=== PATIENT | male | born 1955 | race Caucasian/White ===

== ENCOUNTER 2020-01-29 09:06 | Outpatient (CLI) | payer MEDICARE, SELFPAY ==
[2020-01-29 09:56] LABS: Alanine Aminotransferase 15 U/L (4-50); Albumin Level 4.2 g/dL (3.5-5.1); Alkaline Phosphatase 75 U/L (38-126); Aspartate Amino Transferase 18 U/L (17-59); Bilirubin,Total 0.4 mg/dL (0.2-1.3); Blood Urea Nitrogen 24 mg/dL (9-20); Calcium 8.8 mg/dL (8.4-10.2); Carbon Dioxide 36 mmol/L (22-30); Chloride 101 mmol/L (98-107); Estimated Glomerular Filt Rate > 60; Glucose 114 mg/dL (75-110); Potassium 4.4 mmol/L (3.4-5.0); Sodium 142 mmol/L (137-145)
== END 2020-01-29 09:07 | disposition home or self-care (01) ==
PROVIDERS: PCP Family Medicine; Visit Provider Family Medicine
DX: I50.9 Heart failure, unspecified (principal)
CPT/HCPCS: 36415; 80053

== ENCOUNTER 2020-06-02 09:36 | Outpatient (CLI) | payer MEDICARE, SELFPAY ==
[2020-06-02 10:28] LABS: Alveolar/Arterial O2 Gradient 137.7 mmHg; Base Excess ABG 11.8 mEq/l (+/-2.0); Fractional Inspired Oxygen 40 %; HCO3 ABG 41.7 mEq/l (22.0-26.0); Oxygen Content ABG 16.7 %vol (16.0-22.0); PO2 ABG 52.4 mmHg (80.0-100.0); PO2 FiO2 Ratio Arterial Blood 1.31 %; Total Hemoglobin 14.3 g/dL (12.0-18.0); pH ABG 7.321 (7.350-7.450)
[2020-06-02 10:30] LABS: PCO2 ABG 82.7 mmHg (35.0-45.0)
[2020-06-02 10:31] LABS: Device NASAL CANNULA; Modified Allen's Test Pass; Oxygen Saturation ABG 82.4 % (95.0-100.0); Site Drawn LEFT RADIAL
--- NOTE | 2020-06-02 11:03 | PCRCNOTE ---
NATI SOTOMAYOR NOTIFIED OF CRITIAL ABG, PT WHEELED DOWN TO ER.
== END 2020-06-02 09:37 | disposition home or self-care (01) ==
PROVIDERS: PCP Family Medicine; Visit Provider Nurse Practitioner Family
DX: J96.11 Chronic respiratory failure with hypoxia (principal); J96.12 Chronic respiratory failure with hypercapnia
CPT/HCPCS: 36600; 82805

== ENCOUNTER 2020-06-02 10:45 | Inpatient (IN) | payer MEDICARE, SELFPAY ==
[2020-06-02] VITALS (22 sets, daily range): BP systolic 102–143; BP diastolic 47–79; PULSE 74–95; RESP 13–27; TEMP 36.1–36.8; O2SAT 90–99; BMI 46.5
--- NOTE | ~2020-06-02 | XR_ITS ---
EXAMINATION: XR chest 1V portable DATE: 06/02/2020 11:28 INDICATION: Shortness of breath with exertion. TECHNIQUE: A single frontal view of the chest was obtained on 2 radiographs. COMPARISON: Chest single view 10/17/2019, chest CT 06/11/2019 FINDINGS: There is mild atelectasis in the lingula. No pleural effusion or pneumothorax. Cardiomegaly is noted. There are old right rib fractures with chest wall deformity. IMPRESSION: 1. Mild atelectasis in the lingula. 2. Cardiomegaly. Reviewed, dictated and finalized at location A.
--- NOTE | ~2020-06-02 | CT_ITS ---
EXAMINATION:CT chest high resolution wo ne DATE: 06/05/2020 12:32 INDICATION: Worsening hypoxic respiratory failure. TECHNIQUE: Computed tomography (CT) of the chest was performed without intravenous contrast. Automate d exposure control and iterative reconstruction technique were employed. The dose-length product (DLP ) was 893.03 mGy-cm. COMPARISON: Chest CT 06/11/2019 FINDINGS: There is moderate emphysema. There is mild atelectasis bilaterally. There is chronic mild e levation of left hemidiaphragm. No pleural effusion. Cardiomegaly is noted. There are coronary artery calcifications. No pericardial effusion. There is a 2.8 cm mass in right adrenal gland measuring low -attenuation, consistent with an adenoma. Bilateral gynecomastia is noted. There are old right rib fr acture deformities. IMPRESSION: 1. Moderate emphysema. Reviewed, dictated and finalized at location A. IMPRESSION: 1. Moderate emphysema.
--- NOTE | 2020-06-02 11:03 | ECG_ITS ---
Measurements Intervals [place] Rate: 80 P: 44 PA: 182 QRS: -71 QRSD: 101 T: 12 QT: 363 QTc: 421 Interpretive Statements SINUS RHYTHM LEFT AXIS DEVIATION POOR R WAVE PROGRESSION, ANTERIOR LEADS INFERIOR INFARCT, AGE INDETERMINATE BASELINE ARTIFACT- I, II, III, AVR, AVL, AVF ABNORMAL ECG Electronically Signed On 06-02-2020 11:42:22 CDT by Cm Mcrae D.O.
[2020-06-02 11:16] LABS: Basophils Percent Auto 0.5 % (0.2-1.2); Eosinophils Absolute Auto 0.1 K/mm3 (0-0.3); Eosinophils Percent Auto 1.2 % (0-4.4); Hematocrit 48.5 % (42.0-52.0); Hemoglobin 13.6 g/dL (14.0-18.0); Immature Granulocyte Absolute 0.06 K/mm3 (0.00-0.031); Immature Granulocyte Percent A 0.8 % (0-0.5); Lymphocytes Absolute Auto 0.98 K/mm3 (0.9-3.2); Lymphocytes Percent Auto 12.6 % (18.3-44.2); Mean Corpuscular Hemoglobin 24.7 pg (26-34); Mean Platelet Volume 9.6 fl (7.4-10.4); Monocytes Absolute Auto 0.6 K/mm3 (0.1-0.6); Monocytes Percent Auto 7.5 % (2.6-8.5); Neutrophils Percent Auto 77.4 % (45.5-73.1); Platelet Count Result 229 k/mm3 (150-375); Red Blood Count 5.51 M/mm3 (4.6-6.20); Red Cell Distribution Width 15.1 % (11.5-14.5); White Blood Count 7.8 K/mm3 (4.5-10.0)
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
[2020-06-02 11:22] LABS: Platelet Estimate Adequate (Adequate); Stomatocytes 1+ (NORMAL)
[2020-06-02 11:32] LABS: Blood Urea Nitrogen 25 mg/dL (9-20); Calcium 8.2 mg/dL (8.4-10.2); Carbon Dioxide > 40 mmol/L (22-30); Chloride 96 mmol/L (98-107); Estimated CRCL calculation 85 ml/min; Estimated Glomerular Filt Rate > 60; Glucose 80 mg/dL (75-110); Potassium 4.9 mmol/L (3.4-5.0); Sodium 141 mmol/L (137-145)
[2020-06-02] MEDS: methylPREDNISolone SOD SUCC 125 MG VIAL IV PUSH (11:46)
[2020-06-02 12:01] LABS: NT Pro B Type Natriuretic Pept 1410 PG/ML (5-100); Troponin I < 0.012 ng/mL (0.000-0.034)
[2020-06-02] MEDS: FUROSEMIDE INJ 40 MG/4 ML VIAL IV PUSH ×2 (12:31→18:41)
[2020-06-02 12:43] LABS: Alveolar/Arterial O2 Gradient 110.2 mmHg; Base Excess ABG 13.2 mEq/l (+/-2.0); Fractional Inspired Oxygen 35 %; HCO3 ABG 43.7 mEq/l (22.0-26.0); Oxyhemoglobin 65.1 % THb (90.0-100.0); PO2 FiO2 Ratio Arterial Blood 1.05 %; Total Hemoglobin 14.2 g/dL (12.0-18.0); pH ABG 7.313 (7.350-7.450)
[2020-06-02 12:49] LABS: PCO2 ABG 88.1 mmHg (35.0-45.0); PO2 ABG 36.9 mmHg (80.0-100.0)
[2020-06-02 12:50] LABS: Device BIPAP; Modified Allen's Test Pass; Oxygen Saturation ABG 61.9 % (95.0-100.0); Site Drawn RIGHT RADIAL
[2020-06-02 12:51] LABS: Expiratory Pressure 8 cmH2O; Inspiratory Pressure 18 cmH2O
--- NOTE | 2020-06-02 13:02 | PC.NURSE ---
PT CAUGHT STANDING TO URINATE, PT IS FALL RISK, CALL LIGHT WAS AT BEDSIDE, PT RE-EDUCATED ON IT'S USE AND TOLD TO USE THE CALL LIGHT IF HE NEEDS TO URINATE.
[2020-06-02 13:23] LABS: Troponin I < 0.012 ng/mL (0.000-0.034)
--- NOTE | 2020-06-02 13:50 | PC.NURSE ---
AWAITING ED RESPIRATORY TO TRANSPORT PT ON BIPAP TO IMU.
--- NOTE | 2020-06-02 14:00 | PC.NURSE ---
This patient, Vimal Doty, was admitted to IMU Room 213-01. Patient/family oriented to hospital policies and general routines including ID bracelet, bed and alarms, visiting hours, pain management, procedures, bathroom and other care routines, personal items, smoking policy, room service/diet, and visiting hours. Valuables list has been completed. Information on how to activate the Rapid Response Team has been discussed. Patient/Family are encouraged to report perceived risks to care and to ask questions if they do not understand what they are told or what they should do.
--- NOTE | 2020-06-02 16:11 | PM.IMHP ---
H&P: HPI History of Present Illness Chief complaint: resp failure/COPD/CHF Narrative: Vimal Doty is a 64 year old male who has a history of diastolic congestive heart failure as well as COPD. The patient uses a trilogy at home and sees Dr. Buenrostro and Mathew buck for his COPD and his trilogy. The patient stated that he uses his trilogy at home as prescribed. But the patient states he has been resting a lot and feel tired all the time. He says that he uses oxygen 2-3 L inside and goes up to 5 L outside sometimes. The patient has been feeling bad for the last 3 weeks and has been coughing. But no fever chills. Patient was placed on a BiPAP machine. Arterial blood gas pH 7.3-1 and the 2nd was 7.313 pCO2 was 82.7 and 80.1 PO2 was 52.4 than 36.9. Patient's chest x-ray was read as mild atelectasis in the lingular and cardiomegaly. Patient was started on Lasix and Solu-Medrol. Patient was admitted to IMU. Date of service 06/02/2020 Review of Systems Review of Systems: All systems reviewed & are unremarkable except as noted in HPI and below Constitutional: Constitutional: Reports as per HPI and Reports no additional constitutional complaints Eyes: Eyes: Reports as per HPI and Reports no additional eye complaints ENT: Reports system reviewed and no additional complaints, except as documented and Reports Normal hearing present Cardiovascular: Cardiovascular: Reports no additional cardiovascular complaints Respiratory: Respiratory: Reports no additional respiratory complaints and Reports no additional respiratory complaints Gastrointestinal: Gastrointestinal: Reports as per HPI and Reports no additional gastrointestinal complaints Musculoskeletal: Musculoskeletal: Reports no additional musculoskeletal complaints Integumentary/Breasts: Skin/Breast: Reports system reviewed and no additional complaints, except as docu and Reports as per HPI Neurologic: Reports system reviewed and no additional complaints, except as documented, Reports as per HPI and Reports Normal hearing present Psychiatric: Psychiatric: Reports no additional psychiatric complaints and Reports as per HPI Endocrine: Endocrine: Reports no additional endocrine complaints Hematologic/Lymphatic: Hematologic/Lymphatic: Reports no additional hematologic/lymphatic complaints Allergic/Immunologic: Allergic/Immunologic: Reports no additional allergic/immunologic complaints [facility] Past Medical History Medical History (Updated 06/02/20 @ 16:34 by Ileana Ac NP) Acute on chronic respiratory failure with hypoxia and hypercapnia On chronic home O2 of 3 L nasal cannula. History of prior intubation October 2018 Anxiety Arthritis Atrial flutter Paroxysmal AFib with cardioversion April 2013 and October 23, 2019 BPH (benign prostatic hyperplasia) Bronchitis CHF (congestive heart failure) Last echocardiogram EF was 55% prior echocardiogram previous year demonstrated borderline left ventricular systolic function and diastolic dysfunction grade 1 Chronic constipation COPD (chronic obstructive pulmonary disease) Emphysema, unspecified GI bleed History of cardioversion History of tobacco abuse Hypertension Hypertensive CHF Morbid obesity with BMI of 45.0-49.9, adult Pneumonia Psoriasis Pulmonary hypertension RVSP 59 on echo from July 2019 Rectal bleeding Sleep apnea Home BiPAP 12/05 Surgical History Surgical History H/O arthroscopy of left knee History of tonsillectomy 1966 Hx of cardiac cath Left tibial fracture Family History Family History Mother Breast cancer Rheumatoid arthritis Hypertension Father Skin cancer With metastases to bone and brain Mother Family history of arthritis Family history of congestive heart failure Father Family history of malignant neoplasm of bone Other Diabetes mellitus Social History Social H
[2020-06-02 16:50] LABS: Alveolar/Arterial O2 Gradient 51.9 mmHg; Base Excess ABG 8.2 mEq/l (+/-2.0); Fractional Inspired Oxygen 30 %; HCO3 ABG 38.4 mEq/l (22.0-26.0); Oxygen Content ABG 18.2 %vol (16.0-22.0); Oxyhemoglobin 88.8 % THb (90.0-100.0); PO2 ABG 64.8 mmHg (80.0-100.0); PO2 FiO2 Ratio Arterial Blood 2.16 %; Total Hemoglobin 14.6 g/dL (12.0-18.0)
[2020-06-02 17:20] LABS: Device NON-INVASIVE VENT; Modified Allen's Test Pass; PCO2 ABG 82.7 mmHg (35.0-45.0); Site Drawn RIGHT RADIAL; pH ABG 7.285 (7.350-7.450)
[2020-06-02 17:21] LABS: Non-Invasive Expiratory Pressure 8 CMH2O; Non-Invasive Inspiratory Pressure 18 CMH2O; Non-Invasive Vent Rate 14 /MIN
[2020-06-02 18:28] LABS: Alveolar/Arterial O2 Gradient 60.8 mmHg; Base Excess ABG 11.3 mEq/l (+/-2.0); Fractional Inspired Oxygen 30 %; HCO3 ABG 41.7 mEq/l (22.0-26.0); Oxygen Content ABG 17.1 %vol (16.0-22.0); Oxyhemoglobin 83.5 % THb (90.0-100.0); PO2 ABG 52.9 mmHg (80.0-100.0); PO2 FiO2 Ratio Arterial Blood 1.76 %; Total Hemoglobin 14.6 g/dL (12.0-18.0); pH ABG 7.307 (7.350-7.450)
[2020-06-02 18:29] LABS: Oxygen Saturation ABG 82.2 % (95.0-100.0); PCO2 ABG 85.3 mmHg (35.0-45.0)
[2020-06-02 18:30] LABS: Device NON-INVASIVE VENT; Modified Allen's Test Pass; Non-Invasive Vent Rate 14 /MIN; Site Drawn RIGHT RADIAL
[2020-06-02 18:31] LABS: Non-Invasive Expiratory Pressure 8 CMH2O; Non-Invasive Inspiratory Pressure 18 CMH2O
--- NOTE | 2020-06-02 18:36 | PM.CNPUL ---
Assessment and Plan Assessment and plan (1) Acute on chronic respiratory failure with hypoxia and hypercapnia: Code(s): J96.21 - Acute and chronic respiratory failure with hypoxia; J96.22 - Acute and chronic respiratory failure with hypercapnia Status: Chronic Assessment and Plan: (2) COPD exacerbation: Code(s): J44.1 - Chronic obstructive pulmonary disease with (acute) exacerbation Status: Acute Assessment and Plan: (3) Pulmonary hypertension: Code(s): I27.20 - Pulmonary hypertension, unspecified Status: Acute Assessment and Plan: (4) CHF (congestive heart failure): Qualifiers: Heart failure chronicity: chronic Heart failure type: diastolic Qualified Code(s): I50.32 - Chronic diastolic (congestive) heart failure Code(s): I50.9 - Heart failure, unspecified Status: Acute Assessment and Plan: (5) Morbid obesity: Code(s): E66.01 - Morbid (severe) obesity due to excess calories Status: Acute Assessment and Plan: (6) History of tobacco abuse: Code(s): Z87.891 - Personal history of nicotine dependence Status: Acute Assessment and Plan: History of Present Illness History of Present Illness Consult date: 06/03/20 Chief complaint: resp failure/COPD/CHF Narrative: Patient was seen and consult completed June 03, 2020 at 13:50 with his son at the bedside. Please see dictation #[id number]. He is our office patient admitted with acute on chronic hypercapneic Hypoxemic respiratory failure with increased sleepiness and fatigue over the last 2 weeks. He has been sleeping in 2-3 hour increments, using trilogy with all sleep and home oxygen. He had a cough with difficulty expectorating sputum, so this suggests a COPD exacerbation. He also appears to have decompensated congestive heart failure. He called our office yesterday, was sent for an arterial blood gas and had elevated pCO2 with a slightly decompensated pH. He is responding to BiPAP, and is now transitioning back to his trilogy. We are getting his compliance data from [facility]. They faxed the last 3 weeks of April compliance to his primary care doctor, not our office. They are sending it now and this will be reviewed. PLAN Will also start Acapella valve with Pulmozyme, mobilize secretions wean his steroids check echo lower FiO2, pO2 now > 100 on 40%; repeat ABG and see if his Trilogy needs adjustment. check compliance for Trilogy from April Will check his blood gases more often after discharge. If he decompensates, will start steroids earlier as an outpatient. He has been doing well has not been hospitalized for 8 months. Last year he had 3 admissions. He is not at risk for intubation right now, looking better. I appreciate Dr Otto, hospitalist and RT for all the help. Will follow with you. [facility] Past Medical History Medical History (Updated 06/03/20 @ 15:05 by Julianna Buenrostro MD) Acute on chronic respiratory failure with hypoxia and hypercapnia On chronic home O2 of 3 L nasal cannula. History of prior intubation October 2018 Anxiety Arthritis Atrial flutter Paroxysmal AFib with cardioversion April 2013 and October 23, 2019 BPH (benign prostatic hyperplasia) Bronchitis CHF (congestive heart failure) Last echocardiogram EF was 55% prior echocardiogram previous year demonstrated borderline left ventricular systolic function and diastolic dysfunction grade 1 Chronic constipation COPD (chronic obstructive pulmonary disease) Emphysema, unspecified GI blee
[2020-06-02] MEDS: APIXABAN 5 MG TABLET PO (20:18)
[2020-06-02] MEDS: METOPROLOL TARTRATE 25 MG TABLET PO (20:18)
[2020-06-02] MEDS: TAMSULOSIN HCL 0.4 MG CAPSULE PO (20:18)
[2020-06-02] MEDS: DRONEDARONE HCL 400 MG TABLET PO (20:18)
[2020-06-02] MEDS: ALBUTEROL SULFATE NEB 2.5 MG/3 ML INH INHALATION (21:16)
[2020-06-02] MEDS: BUDESONIDE RESPULE NEB 0.5 MG/2 ML AMP INHALATION (21:17)
[2020-06-02] MEDS: methylPREDNISolone SOD SUCC 125 MG VIAL 60 MG IV PUSH (22:18)
[2020-06-03] VITALS (28 sets, daily range): BP systolic 111–134; BP diastolic 49–76; PULSE 69–96; RESP 20–28; TEMP 36.1–36.6; O2SAT 90–100
[2020-06-03 00:18] LABS: Alveolar/Arterial O2 Gradient 134.3 mmHg; Base Excess ABG 11.2 mEq/l (+/-2.0); Carboxyhemoglobin 1.6 % THb (0-2.0); Fractional Inspired Oxygen 40 %; HCO3 ABG 40.6 mEq/l (22.0-26.0); Methemoglobin ABG 0.3 %THb (0-1.5); Modified Allen's Test Pass; Oxygen Content ABG 17.2 %vol (16.0-22.0); Oxygen Saturation ABG 88.7 % (95.0-100.0); Oxyhemoglobin 87.5 % THb (90.0-100.0); PO2 ABG 61.2 mmHg (80.0-100.0); PO2 FiO2 Ratio Arterial Blood 1.53 %; Reduced Hemoglobin 10.6 %THb (0-5.0); Site Drawn RIGHT RADIAL; pH ABG 7.334 (7.350-7.450)
[2020-06-03 00:19] LABS: Device NON-INVASIVE VENT
[2020-06-03 00:21] LABS: Non-Invasive Expiratory Pressure 8 CMH2O; Non-Invasive Inspiratory Pressure 22 CMH2O; Non-Invasive Vent Rate 20 /MIN
[2020-06-03 05:02] LABS: Basophils Percent Auto 0.2 % (0.2-1.2); Hematocrit 47.8 % (42.0-52.0); Hemoglobin 13.3 g/dL (14.0-18.0); Immature Granulocyte Absolute 0.02 K/mm3 (0.00-0.031); Immature Granulocyte Percent A 0.4 % (0-0.5); Lymphocytes Percent Auto 9.4 % (18.3-44.2); Mean Corpuscular HGB Conc 27.8 g/dl (32-36); Mean Corpuscular Hemoglobin 24.4 pg (26-34); Mean Corpuscular Volume 87.5 fl (80-100); Mean Platelet Volume 9.6 fl (7.4-10.4); Monocytes Absolute Auto 0.1 K/mm3 (0.1-0.6); Monocytes Percent Auto 1.7 % (2.6-8.5); Neutrophils Absolute Auto 4.7 K/mm3 (1.3-6.7); Neutrophils Percent Auto 88.3 % (45.5-73.1); Platelet Count Result 214 k/mm3 (150-375); Red Blood Count 5.46 M/mm3 (4.6-6.20); Red Cell Distribution Width 15.2 % (11.5-14.5); White Blood Count 5.3 K/mm3 (4.5-10.0)
[2020-06-03 05:29] LABS: Alanine Aminotransferase 13 U/L (4-50); Albumin Level 3.7 g/dL (3.5-5.1); Alkaline Phosphatase 66 U/L (38-126); Aspartate Amino Transferase 14 U/L (17-59); Bilirubin,Total 0.5 mg/dL (0.2-1.3); Blood Urea Nitrogen 30 mg/dL (9-20); CRP 1.1 mg/dL (<1.0); Calcium 7.9 mg/dL (8.4-10.2); Carbon Dioxide > 40 mmol/L (22-30); Chloride 94 mmol/L (98-107); Estimated CRCL calculation 92 ml/min; Estimated Glomerular Filt Rate > 60; Glucose 133 mg/dL (75-110); Lipase 30 U/L (23-300); Magnesium 2.4 mg/dL (1.6-2.3); Phosphorus 4.4 mg/dL (2.5-4.5); Potassium 4.7 mmol/L (3.4-5.0); Sodium 139 mmol/L (137-145)
[2020-06-03 05:57] LABS: Thyroid Stimulating Hormone Reflex 0.339 uIU/mL (0.465-4.68)
[2020-06-03] MEDS: methylPREDNISolone SOD SUCC 125 MG VIAL 60 MG IV PUSH (06:00)
[2020-06-03 06:51] LABS: Free T4 Free Thyroxine Reflex 0.91 ng/dL (0.78-2.19)
[2020-06-03 08:02] LABS: Total Triiodothyronine (T3) 0.93 NG/ML (0.97-1.69)
[2020-06-03] MEDS: BUDESONIDE RESPULE NEB 0.5 MG/2 ML AMP INHALATION ×2 (08:46→20:10)
[2020-06-03] MEDS: PANTOPRAZOLE 40 MG TABLET PO (09:26)
[2020-06-03 09:27] LABS: CRP 0.9 mg/dL (<1.0); Lactate Dehydrogenase 390 U/L (313-618)
[2020-06-03] MEDS: DRONEDARONE HCL 400 MG TABLET PO ×2 (09:27→20:45)
[2020-06-03] MEDS: METOPROLOL TARTRATE 25 MG TABLET PO ×2 (09:27→20:46)
[2020-06-03] MEDS: ROFLUMILAST 500 MCG TABLET PO (09:28)
[2020-06-03] MEDS: APIXABAN 5 MG TABLET PO ×2 (09:28→17:53)
[2020-06-03] MEDS: POTASSIUM CHLORIDE 20 MEQ TABLET.ER PO (09:29)
[2020-06-03] MEDS: FUROSEMIDE INJ 40 MG/4 ML VIAL IV PUSH ×2 (09:29→17:53)
[2020-06-03] MEDS: polyethylene glycoL 3350 17 GM POWD.PACK PO (09:30)
[2020-06-03 12:23] LABS: Alveolar/Arterial O2 Gradient 97.8 mmHg; Base Excess ABG 9.8 mEq/l (+/-2.0); Fractional Inspired Oxygen 40 %; HCO3 ABG 38.7 mEq/l (22.0-26.0); Methemoglobin ABG 0.2 %THb (0-1.5); Oxygen Content ABG 19.5 %vol (16.0-22.0); Oxygen Saturation ABG 97.2 % (95.0-100.0); Oxyhemoglobin 95.9 % THb (90.0-100.0); PO2 ABG 103.2 mmHg (80.0-100.0); PO2 FiO2 Ratio Arterial Blood 2.58 %; Reduced Hemoglobin 2.9 %THb (0-5.0); Total Hemoglobin 14.4 g/dL (12.0-18.0); pH ABG 7.341 (7.350-7.450)
[2020-06-03 12:25] LABS: Device NON-INVASIVE VENT; Modified Allen's Test Pass; Non-Invasive Expiratory Pressure 8 CMH2O; Non-Invasive Inspiratory Pressure 22 CMH2O; Non-Invasive Vent Rate 20 /MIN; PCO2 ABG 73.2 mmHg (35.0-45.0); Site Drawn LEFT RADIAL
--- NOTE | 2020-06-03 12:47 | PM.IMPN ---
Progress Note: A&P Assessment and Plan (1) Acute on chronic respiratory failure with hypoxia and hypercapnia: Code(s): J96.21 - Acute and chronic respiratory failure with hypoxia; J96.22 - Acute and chronic respiratory failure with hypercapnia Status: Chronic Assessment and Plan: -----the patient has chronic respiratory failure which has worsened this hospital stay. On admission his CO2 was significantly elevated at a max of 88.1. He did become acidotic briefly with this with a pH of 7.285. He has been on the BiPAP now overnight and throughout the day which has improved his CO2 to 73.2. With that being said, this is still pretty high for him. It looks like in the chart his co2 was 58.8 last September. He does have a trilogy at home which implies that he has chronic issues with this. His pH is still abnormal at 7.341 but improving. Bicarb is 38.7 and is expected to increase with this hypercapnia. I spoke with respiratory at bedside who is now taking him off his BiPAP and putting him on his trilogy. We will repeat an ABG after being on his trilogy to see how his blood gas does. If it worsens, the trilogy may need to be adjusted. I do not suspect PE or infection at this time but will monitor for symptoms. Patient's white blood cell count is normal and he has not had any temperatures. Patient is on Eliquis and PE seems less likely. (2) COPD exacerbation: Code(s): J44.1 - Chronic obstructive pulmonary disease with (acute) exacerbation Status: Acute Assessment and Plan: -----continue. IV Solu-Medrol and inhalers. Nebulizer treatments. Patient had decreased breath sounds today. (3) CHF (congestive heart failure): Qualifiers: Heart failure chronicity: unspecified Heart failure type: unspecified Qualified Code(s): I50.9 - Heart failure, unspecified Code(s): I50.9 - Heart failure, unspecified Status: Acute Assessment and Plan: -------BNP more elevated than his baseline but could be due to lung disease. At this time we will Continue IV Lasix but will likely transition to his home dosing tomorrow as long as he does okay. (4) Hypertension: Qualifiers: Hypertension type: essential hypertension Qualified Code(s): I10 - Essential (primary) hypertension Code(s): I10 - Essential (primary) hypertension Status: Acute Assessment and Plan: -----last blood pressure 123/57. Continue Lopressor and Lasix. (5) Sleep apnea: Qualifiers: Sleep apnea type: obstructive Qualified Code(s): G47.33 - Obstructive sleep apnea (adult) (pediatric) Code(s): G47.30 - Sleep apnea, unspecified Status: Acute Assessment and Plan: -----continue trilogy as stated above (6) Atrial flutter: Qualifiers: Atrial flutter type: unspecified Qualified Code(s): I48.92 - Unspecified atrial flutter Code(s): I48.92 - Unspecified atrial flutter Status: Acute Assessment and Plan: ------continue with Eliquis and metoprolol (7) BPH (benign prostatic hyperplasia): Code(s): N40.0 - Benign prostatic hyperplasia without lower urinary tract symptoms Status: Acute Assessment and Plan: -----Continue with Flomax Time Spent With Patient Time with patient: 25 - 35 minutes Subjective Date/time seen: 06/03/20 12:47 Interval history: Pt is a 64-year-old male here for COPD exacerbation on a BiPAP. Patient was seen today with BiPAP in place. He states he is feeling a lot better and is tired of the BiPAP. He had some shortness of breath earlier when he was moving around but overall doing better now. He denies chest pain, fevers, chills, nausea or vomiting. He said he has gets eye irritation with the BiPAP and usually likes eyedrops without preservative. He says he has been having more daytime sleepiness and shortness of breath throughout the last couple weeks and he was told t
--- NOTE | 2020-06-03 16:33 | PHAR ---
Refresh Relieva PF home med verified in pharmacy and sent to floor
[2020-06-03 17:05] LABS: Alveolar/Arterial O2 Gradient 132.6 mmHg; Base Excess ABG 8.1 mEq/l (+/-2.0); Fractional Inspired Oxygen 40 %; HCO3 ABG 36.5 mEq/l (22.0-26.0); Oxygen Content ABG 18.5 %vol (16.0-22.0); Oxygen Saturation ABG 93.4 % (95.0-100.0); Oxyhemoglobin 92.1 % THb (90.0-100.0); PO2 ABG 73.4 mmHg (80.0-100.0); PO2 FiO2 Ratio Arterial Blood 1.84 %; Total Hemoglobin 14.3 g/dL (12.0-18.0); pH ABG 7.342 (7.350-7.450)
[2020-06-03 17:06] LABS: Device NON-INVASIVE VENT; Modified Allen's Test Pass; PCO2 ABG 68.9 mmHg (35.0-45.0); Site Drawn LEFT RADIAL
--- NOTE | 2020-06-03 17:15 | PCRCNOTE ---
PATIENT WAS ON TRIOLOGY FOR 1700 BLOOD GAS RESULTS
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
[2020-06-03] MEDS: ALBUTEROL SULFATE NEB 2.5 MG/3 ML INH INHALATION (20:11)
[2020-06-03] MEDS: DORNASE ALFA INH SOLN 1 MG/ML 2.5 ML AMP 2.5 MG INHALATION (20:12)
[2020-06-03] MEDS: methylPREDNISolone SOD SUCC 40 MG VIAL IV PUSH (20:45)
[2020-06-03] MEDS: TAMSULOSIN HCL 0.4 MG CAPSULE PO (20:46)
[2020-06-03] MEDS: SENNOSIDES 8.6 MG TABLET PO (20:46)
[2020-06-04] VITALS (27 sets, daily range): BP systolic 98–128; BP diastolic 54–91; PULSE 71–88; RESP 20–24; TEMP 35.7–36.7; O2SAT 88–97
[2020-06-04] MEDS: ALBUTEROL SULFATE NEB 2.5 MG/0.5 ML INH INHALATION ×4 (01:40→20:02)
[2020-06-04] MEDS: IPRATROPIUM BR 0.02% INH SOLN 0.5 MG/2.5 ML VIAL INHALATION ×4 (01:41→20:02)
[2020-06-04 07:50] LABS: Blood Urea Nitrogen 41 mg/dL (9-20); Carbon Dioxide > 40 mmol/L (22-30); Chloride 92 mmol/L (98-107); Estimated CRCL calculation 91 ml/min; Estimated Glomerular Filt Rate > 60; Glucose 111 mg/dL (75-110); Potassium 4.5 mmol/L (3.4-5.0); Sodium 136 mmol/L (137-145)
[2020-06-04] MEDS: DORNASE ALFA INH SOLN 1 MG/ML 2.5 ML AMP 2.5 MG INHALATION ×2 (07:53→20:03)
[2020-06-04] MEDS: BUDESONIDE RESPULE NEB 0.5 MG/2 ML AMP INHALATION ×2 (07:55→20:03)
[2020-06-04] MEDS: PANTOPRAZOLE 40 MG TABLET PO (08:57)
[2020-06-04] MEDS: polyethylene glycoL 3350 17 GM POWD.PACK PO (08:57)
[2020-06-04] MEDS: METOPROLOL TARTRATE 25 MG TABLET PO ×2 (08:57→20:24)
[2020-06-04] MEDS: methylPREDNISolone SOD SUCC 40 MG VIAL IV PUSH ×2 (08:57→20:24)
[2020-06-04] MEDS: FUROSEMIDE INJ 40 MG/4 ML VIAL IV PUSH (08:57)
[2020-06-04] MEDS: APIXABAN 5 MG TABLET PO ×2 (08:58→16:35)
[2020-06-04] MEDS: POTASSIUM CHLORIDE 20 MEQ TABLET.ER PO (08:58)
[2020-06-04] MEDS: ROFLUMILAST 500 MCG TABLET PO (08:58)
[2020-06-04] MEDS: DRONEDARONE HCL 400 MG TABLET PO ×2 (08:58→20:24)
--- NOTE | 2020-06-04 09:40 | P.CDI_ITS ---
CDI Query Clarification Request -CHF has been documented on problem list, chronicity unspecified, and BNP more elevated than his baseline but could be due to lung disease. At this time we will Continue IV Lasix but will likely transition to his home dosing tomorrow as long as he does okay. -Ileana has documented, history of diastolic CHF in H&P -Lasix 40mg IV BID ordered Please clarify acuity of CHF: * Chronic * Acute on chronic * Unable to determine
--- NOTE | 2020-06-04 12:11 | PM.PNPUL ---
Progress Note: A&P Assessment and Plan (1) Chronic respiratory failure with hypoxia and hypercapnia: Code(s): J96.11 - Chronic respiratory failure with hypoxia; J96.12 - Chronic respiratory failure with hypercapnia Status: Acute Assessment and Plan: May need change to current [facility] setting. - Further recommendations to follow. - will order HRCT of the chest to bettter r/o underlying ILD, pneumonias that may not easily be seen on CXR. (2) COPD (chronic obstructive pulmonary disease): Qualifiers: COPD type: unspecified COPD Qualified Code(s): J44.9 - Chronic obstructive pulmonary disease, unspecified Code(s): J44.9 - Chronic obstructive pulmonary disease, unspecified Status: Acute Subjective Date/time seen: 06/04/20 12:11 Interval history: Feeling much better on AVAPS Trilogy. Today's AB.34/68/73 on current setting of: TV 510 ml, EPAP max 15, EPAP Min 5, RR 18, Inspiratory Time 0.8, Pressure Support Max 22 and Min 5.0. Still no sputum production Review of Systems Review of Systems: All systems reviewed & are unremarkable except as noted in HPI and below Exam Const: General: comfortable and no acute distress Other: awake and alert Neck: Neck: supple and no JVD Resp: Auscultation: clear to auscultation bilaterally, no crackles, no rales, no rhonchi, no wheezes and diminished lung sounds Cardio: Rate: regular rate Rhythm: regular rhythm Heart sounds: no murmurs GI: Auscultation: normal bowel sounds Skin: General skin exam: normal color and no rashes or lesions noted Neuro: Cognition (Neuro): normal cognition Speech: normal speech Extrem: General: no edema and no pedal edema Objective Data Vital Signs Vital Signs: Vital Signs - 24 hr 06/03/20 14:00 06/03/20 14:09 06/03/20 16:00 Temperature 36.3 C L Pulse Rate 82 76 83 Respiratory Rate 22 H Blood Pressure 120/71 Pulse Oximetry 98 93 06/03/20 16:30 06/03/20 17:08 06/03/20 18:00 Temperature Pulse Rate 81 81 83 Respiratory Rate Blood Pressure Pulse Oximetry 90 94 06/03/20 19:51 06/03/20 20:00 06/03/20 20:12 Temperature 36.1 C L Pulse Rate 90 96 87 Respiratory Rate 20 20 Blood Pressure 130/74 Pulse Oximetry 94 95 95 06/03/20 20:28 06/03/20 20:45 06/03/20 20:46 Temperature Pulse Rate 91 88 88 Respiratory Rate 20 Blood Pressure Pulse Oximetry 06/03/20 22:00 06/03/20 23:54 06/04/20 00:00 Temperature 36.1 C L Pulse Rate 82 81 76 Respiratory Rate 24 H 24 H Blood Pressure 111/50 L Pulse Oximetry 91 88 L 06/04/20 01:40 06/04/20 01:51 06/04/20 02:00 Temperature Pulse Rate 81 82 73 Respiratory Rate 20 20 Blood Pressure Pulse Oximetry 91 06/04/20 04:00 06/04/20 05:48 06/04/20 07:55 Temperature 36.1 C L Pulse Rate 73 71 83 Respiratory Rate 22 H 20 Blood Pressure 98/54 L Pulse Oximetry 92 94 06/04/20 07:56 06/04/20 08:00 06/04/20 08:20 Temperature 35.7 C L Pulse Rate 83 77 82 Respiratory Rate 20 20 20 Blood Pressure 112/55 L Pulse Oximetry 89 L 06/04/20 08:57 06/04/20 08:58 06/04/20 10:00 Temperature Pulse Rate 86 86 82 Respiratory Rate Blood Pressure Pulse Oximetry 06/04/20 11:48 Temperature 36.1 C L Pulse Rate 78 Respiratory Rate 20 Blood Pressure 105/91 H Pulse Oximetry 97 Intake/Output Intake/Output: Intake & Output 06/01/20 06/02/20 06/03/20 06/04/20 23:59 23:59 23:59 23:59 Intake Total 240 4270 240 Output Total 700 4715 575 Balance -460 9932 -115 Meds/Results Medications: Active Medications Generic Name Dose Route Start Last Admin Trade Name Freq PRN Reason Stop Dose Admin Acetaminophen 650 mg 06/02/20 12:34 Tylenol Tablet PO Q4H PRN Mild Pain (1-3) or Fever Albuterol 2.5 mg 06/02/20 16:02 06/03/20 20:11 Albuterol Sulf Neb 2.5 Mg/3 Ml INHALATION 2.5 mg Q4-6H PRN Administration shortness of breath or wheezing [place]
--- NOTE | 2020-06-04 13:01 | PM.IMPN ---
Progress Note: A&P Assessment and Plan (1) Acute on chronic respiratory failure with hypoxia and hypercapnia: Code(s): J96.21 - Acute and chronic respiratory failure with hypoxia; J96.22 - Acute and chronic respiratory failure with hypercapnia Status: Chronic Assessment and Plan: -----the patient has chronic respiratory failure which has worsened this hospital stay. On admission his CO2 was significantly elevated at a max of 88.1. He did become acidotic with this with a pH as low as 7.285. He was started back on his trilogy and his blood gas is better, but still could be improved. I believe pulmonology is looking into adjusting his settings. He is now on IV steroids 40 mg every 12 hours. It looks like in the chart his co2 was 58.8 last September. I do not suspect PE or infection at this time but will monitor for symptoms. Patient's white blood cell count is normal and he has not had any temperatures. Patient is on Eliquis and PE seems less likely. (2) COPD exacerbation: Code(s): J44.1 - Chronic obstructive pulmonary disease with (acute) exacerbation Status: Acute Assessment and Plan: -----continue. IV Solu-Medrol and inhalers. Nebulizer treatments. Patient had decreased breath sounds today. (3) CHF (congestive heart failure): Qualifiers: Heart failure chronicity: unspecified Heart failure type: unspecified Qualified Code(s): I50.9 - Heart failure, unspecified Code(s): I50.9 - Heart failure, unspecified Status: Acute Assessment and Plan: -------Chronic. BNP more elevated than his baseline but could be due to lung disease. Lasix back to his home dose. (4) Hypertension: Qualifiers: Hypertension type: essential hypertension Qualified Code(s): I10 - Essential (primary) hypertension Code(s): I10 - Essential (primary) hypertension Status: Acute Assessment and Plan: -----last blood pressure 105/91. Continue Lopressor and Lasix. (5) Sleep apnea: Qualifiers: Sleep apnea type: obstructive Qualified Code(s): G47.33 - Obstructive sleep apnea (adult) (pediatric) Code(s): G47.30 - Sleep apnea, unspecified Status: Acute Assessment and Plan: -----continue trilogy as stated above (6) Atrial flutter: Qualifiers: Atrial flutter type: unspecified Qualified Code(s): I48.92 - Unspecified atrial flutter Code(s): I48.92 - Unspecified atrial flutter Status: Acute Assessment and Plan: ------continue with Eliquis and metoprolol (7) BPH (benign prostatic hyperplasia): Code(s): N40.0 - Benign prostatic hyperplasia without lower urinary tract symptoms Status: Acute Assessment and Plan: -----Continue with Flomax Subjective Date/time seen: 06/04/20 13:02 Interval history: Patient is a 64-year-old male here for acute on chronic respiratory failure. Patient was seen today and states he is feeling much better today. He was able to get up and shave and he felt like he was not short of breath. His oxygen saturation did drop during this to about 87. He is eating and drinking well and still feels a bit constipated. He has not had any cough, fevers, chills, or chest pain. Exam Narrative: Exam Narrative: General: Overweight patient resting comfortably in the chair in no acute distress HEENT: normocephalic Neck: supple Neuro: Alert and oriented x4 CV:RRR with distant heart sounds due to body habitus. Telemetry reviewed which showed hypoxia early in the morning/overnight with desaturations down to 68 Resp:Decreased breath sounds with no wheezing. Trilogy in place. Able to speak in full sentences without conversational dyspnea or retractions Abd: Soft, non distended. No pain to palpation. Positive bowel sounds Extremities: No swelling, erythema, or pain to palpation. Objective Data Vital Signs Vital Signs: Vital Signs - 24
[2020-06-04] MEDS: PHARMACIST COMMUNICATION ORDER 1 EACH XX (16:37)
--- NOTE | 2020-06-04 16:49 | P.PNCROSS_ITS ---
Event Note Event Note Event Note: I changed his Trilogy breath rate from 18 to 20 with instructions from Alva Payan at [facility]. [facility]'s RT was able to make this change today, and the patient needs to have this changed today in order to have an ABG in am. This increase may increase his minute ventilation by a liter per minute, and improve his hypercapnea. The patient understands what is happenieng, and Yonas SALVADOR was at the bedside.
[2020-06-04] MEDS: TAMSULOSIN HCL 0.4 MG CAPSULE PO (20:24)
[2020-06-04] MEDS: SENNOSIDES 8.6 MG TABLET PO (20:24)
[2020-06-05] VITALS (14 sets, daily range): BP systolic 130–138; BP diastolic 66–85; PULSE 65–78; RESP 18–22; TEMP 36–36.6; O2SAT 92–98
[2020-06-05] MEDS: IPRATROPIUM BR 0.02% INH SOLN 0.5 MG/2.5 ML VIAL INHALATION ×2 (01:37→08:27)
[2020-06-05] MEDS: ALBUTEROL SULFATE NEB 2.5 MG/0.5 ML INH INHALATION ×2 (01:37→08:27)
[2020-06-05 05:24] LABS: Basophils Percent Auto 0.2 % (0.2-1.2); Hematocrit 44.2 % (42.0-52.0); Hemoglobin 12.7 g/dL (14.0-18.0); Immature Granulocyte Absolute 0.02 K/mm3 (0.00-0.031); Immature Granulocyte Percent A 0.3 % (0-0.5); Lymphocytes Percent Auto 9.1 % (18.3-44.2); Mean Corpuscular HGB Conc 28.7 g/dl (32-36); Mean Corpuscular Hemoglobin 24.6 pg (26-34); Mean Corpuscular Volume 85.5 fl (80-100); Mean Platelet Volume 10.6 fl (7.4-10.4); Monocytes Absolute Auto 0.3 K/mm3 (0.1-0.6); Monocytes Percent Auto 4.7 % (2.6-8.5); Neutrophils Absolute Auto 5.7 K/mm3 (1.3-6.7); Neutrophils Percent Auto 85.7 % (45.5-73.1); Platelet Count Result 235 k/mm3 (150-375); Red Blood Count 5.17 M/mm3 (4.6-6.20); Red Cell Distribution Width 14.9 % (11.5-14.5); White Blood Count 6.6 K/mm3 (4.5-10.0)
[2020-06-05 05:35] LABS: Blood Urea Nitrogen 34 mg/dL (9-20); Calcium 7.9 mg/dL (8.4-10.2); Carbon Dioxide 39 mmol/L (22-30); Chloride 93 mmol/L (98-107); Estimated CRCL calculation 109 ml/min; Estimated Glomerular Filt Rate > 60; Glucose 117 mg/dL (75-110); Magnesium 2.7 mg/dL (1.6-2.3); Potassium 4.8 mmol/L (3.4-5.0); Sodium 135 mmol/L (137-145)
[2020-06-05 08:27] LABS: Alveolar/Arterial O2 Gradient 115.4 mmHg; Base Excess ABG 5.2 mEq/l (+/-2.0); Fractional Inspired Oxygen 40 %; Oxygen Content ABG 18.5 %vol (16.0-22.0); Oxygen Saturation ABG 96.7 % (95.0-100.0); Oxyhemoglobin 95.4 % THb (90.0-100.0); PO2 ABG 96.4 mmHg (80.0-100.0); PO2 FiO2 Ratio Arterial Blood 2.41 %; Total Hemoglobin 13.7 g/dL (12.0-18.0); pH ABG 7.332 (7.350-7.450)
[2020-06-05] MEDS: BUDESONIDE RESPULE NEB 0.5 MG/2 ML AMP INHALATION (08:27)
[2020-06-05] MEDS: DORNASE ALFA INH SOLN 1 MG/ML 2.5 ML AMP 2.5 MG INHALATION (08:27)
[2020-06-05 08:28] LABS: PCO2 ABG 63.8 mmHg (35.0-45.0)
[2020-06-05 08:29] LABS: Modified Allen's Test Pass; Site Drawn LEFT RADIAL
[2020-06-05 08:30] LABS: Device NON-INVASIVE VENT
[2020-06-05] MEDS: polyethylene glycoL 3350 17 GM POWD.PACK PO (09:00)
[2020-06-05] MEDS: METOPROLOL TARTRATE 25 MG TABLET PO (09:00)
[2020-06-05] MEDS: FUROSEMIDE 40 MG TABLET PO (09:01)
[2020-06-05] MEDS: methylPREDNISolone SOD SUCC 40 MG VIAL IV PUSH (09:01)
[2020-06-05] MEDS: POTASSIUM CHLORIDE 20 MEQ TABLET.ER PO (09:01)
[2020-06-05] MEDS: PANTOPRAZOLE 40 MG TABLET PO (09:01)
[2020-06-05] MEDS: APIXABAN 5 MG TABLET PO (09:01)
[2020-06-05] MEDS: DRONEDARONE HCL 400 MG TABLET PO (09:01)
[2020-06-05] MEDS: ROFLUMILAST 500 MCG TABLET PO (09:01)
--- NOTE | 2020-06-05 09:52 | PM.PNPUL ---
Progress Note: A&P Assessment and Plan (1) Chronic respiratory failure with hypoxia and hypercapnia: Code(s): J96.11 - Chronic respiratory failure with hypoxia; J96.12 - Chronic respiratory failure with hypercapnia Status: Acute Assessment and Plan: RR increased to 20 from 18 on AVAPS mode Can be discharged home (2) COPD (chronic obstructive pulmonary disease): Qualifiers: COPD type: unspecified COPD Qualified Code(s): J44.9 - Chronic obstructive pulmonary disease, unspecified Code(s): J44.9 - Chronic obstructive pulmonary disease, unspecified Status: Acute Assessment and Plan: resume all home meds. would recommend discontinuing systemic steroids. f/u with us in 4-8 weeks in clinic Time Spent With Patient Time with patient: 15 - 25 minutes Subjective Date/time seen: 06/05/20 09:52 Interval history: RR on AVAPS Trilogy increased from 18 to 20 yesterday. ABG this morning shows PCO slightly better from 68 to 63 but ph is unchanged at 7.33. This could all be within the margin of error and not considered a significant change but patient feels well and is ready to go home Review of Systems Review of Systems: All systems reviewed & are unremarkable except as noted in HPI and below Exam Const: General: comfortable and no acute distress Other: awake and alert Neck: Neck: supple and no JVD Resp: Auscultation: clear to auscultation bilaterally, no crackles, no rales, no rhonchi, no wheezes and diminished lung sounds Cardio: Rate: regular rate Rhythm: regular rhythm Heart sounds: no murmurs GI: Auscultation: normal bowel sounds Skin: General skin exam: normal color and no rashes or lesions noted Neuro: Cognition (Neuro): normal cognition Speech: normal speech Extrem: General: no edema and no pedal edema Objective Data Vital Signs Vital Signs: Vital Signs - 24 hr 06/04/20 10:00 06/04/20 11:48 06/04/20 12:00 Temperature 36.1 C L Pulse Rate 82 78 74 Respiratory Rate 20 Blood Pressure 105/91 H Pulse Oximetry 97 06/04/20 14:00 06/04/20 14:05 06/04/20 14:15 Temperature Pulse Rate 78 78 78 Respiratory Rate 20 20 Blood Pressure Pulse Oximetry 06/04/20 14:53 06/04/20 16:00 06/04/20 18:00 Temperature 36.7 C Pulse Rate 78 79 84 Respiratory Rate 22 H Blood Pressure 121/88 Pulse Oximetry 94 96 06/04/20 20:00 06/04/20 20:03 06/04/20 20:19 Temperature 36.1 C L Pulse Rate 77 77 77 Respiratory Rate 20 22 H 20 Blood Pressure 128/57 L Pulse Oximetry 96 96 06/04/20 20:24 06/04/20 22:00 06/05/20 00:00 Temperature 36.1 C L Pulse Rate 88 76 75 Respiratory Rate 22 H Blood Pressure 136/66 Pulse Oximetry 94 06/05/20 01:37 06/05/20 01:46 06/05/20 02:00 Temperature Pulse Rate 70 71 74 Respiratory Rate 22 H 22 H Blood Pressure Pulse Oximetry 92 06/05/20 04:00 06/05/20 05:37 06/05/20 08:00 Temperature 36.0 C L Pulse Rate 76 72 65 Respiratory Rate 22 H 18 Blood Pressure 137/85 138/71 Pulse Oximetry 98 96 06/05/20 08:28 06/05/20 08:33 06/05/20 08:40 Temperature Pulse Rate 71 71 Respiratory Rate 20 20 Blood Pressure Pulse Oximetry 93 06/05/20 09:00 06/05/20 09:01 Temperature Pulse Rate 71 71 Respiratory Rate Blood Pressure Pulse Oximetry Intake/Output Intake/Output: Intake & Output 06/02/20 06/03/20 06/04/20 06/05/20 23:59 23:59 23:59 23:59 Intake Total 240 4270 1220 Output Total 593 3517 7776 248 Balance -460 3348 -23 -227 Meds/Results Medications: Active Medications Generic Name Dose Route Start Last Admin Trade Name Freq PRN Reason Stop Dose Admin Acetaminophen 650 mg 06/02/20 12:34 Tylenol Tablet PO Q4H PRN Mild Pain (1-3) or Fever Albuterol 2.5 mg 06/02/20 16:02 06/03/20 20:11 Albuterol Sulf Neb 2.5 Mg/3 Ml INHALATION 2.5 mg Q4-6H PRN Administration shortness of breath or wheezing Albuterol 2
--- NOTE | 2020-06-05 10:05 | PM.DS ---
DS: Admitting Diagnosis Admitting Diagnosis Admitting Diagnosis: Heart failure, unspecified DS: Discharge Diagnosis Discharge Diagnosis (1) Acute on chronic respiratory failure with hypoxia and hypercapnia: Code(s): J96.21 - Acute and chronic respiratory failure with hypoxia; J96.22 - Acute and chronic respiratory failure with hypercapnia Status: Chronic Assessment and Plan: -----the patient had acute on chronic respiratory failure with respiratory acidosis with elevated CO2 during his stay. This improved with bipap, trilogy and steroids. The patient feels much better and ready for discharge. He had a high-resolution CT which showed moderate emphysema. He also so pulmonology during his stay and is going to follow up with them outpatient. I do not suspect PE or infection at this time but will monitor for symptoms. Patient's white blood cell count is normal and he has not had any temperatures. Patient is on Eliquis and PE seems less likely. (2) COPD exacerbation: Code(s): J44.1 - Chronic obstructive pulmonary disease with (acute) exacerbation Status: Acute Assessment and Plan: -----continue steroid taper outpatient (3) CHF (congestive heart failure): Qualifiers: Heart failure chronicity: unspecified Heart failure type: unspecified Qualified Code(s): I50.9 - Heart failure, unspecified Code(s): I50.9 - Heart failure, unspecified Status: Acute Assessment and Plan: -------Chronic. BNP more elevated than his baseline but could be due to lung disease. Lasix back to his home dose. (4) Hypertension: Qualifiers: Hypertension type: essential hypertension Qualified Code(s): I10 - Essential (primary) hypertension Code(s): I10 - Essential (primary) hypertension Status: Acute Assessment and Plan: -----last blood pressure 130/67. Continue Lopressor and Lasix. (5) Sleep apnea: Qualifiers: Sleep apnea type: obstructive Qualified Code(s): G47.33 - Obstructive sleep apnea (adult) (pediatric) Code(s): G47.30 - Sleep apnea, unspecified Status: Acute Assessment and Plan: -----continue trilogy outpatient (6) Atrial flutter: Qualifiers: Atrial flutter type: unspecified Qualified Code(s): I48.92 - Unspecified atrial flutter Code(s): I48.92 - Unspecified atrial flutter Status: Acute Assessment and Plan: ------continue with Eliquis and metoprolol (7) BPH (benign prostatic hyperplasia): Code(s): N40.0 - Benign prostatic hyperplasia without lower urinary tract symptoms Status: Acute Assessment and Plan: -----Continue with Flomax DS: Summary Hospital Course Reason for hospitalization: Acute on chronic respiratory failure Hospital Course: Patient is 65-year-old male with chronic respiratory failure on trilogy and CHF who presented emergency room for increased daytime sleepiness, worsening shortness of breath, and dyspnea on exertion. Vitals in the ER were stable and he was 95% on his oxygen. Blood gas showed respiratory acidosis 7.321, CO2 82.7, PO2 52.4, bicarb 41.7, oxygen saturation 82.4. Patient was placed on BiPAP. Read mild atelectasis and cardiomegaly. Patient was admitted to the hospitalist service and continued on BiPAP and his ABGs were repeated. He initially worsened but then improved. He was transition from his BiPAP to his trilogy and his trilogy was then adjusted as well. This improved his ABG and overall function. The day of discharge the patient was back to his baseline and feeling much better. He was no longer having worsening shortness of breath or daytime sleepiness. He underwent a CT high-resolution which showed moderate emphysema. He did see pulmonology why he was here and received IV steroids. He was sent home on on oral steroid taper. Overall, the patient had a lot of improvement while hospitalized
[2020-06-05] MEDS: FUROSEMIDE 20 MG TABLET PO (13:23)
== END 2020-06-05 13:50 | disposition home or self-care (01) | DRG 190 ==
LOC: ANHED 11:26 → ANHIMU 13:18
PROVIDERS: Family Medicine; Internal Medicine Critical Care Medicine; Nurse Practitioner; Admitting Provider Internal Medicine; Emergency Provider Emergency Medicine; PCP Family Medicine; Visit Provider Physician Assistant
DX: J43.9 Emphysema, unspecified (principal); J96.22 Acute and chronic respiratory failure with hypercapnia; J96.21 Acute and chronic respiratory failure with hypoxia; I48.92 Unspecified atrial flutter; Z68.42 Body mass index [BMI] 45.0-49.9, adult; I50.32 Chronic diastolic (congestive) heart failure; I11.0 Hypertensive heart disease with heart failure; M19.90 Unspecified osteoarthritis, unspecified site; K59.00 Constipation, unspecified; G47.33 Obstructive sleep apnea (adult) (pediatric); N40.0 Benign prostatic hyperplasia without lower urinary tract symptoms; I27.20 Pulmonary hypertension, unspecified; H01.003 Unspecified blepharitis right eye, unspecified eyelid; L40.9 Psoriasis, unspecified; E66.01 Morbid (severe) obesity due to excess calories; Z99.81 Dependence on supplemental oxygen; Z87.891 Personal history of nicotine dependence
CPT/HCPCS: 36415; 36600; 71045; 71250; 80048; 80053; 82375; 82728; 82805; 83050; 83615; 83690; 83735; 83880; 84100; 84439; 84443; 84480; 84484; 85025; 86140; 93005; 94002; 94640; 94667; 94668; 96374; 96375; 99285; A9270; J1940; J2920; J2930

== ENCOUNTER 2020-07-08 10:18 | Outpatient (CLI) | payer MEDICARE, SELFPAY ==
[2020-07-08 11:05] LABS: Alanine Aminotransferase 18 U/L (4-50); Alkaline Phosphatase 72 U/L (38-126); Anion Gap 5 mmol/L (8-16); Aspartate Amino Transferase 17 U/L (17-59); Bilirubin,Total 0.2 mg/dL (0.2-1.3); Blood Urea Nitrogen 19 mg/dL (9-20); Calcium 8.5 mg/dL (8.4-10.2); Carbon Dioxide 36 mmol/L (22-30); Chloride 101 mmol/L (98-107); Cholesterol 169 mg/dL (0-200); Estimated Glomerular Filt Rate > 60; Glucose 101 mg/dL (75-110); HDL Direct 37 mg/dL; Potassium 4.3 mmol/L (3.4-5.0); Sodium 142 mmol/L (137-145); Triglycerides 133 mg/dL (<150)
[2020-07-08 11:16] LABS: LDL Cholesterol Direct 110 mg/dL
== END 2020-07-08 10:19 | disposition home or self-care (01) ==
PROVIDERS: Visit Provider Physician Assistant
DX: E66.01 Morbid (severe) obesity due to excess calories (principal); E78.5 Hyperlipidemia, unspecified; I10 Essential (primary) hypertension; E05.90 Thyrotoxicosis, unspecified without thyrotoxic crisis or storm; R79.89 Other specified abnormal findings of blood chemistry
CPT/HCPCS: 36415; 80053; 80061; 84443

== ENCOUNTER 2020-09-03 07:48 | Outpatient (CLI) | payer MEDICARE, SELFPAY ==
--- NOTE | ~2020-09-03 | XR_ITS ---
EXAMINATION: XR chest 2V EXAM DATE: 09/03/2020 08:20 INDICATION: Shortness of breath for 2 months. TECHNIQUE: Frontal and lateral projections of the chest obtained and reviewed. Comparison is made to prior examination from 06/02/2020. FINDINGS: Interval normalization of cardiac size. Chronic left basilar subsegmental atelectasis. No acute airspace disease or pneumothorax. Mild to moderate chronic hyperinflation. Right lateral rib ab normalities. IMPRESSION: 1. Chronic left basilar atelectasis. Reviewed, dictated and finalized at location B.
== END 2020-09-03 07:49 | disposition home or self-care (01) ==
LOC: ANHIMG 07:56
PROVIDERS: PCP Family Medicine; Visit Provider Nurse Practitioner Family
DX: R05 Cough (principal); R06.02 Shortness of breath; R91.8 Other nonspecific abnormal finding of lung field
CPT/HCPCS: 71046

== ENCOUNTER 2020-09-08 09:35 | Inpatient (IN) | payer MEDICARE, SELFPAY ==
[2020-09-08] VITALS (46 sets, daily range): BP systolic 105–156; BP diastolic 54–114; PULSE 75–100; RESP 9–37; TEMP 36.1–36.6; O2SAT 88–100; BMI 40.0
--- NOTE | ~2020-09-08 | XR_ITS ---
EXAMINATION: XR chest 1V portable DATE: 09/08/2020 11:08 INDICATION: Shortness of breath. TECHNIQUE: A single frontal view of the chest was obtained. COMPARISON: Chest 2 views 09/03/2020, chest CT 06/05/2020 FINDINGS: There are lucencies in the lungs, consistent with emphysema. There is mild atelectasis at t he lung bases. No pleural effusion or pneumothorax. Cardiomegaly is noted. There are prominent paraca rdial fat pads. There are multiple old right rib deformities. IMPRESSION: 1. Mild atelectasis at the lung bases. 2. Emphysema. 3. Cardiomegaly. Reviewed, dictated and finalized at location A.
--- NOTE | 2020-09-08 09:43 | ECG_ITS ---
Measurements Intervals [place] Rate: 87 P: 48 [place]: 183 QRS: -61 QRSD: 111 T: 20 QT: 363 QTc: 438 Interpretive Statements SINUS RHYTHM LEFT AXIS DEVIATION BORDERLINE R WAVE PROGRESSION, ANTERIOR LEADS INFERIOR INFARCT, AGE INDETERMINATE BASELINE ARTIFACT- I, III, AVL, AVF ABNORMAL ECG Electronically Signed On 09-08-2020 9:48:08 CDT by Cm Mcrae D.O.
[2020-09-08 09:56] LABS: Basophils Absolute Auto 0.1 K/mm3 (0.0-0.1); Basophils Percent Auto 0.6 % (0.2-1.2); Eosinophils Absolute Auto 0.1 K/mm3 (0-0.3); Eosinophils Percent Auto 1.4 % (0-4.4); Immature Granulocyte Absolute 0.06 K/mm3 (0.00-0.031); Immature Granulocyte Percent A 0.8 % (0-0.5); Lymphocytes Absolute Auto 1.42 K/mm3 (0.9-3.2); Lymphocytes Percent Auto 18.4 % (18.3-44.2); Mean Corpuscular HGB Conc 29.5 g/dl (32-36); Mean Corpuscular Hemoglobin 26.9 pg (26-34); Mean Corpuscular Volume 90.9 fl (80-100); Monocytes Absolute Auto 0.4 K/mm3 (0.1-0.6); Monocytes Percent Auto 5.6 % (2.6-8.5); Neutrophils Absolute Auto 5.7 K/mm3 (1.3-6.7); Neutrophils Percent Auto 73.2 % (45.5-73.1); Platelet Count Result 245 k/mm3 (150-375); Red Blood Count 4.84 M/mm3 (4.6-6.20); Red Cell Distribution Width 16.8 % (11.5-14.5); White Blood Count 7.7 K/mm3 (4.5-10.0)
[2020-09-08 10:11] LABS: Anion Gap 4.99999 mmol/L (8-16); Blood Urea Nitrogen 21 mg/dL (9-20); Calcium 8.7 mg/dL (8.4-10.2); Carbon Dioxide > 40 mmol/L (22-30); Chloride 99 mmol/L (98-107); Estimated CRCL calculation 89 ml/min; Estimated Glomerular Filt Rate > 60; Glucose 97 mg/dL (75-110); Potassium 4.8 mmol/L (3.4-5.0); Sodium 144 mmol/L (137-145)
[2020-09-08 10:14] LABS: Alveolar/Arterial O2 Gradient 90.8 mmHg; Base Excess ABG 8.3 mEq/l (+/-2.0); Fractional Inspired Oxygen 32 %; HCO3 ABG 37.9 mEq/l (22.0-26.0); Methemoglobin ABG 0.1 %THb (0-1.5); Oxygen Content ABG 13.6 %vol (16.0-22.0); Oxyhemoglobin 73.4 % THb (90.0-100.0); PO2 FiO2 Ratio Arterial Blood 1.33 %; Reduced Hemoglobin 24.5 %THb (0-5.0); Total Hemoglobin 13.2 g/dL (12.0-18.0)
[2020-09-08 10:16] LABS: Device NASAL CANNULA; Modified Allen's Test Pass; Oxygen Saturation ABG 70.1 % (95.0-100.0); PO2 ABG 42.6 mmHg (80.0-100.0); Site Drawn LEFT RADIAL; pH ABG 7.288 (7.350-7.450)
[2020-09-08 10:16] LABS: Platelet Estimate Adequate (Adequate)
[2020-09-08 10:17] LABS: Hypochromasia 1+ (NORMAL); Stomatocytes 1+ (NORMAL)
--- NOTE | 2020-09-08 10:59 | ED.GENADULT ---
HPI - General Adult General Chief complaint: Shortness of Breath/Dyspnea Stated complaint: sob Time Seen by Provider: 09/08/20 09:45 Source: patient Mode of arrival: ambulatory Limitations: no limitations History of Present Illness HPI narrative: Patient is a 65-year-old male who presents to emergency department for evaluation of shortness of breath and weakness that is worsened over the last 2 weeks with similar occurrences attributed to COPD with CO2 retention. Patient with chronic O2 use followed by pulmonology and cardiology. Patient notes that he has had more dyspnea at rest and with exertion. Patient states he has been compliant with his medications denies sick contacts. Patient was given doxycycline by his chair frame builder which he finished today. Patient notes he has had a cough that is productive with some congestion. Patient is a former tobacco user. Patient on arrival is in the room in no distress Related Data Home Medications Medication Instructions Recorded Confirmed Multaq 400 mg PO Q12H 10/15/19 06/24/20 polyethylene glycol 3350 [Miralax] 17 g PO DAILY 10/16/19 06/24/20 Eliquis 5 mg PO BID 06/02/20 06/24/20 albuterol sulfate 2.5 mg INHALATION Q4-6H PRN 06/02/20 06/24/20 pantoprazole 20 mg tablet,delayed 20 mg PO QAM 08/13/20 release Allergies Allergy/AdvReac Type Severity Reaction Status Date / Time No Known Allergies Allergy Verified 08/04/20 10:04 Review of Systems Review of Systems: All systems reviewed & are unremarkable except as noted in HPI and below PMFSH Past Medical History Medical History Acute and chronic respiratory failure Acute on chronic respiratory failure with hypoxia and hypercapnia On chronic home O2 of 3 L nasal cannula. History of prior intubation October 2018 Anxiety Arthritis Atrial flutter Paroxysmal AFib with cardioversion April 2013 and October 23, 2019 BPH (benign prostatic hyperplasia) Bronchitis CHF (congestive heart failure) Last echocardiogram EF was 55% prior echocardiogram previous year demonstrated borderline left ventricular systolic function and diastolic dysfunction grade 1 Chronic constipation COPD (chronic obstructive pulmonary disease) Dependence on continuous supplemental oxygen Emphysema, unspecified GI bleed History of cardioversion History of tobacco abuse Hypertension Hypertensive CHF Morbid obesity with BMI of 45.0-49.9, adult ELIZABETH and COPD overlap syndrome Pneumonia Psoriasis Pulmonary hypertension RVSP 59 on echo from July 2019 Rectal bleeding Sleep apnea Home BiPAP 12/05 Surgical History Surgical History H/O arthroscopy of left knee History of tonsillectomy 1966 Hx of cardiac cath Left tibial fracture Family History Family History Mother Breast cancer Rheumatoid arthritis Hypertension Father Skin cancer With metastases to bone and brain Mother Family history of arthritis Family history of congestive heart failure Father Family history of malignant neoplasm of bone Other Diabetes mellitus Social History Social History Social History: The patient smoked 1.5 packs of cigarettes per day for 40 years but quit smoking in 2018. He used to drink alcohol in moderation but has not drank in some time. He denies any illicit substance use. He his and she eventually later. He has 1 son who he does needs to be the durable power health care attorney for healthcare. Smoking packs per day: 1.5 Smoking cigarettes per day: 30.0 Years smoked: 30 Smoking pack-years: 45.00 Smoking status: Former smoker Tobacco type: cigarettes Smoking end date: 11/27/17 Alcohol intake: never Substance use: never Substance use type: does not use Gender identity (if verbalized by the pa
[2020-09-08 11:02] LABS: Prothrombin Time 13.2 Seconds (11.1-14.7)
[2020-09-08 11:03] LABS: Partial Thromboplastin Time 29.7 SECONDS (22.3-36.8)
[2020-09-08 11:09] LABS: Lactic Acid Reflex 1.1 mmol/L (0.7-2.1)
[2020-09-08 11:17] LABS: NT Pro B Type Natriuretic Pept 162 PG/ML (5-100)
[2020-09-08 11:19] LABS: Troponin I < 0.012 ng/mL (0.000-0.034)
[2020-09-08] MEDS: methylPREDNISolone SOD SUCC 125 MG VIAL IV PUSH (11:31)
--- NOTE | 2020-09-08 13:51 | ADMGEN ---
This patient, Vimal Doty, was admitted to Intensive Care Unit-1 at 1330. Patient/family oriented to hospital policies and general routines including ID bracelet, bed and alarms, visiting hours, pain management, procedures, bathroom and other care routines, personal items, smoking policy, room service/diet, and visiting hours. Valuables list has been completed. Information on how to activate the Rapid Response Team has been discussed. Patient/Family are encouraged to report perceived risks to care and to ask questions if they do not understand what they are told or what they should do.
--- NOTE | 2020-09-08 15:01 | PM.IMHP ---
H&P: HPI History of Present Illness Date/Time: 09/08/20 15:01 Chief complaint: Respiratory failure with hypoxemia/hyprecarbia Narrative: Vimal Doty is a 65 year old male Who has a history of severe COPD. The patient has a trilogy at home. He has been noncompliant in the past. The patient came to the emergency room to be evaluated for shortness of breath and weakness and has been getting worse over the last 2 weeks. Patient tells me he feels very sleepy. He has chronic CO2 retention. Patient is more dyspneic at rest than with exertion. He stated that he was compliant with his medication and denies any sick contacts. No fever no chills no cough. Patient was given doxycycline by his bread packer he finished today. Patient is a former smoker tobacco user. Patient was not in any distress when he arrived. He was placed on the BiPAP machine I did discuss this case with the chainstitch elastic attacher who is not on his case at this time but I have requested further assistants and he assist to with the BiPAP settings. So I did increase the BiPAP settings. The patient then became more awake and was requesting something to eat. Patient is now sitting on the edge of the bed. I did change his settings and will get repeat ABGs in a couple hours. The patient is more awake now on talking. Patient's pH was 7.288 and CO2 was 81.0. PO2 is 42.6. Patient's vent settings were changed. Chest x-ray was read as mild atelectasis at the lung bases emphysema and cardiomegaly. Patient was checked for COVID. He was placed on the BiPAP machine. The patient was given Solu-Medrol in the emergency room as well as and treatment. He was also given IV Tylenol. Date of service 09/08/2020 the patient was admitted to ICU as IMU overflow for COVID testing. Review of Systems Review of Systems: All systems reviewed & are unremarkable except as noted in HPI and below Constitutional: Constitutional: Reports as per HPI and Reports no additional constitutional complaints Eyes: Eyes: Reports as per HPI and Reports no additional eye complaints ENT: Reports system reviewed and no additional complaints, except as documented and Reports Normal hearing present Cardiovascular: Cardiovascular: Reports no additional cardiovascular complaints Respiratory: Respiratory: Reports no additional respiratory complaints and Reports no additional respiratory complaints Gastrointestinal: Gastrointestinal: Reports as per HPI and Reports no additional gastrointestinal complaints Musculoskeletal: Musculoskeletal: Reports no additional musculoskeletal complaints Integumentary/Breasts: Skin/Breast: Reports system reviewed and no additional complaints, except as docu and Reports as per HPI Neurologic: Reports system reviewed and no additional complaints, except as documented, Reports as per HPI and Reports Normal hearing present Psychiatric: Psychiatric: Reports no additional psychiatric complaints and Reports as per HPI Endocrine: Endocrine: Reports no additional endocrine complaints Hematologic/Lymphatic: Hematologic/Lymphatic: Reports no additional hematologic/lymphatic complaints Allergic/Immunologic: Allergic/Immunologic: Reports no additional allergic/immunologic complaints [facility] Past Medical History Medical History Acute and chronic respiratory failure Acute on chronic respiratory failure with hypoxia and hypercapnia On chronic home O2 of 3 L nasal cannula. History of prior intubation October 2018 Anxiety Arthritis Atrial flutter Paroxysmal AFib with cardioversion April 2013 and October 23, 2019 BPH (benign prostatic hyperplasia) Bronchitis CHF (congestive heart failure) Last echocardiogram EF was 55% prior echocardiogram previous year demonstrated borderline left ventricular systolic function and diastolic dysfunction grade 1 Chronic constipation COPD (chronic obstructive pulmonary disease) Dependence on continuous supplemental oxyg
[2020-09-08 16:24] LABS: Alveolar/Arterial O2 Gradient 156.1 mmHg; Base Excess ABG 8.8 mEq/l (+/-2.0); Fractional Inspired Oxygen 50 %; HCO3 ABG 40.2 mEq/l (22.0-26.0); Oxygen Content ABG 18.9 %vol (16.0-22.0); Oxygen Saturation ABG 95.3 % (95.0-100.0); Oxyhemoglobin 94.2 % THb (90.0-100.0); PO2 ABG 93.2 mmHg (80.0-100.0); PO2 FiO2 Ratio Arterial Blood 1.86 %; Total Hemoglobin 14.2 g/dL (12.0-18.0)
[2020-09-08 16:29] LABS: Device NON-INVASIVE VENT; Modified Allen's Test Pass; PCO2 ABG 95.3 mmHg (35.0-45.0); Site Drawn RIGHT RADIAL; pH ABG 7.243 (7.350-7.450)
[2020-09-08 16:30] LABS: Non-Invasive Expiratory Pressure 10 CMH2O; Non-Invasive Inspiratory Pressure 24 CMH2O; Non-Invasive Vent Rate 4 /MIN
[2020-09-08] MEDS: METOPROLOL TARTRATE 25 MG TABLET PO (17:02)
[2020-09-08] MEDS: APIXABAN 5 MG TABLET PO (17:02)
[2020-09-08] MEDS: NEOMYCIN/POLYMYXIN/BACITRACIN OINTMENT PACKET 1 PACKET (17:02)
[2020-09-08] MEDS: methylPREDNISolone SOD SUCC 125 MG VIAL 60 MG IV PUSH ×2 (17:30→23:57)
[2020-09-08 17:49] LABS: Alveolar/Arterial O2 Gradient 154.8 mmHg; Base Excess ABG 6.9 mEq/l (+/-2.0); Fractional Inspired Oxygen 50 %; HCO3 ABG 38.1 mEq/l (22.0-26.0); Oxygen Content ABG 19.3 %vol (16.0-22.0); Oxygen Saturation ABG 95.8 % (95.0-100.0); Oxyhemoglobin 94.8 % THb (90.0-100.0); PO2 ABG 98.1 mmHg (80.0-100.0); PO2 FiO2 Ratio Arterial Blood 1.96 %; Total Hemoglobin 14.4 g/dL (12.0-18.0)
[2020-09-08 17:50] LABS: PCO2 ABG 92.1 mmHg (35.0-45.0); pH ABG 7.235 (7.350-7.450)
[2020-09-08 17:51] LABS: Device NON-INVASIVE VENT; Modified Allen's Test Pass; Non-Invasive Expiratory Pressure 10 CMH2O; Non-Invasive Inspiratory Pressure 24 CMH2O; Non-Invasive Vent Rate 20 /MIN; Site Drawn RIGHT RADIAL
[2020-09-08] MEDS: DRONEDARONE HCL 400 MG TABLET PO (20:13)
[2020-09-08] MEDS: TAMSULOSIN HCL 0.4 MG CAPSULE PO (20:13)
[2020-09-08] MEDS: FAMOTIDINE 20 MG/2 ML VIAL IV PUSH (20:13)
[2020-09-08] MEDS: IPRATROPIUM BR 0.02% INH SOLN 0.5 MG/2.5 ML VIAL INHALATION (20:39)
[2020-09-08] MEDS: BUDESONIDE RESPULE NEB 0.5 MG/2 ML AMP INHALATION (20:39)
[2020-09-08] MEDS: ALBUTEROL SULFATE NEB 2.5 MG/0.5 ML INH INHALATION (20:39)
[2020-09-08 22:02] LABS: SARS-CoV-2 RNA PCR Negative
[2020-09-09] VITALS (32 sets, daily range): BP systolic 102–126; BP diastolic 59–73; PULSE 66–100; RESP 16–29; TEMP 36.2–36.4; O2SAT 91–97
--- NOTE | 2020-09-09 | PC.NURSE ---
This patient, Vimal Doty, was transferred to [ IMU room 214] on 09/09/20 at 0000. Personal belongings sent with patient. Belongings list checked and signed with receiving [ unit]. Report given to [MADELEINE Lam ]. Appropriate documentation sent with patient.
[2020-09-09 04:58] LABS: Basophils Percent Auto 0.1 % (0.2-1.2); Hematocrit 42.4 % (42.0-52.0); Hemoglobin 12.5 g/dL (14.0-18.0); Immature Granulocyte Absolute 0.08 K/mm3 (0.00-0.031); Immature Granulocyte Percent A 1.1 % (0-0.5); Lymphocytes Absolute Auto 0.56 K/mm3 (0.9-3.2); Lymphocytes Percent Auto 7.9 % (18.3-44.2); Mean Corpuscular HGB Conc 29.5 g/dl (32-36); Mean Corpuscular Hemoglobin 26.9 pg (26-34); Mean Corpuscular Volume 91.2 fl (80-100); Mean Platelet Volume 9.3 fl (7.4-10.4); Monocytes Absolute Auto 0.1 K/mm3 (0.1-0.6); Monocytes Percent Auto 0.8 % (2.6-8.5); Neutrophils Absolute Auto 6.4 K/mm3 (1.3-6.7); Neutrophils Percent Auto 90.1 % (45.5-73.1); Platelet Count Result 241 k/mm3 (150-375); Red Blood Count 4.65 M/mm3 (4.6-6.20); Red Cell Distribution Width 16.5 % (11.5-14.5); White Blood Count 7.1 K/mm3 (4.5-10.0)
[2020-09-09 05:10] LABS: Alanine Aminotransferase 15 U/L (4-50); Albumin Level 3.7 g/dL (3.5-5.1); Alkaline Phosphatase 66 U/L (38-126); Anion Gap 3.99999 mmol/L (8-16); Aspartate Amino Transferase 18 U/L (17-59); Bilirubin,Total 0.4 mg/dL (0.2-1.3); Blood Urea Nitrogen 26 mg/dL (9-20); Calcium 8.2 mg/dL (8.4-10.2); Carbon Dioxide > 40 mmol/L (22-30); Chloride 98 mmol/L (98-107); Estimated CRCL calculation 110 ml/min; Estimated Glomerular Filt Rate > 60; Glucose 142 mg/dL (75-110); Magnesium 2.3 mg/dL (1.6-2.3); Sodium 142 mmol/L (137-145)
[2020-09-09] MEDS: methylPREDNISolone SOD SUCC 125 MG VIAL 60 MG IV PUSH ×4 (05:25→23:53)
[2020-09-09 07:06] LABS: Free T4 Free Thyroxine Reflex 0.76 ng/dL (0.78-2.19)
[2020-09-09] MEDS: BUDESONIDE RESPULE NEB 0.5 MG/2 ML AMP INHALATION ×2 (08:50→19:20)
[2020-09-09] MEDS: IPRATROPIUM BR 0.02% INH SOLN 0.5 MG/2.5 ML VIAL INHALATION ×3 (08:50→19:20)
[2020-09-09] MEDS: ALBUTEROL SULFATE NEB 2.5 MG/0.5 ML INH INHALATION ×3 (08:50→19:21)
[2020-09-09] MEDS: ROFLUMILAST 500 MCG TABLET PO (09:09)
[2020-09-09] MEDS: PANTOPRAZOLE 40 MG TABLET PO (09:09)
[2020-09-09] MEDS: acetaZOLAMIDE TAB 250 MG TABLET PO (09:10)
[2020-09-09] MEDS: METOPROLOL TARTRATE 25 MG TABLET PO ×2 (09:10→17:07)
[2020-09-09] MEDS: FAMOTIDINE 20 MG/2 ML VIAL IV PUSH ×2 (09:10→20:34)
[2020-09-09] MEDS: APIXABAN 5 MG TABLET PO ×2 (09:11→17:08)
[2020-09-09] MEDS: FUROSEMIDE 40 MG TABLET PO (09:11)
[2020-09-09] MEDS: DRONEDARONE HCL 400 MG TABLET PO ×2 (09:11→20:34)
[2020-09-09] MEDS: polyethylene glycoL 3350 17 GM POWD.PACK PO (09:12)
[2020-09-09] MEDS: POTASSIUM CHLORIDE 20 MEQ TABLET.ER PO (09:12)
[2020-09-09 09:38] LABS: Magnesium 2.4 mg/dL (1.6-2.3)
[2020-09-09 09:58] LABS: D Dimer 0.27 ug/mL (<0.48)
[2020-09-09 10:00] LABS: CRP 0.8 mg/dL (<1.0)
[2020-09-09 12:41] LABS: Alveolar/Arterial O2 Gradient 208.8 mmHg; Base Excess ABG 9.1 mEq/l (+/-2.0); Fractional Inspired Oxygen 50 %; HCO3 ABG 38.6 mEq/l (22.0-26.0); Oxygen Content ABG 15.8 %vol (16.0-22.0); PO2 ABG 56.6 mmHg (80.0-100.0); PO2 FiO2 Ratio Arterial Blood 1.13 %; Total Hemoglobin 12.9 g/dL (12.0-18.0); pH ABG 7.296 (7.350-7.450)
[2020-09-09 12:42] LABS: Device BIPAP; Modified Allen's Test Pass; Oxygen Saturation ABG 84.8 % (95.0-100.0); Site Drawn LEFT RADIAL
[2020-09-09 12:43] LABS: Expiratory Pressure 10 cmH2O; Inspiratory Pressure 24 cmH2O
--- NOTE | 2020-09-09 13:16 | PM.CNPUL ---
Assessment and Plan Assessment and plan (1) COPD with exacerbation: Code(s): J44.1 - Chronic obstructive pulmonary disease with (acute) exacerbation Status: Acute Assessment and Plan: agree with current regimen of duonebs, pulmicort and systemic steroids. - would recommend decreasing lasix back to home dosage. (2) Acute and chronic respiratory failure: Qualifiers: Respiratory failure complication: hypoxia and hypercapnia Qualified Code(s): J96.21 - Acute and chronic respiratory failure with hypoxia; J96.22 - Acute and chronic respiratory failure with hypercapnia Code(s): J96.20 - Acute and chronic respiratory failure, unspecified whether with hypoxia or hypercapnia Status: Acute Assessment and Plan: - change BIPAP to 24/4 with backup rate of 18. Titrate FiO2 for 90-93% sats - will switch back to home Trilogy once exacerbation is resolving - repeat ABG in a few hours and Qam History of Present Illness History of Present Illness Consult date: 09/09/20 Chief complaint: Respiratory failure with hypoxemia/hyprecarbia Narrative: 65 y/o obese male with ELIZABETH, OHS, severe COPD with chronic hypoxemia and hypercapnic respiratory failure presents acute dypsnea cough productive of clear sputum and increased wheezing and chest tightness requiring increased use of nebulized albuterol after falling and hurting his back. He denies fever or other infectious sytmptoms. He was found to be in acute on chronic hypercapnic respiratory failure. His is faithful with his night time Triology and has had no problems prior to this acute exacerbation. He is currently being treated with scheduled duonebs, pulmicort nebs and systemic steroids. He is currently on BIPAP /10 and yet his PCO2 and ph have not improved. BNP was only 160's whereas it was in the 1000's on prior admission and he looks euvolemic. Review of Systems Review of Systems: All systems reviewed & are unremarkable except as noted in HPI and below PMFSH Past Medical History Medical History Acute and chronic respiratory failure Acute on chronic respiratory failure with hypoxia and hypercapnia On chronic home O2 of 3 L nasal cannula. History of prior intubation October 2018 Anxiety Arthritis Atrial flutter Paroxysmal AFib with cardioversion April 2013 and October 23, 2019 BPH (benign prostatic hyperplasia) Bronchitis CHF (congestive heart failure) Last echocardiogram EF was 55% prior echocardiogram previous year demonstrated borderline left ventricular systolic function and diastolic dysfunction grade 1 Chronic constipation COPD (chronic obstructive pulmonary disease) Dependence on continuous supplemental oxygen Emphysema, unspecified GI bleed History of cardioversion History of tobacco abuse Hypertension Hypertensive CHF Morbid obesity with BMI of 45.0-49.9, adult ELIZABETH and COPD overlap syndrome Pneumonia Psoriasis Pulmonary hypertension RVSP 59 on echo from July 2019 Rectal bleeding Sleep apnea Home BiPAP 12/05 Surgical History Surgical History H/O arthroscopy of left knee History of tonsillectomy 1966 Hx of cardiac cath Left tibial fracture Family History Family History Mother Breast cancer Rheumatoid arthritis Hypertension Father Skin cancer With metastases to bone and brain Mother Family history of arthritis Family history of congestive heart failure Father Family history of malignant neoplasm of bone Other Diabetes mellitus Social History Social History (Updated 09/08/20 @ 15:15 by Ileana Ac NP) Social History: The patient smoked 1.5 packs of cigarettes per day for 40 years but quit smoking in 2018. He used to drink alcohol in moderation but has not drank in some time. He denies any illicit substance use. He his an
[2020-09-09] MEDS: FUROSEMIDE 20 MG TABLET PO (13:25)
--- NOTE | 2020-09-09 16:31 | PM.IMPN ---
Progress Note: A&P Assessment and Plan (1) Chronic respiratory failure with hypoxia and hypercapnia: Code(s): J96.11 - Chronic respiratory failure with hypoxia; J96.12 - Chronic respiratory failure with hypercapnia Status: Acute Assessment and Plan: patient's BiPAP settings have been increased. Patient uses a trilogy at home. I asked him to have somebody bring it but he said that there is nobody at home that will be able to bring him history LAD. I did increase his BiPAP settings to 24/10. Will get ABGs here shortly. The patient stated he had. Been very somnolent. Patient sees Dr. Buenrostro here. Will consult Dr. Buenrostro. Perhaps he needs his settings changed yet on trilogy. Patient stated the last time he was here he did have a setting change. Repeat ABGs and couple hours. Continue with treatment for COPD. patient with history of atrial flutter on beta-john and Eliquis rate is controlled 09/09/20 16:31 patient is a 65-year-old male morbidly obesewith history of severe COPD chronic respiratory failure on home oxygen and BiPAP he presented emergency department with a complaint of shortness of breath patient had ABG is found to acute on chronic respiratory failure hypercapnia, patient was placed on BiPAP will continue to monitor the patient repeat ABG did not show significant change in patient pH and CO2 as well as oxygen saturation patient is seen by a combatant swimmer will adjust the BiPAP satting will continue BiPAP and repeat ABG and monitor patient and further recommendation to follow, patient is treated with Solu-Medrol and updraft, patient with history of atrial flutter on beta-john and Eliquis rate is controlled. (2) Hypertension: Qualifiers: Hypertension type: essential hypertension Qualified Code(s): I10 - Essential (primary) hypertension Code(s): I10 - Essential (primary) hypertension Status: Acute Assessment and Plan: Continue metoprolol. (3) COPD exacerbation: Code(s): J44.1 - Chronic obstructive pulmonary disease with (acute) exacerbation Status: Acute Assessment and Plan: Continue with Solu-Medrol and neb treatments. Pulmonology consult was greatly be appreciated. (4) CHF (congestive heart failure): Qualifiers: Heart failure chronicity: chronic Heart failure type: diastolic Qualified Code(s): I50.32 - Chronic diastolic (congestive) heart failure Code(s): I50.9 - Heart failure, unspecified Status: Acute Assessment and Plan: Continue with patient's Lasix please verify that he is taking 2 different doses of 40 mg and 20 mg. He is on metoprolol. (5) BPH (benign prostatic hyperplasia): Code(s): N40.0 - Benign prostatic hyperplasia without lower urinary tract symptoms Status: Acute Assessment and Plan: Continue with tamsulosin. (6) Hypercapnia: Code(s): R06.89 - Other abnormalities of breathing Status: Acute Assessment and Plan: Patient is typically on a trilogy at home but were unable to get his trilogy unit. There is no be at home that can bring it to while he is here. (7) Atrial flutter: Qualifiers: Atrial flutter type: unspecified Qualified Code(s): I48.92 - Unspecified atrial flutter Code(s): I48.92 - Unspecified atrial flutter Status: Acute Assessment and Plan: The patient is in sinus rhythm at this time. Will continue with Vanessa is and metoprolol a and multaq Subjective Date/time seen: 09/09/20 16:31 patient is a 65-year-old male morbidly obesewith history of severe COPD chronic respiratory failure on home oxygen and BiPAP he presented emergency department with a complaint of shortness of breath patient had ABG is found to acute on chronic respiratory failure hypercapnia, patient was placed on BiPAP will continue to monitor the patient repeat ABG did not show significant change in patient pH and CO2 as well as oxygen saturation
[2020-09-09] MEDS: TAMSULOSIN HCL 0.4 MG CAPSULE PO (20:34)
[2020-09-09 20:55] LABS: Alveolar/Arterial O2 Gradient 118.5 mmHg; Carboxyhemoglobin 0.3 % THb (0-2.0); Fractional Inspired Oxygen 35 %; HCO3 ABG 31.8 mEq/l (22.0-26.0); Methemoglobin ABG 0.3 %THb (0-1.5); Oxygen Content ABG 17.8 %vol (16.0-22.0); Oxygen Saturation ABG 94.4 % (95.0-100.0); Oxyhemoglobin 93.7 % THb (90.0-100.0); PO2 ABG 71.8 mmHg (80.0-100.0); PO2 FiO2 Ratio Arterial Blood 2.05 %; Reduced Hemoglobin 5.7 %THb (0-5.0); Total Hemoglobin 13.5 g/dL (12.0-18.0); pH ABG 7.413 (7.350-7.450)
[2020-09-09 20:56] LABS: Device BIPAP; Expiratory Pressure 4 cmH2O; Inspiratory Pressure 24 cmH2O; Modified Allen's Test Pass; Site Drawn RIGHT RADIAL
[2020-09-10] VITALS (25 sets, daily range): BP systolic 117–138; BP diastolic 49–77; PULSE 66–90; RESP 16–26; TEMP 36–36.9; O2SAT 94–99
[2020-09-10] MEDS: ALBUTEROL SULFATE NEB 2.5 MG/0.5 ML INH INHALATION ×4 (02:07→22:28)
[2020-09-10] MEDS: IPRATROPIUM BR 0.02% INH SOLN 0.5 MG/2.5 ML VIAL INHALATION ×4 (02:08→22:28)
[2020-09-10] MEDS: methylPREDNISolone SOD SUCC 125 MG VIAL 60 MG IV PUSH ×4 (05:15→23:23)
[2020-09-10 06:36] LABS: Mean Corpuscular Hemoglobin 26.6 pg (26-34); Mean Corpuscular Volume 88.7 fl (80-100); Mean Platelet Volume 9.1 fl (7.4-10.4); Platelet Count Result 248 k/mm3 (150-375); Red Blood Count 4.51 M/mm3 (4.6-6.20); Red Cell Distribution Width 16.4 % (11.5-14.5)
[2020-09-10 06:55] LABS: Anion Gap 4 mmol/L (8-16); Blood Urea Nitrogen 29 mg/dL (9-20); Calcium 8.3 mg/dL (8.4-10.2); Carbon Dioxide 34 mmol/L (22-30); Chloride 100 mmol/L (98-107); Estimated CRCL calculation 92 ml/min; Estimated Glomerular Filt Rate > 60; Glucose 137 mg/dL (75-110); Potassium 4.4 mmol/L (3.4-5.0); Sodium 138 mmol/L (137-145)
[2020-09-10] MEDS: BUDESONIDE RESPULE NEB 0.5 MG/2 ML AMP INHALATION ×2 (07:32→22:28)
[2020-09-10 08:39] LABS: Alveolar/Arterial O2 Gradient 109.5 mmHg; Base Excess ABG 3.8 mEq/l (+/-2.0); Carboxyhemoglobin 0.3 % THb (0-2.0); Fractional Inspired Oxygen 35 %; HCO3 ABG 31.2 mEq/l (22.0-26.0); Methemoglobin ABG 0.1 %THb (0-1.5); Modified Allen's Test Pass; Oxygen Content ABG 17.8 %vol (16.0-22.0); Oxyhemoglobin 92.2 % THb (90.0-100.0); PCO2 ABG 59.4 mmHg (35.0-45.0); PO2 FiO2 Ratio Arterial Blood 2.03 %; Reduced Hemoglobin 7.4 %THb (0-5.0); Site Drawn LEFT RADIAL; Total Hemoglobin 13.7 g/dL (12.0-18.0); pH ABG 7.338 (7.350-7.450)
[2020-09-10 08:40] LABS: Device NON-INVASIVE VENT; Non-Invasive Expiratory Pressure 8 CMH2O; Non-Invasive Inspiratory Pressure 24 CMH2O; Non-Invasive Vent Rate 18 /MIN
[2020-09-10] MEDS: polyethylene glycoL 3350 17 GM POWD.PACK PO (08:41)
[2020-09-10] MEDS: DRONEDARONE HCL 400 MG TABLET PO ×2 (08:41→20:18)
[2020-09-10] MEDS: APIXABAN 5 MG TABLET PO ×2 (08:42→17:25)
[2020-09-10] MEDS: FAMOTIDINE 20 MG/2 ML VIAL IV PUSH ×2 (08:42→20:21)
[2020-09-10] MEDS: PANTOPRAZOLE 40 MG TABLET PO (08:43)
[2020-09-10] MEDS: POTASSIUM CHLORIDE 20 MEQ TABLET.ER PO (08:43)
[2020-09-10] MEDS: METOPROLOL TARTRATE 25 MG TABLET PO ×2 (08:43→17:23)
[2020-09-10] MEDS: ROFLUMILAST 500 MCG TABLET PO (08:43)
[2020-09-10] MEDS: FUROSEMIDE 40 MG TABLET PO (08:44)
[2020-09-10] MEDS: FUROSEMIDE 20 MG TABLET PO (13:03)
--- NOTE | 2020-09-10 13:13 | PM.IMPN ---
Progress Note: A&P Assessment and Plan (1) Chronic respiratory failure with hypoxia and hypercapnia: Code(s): J96.11 - Chronic respiratory failure with hypoxia; J96.12 - Chronic respiratory failure with hypercapnia Status: Acute Assessment and Plan: patient's BiPAP settings have been increased. Patient uses a trilogy at home. I asked him to have somebody bring it but he said that there is nobody at home that will be able to bring him history LAD. I did increase his BiPAP settings to 24/. Will get ABGs here shortly. The patient stated he had. Been very somnolent. Patient sees Dr. Buenrostro here. Will consult Dr. Buenrostro. Perhaps he needs his settings changed yet on trilogy. Patient stated the last time he was here he did have a setting change. Repeat ABGs and couple hours. Continue with treatment for COPD. patient with history of atrial flutter on beta-john and Eliquis rate is controlled 09/10/20 13:13 patient is a 65-year-old male morbidly obesewith history of severe COPD chronic respiratory failure on home oxygen and BiPAP he presented emergency department with a complaint of shortness of breath patient had ABG is found to have acute on chronic respiratory failure hypercapnia, patient was placed on BiPAP continued to monitor the patient repeat ABG did not show significant change in patient pH and CO2 as well as oxygen saturation patient was seen by a behavioral science chair adjusted the BiPAP settings continued BiPAP today on 09/10 patient doing much better repeat ABG showed pH of 7.33 pCO2 of 15 and O2 saturation of 71% currently patient is on 3 L nasal cannula this is his baseline, today patient was seen by behavioral science chair patient has much improved plan is to monitor 1 more day on IV steroid updraft and continue to trilogy on current settings, will monitor patient overnight and repeat ABG in the morning if remains stable will discharge the patient home tomorrow patient with history of atrial flutter on beta-john and Eliquis rate is controlled. (2) Hypertension: Qualifiers: Hypertension type: essential hypertension Qualified Code(s): I10 - Essential (primary) hypertension Code(s): I10 - Essential (primary) hypertension Status: Acute Assessment and Plan: Continue metoprolol. (3) COPD exacerbation: Code(s): J44.1 - Chronic obstructive pulmonary disease with (acute) exacerbation Status: Acute Assessment and Plan: Continue with Solu-Medrol and neb treatments. Pulmonology consult was greatly be appreciated. (4) CHF (congestive heart failure): Qualifiers: Heart failure type: diastolic Heart failure chronicity: chronic Qualified Code(s): I50.32 - Chronic diastolic (congestive) heart failure Code(s): I50.9 - Heart failure, unspecified Status: Acute Assessment and Plan: Continue with patient's Lasix please verify that he is taking 2 different doses of 40 mg and 20 mg. He is on metoprolol. (5) BPH (benign prostatic hyperplasia): Code(s): N40.0 - Benign prostatic hyperplasia without lower urinary tract symptoms Status: Acute Assessment and Plan: Continue with tamsulosin. (6) Hypercapnia: Code(s): R06.89 - Other abnormalities of breathing Status: Acute Assessment and Plan: Patient is typically on a trilogy at home but were unable to get his trilogy unit. There is no be at home that can bring it to while he is here. (7) Atrial flutter: Qualifiers: Atrial flutter type: unspecified Qualified Code(s): I48.92 - Unspecified atrial flutter Code(s): I48.92 - Unspecified atrial flutter Status: Acute Assessment and Plan: The patient is in sinus rhythm at this time. Will continue with Vanessa is and metoprolol a and multaq Subjective Date/time seen: 09/10/20 13:13 patient is a 65-year-old male morbidly obesewith history of severe COPD chronic respiratory failure on
--- NOTE | 2020-09-10 14:23 | PC.NURSE ---
This patient, Vimal Doty, was transferred to [facility] on 09/10/20 at 1420. Personal belongings sent with patient. Report given to Elizabeth SALVADOR. Appropriate documentation sent with patient.
--- NOTE | 2020-09-10 14:25 | PC.NURSE ---
Received via wheelchair from [facility] 214/.
[2020-09-10] MEDS: TAMSULOSIN HCL 0.4 MG CAPSULE PO (20:18)
--- NOTE | 2020-09-10 21:13 | PM.PNPUL ---
Progress Note: A&P Assessment and Plan (1) Chronic respiratory failure with hypoxia and hypercapnia: Code(s): J96.11 - Chronic respiratory failure with hypoxia; J96.12 - Chronic respiratory failure with hypercapnia Status: Acute Assessment and Plan: - ABG as normalized on current BIPAP settings - discharge tomorrow back on [facility] home settings (2) COPD (chronic obstructive pulmonary disease): Qualifiers: COPD type: unspecified COPD Qualified Code(s): J44.9 - Chronic obstructive pulmonary disease, unspecified Code(s): J44.9 - Chronic obstructive pulmonary disease, unspecified Status: Acute Assessment and Plan: COPD exacerbation is resolving - switch to oral prednisone 40 mg daily and antibiotic for four more days - can resume home bronchodilator regimen - discharge home tomorrow from pulmonary perspective - f/u in our pulmonary clinic in 8 weeks Subjective Date/time seen: 09/10/20 21:13 Interval history: Feels much better today after adjusting BiPaP. Blood gas is back to baseline. Pt would like to go home Review of Systems Review of Systems: All systems reviewed & are unremarkable except as noted in HPI and below Exam Const: General: cooperative, healthy appearing, no acute distress and well developed Nutritional Appearance: obese Orientation/consciousness: oriented to person, oriented to place, oriented to time and patient oriented x3 Limitations: physical limitations HENMT: Head: normal to inspection, normocephalic and atraumatic Eyes: General: appearance normal, both eyes and all related structures Neck: Neck: trachea midline and supple Resp: Effort & Inspection: able to speak in complete sentences Auscultation: no crackles, no rales, no rhonchi, wheezes and diminished lung sounds Cardio: Jugular venous distension: no JVD Rate: regular rate Rhythm: regular rhythm Heart sounds: S1 normal heart sound present and S2 normal heart sound present GI: Auscultation: normal bowel sounds Skin: General skin exam: normal color and no rashes or lesions noted Neuro: General: oriented to person, oriented to place, oriented to time and patient oriented x3 Psych: Appearance: grossly normal and well kempt Mental Status: mental status grossly normal Objective Data Vital Signs Vital Signs: Vital Signs - 24 hr 09/09/20 22:00 09/09/20 22:42 09/09/20 23:33 Temperature 36.4 C L Pulse Rate 73 96 73 Respiratory Rate 23 H 19 Blood Pressure 121/64 Pulse Oximetry 95 96 09/10/20 00:00 09/10/20 02:00 09/10/20 02:08 Temperature Pulse Rate 80 72 85 Respiratory Rate 26 H Blood Pressure Pulse Oximetry 09/10/20 02:09 09/10/20 02:13 09/10/20 04:00 Temperature Pulse Rate 73 73 73 Respiratory Rate 26 H 21 H Blood Pressure Pulse Oximetry 97 09/10/20 04:18 09/10/20 06:00 09/10/20 07:11 Temperature 36.3 C L 36.0 C L Pulse Rate 82 72 72 Respiratory Rate 22 H 24 H Blood Pressure 117/49 L 132/61 Pulse Oximetry 94 97 09/10/20 07:32 09/10/20 07:42 09/10/20 08:00 Temperature Pulse Rate 71 74 71 Respiratory Rate 19 20 Blood Pressure Pulse Oximetry 94 09/10/20 08:41 09/10/20 08:43 09/10/20 13:48 Temperature Pulse Rate 90 90 76 Respiratory Rate 20 Blood Pressure Pulse Oximetry 09/10/20 13:58 09/10/20 14:38 09/10/20 14:45 Temperature 36.5 C Pulse Rate 75 81 Respiratory Rate 20 20 20 Blood Pressure 126/77 Pulse Oximetry 98 96 09/10/20 16:00 09/10/20 17:23 09/10/20 20:18 Temperature 36.5 C Pulse Rate 86 79 74 Respiratory Rate 20 Blood Pressure 132/75 Pulse Oximetry 99 09/10/20 20:33 Temperature 36.9 C Pulse Rate 66 Respiratory Rate 16 Blood Pressure 138/68 Pulse Oximetry 95 Intake/Output Intake/Output: Intake & Output 09/07/20 09/08/20 09/09/20 09/10/20 23:59 23:59 23:59 23:59 Intake Total 1510 1560 Output Total 149 6832 1654 Balance -525 -340 -90
[2020-09-11 02:06] VITALS: PULSE 74; RESP 18; O2SAT 95
[2020-09-11] MEDS: ALBUTEROL SULFATE NEB 2.5 MG/0.5 ML INH INHALATION ×2 (02:06→09:22)
[2020-09-11] MEDS: IPRATROPIUM BR 0.02% INH SOLN 0.5 MG/2.5 ML VIAL INHALATION ×2 (02:06→09:22)
[2020-09-11 02:10] VITALS: PULSE 74; RESP 20
[2020-09-11 02:18] VITALS: PULSE 72; RESP 20
[2020-09-11] MEDS: methylPREDNISolone SOD SUCC 125 MG VIAL 60 MG IV PUSH (05:42)
[2020-09-11 06:27] LABS: Potassium 4.6 mmol/L (3.4-5.0)
[2020-09-11 06:34] LABS: Base Excess ABG 1.3 mEq/l (+/-2.0); Fractional Inspired Oxygen 40 %; HCO3 ABG 29.3 mEq/l (22.0-26.0); Oxygen Content ABG 17.6 %vol (16.0-22.0); Oxygen Saturation ABG 92.8 % (95.0-100.0); Oxyhemoglobin 92.1 % THb (90.0-100.0); PO2 ABG 73.4 mmHg (80.0-100.0); PO2 FiO2 Ratio Arterial Blood 1.84 %; Total Hemoglobin 13.6 g/dL (12.0-18.0); pH ABG 7.295 (7.350-7.450)
[2020-09-11 06:36] LABS: Device BIPAP; Modified Allen's Test Pass; PCO2 ABG 61.6 mmHg (35.0-45.0); Site Drawn LEFT RADIAL
[2020-09-11 06:37] LABS: Inspiratory Pressure 24 cmH2O
[2020-09-11 06:39] LABS: Expiratory Pressure 4 cmH2O
[2020-09-11 06:52] LABS: Anion Gap 4 mmol/L (8-16); Blood Urea Nitrogen 30 mg/dL (9-20); Calcium 8.4 mg/dL (8.4-10.2); Carbon Dioxide 37 mmol/L (22-30); Chloride 100 mmol/L (98-107); Estimated CRCL calculation 92 ml/min; Estimated Glomerular Filt Rate > 60; Glucose 130 mg/dL (75-110); Sodium 141 mmol/L (137-145)
[2020-09-11 08:17] LABS: Hematocrit 45.5 % (42.0-52.0); Hemoglobin 13.8 g/dL (14.0-18.0); Mean Corpuscular HGB Conc 30.3 g/dl (32-36); Mean Platelet Volume 8.9 fl (7.4-10.4); Platelet Count Result 254 k/mm3 (150-375); Red Blood Count 5.11 M/mm3 (4.6-6.20); Red Cell Distribution Width 16.5 % (11.5-14.5); White Blood Count 9.2 K/mm3 (4.5-10.0)
[2020-09-11 08:28] VITALS: PULSE 60
[2020-09-11] MEDS: PANTOPRAZOLE 40 MG TABLET PO (08:28)
[2020-09-11] MEDS: polyethylene glycoL 3350 17 GM POWD.PACK PO (08:28)
[2020-09-11] MEDS: ROFLUMILAST 500 MCG TABLET PO (08:28)
[2020-09-11] MEDS: POTASSIUM CHLORIDE 20 MEQ TABLET.ER PO (08:28)
[2020-09-11] MEDS: METOPROLOL TARTRATE 25 MG TABLET PO (08:28)
[2020-09-11 08:29] VITALS: PULSE 60
[2020-09-11] MEDS: DRONEDARONE HCL 400 MG TABLET PO (08:29)
[2020-09-11] MEDS: APIXABAN 5 MG TABLET PO (08:29)
[2020-09-11] MEDS: FUROSEMIDE 40 MG TABLET PO (08:29)
[2020-09-11 09:22] VITALS: PULSE 78; RESP 18; O2SAT 94
[2020-09-11] MEDS: BUDESONIDE RESPULE NEB 0.5 MG/2 ML AMP INHALATION (09:22)
--- NOTE | 2020-09-11 10:41 | PM.DS ---
DS: Admitting Diagnosis Admitting Diagnosis Admitting Diagnosis: Respiratory failure with hypoxemia/hyprecarbia DS: Discharge Diagnosis Discharge Diagnosis (1) Chronic respiratory failure with hypoxia and hypercapnia: Code(s): J96.11 - Chronic respiratory failure with hypoxia; J96.12 - Chronic respiratory failure with hypercapnia Status: Acute Assessment and Plan: patient's BiPAP settings have been increased. Patient uses a trilogy at home. I asked him to have somebody bring it but he said that there is nobody at home that will be able to bring him history LAD. I did increase his BiPAP settings to 24/10. Will get ABGs here shortly. The patient stated he had. Been very somnolent. Patient sees Dr. Buenrostro here. Will consult Dr. Buenrostro. Perhaps he needs his settings changed yet on trilogy. Patient stated the last time he was here he did have a setting change. Repeat ABGs and couple hours. Continue with treatment for COPD. patient with history of atrial flutter on beta-john and Eliquis rate is controlled 09/10/20 13:13 patient is a 65-year-old male morbidly obesewith history of severe COPD chronic respiratory failure on home oxygen and BiPAP he presented emergency department with a complaint of shortness of breath patient had ABG is found to have acute on chronic respiratory failure hypercapnia, patient was placed on BiPAP continued to monitor the patient repeat ABG did not show significant change in patient pH and CO2 as well as oxygen saturation patient was seen by a linen keeper adjusted the BiPAP settings continued BiPAP today on 09/10 patient doing much better repeat ABG showed pH of 7.33 pCO2 of 15 and O2 saturation of 71% currently patient is on 3 L nasal cannula this is his baseline, today patient was seen by linen keeper patient has much improved plan is to monitor 1 more day on IV steroid updraft and continue to trilogy on current settings, will monitor patient overnight and repeat ABG in the morning if remains stable will discharge the patient home tomorrow patient with history of atrial flutter on beta-john and Eliquis rate is controlled. (2) Hypertension: Qualifiers: Hypertension type: essential hypertension Qualified Code(s): I10 - Essential (primary) hypertension Code(s): I10 - Essential (primary) hypertension Status: Acute Assessment and Plan: Continue metoprolol. (3) COPD exacerbation: Code(s): J44.1 - Chronic obstructive pulmonary disease with (acute) exacerbation Status: Acute Assessment and Plan: Continue with Solu-Medrol and neb treatments. Pulmonology consult was greatly be appreciated. (4) CHF (congestive heart failure): Qualifiers: Heart failure type: diastolic Heart failure chronicity: chronic Qualified Code(s): I50.32 - Chronic diastolic (congestive) heart failure Code(s): I50.9 - Heart failure, unspecified Status: Acute Assessment and Plan: Continue with patient's Lasix please verify that he is taking 2 different doses of 40 mg and 20 mg. He is on metoprolol. (5) BPH (benign prostatic hyperplasia): Code(s): N40.0 - Benign prostatic hyperplasia without lower urinary tract symptoms Status: Acute Assessment and Plan: Continue with tamsulosin. (6) Hypercapnia: Code(s): R06.89 - Other abnormalities of breathing Status: Acute Assessment and Plan: Patient is typically on a trilogy at home but were unable to get his trilogy unit. There is no be at home that can bring it to while he is here. (7) Atrial flutter: Qualifiers: Atrial flutter type: unspecified Qualified Code(s): I48.92 - Unspecified atrial flutter Code(s): I48.92 - Unspecified atrial flutter Status: Acute Assessment and Plan: The patient is in sinus rhythm at this time. Will continue with Vanessa is and metoprolol a and multaq DS: Summary Hospital [facility]
--- NOTE | 2020-09-11 11:46 | PM.PNPUL ---
Progress Note: A&P Assessment and Plan (1) Chronic respiratory failure with hypoxia and hypercapnia: Code(s): J96.11 - Chronic respiratory failure with hypoxia; J96.12 - Chronic respiratory failure with hypercapnia Status: Acute Assessment and Plan: - resume home Trilogy settings on discharge (2) COPD (chronic obstructive pulmonary disease): Qualifiers: COPD type: unspecified COPD Qualified Code(s): J44.9 - Chronic obstructive pulmonary disease, unspecified Code(s): J44.9 - Chronic obstructive pulmonary disease, unspecified Status: Acute Assessment and Plan: COPD exacerbation is resolving - switch to oral prednisone 40 mg daily and antibiotic for four more days - can resume home bronchodilator regimen - going home today - will likely need prednisone and antibiotics on hold at his pharmacy to start during times of exacerbations. - f/u in our pulmonary clinic in 8 weeks Subjective Date/time seen: 09/11/20 11:46 Interval history: Feeling better and back to baseline. Going home today Review of Systems Review of Systems: All systems reviewed & are unremarkable except as noted in HPI and below Exam Const: General: cooperative, healthy appearing, no acute distress and well developed Nutritional Appearance: obese Orientation/consciousness: oriented to person, oriented to place, oriented to time and patient oriented x3 Limitations: physical limitations HENMT: Head: normal to inspection, normocephalic and atraumatic Eyes: General: appearance normal, both eyes and all related structures Neck: Neck: trachea midline and supple Resp: Effort & Inspection: able to speak in complete sentences Auscultation: no crackles, no rales, no rhonchi, wheezes and diminished lung sounds Cardio: Jugular venous distension: no JVD Rate: regular rate Rhythm: regular rhythm Heart sounds: S1 normal heart sound present and S2 normal heart sound present GI: Auscultation: normal bowel sounds Skin: General skin exam: normal color and no rashes or lesions noted Neuro: General: oriented to person, oriented to place, oriented to time and patient oriented x3 Psych: Appearance: grossly normal and well kempt Mental Status: mental status grossly normal Objective Data Vital Signs Vital Signs: Vital Signs - 24 hr 09/10/20 13:48 09/10/20 13:58 09/10/20 14:38 Temperature 36.5 C Pulse Rate 76 75 81 Respiratory Rate 20 20 20 Blood Pressure 126/77 Pulse Oximetry 98 09/10/20 14:45 09/10/20 16:00 09/10/20 17:23 Temperature 36.5 C Pulse Rate 86 79 Respiratory Rate 20 20 Blood Pressure 132/75 Pulse Oximetry 96 99 09/10/20 20:18 09/10/20 20:33 09/10/20 22:30 Temperature 36.9 C Pulse Rate 74 66 76 Respiratory Rate 16 22 H Blood Pressure 138/68 Pulse Oximetry 95 96 09/10/20 22:34 09/10/20 22:40 09/11/20 02:06 Temperature Pulse Rate 76 77 74 Respiratory Rate 22 H 20 18 Blood Pressure Pulse Oximetry 97 95 09/11/20 02:10 09/11/20 02:18 09/11/20 08:28 Temperature Pulse Rate 74 72 60 Respiratory Rate 20 20 Blood Pressure Pulse Oximetry 09/11/20 08:29 09/11/20 09:22 Temperature Pulse Rate 60 78 Respiratory Rate 18 Blood Pressure Pulse Oximetry 94 Intake/Output Intake/Output: Intake & Output 09/08/20 09/09/20 09/10/20 09/11/20 23:59 23:59 23:59 23:59 Intake Total 1510 1560 240 Output Total 525 1850 1650 1000 Balance -525 -340 -90 -760 Meds/Results Medications: Active Medications Generic Name Dose Route Start Last Admin Trade Name Freq PRN Reason Stop Dose Admin Albuterol 2.5 mg 09/09/20 07:15 Albuterol Sulfate Neb 2.5 Mg/0.5 Ml Inh INHALATION Q4HRT PRN shortness of breath or wheezing Albuterol 2.5 mg 09/09/20 08:00 09/11/20 09:22 Albuterol Sulfate Neb 2.5 Mg/0.5 Ml Inh INHALATION 2.5 mg Q6HRT ABIMBOLA Administration Apixaban 5 mg 09/08/20 17:00 09/11/20 08:29 Apixaban 5 Mg T
== END 2020-09-11 11:57 | disposition home or self-care (01) | DRG 191 ==
LOC: ANHED 12:20 → ANHICU 13:03 → ANHIMU 09-09 15:35 → ANH3MED 09-11 10:41 → ANHICU 09-14 19:26 → ANHIMU 09-14 19:26
PROVIDERS: Emergency Medicine Emergency Medical Services; Internal Medicine Critical Care Medicine; Nurse Practitioner; Admitting Provider Internal Medicine; Emergency Provider Emergency Medicine; PCP Family Medicine; Visit Provider Family Medicine
DX: J43.9 Emphysema, unspecified (principal); I50.32 Chronic diastolic (congestive) heart failure; I48.92 Unspecified atrial flutter; E66.2 Morbid (severe) obesity with alveolar hypoventilation; Z68.41 Body mass index [BMI] 40.0-44.9, adult; J96.11 Chronic respiratory failure with hypoxia; J96.12 Chronic respiratory failure with hypercapnia; I27.20 Pulmonary hypertension, unspecified; I11.0 Hypertensive heart disease with heart failure; Z20.828 Contact with and (suspected) exposure to other viral communicable diseases; N40.0 Benign prostatic hyperplasia without lower urinary tract symptoms; Z99.81 Dependence on supplemental oxygen; Z79.899 Other long term (current) drug therapy; Z87.891 Personal history of nicotine dependence
CPT/HCPCS: 36415; 36600; 71045; 80048; 80053; 82375; 82805; 83050; 83605; 83735; 83880; 84439; 84443; 84484; 85025; 85027; 85380; 85610; 85730; 86140; 87040; 87635; 93005; 94002; 94003; 94640; 96374; 99291; A9270; C9803; G0378; J2930; U0003

== ENCOUNTER 2020-10-06 10:52 | Inpatient (IN) | payer MEDICARE, SELFPAY ==
[2020-10-06] VITALS (16 sets, daily range): BP systolic 107–137; BP diastolic 65–97; PULSE 73–106; RESP 15–30; TEMP 35.9–36.9; O2SAT 85–97; BMI 48.4
--- NOTE | ~2020-10-06 | XR_ITS ---
EXAMINATION: XR chest 1V portable DATE: 10/06/2020 11:26 INDICATION: Shortness of breath. Chronic obstructive pulmonary disease. TECHNIQUE: A single frontal view of the chest was obtained on 2 radiographs. COMPARISON: Chest single view 09/08/2020, chest CT 06/05/2020 FINDINGS: There are lucencies in the lungs, consistent with emphysema. There is chronic indentation o f the right chest wall with multiple rib deformities. There are airspace opacities in right midlung z one. No pleural effusion or pneumothorax. The heart size is normal. There are prominent paracardial f at pads. IMPRESSION: 1. Worsened airspace opacities in right midlung zone, consistent with atelectasis/scarring versus pne umonia. 2. Emphysema. Reviewed, dictated and finalized at location B. [employer] IMPRESSION: 1. Worsened airspace opacities in right midlung zone, consistent with atelectas is/scarring versus pneumonia. 2. Emphysema.
--- NOTE | 2020-10-06 10:55 | ECG_ITS ---
Measurements Intervals [place] Rate: 80 P: 32 MT: 179 QRS: -37 QRSD: 106 T: 14 QT: 367 QTc: 424 Interpretive Statements SINUS RHYTHM LEFT AXIS DEVIATION DELAYED PRECORDIAL R/S TRANSITION BORDERLINE ECG Electronically Signed On 10-07-2020 8:16:01 [employer] by Cm Mcrae D.O.
--- NOTE | 2020-10-06 11:07 | ED.SOB ---
HPI - SOB/Dyspnea General Chief Complaint: Shortness of Breath/Dyspnea Stated Complaint: sob Time Seen by Provider: 10/06/20 10:56 Source: patient History of Present Illness HPI Narrative: Patient is a 65-year-old gentleman presents emergency department with chief complaint of shortness of breath. Patient reports that for the last 2 to 3 days he has been having increasing shortness of breath. Patient reports he has history of COPD and history of CHF he wears a trilogy machine at night. Patient reports he has had a productive cough and noticed that now his shortness of breath has gotten worse particularly with exertion and can now walk approximately 20 feet without getting Related Data Home oxygen amount: 4 liters Home Medications Medication Instructions Recorded Confirmed Multaq 400 mg PO Q12H 10/15/19 09/08/20 polyethylene glycol 3350 [Miralax] 17 g PO DAILY 10/16/19 09/08/20 Eliquis 5 mg PO BID 06/02/20 09/08/20 albuterol sulfate 2.5 mg INHALATION Q4-6H PRN 06/02/20 09/08/20 Allergies Allergy/AdvReac Type Severity Reaction Status Date / Time No Known Allergies Allergy Verified 08/04/20 10:04 Review of Systems Review of Systems: Narrative: CONSTITUTIONAL: Denies fever, chills, or sweats. EYES: Denies visual changes, redness, or discharge. ENT: Denies rhinorrhea, congestion, sore throat, or otalgia. CARDIOVASCULAR: Denies chest pain, palpitations, or edema. RESPIRATORY: See HPI. GASTROINTESTINAL: Denies abdominal pain, nausea, vomiting, or diarrhea. GENITOURINARY: Denies dysuria or hematuria. SKIN: Denies rash or itching. MUSCULOSKELETAL: Denies back pain, joint pain, or myalgia. NEUROLOGIC: Denies headache, numbness, or weakness. PSYCHIATRIC: Denies anxiety or depression. All systems reviewed & are unremarkable except as noted in HPI and below PMFSH Past Medical History Medical History Acute and chronic respiratory failure Acute on chronic respiratory failure with hypoxia and hypercapnia On chronic home O2 of 3 L nasal cannula. History of prior intubation October 2018 Anxiety Arthritis Atrial flutter Paroxysmal AFib with cardioversion April 2013 and October 23, 2019 BPH (benign prostatic hyperplasia) Bronchitis CHF (congestive heart failure) Last echocardiogram EF was 55% prior echocardiogram previous year demonstrated borderline left ventricular systolic function and diastolic dysfunction grade 1 Chronic constipation COPD (chronic obstructive pulmonary disease) Dependence on continuous supplemental oxygen Emphysema, unspecified GI bleed History of cardioversion History of tobacco abuse Hypertension Hypertensive CHF Morbid obesity with BMI of 45.0-49.9, adult ELIZABETH and COPD overlap syndrome Pneumonia Psoriasis Pulmonary hypertension RVSP 59 on echo from July 2019 Rectal bleeding Sleep apnea Home BiPAP 12/05 Surgical History Surgical History H/O arthroscopy of left knee History of tonsillectomy 1966 Hx of cardiac cath Left tibial fracture Family History Family History Mother Breast cancer Rheumatoid arthritis Hypertension Father Skin cancer With metastases to bone and brain Mother Family history of arthritis Family history of congestive heart failure Father Family history of malignant neoplasm of bone Other Diabetes mellitus Social History Social History (Updated 10/06/20 @ 13:12 by Ileana Ac NP) Social History: The patient smoked 1.5 packs of cigarettes per day for 40 years but quit smoking in 2018. He used to drink alcohol in moderation but has not drank in some time. He denies any illicit substance use. He his and she eventually later. 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 The patient tells me he lives home alone. the patient is a
[2020-10-06 11:32] LABS: Basophils Absolute Auto 0.1 K/mm3 (0.0-0.1); Basophils Percent Auto 0.8 % (0.2-1.2); Eosinophils Absolute Auto 0.1 K/mm3 (0-0.3); Eosinophils Percent Auto 1.7 % (0-4.4); Hematocrit 44.9 % (42.0-52.0); Immature Granulocyte Absolute 0.08 K/mm3 (0.00-0.031); Lymphocytes Absolute Auto 1.23 K/mm3 (0.9-3.2); Lymphocytes Percent Auto 16.1 % (18.3-44.2); Mean Corpuscular Hemoglobin 26.8 pg (26-34); Mean Corpuscular Volume 92.6 fl (80-100); Mean Platelet Volume 9.7 fl (7.4-10.4); Monocytes Absolute Auto 0.6 K/mm3 (0.1-0.6); Monocytes Percent Auto 7.2 % (2.6-8.5); Neutrophils Absolute Auto 5.6 K/mm3 (1.3-6.7); Neutrophils Percent Auto 73.2 % (45.5-73.1); Platelet Count Result 306 k/mm3 (150-375); Red Blood Count 4.85 M/mm3 (4.6-6.20); Red Cell Distribution Width 15.2 % (11.5-14.5); White Blood Count 7.6 K/mm3 (4.5-10.0)
[2020-10-06 11:47] LABS: Platelet Estimate Adequate (Adequate)
[2020-10-06 11:47] LABS: Alveolar/Arterial O2 Gradient 78.5 mmHg; Base Excess ABG 11.1 mEq/l (+/-2.0); Fractional Inspired Oxygen 36 %; HCO3 ABG 41.4 mEq/l (22.0-26.0); Oxygen Content ABG 17.6 %vol (16.0-22.0); Oxygen Saturation ABG 93.1 % (95.0-100.0); Oxyhemoglobin 92.5 % THb (90.0-100.0); PO2 ABG 76.8 mmHg (80.0-100.0); PO2 FiO2 Ratio Arterial Blood 2.13 %; Total Hemoglobin 13.5 g/dL (12.0-18.0); pH ABG 7.293 (7.350-7.450)
[2020-10-06 11:48] LABS: Anisocytosis 1+ (NORMAL); Hypochromasia 1+ (NORMAL); Macrocytosis 1+ (NORMAL)
[2020-10-06 11:49] LABS: PCO2 ABG 87.4 mmHg (35.0-45.0)
[2020-10-06 11:50] LABS: Device NASAL CANNULA; Modified Allen's Test Pass; Site Drawn LEFT RADIAL
[2020-10-06 11:53] LABS: Anion Gap 4.99999 mmol/L (8-16); Blood Urea Nitrogen 25 mg/dL (9-20); Calcium 8.3 mg/dL (8.4-10.2); Carbon Dioxide > 40 mmol/L (22-30); Chloride 98 mmol/L (98-107); Estimated Glomerular Filt Rate > 60; Glucose 115 mg/dL (75-110); Potassium 4.5 mmol/L (3.4-5.0); Sodium 143 mmol/L (137-145)
[2020-10-06 12:09] LABS: NT Pro B Type Natriuretic Pept 379 PG/ML (5-100); Troponin I < 0.012 ng/mL (0.000-0.034)
[2020-10-06] MEDS: methylPREDNISolone SOD SUCC 125 MG VIAL IV PUSH (12:30)
[2020-10-06] MEDS: FUROSEMIDE INJ 40 MG/4 ML VIAL IV PUSH (12:30)
--- NOTE | 2020-10-06 13:01 | PM.IMHP ---
H&P: HPI History of Present Illness Date/Time: 10/06/20 13:01 Chief complaint: pneumonia/COPD exacerbation Narrative: Vimal Doty is a 65 year old male who lives home alone. The patient is well-known to me. The patient was seen by myself on 09/08/2020 with acute on chronic respiratory failure. The patient wears a trilogy at home he does have COPD with the remote history of tobacco abuse. Patient is chronically hypoxic wears oxygen at home he is seen by Dr. Buenrostro and was recently seen by Dr. bailey on 09/11/2020. They recommended that the patient continue with steroids at that time and his trilogy. The last admission the patient was on a BiPAP it was 24/10 was a setting. The patient came to the emergency room today complaining of shortness of breath. The patient has a productive cough but no fever chills. On arterial blood gases pH 7.293. CO2 was a 7.5. The patient was placed on a BiPAP in the emergency room. The settings are 20/10. Which we may need to go up to 24/10. Patient's chest x-ray was read as worsening airspace opacities and right mid lung zones consistent with atelectasis scarring versus pneumonia. Emphysema. Patient was also tested for COVID-19.. He was started on Solu-Medrol and IV Lasix. The patient is in sinus rhythm at this time. Patient is being admitted at as inpatient date of service 10/06/2020. Review of Systems Review of Systems: All systems reviewed & are unremarkable except as noted in HPI and below Constitutional: Constitutional: Reports as per HPI and Reports no additional constitutional complaints Eyes: Eyes: Reports as per HPI and Reports no additional eye complaints ENT: Reports system reviewed and no additional complaints, except as documented and Reports Normal hearing present Cardiovascular: Cardiovascular: Reports no additional cardiovascular complaints Respiratory: Respiratory: Reports no additional respiratory complaints and Reports no additional respiratory complaints Gastrointestinal: Gastrointestinal: Reports as per HPI and Reports no additional gastrointestinal complaints Musculoskeletal: Musculoskeletal: Reports no additional musculoskeletal complaints Integumentary/Breasts: Skin/Breast: Reports system reviewed and no additional complaints, except as docu and Reports as per HPI Neurologic: Reports system reviewed and no additional complaints, except as documented, Reports as per HPI and Reports Normal hearing present Psychiatric: Psychiatric: Reports no additional psychiatric complaints and Reports as per HPI Endocrine: Endocrine: Reports no additional endocrine complaints Hematologic/Lymphatic: Hematologic/Lymphatic: Reports no additional hematologic/lymphatic complaints Allergic/Immunologic: Allergic/Immunologic: Reports no additional allergic/immunologic complaints FOR[facility]LY [facility] Past Medical History Medical History Acute and chronic respiratory failure Acute on chronic respiratory failure with hypoxia and hypercapnia On chronic home O2 of 3 L nasal cannula. History of prior intubation October 2018 Anxiety Arthritis Atrial flutter Paroxysmal AFib with cardioversion April 2013 and October 23, 2019 BPH (benign prostatic hyperplasia) Bronchitis CHF (congestive heart failure) Last echocardiogram EF was 55% prior echocardiogram previous year demonstrated borderline left ventricular systolic function and diastolic dysfunction grade 1 Chronic constipation COPD (chronic obstructive pulmonary disease) Dependence on continuous supplemental oxygen Emphysema, unspecified GI bleed History of cardioversion History of tobacco abuse Hypertension Hypertensive CHF Morbid obesity with BMI of 45.0-49.9, adult ELIZABETH and COPD overlap syndrome Pneumonia Psoriasis Pulmonary hypertension RVSP 59 on echo from July 2019 Rectal bleeding Sleep apnea Home BiPAP 12/05 Surgical History Surgical History (Reviewed 10/06/20 @ 13:11 by Ileana
[2020-10-06 14:01] LABS: Base Excess ABG 12.1 mEq/l (+/-2.0); Fractional Inspired Oxygen 45 %; HCO3 ABG 42.4 mEq/l (22.0-26.0); Oxyhemoglobin 94.3 % THb (90.0-100.0); PCO2 ABG 87.8 mmHg (35.0-45.0); PO2 FiO2 Ratio Arterial Blood 2.09 %; Total Hemoglobin 13.5 g/dL (12.0-18.0); pH ABG 7.302 (7.350-7.450)
[2020-10-06 14:02] LABS: Device NON-INVASIVE VENT; Modified Allen's Test Pass; Non-Invasive Expiratory Pressure 8 CMH2O; Non-Invasive Inspiratory Pressure 20 CMH2O; Non-Invasive Vent Rate 4 /MIN; Site Drawn RIGHT RADIAL
--- NOTE | 2020-10-06 16:00 | PC.NURSE ---
This patient, Vimal Doty, was admitted to IMU Room 209-01. Patient/family oriented to hospital policies and general routines including ID bracelet, bed and alarms, visiting hours, pain management, procedures, bathroom and other care routines, personal items, smoking policy, room service/diet, and visiting hours. Information on how to activate the Rapid Response Team has been discussed. Patient/Family are encouraged to report perceived risks to care and to ask questions if they do not understand what they are told or what they should do.
[2020-10-06] MEDS: METOPROLOL TARTRATE 25 MG TABLET PO (17:09)
[2020-10-06] MEDS: APIXABAN 5 MG TABLET PO (17:09)
[2020-10-06] MEDS: FUROSEMIDE INJ 40 MG/4 ML VIAL 20 MG IV PUSH (17:09)
[2020-10-06] MEDS: methylPREDNISolone SOD SUCC 125 MG VIAL 80 MG IV PUSH (22:33)
[2020-10-06] MEDS: DRONEDARONE HCL 400 MG TABLET PO (22:33)
[2020-10-06] MEDS: TAMSULOSIN HCL 0.4 MG CAPSULE PO (22:33)
[2020-10-06] MEDS: ALBUTEROL SULFATE (*SP) AEROSOL 1 PUFF 2 PUFF INHALATION (23:40)
[2020-10-07] VITALS (21 sets, daily range): BP systolic 94–158; BP diastolic 40–85; PULSE 67–97; RESP 20–24; TEMP 36.1–36.7; O2SAT 88–98
--- NOTE | 2020-10-07 | ECHO_ITS ---
Patient Info Name: Vimal Doty Age: 65 years : 1955 Gender: Male Ht: 72 in Wt: 330 lbs BSA: 2.83 m2 HR: 77 bpm BP: 104 / 44 mmHg Heart Rhythm: Sinus Rhythm Technical Quality: Good Exam Date: 10/07/2020 7:34 AM Exam Location: [facility] Patient Status: Inpatient Admit Date: 10/06/2020 Staff Ordering Physician: Ileana Ac NP Cooler Supervisor: Carloz Soto RDCS, RT Attending Provider: Eduardo Landaverde MD Referring Physician: Yashira SANDERS; Exam Type: CA echo doppler color flow Study Info Indications I50.9 - Heart failure, unspecified Complete two-dimensional, color flow and Doppler transthoracic echocardiogram is performed. Summary 1. Complete two-dimensional, color flow and Doppler transthoracic echocardiogram is performed. 2. Left ventricular systolic function is mildly reduced, estimated at 50%. 3. Left ventricular chamber dimension is normal. 4. There is moderately increased left ventricular wall thickness. 5. The left ventricular diastolic function is grade I diastolic dysfunction. 6. Technically difficult study with limited views. Regional wall motion assessment limited due to poor endomyocardial border definition. 7. Right ventricular chamber dimension is mildly enlarged. 8. Right ventricular systolic function is reduced. 9. Right atrial chamber dimension is moderately enlarged. 10. There is mild mitral valve regurgitation. 11. There is trace tricuspid valve regurgitation. 12. Unable to estimate PA systolic pressure due to poor spectral resolution of tricuspid regurgitant jet velocity. Left Ventricle Technically difficult study with limited views. Regional wall motion assessment limited due to poor endomyocardial border definition. Left ventricular chamber dimension is normal. Left ventricular systolic function is mildly reduced, estimated at 50%. There is moderately increased left ventricular wall thickness. The left ventricular diastolic function is grade I diastolic dysfunction. Right Ventricle Right ventricular chamber dimension is mildly enlarged. Right ventricular systolic function is reduced. Left Atria Left atrial chamber dimension is mildly enlarged. Right Atria Right atrial chamber dimension is moderately enlarged. Aortic Valve The aortic valve is not well visualized. There is no aortic valve stenosis. There is no aortic valve regurgitation. Pulmonic Valve The pulmonic valve is not well visualized. Mitral Valve The mitral valve has normal leaflets. There is mild mitral valve regurgitation. The mitral valve annulus is mildly calcified. Tricuspid Valve The tricuspid valve leaflets are normal. There is trace tricuspid valve regurgitation. Unable to estimate PA systolic pressure due to poor spectral resolution of tricuspid regurgitant jet velocity. Pericardium/Pleural The pericardium appears not well visualized. There is trivial pericardial effusion. Inferior Vena Cava Normal inferior vena cava with >50% collapse upon inspiration consistent with normal right atrial pressure, 5 mmHg. Aorta The aortic root size at the sinus of Valsalva is mildly dilated. There is mild aortic atherosclerosis. Left Ventricular Outflow Tract Name Value Normal LVOT 2D
[2020-10-07 00:30] LABS: SARS-CoV-2 RNA PCR Negative
[2020-10-07 05:00] LABS: Basophils Percent Auto 0.2 % (0.2-1.2); Hematocrit 43.7 % (42.0-52.0); Hemoglobin 12.6 g/dL (14.0-18.0); Immature Granulocyte Absolute 0.09 K/mm3 (0.00-0.031); Immature Granulocyte Percent A 1.5 % (0-0.5); Lymphocytes Absolute Auto 0.62 K/mm3 (0.9-3.2); Lymphocytes Percent Auto 10.4 % (18.3-44.2); Mean Corpuscular HGB Conc 28.8 g/dl (32-36); Mean Corpuscular Hemoglobin 26.1 pg (26-34); Mean Corpuscular Volume 90.5 fl (80-100); Monocytes Absolute Auto 0.2 K/mm3 (0.1-0.6); Neutrophils Absolute Auto 5.1 K/mm3 (1.3-6.7); Neutrophils Percent Auto 84.9 % (45.5-73.1); Platelet Count Result 253 k/mm3 (150-375); Red Blood Count 4.83 M/mm3 (4.6-6.20); Red Cell Distribution Width 14.7 % (11.5-14.5)
[2020-10-07] MEDS: methylPREDNISolone SOD SUCC 125 MG VIAL 80 MG IV PUSH ×3 (05:13→21:22)
[2020-10-07 05:34] LABS: Alanine Aminotransferase 15 U/L (4-50); Albumin Level 3.7 g/dL (3.5-5.1); Alkaline Phosphatase 70 U/L (38-126); Anion Gap 6.99999 mmol/L (8-16); Aspartate Amino Transferase 16 U/L (17-59); Bilirubin,Total 0.3 mg/dL (0.2-1.3); Blood Urea Nitrogen 25 mg/dL (9-20); Calcium 8.1 mg/dL (8.4-10.2); Carbon Dioxide > 40 mmol/L (22-30); Chloride 97 mmol/L (98-107); Estimated CRCL calculation 92 ml/min; Estimated Glomerular Filt Rate > 60; Glucose 134 mg/dL (75-110); Magnesium 2.5 mg/dL (1.6-2.3); Potassium 4.6 mmol/L (3.4-5.0); Sodium 144 mmol/L (137-145)
[2020-10-07 05:37] LABS: Large Platelets Present; Platelet Estimate Adequate (Adequate)
[2020-10-07 05:38] LABS: Hypochromasia 1+ (NORMAL)
[2020-10-07 06:13] LABS: Thyroid Stimulating Hormone Reflex 0.928 uIU/mL (0.465-4.68)
[2020-10-07] MEDS: ALBUTEROL SULFATE NEB 2.5 MG/3 ML INH 1.25 MG INHALATION (09:46)
[2020-10-07] MEDS: IPRATROPIUM BR 0.02% INH SOLN 0.5 MG/2.5 ML VIAL INHALATION ×3 (09:47→20:09)
--- NOTE | 2020-10-07 10:33 | PM.IMPN ---
Progress Note: A&P Assessment and Plan (1) Acute and chronic respiratory failure: Qualifiers: Respiratory failure complication: hypoxia and hypercapnia Qualified Code(s): J96.21 - Acute and chronic respiratory failure with hypoxia; J96.22 - Acute and chronic respiratory failure with hypercapnia Code(s): J96.20 - Acute and chronic respiratory failure, unspecified whether with hypoxia or hypercapnia Status: Acute Assessment and Plan: The patient is typically on oxygen home and uses a trilogy. Patient sees Dr. Buenrostro for education program associate. Patient currently on on a BiPAP machine 15/09. Will repeat his ABGs this morning. Resp failure related to COPD, pneumonia and congestive heart failure. Wean off BiPAP as toelrated (2) COPD with exacerbation: Code(s): J44.1 - Chronic obstructive pulmonary disease with (acute) exacerbation Status: Acute Assessment and Plan: Minimal wheezing now. Continue Solu-Medrol, Albuterol/Atrovent inhaler and Daliresp. Patient is on a BiPAP. Wean off as toelrated. (3) Community acquired pneumonia: Qualifiers: Laterality: unspecified laterality Qualified Code(s): J18.9 - Pneumonia, unspecified organism Code(s): J18.9 - Pneumonia, unspecified organism Status: Acute Assessment and Plan: CXR showing airspace opacities in right midlung zone and emphysema. Possible PNA. WBC normal and no cough or fever though. Started on Azithromycin and Rocephin. Cultures pending. Continue with inhalers. (4) CHF (congestive heart failure): Qualifiers: Heart failure chronicity: unspecified Heart failure type: unspecified Qualified Code(s): I50.9 - Heart failure, unspecified Code(s): I50.9 - Heart failure, unspecified Status: Acute Assessment and Plan: CXR showing focal airspace opacity but no pulmonary edema. BNP 379. Echo pending. Started on IV Lasix. Continue metoprolol. (5) Atrial flutter: Qualifiers: Atrial flutter type: unspecified Qualified Code(s): I48.92 - Unspecified atrial flutter Code(s): I48.92 - Unspecified atrial flutter Status: Acute Assessment and Plan: Patient remains in sinus rhythm. Continue Multaq and metoprolol. Continue Eliquis for stroke prophylaxis (6) Sleep apnea: Qualifiers: Sleep apnea type: obstructive Qualified Code(s): G47.33 - Obstructive sleep apnea (adult) (pediatric) Code(s): G47.30 - Sleep apnea, unspecified Status: Acute Assessment and Plan: Wean BiPAP to be used at sleep. (7) Hypertension: Qualifiers: Hypertension type: essential hypertension Qualified Code(s): I10 - Essential (primary) hypertension Code(s): I10 - Essential (primary) hypertension Status: Acute Assessment and Plan: Patient's blood pressure was reviewed on 10/07 Blood pressure remains well controlled. Will continue current medications with metoprolol (8) Pulmonary hypertension: Code(s): I27.20 - Pulmonary hypertension, unspecified Status: Acute Assessment and Plan: Related to above. (9) DVT prophylaxis: Code(s): Z29.9 - Encounter for prophylactic measures, unspecified Status: Acute Assessment and Plan: Eliquis Subjective Date/time seen: 10/07/20 10:33 Interval history: Date of service 10/07/20 65yo male with ch resp failure, COPD and CHF here for acute resp failure. Patient slept well last night. He or his mask overnight. He denies chest pain or cough. No nausea or vomiting. He is hungry. Exam Narrative: Exam Narrative: AF 97.7 118/59 80 20 98% bipap Gen - NARD Lying semi recumbent in bed with BiPAP in place Chest - distant but clear breath sounds anteriorly and flanks. CV - RRR S1/S2; Tele showing no significant dysrhythmias Abd - Soft. Obese. Nontender. Positive bowel sounds. Ext - No pretibial e
[2020-10-07] MEDS: APIXABAN 5 MG TABLET PO ×2 (10:38→18:22)
[2020-10-07] MEDS: DRONEDARONE HCL 400 MG TABLET PO ×2 (10:38→18:23)
[2020-10-07] MEDS: ROFLUMILAST 500 MCG TABLET PO (10:39)
[2020-10-07] MEDS: polyethylene glycoL 3350 17 GM POWD.PACK PO (10:39)
[2020-10-07] MEDS: PANTOPRAZOLE 40 MG TABLET PO (10:39)
[2020-10-07] MEDS: POTASSIUM CHLORIDE 20 MEQ TABLET.ER PO (10:39)
[2020-10-07] MEDS: METOPROLOL TARTRATE 25 MG TABLET PO ×2 (10:39→18:22)
[2020-10-07] MEDS: FUROSEMIDE INJ 40 MG/4 ML VIAL 20 MG IV PUSH ×2 (10:51→18:22)
[2020-10-07 11:07] LABS: Alveolar/Arterial O2 Gradient 200.7 mmHg; Base Excess ABG 11.8 mEq/l (+/-2.0); Fractional Inspired Oxygen 50 %; HCO3 ABG 39.5 mEq/l (22.0-26.0); Oxygen Content ABG 18.2 %vol (16.0-22.0); Oxygen Saturation ABG 95.7 % (95.0-100.0); Oxyhemoglobin 94.7 % THb (90.0-100.0); PO2 ABG 82.1 mmHg (80.0-100.0); PO2 FiO2 Ratio Arterial Blood 1.64 %; Total Hemoglobin 13.6 g/dL (12.0-18.0); pH ABG 7.398 (7.350-7.450)
[2020-10-07 11:08] LABS: Device NON-INVASIVE VENT; Modified Allen's Test Pass; PCO2 ABG 65.5 mmHg (35.0-45.0); Site Drawn LEFT RADIAL
[2020-10-07 11:09] LABS: Non-Invasive Expiratory Pressure 10 CMH2O; Non-Invasive Inspiratory Pressure 24 CMH2O; Non-Invasive Vent Rate 4 /MIN
[2020-10-07] MEDS: ALBUTEROL SULFATE NEB 2.5 MG/0.5 ML INH INHALATION ×2 (13:53→20:09)
[2020-10-07] MEDS: BUDESONIDE RESPULE NEB 0.5 MG/2 ML AMP INHALATION (20:10)
[2020-10-07] MEDS: TAMSULOSIN HCL 0.4 MG CAPSULE PO (21:22)
--- NOTE | 2020-10-07 23:16 | PC.NURSE ---
This patient, Vimal Doty, was transferred to [[id number] ] on 10/07/20 at 2316. Personal belongings sent with patient. Report given to [Lexa barnett ]. Appropriate documentation sent with patient.
[2020-10-08] VITALS (12 sets, daily range): BP systolic 117; BP diastolic 56; PULSE 65–85; RESP 10–23; TEMP 37.1; O2SAT 95–97
--- NOTE | 2020-10-08 00:59 | PC.NURSE ---
This patient, Vimal Doty, was received from [ [id number]] on 10/07/20 at 2316. Patient/family oriented to unit policies and routines. Pt to room 316 with belongings. Report received from Jania Roblero
[2020-10-08] MEDS: ALBUTEROL SULFATE NEB 2.5 MG/0.5 ML INH INHALATION ×3 (02:10→14:42)
[2020-10-08] MEDS: IPRATROPIUM BR 0.02% INH SOLN 0.5 MG/2.5 ML VIAL INHALATION ×3 (02:10→14:42)
[2020-10-08 06:36] LABS: Albumin Level 3.6 g/dL (3.5-5.1); Anion Gap 2.99999 mmol/L (8-16); Blood Urea Nitrogen 32 mg/dL (9-20); Calcium 8.1 mg/dL (8.4-10.2); Carbon Dioxide > 40 mmol/L (22-30); Chloride 96 mmol/L (98-107); Estimated CRCL calculation 100 ml/min; Estimated Glomerular Filt Rate > 60; Glucose 132 mg/dL (75-110); Phosphorus 3.5 mg/dL (2.5-4.5); Potassium 4.3 mmol/L (3.4-5.0); Sodium 139 mmol/L (137-145)
[2020-10-08] MEDS: methylPREDNISolone SOD SUCC 125 MG VIAL 80 MG IV PUSH (06:51)
[2020-10-08] MEDS: BUDESONIDE RESPULE NEB 0.5 MG/2 ML AMP INHALATION (08:13)
[2020-10-08 08:17] LABS: Iron 21 ug/dL (49-181)
[2020-10-08 08:26] LABS: Percent Iron Saturation 5 % (20-50)
[2020-10-08] MEDS: DRONEDARONE HCL 400 MG TABLET PO (09:17)
[2020-10-08] MEDS: APIXABAN 5 MG TABLET PO (09:18)
[2020-10-08] MEDS: FUROSEMIDE INJ 40 MG/4 ML VIAL 20 MG IV PUSH (09:18)
[2020-10-08] MEDS: polyethylene glycoL 3350 17 GM POWD.PACK PO (09:19)
[2020-10-08] MEDS: PANTOPRAZOLE 40 MG TABLET PO (09:19)
[2020-10-08] MEDS: ROFLUMILAST 500 MCG TABLET PO (09:19)
[2020-10-08] MEDS: METOPROLOL TARTRATE 25 MG TABLET PO (09:19)
--- NOTE | 2020-10-08 11:00 | PM.DS ---
DS: Admitting Diagnosis Admitting Diagnosis Admitting Diagnosis: pneumonia/COPD exacerbation DS: Discharge Diagnosis Discharge Diagnosis (1) Acute and chronic respiratory failure: Qualifiers: Respiratory failure complication: hypoxia and hypercapnia Qualified Code(s): J96.21 - Acute and chronic respiratory failure with hypoxia; J96.22 - Acute and chronic respiratory failure with hypercapnia Code(s): J96.20 - Acute and chronic respiratory failure, unspecified whether with hypoxia or hypercapnia Status: Acute Assessment and Plan: On admission, ABG showing 7.295/87/77 on 4L. The patient is typically on oxygen home at 3L and uses a trilogy. Patient sees Dr. Buenrostro for hand paster. Patient placed on a BiPAP machine 15/09. Repeat his ABG 7.40/65/82. Resp failure related to COPD and pneumonia but less likely congestive heart failure. Weaned off BiPAP to 3L NC with BiPAP use at night. (2) COPD with exacerbation: Code(s): J44.1 - Chronic obstructive pulmonary disease with (acute) exacerbation Status: Acute Assessment and Plan: Treated with Solu-Medrol, Albuterol/Atrovent inhaler and Daliresp. Lung exam improved. (3) Community acquired pneumonia: Qualifiers: Laterality: unspecified laterality Qualified Code(s): J18.9 - Pneumonia, unspecified organism Code(s): J18.9 - Pneumonia, unspecified organism Status: Acute Assessment and Plan: CXR showing airspace opacities in right midlung zone and emphysema. Possible PNA. WBC normal and no cough or fever though. Started on Azithromycin and Rocephin. Blood Cultures no growth. Home with abx to complete a course but narrow to azithromycin only. Repeat CXR in 4 weeks (4) CHF (congestive heart failure): Qualifiers: Heart failure chronicity: chronic Heart failure type: diastolic Qualified Code(s): I50.32 - Chronic diastolic (congestive) heart failure Code(s): I50.9 - Heart failure, unspecified Status: Acute Assessment and Plan: CXR showing focal airspace opacity but no pulmonary edema. BNP 379. Echo here Showing EF of 50% with grade 1 diastolic dysfunction and decreased RV systolic function. Pulmonary artery systolic pressure unable to be assessed. Right atrial and ventricle enlargement noted. He was started on IV Lasix but not felt to have acute exacerbation. Cumulative I/O's +70mL. We continued his metoprolol. (5) Atrial flutter: Qualifiers: Atrial flutter type: unspecified Qualified Code(s): I48.92 - Unspecified atrial flutter Code(s): I48.92 - Unspecified atrial flutter Status: Acute Assessment and Plan: Patient has a history of atrial flutter. Patient remains in sinus rhythm. We continued his Multaq and metoprolol. We continued his Eliquis for stroke prophylaxis (6) Sleep apnea: Qualifiers: Sleep apnea type: obstructive Qualified Code(s): G47.33 - Obstructive sleep apnea (adult) (pediatric) Code(s): G47.30 - Sleep apnea, unspecified Status: Acute Assessment and Plan: As above. He is compliant with Trilogy at home. (7) Hypertension: Qualifiers: Hypertension type: essential hypertension Qualified Code(s): I10 - Essential (primary) hypertension Code(s): I10 - Essential (primary) hypertension Status: Acute Assessment and Plan: Patient's blood pressure was monitored closely. Blood pressure remains well controlled. We continued his current medications with metoprolol (8) Pulmonary hypertension: Code(s): I27.20 - Pulmonary hypertension, unspecified Status: Acute Assessment and Plan: Related to above. DS: Summary Hospital Course Reason for hospitalization: 65yo male with chronic resp failure here for SOB. Please see H&P for details. Hospital Course: As above Status at Discharge Cognitive/behavioral status a
--- NOTE | 2020-10-12 14:28 | PC.NURSE ---
Blood cx are negative. karen
== END 2020-10-08 15:00 | disposition home or self-care (01) | DRG 193 ==
LOC: ANHED 12:20 → ANHIMU 13:44 → ANH3MEDSUR 10-07 23:06
PROVIDERS: Emergency Medicine; Nurse Practitioner; Admitting Provider Internal Medicine; Emergency Provider Emergency Medicine; PCP Family Medicine; Visit Provider Internal Medicine
DX: J18.9 Pneumonia, unspecified organism (principal); J96.21 Acute and chronic respiratory failure with hypoxia; J96.22 Acute and chronic respiratory failure with hypercapnia; J44.1 Chronic obstructive pulmonary disease with (acute) exacerbation; J44.0 Chronic obstructive pulmonary disease with (acute) lower respiratory infection; I50.32 Chronic diastolic (congestive) heart failure; I48.92 Unspecified atrial flutter; Z68.42 Body mass index [BMI] 45.0-49.9, adult; Z20.828 Contact with and (suspected) exposure to other viral communicable diseases; I11.0 Hypertensive heart disease with heart failure; G47.33 Obstructive sleep apnea (adult) (pediatric); I27.20 Pulmonary hypertension, unspecified; N40.0 Benign prostatic hyperplasia without lower urinary tract symptoms; J43.9 Emphysema, unspecified; M19.90 Unspecified osteoarthritis, unspecified site; E66.01 Morbid (severe) obesity due to excess calories; F41.9 Anxiety disorder, unspecified; L40.9 Psoriasis, unspecified; Z99.81 Dependence on supplemental oxygen; Z87.891 Personal history of nicotine dependence
CPT/HCPCS: 36415; 36600; 71045; 80048; 80053; 80069; 82728; 82805; 83540; 83550; 83735; 83880; 84443; 84484; 85025; 87040; 87635; 93005; 93306; 94002; 94003; 94640; 94660; 96374; 99291; A9270; C9803; J0456; J0696; J1940; J2930; Q9957; U0003

== ENCOUNTER 2020-11-02 10:30 | Outpatient (CLI) | payer MEDICARE, SELFPAY ==
--- NOTE | ~2020-11-02 | XR_ITS ---
EXAMINATION: XR chest 2V DATE: 11/02/2020 11:02 INDICATION: Pneumonia, unspecified organism. TECHNIQUE: Frontal and lateral views of the chest were obtained. COMPARISON: Chest single view 10/06/2020, chest CT 06/05/2020 FINDINGS: There are lucencies in the lungs, consistent with emphysema. There are mild airspace opacit ies in right mid and lower lung zones and left lower lung. No pleural effusion or pneumothorax. The h eart size is normal. There are multiple right rib deformities with indentation of the chest wall. The re is a prominent left paracardial fat pad. IMPRESSION: 1. Mild airspace opacities in right mid and lower lung zones and left lower lung zone with interval i mprovement, likely atelectasis. Pneumonia is less likely. 2. Emphysema. Reviewed, dictated and finalized at location B. TER IMPRESSION: 1. Mild airspace opacities in right mid and lower lung zones and left lower abbie g zone with interval improvement, likely atelectasis. Pneumonia is less likely. 2. Emphysema.
== END 2020-11-02 10:31 | disposition home or self-care (01) ==
PROVIDERS: PCP Family Medicine; Referring Provider Internal Medicine Critical Care Medicine; Visit Provider Nurse Practitioner Family
DX: J18.9 Pneumonia, unspecified organism (principal); J43.9 Emphysema, unspecified
CPT/HCPCS: 71046

== ENCOUNTER 2020-11-03 08:02 | Outpatient (CLI) | payer MEDICARE, SELFPAY ==
[2020-11-03 08:36] LABS: Hematocrit 44.9 % (42.0-52.0); Hemoglobin 13.1 g/dL (14.0-18.0); Mean Corpuscular HGB Conc 29.2 g/dl (32-36); Mean Corpuscular Hemoglobin 26.6 pg (26-34); Mean Corpuscular Volume 91.1 fl (80-100); Mean Platelet Volume 9.4 fl (7.4-10.4); Platelet Count Result 253 k/mm3 (150-375); Red Blood Count 4.93 M/mm3 (4.6-6.20); Red Cell Distribution Width 15.1 % (11.5-14.5); White Blood Count 6.6 K/mm3 (4.5-10.0)
[2020-11-03 08:44] LABS: Add Urine Microscopic? YES; Appearance Urine Clear (Clear); Bacteria Urine Trace /hpf; Bilirubin Urine Negative (Negative); Blood Urine Negative (Negative); Color Urine Yellow (Yellow); Glucose Urine UA Negative (Negative); Ketones Urine Negative (Negative); Leukocyte Esterase Ur Negative LEU/UL (NEGATIVE); Mucus Urine Rare /lpf; Nitrate Urine Negative (Negative); Protein Urine 1+ mg/dL (Negative); RBC Urine 0-2 /hpf (0-2); Specific Grav Ur 1.029 (1.001-1.035); Squamous Epithelial Cell Urine Rare /hpf (Few); Urobilinogen Urine Negative mg/dL (<2.0); WBC Urine 0-3 /hpf (0-3)
[2020-11-03 08:50] LABS: Alanine Aminotransferase 17 U/L (4-50); Albumin Level 3.9 g/dL (3.5-5.1); Alkaline Phosphatase 77 U/L (38-126); Aspartate Amino Transferase 20 U/L (17-59); Bilirubin,Total 0.4 mg/dL (0.2-1.3); Blood Urea Nitrogen 24 mg/dL (9-20); Calcium 8.6 mg/dL (8.4-10.2); Carbon Dioxide > 40 mmol/L (22-30); Chloride 97 mmol/L (98-107); Cholesterol 169 mg/dL (0-200); Estimated Glomerular Filt Rate > 60; Glucose 113 mg/dL (75-110); HDL Direct 37 mg/dL; Potassium 4.6 mmol/L (3.4-5.0); Sodium 142 mmol/L (137-145); Triglycerides 133 mg/dL (<150)
[2020-11-03 09:00] LABS: LDL Cholesterol Direct 114 mg/dL
[2020-11-03 09:01] LABS: Alveolar/Arterial O2 Gradient 151.3 mmHg; Fractional Inspired Oxygen 40 %; HCO3 ABG 38.7 mEq/l (22.0-26.0); Oxyhemoglobin 83.8 % THb (90.0-100.0); PO2 FiO2 Ratio Arterial Blood 1.25 %; Total Hemoglobin 13.6 g/dL (12.0-18.0); pH ABG 7.342 (7.350-7.450)
[2020-11-03 09:08] LABS: Oxygen Saturation ABG 81.4 % (95.0-100.0); PCO2 ABG 73.1 mmHg (35.0-45.0); PO2 ABG 49.8 mmHg (80.0-100.0)
[2020-11-03 09:09] LABS: Device NASAL CANNULA; Modified Allen's Test Pass; Site Drawn LEFT RADIAL
[2020-11-03 09:19] LABS: Prostate Specific Antigen 3.6 ng/mL (< OR = 4.0)
--- NOTE | 2020-11-03 10:08 | PCRCNOTE ---
PT IN FOR ABG, CRITICAL RESULTS SENT OVER TO OFFICE, DR DELACRUZ AND HARSHA FRANCIS PLAN TO CONTACT [facility] FOR TRILOGY SETTINGS AND DISCUSS CHANGING CURRENT SETTINGS. HARSHA FRANCIS SAID HE WILL GO THRU HIS OFFICE STAFF FOR CONTACT INFO FOR [facility].
--- NOTE | 2020-11-03 12:10 | PM.PNPUL ---
Subjective Date/time seen: 11/03/20 12:10 Interval history: Saw the patient today in PFT lab: AB.34/73.1/49.8 correlating with oxygen sats of 83%. He feels a little more tired than usual. I've increased his TV from 510 ml to 550 ml and increased his RR from 20 to 23 today. This will be communicated to [facility] by our office. Objective Data Labs Labs: Laboratory Results - last 24 hr 11/03/20 11/03/20 11/03/20 08:23 08:23 08:23 WBC 6.6 RBC 4.93 Hgb 13.1 L Hct 44.9 MCV 91.1 MCH 26.6 MCHC 29.2 L RDW 15.1 H Plt Count 253 MPV 9.4 Puncture Site ABG pH ABG pCO2 ABG pO2 ABG PO2/FiO2 Ratio ABG HCO3 ABG O2 Saturation ABG O2 Content ABG Base Excess A-a Gradient Oxyhemoglobin Total Hemoglobin O2 Delivery Device O2 Liters/Min FiO2 Sodium 142 Potassium 4.6 Chloride 97 L Carbon Dioxide > 40 H Anion Gap BUN 24 H Creatinine 1.10 Estim Creat Clear Calc Not Reportable Estimated GFR > 60 Glucose 113 H Calcium 8.6 Total Bilirubin 0.4 AST 20 ALT 17 Alkaline Phosphatase 77 Total Protein 7.0 Albumin 3.9 Triglycerides 133 Cholesterol 169 LDL Cholesterol Direct 114 HDL Direct 37 Prostate Specific Ag 3.6 TSH 1.420 Urine Color Urine Appearance Urine pH Ur Specific [place] Urine Protein Urine Glucose (UA) Urine Ketones Ur Blood (Man) Urine Nitrate Urine Bilirubin Urine Urobilinogen Ur Leukocyte Esterase Urine RBC Urine WBC Ur Squamous Epith Cells Urine Bacteria Urine Mucus 11/03/20 11/03/20 08:23 08:50 WBC RBC Hgb Hct MCV MCH MCHC RDW Plt Count MPV Puncture Site Left radial ABG pH 7.342 L ABG pCO2 73.1 H* ABG pO2 49.8 L* ABG PO2/FiO2 Ratio 1.25 ABG HCO3 38.7 H ABG O2 Saturation 81.4 L* ABG O2 Content 16.0 ABG Base Excess 10.0 A-a Gradient 151.3 Oxyhemoglobin 83.8 L Total Hemoglobin 13.6 O2 Delivery Device Nasal cannula O2 Liters/Min 5.0 FiO2 40 Sodium Potassium Chloride Carbon Dioxide Anion Gap BUN Creatinine Estim Creat Clear Calc Estimated GFR Glucose Calcium Total Bilirubin AST ALT Alkaline Phosphatase Total Protein Albumin Triglycerides Cholesterol LDL Cholesterol Direct HDL Direct Prostate Specific Ag TSH Urine Color Yellow Urine Appearance Clear Urine pH 6.0 Ur Specific [place] 1.029 Urine Protein 1+ H Urine Glucose (UA) Negative Urine Ketones Negative Ur Blood (Man) Negative Urine Nitrate Negative Urine Bilirubin Negative Urine Urobilinogen Negative Ur Leukocyte Esterase Negative Urine RBC 0-2 Urine WBC 0-3 Ur Squamous Epith Cells Rare Urine Bacteria Trace Urine Mucus Rare
== END 2020-11-03 08:03 | disposition home or self-care (01) ==
PROVIDERS: PCP Family Medicine; Referring Provider Internal Medicine Cardiovascular Disease; Visit Provider Nurse Practitioner Family
DX: J96.11 Chronic respiratory failure with hypoxia (principal); J96.12 Chronic respiratory failure with hypercapnia; I10 Essential (primary) hypertension; E78.2 Mixed hyperlipidemia; R53.83 Other fatigue; R35.1 Nocturia; Z00.00 Encounter for general adult medical examination without abnormal findings
CPT/HCPCS: 36415; 36600; 80053; 80061; 81001; 82805; 84153; 84443; 85027

== ENCOUNTER 2020-12-24 17:41 | Inpatient (IN) | payer MEDICARE, SELFPAY ==
[2020-12-24] VITALS (39 sets, daily range): BP systolic 112–158; BP diastolic 67–143; PULSE 92–112; RESP 15–40; TEMP 37–37.1; O2SAT 64–99
--- NOTE | ~2020-12-24 | XR_ITS ---
XR chest 1V portable DATE: 12/25/2020 17:36 INDICATION: Hypoxia TECHNIQUE: Portable AP chest on 12/25/2020 at 1735 hours COMPARISON: Portable AP chest on 12/24/2020 at 1823 hours FINDINGS: There are patchy bibasilar infiltrates and/or atelectasis. Lungs appear mildly hyperinflate d. Heart size appears within normal range. Is aortic unfolding. IMPRESSION: Patchy bibasilar infiltrate and/atelectasis, mildly improved since 12/24/2020 Reviewed, dictated and finalized at location A. GATION PUMP INSTALLER
--- NOTE | ~2020-12-24 | XR_ITS ---
EXAMINATION: XR chest 1V portable DATE: 12/27/2020 08:30 INDICATION: Congestive heart failure. Hypercapnic respiratory failure. TECHNIQUE: frontal view of the chest was obtained. COMPARISON: Chest radiograph dated 12/25/2020 FINDINGS: No significant interval change in linear and patchy opacities in the bilateral lower lung zones. Incr eased lucency and architectural distortion in the upper lung zones consistent with emphysema. No pleu ral effusion or pneumothorax. Cardiomegaly. Multiple old right-sided rib fractures. IMPRESSION: 1. Unchanged opacities in the bilateral lower lung zones consistent with atelectasis, pneumonia or so me combination thereof. 2. Emphysema. 3. Cardiomegaly. Reviewed, dictated and finalized at location A. X NETWORK ENGINEER IMPRESSION: 1. Unchanged opacities in the bilateral lower lung zones consistent with atelec tasis, pneumonia or some combination thereof. 2. Emphysema. 3. Cardiomegaly.
--- NOTE | ~2020-12-24 | XR_ITS ---
XR chest 1V portable DATE: 12/24/2020 18:23 INDICATION: Shortness of breath. History of COPD. TECHNIQUE: Portable AP chest radiographs on 12/16/2020 at 1822 1823 hours COMPARISON: 11/02/2020 PA and lateral chest FINDINGS: There is cardiomegaly. There is mild pulmonary vascular congestion and redistribution. Ther e are mild infiltrates in the mid and lower lung zones. Chronic deformity of the right rib cage. IMPRESSION: Cardiomegaly, congestive changes Bilateral mid and particularly lower lung zone infiltrates. Differential includes pneumonia, aspirati on, pulmonary edema. Reviewed, dictated and finalized at location A. AGE YARNS DRYING MACHINE OPERATOR IMPRESSION: Cardiomegaly, congestive changes Bilateral mid and particularly lower lung zone infiltrates. Differential includ es pneumonia, aspiration, pulmonary edema.
--- NOTE | 2020-12-24 17:50 | ECG_ITS ---
Measurements Intervals [place] Rate: 101 P: 41 TX: 173 QRS: 246 QRSD: 101 T: 40 QT: 376 QTc: 489 Interpretive Statements SINUS TACHYCARDIA INCOMPLETE RIGHT BUNDLE BRANCH BLOCK POOR R WAVE PROGRESSION, ANTERIOR LEADS BASELINE ARTIFACT- I, II, III, AVR, AVL, AVF, V1-V6 BORDERLINE ECG Electronically Signed On 12-24-2020 18:48:41 PARKING ENFORCEMENT SPECIALIST by mC Mcrae D.O.
--- NOTE | 2020-12-24 17:55 | PC.NURSE ---
patient sitting on stretcher. here with increased dyspnea. denies known fever. assessments documented. alert. oriented. reminded to talk less and take deep breaths. states he did have a neb treatment just prior to leaving for ED.
[2020-12-24 18:03] LABS: Basophils Absolute Auto 0.1 K/mm3 (0.0-0.1); Basophils Percent Auto 0.7 % (0.2-1.2); Eosinophils Percent Auto 0.5 % (0-4.4); Hematocrit 50.4 % (42.0-52.0); Hemoglobin 13.5 g/dL (14.0-18.0); Immature Granulocyte Absolute 0.14 K/mm3 (0.00-0.031); Immature Granulocyte Percent A 1.7 % (0-0.5); Lymphocytes Absolute Auto 1.13 K/mm3 (0.9-3.2); Lymphocytes Percent Auto 13.9 % (18.3-44.2); Mean Corpuscular HGB Conc 26.8 g/dl (32-36); Mean Corpuscular Hemoglobin 24.5 pg (26-34); Mean Corpuscular Volume 91.6 fl (80-100); Mean Platelet Volume 9.4 fl (7.4-10.4); Monocytes Absolute Auto 0.4 K/mm3 (0.1-0.6); Monocytes Percent Auto 5.2 % (2.6-8.5); Neutrophils Absolute Auto 6.4 K/mm3 (1.3-6.7); Nucleated Red Blood Cells Perc 0.2 % (0.0-0.2); Platelet Count Result 250 k/mm3 (150-375); Red Cell Distribution Width 16.2 % (11.5-14.5); White Blood Count 8.1 K/mm3 (4.5-10.0)
--- NOTE | 2020-12-24 18:05 | PC.NURSE ---
respiratory in room. ABG's done. patient is aware of current treatment plan. has been admitted here several times in the past for same. sitting up on stretcher. 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 on 3L NC O2. EKG done. labs sent.
[2020-12-24 18:09] LABS: Hypochromasia 2+ (NORMAL); Platelet Estimate Adequate (Adequate)
[2020-12-24 18:10] LABS: Stomatocytes 1+ (NORMAL)
[2020-12-24 18:11] LABS: Alveolar/Arterial O2 Gradient 39.7 mmHg; Base Excess ABG 16.8 mEq/l (+/-2.0); Carboxyhemoglobin 1.8 % THb (0-2.0); Fractional Inspired Oxygen 36 %; HCO3 ABG 50.9 mEq/l (22.0-26.0); Methemoglobin ABG 0.2 %THb (0-1.5); Oxygen Content ABG 16.5 %vol (16.0-22.0); Oxyhemoglobin 86.4 % THb (90.0-100.0); PO2 ABG 63.4 mmHg (80.0-100.0); PO2 FiO2 Ratio Arterial Blood 1.76 %; Reduced Hemoglobin 11.6 %THb (0-5.0); Total Hemoglobin 13.6 g/dL (12.0-18.0)
[2020-12-24 18:13] LABS: pH ABG 7.203 (7.350-7.450)
[2020-12-24 18:14] LABS: Device NASAL CANNULA; Modified Allen's Test Pass; Oxygen Saturation ABG 84.3 % (95.0-100.0); PCO2 ABG 132.4 mmHg (35.0-45.0); Site Drawn LEFT RADIAL
--- NOTE | 2020-12-24 18:23 | ED.SOB ---
HPI - SOB/Dyspnea General Chief Complaint: Shortness of Breath/Dyspnea Stated Complaint: sob Time Seen by Provider: 12/24/20 18:04 Source: patient and family Mode of arrival: ambulatory Limitations: no limitations History of Present Illness HPI Narrative: 65 years old white male brought to the emergency room by his son, complaining of that his brain is not working right in the last few days. Patient had similar symptoms secondary to hypercapnia. Patient on home oxygen 3-5 and half a liter. History of COPD, chronic respiratory failure, CHF, atrial fibrillation on Eliquis, pulmonary hypertension, morbidly obese. Patient denies any fever, chills, nausea, vomiting, chest pain, headache, history of COVID-19 infection or exposure to anybody with COVID-19. Patient lives alone, full code, currently on 4 L oxygen. Patient reported that his coughing is a little bit worse than before with a lot of sputum production. Related Data Home Medications Medication Instructions Recorded Confirmed Multaq 400 mg PO BIDWM 10/15/19 10/06/20 polyethylene glycol 3350 [Miralax] 17 g PO DAILY 10/16/19 10/06/20 Eliquis 5 mg PO BID 06/02/20 10/06/20 albuterol sulfate 2.5 mg INHALATION Q4-6H PRN 06/02/20 10/06/20 ipratropium bromide 2.5 ml INHALATION Q4-6H PRN 10/07/20 10/07/20 Allergies Allergy/AdvReac Type Severity Reaction Status Date / Time No Known Allergies Allergy Verified 12/24/20 18:26 Review of Systems Review of Systems: Narrative: CONSTITUTIONAL: Denies fever, chills, or sweats. EYES: Denies visual changes, redness, or discharge. ENT: Denies rhinorrhea, congestion, sore throat, or otalgia. CARDIOVASCULAR: Denies chest pain, palpitations, or edema. RESPIRATORY: Increased coughing GASTROINTESTINAL: Denies abdominal pain, nausea, vomiting, or diarrhea. GENITOURINARY: Denies dysuria or hematuria. SKIN: Denies rash or itching. MUSCULOSKELETAL: Denies back pain, joint pain, or myalgia. NEUROLOGIC: Denies headache, numbness, or weakness. PSYCHIATRIC: Denies anxiety or depression. [facility] Past Medical History Medical History Acute and chronic respiratory failure Acute on chronic respiratory failure with hypoxia and hypercapnia On chronic home O2 of 3 L nasal cannula. History of prior intubation October 2018 Anxiety Arthritis Atrial flutter Paroxysmal AFib with cardioversion April 2013 and October 23, 2019 BPH (benign prostatic hyperplasia) Bronchitis CHF (congestive heart failure) Last echocardiogram EF was 55% prior echocardiogram previous year demonstrated borderline left ventricular systolic function and diastolic dysfunction grade 1 Chronic constipation COPD (chronic obstructive pulmonary disease) Dependence on continuous supplemental oxygen Emphysema, unspecified GI bleed History of cardioversion History of tobacco abuse Hypertension Hypertensive CHF Morbid obesity with BMI of 45.0-49.9, adult ELIZABETH and COPD overlap syndrome Pneumonia Psoriasis Pulmonary hypertension RVSP 59 on echo from July 2019 Rectal bleeding Sleep apnea Home BiPAP 12/05 Surgical History Surgical History H/O arthroscopy of left knee History of tonsillectomy 1966 Hx of cardiac cath Left tibial fracture Family History Family History Mother Breast cancer Rheumatoid arthritis Hypertension Father Skin cancer With metastases to bone and brain Mother Family history of arthritis Family history of congestive heart failure Father Family history of malignant neoplasm of bone Other Diabetes mellitus Social History Social History Social History: The patient smoked 1.5 packs of cigarettes per day for 40 years but quit smoking in 2017. He used to drink alcohol in moderation but has not drank in some time. He denies any illicit substance
[2020-12-24] MEDS: methylPREDNISolone SOD SUCC 125 MG VIAL IV PUSH (18:32)
--- NOTE | 2020-12-24 18:32 | PC.NURSE ---
patient on bipap now per respiratory. medicated as ordered. patient updated on current treatment plan.
[2020-12-24] MEDS: IPRATROPIUM BR 0.02% INH SOLN 0.5 MG/2.5 ML VIAL INHALATION (18:53)
[2020-12-24] MEDS: ALBUTEROL SULFATE NEB 2.5 MG/0.5 ML INH 5 MG INHALATION (18:53)
[2020-12-24 19:03] LABS: Alanine Aminotransferase 17 U/L (4-50); Albumin Level 3.6 g/dL (3.5-5.1); Alkaline Phosphatase 65 U/L (38-126); Aspartate Amino Transferase 19 U/L (17-59); Bilirubin,Total 0.6 mg/dL (0.2-1.3); Blood Urea Nitrogen 24 mg/dL (9-20); Calcium 7.9 mg/dL (8.4-10.2); Carbon Dioxide > 40 mmol/L (22-30); Chloride 99 mmol/L (98-107); Estimated Glomerular Filt Rate > 60; Glucose 158 mg/dL (75-110); Potassium 4.6 mmol/L (3.4-5.0); Sodium 142 mmol/L (137-145)
[2020-12-24 19:14] LABS: NT Pro B Type Natriuretic Pept 1990 PG/ML (5-100); Troponin I 0.014 ng/mL (0.000-0.034)
--- NOTE | 2020-12-24 19:21 | ECG_ITS ---
Measurements Intervals [place] Rate: 99 P: 47 NH: 175 QRS: -71 QRSD: 103 T: 50 QT: 362 QTc: 466 Interpretive Statements SINUS RHYTHM LEFT AXIS DEVIATION INCOMPLETE RIGHT BUNDLE BRANCH BLOCK POOR R WAVE PROGRESSION, ANTERIOR LEADS INFERIOR INFARCT, AGE INDETERMINATE BASELINE ARTIFACT- I, II, III, AVR, AVL, AVF ABNORMAL ECG Electronically Signed On 12-25-2020 6:39:30 DIGITAL ENGINEER by Cm Mcrae D.O.
[2020-12-24 19:34] LABS: Alveolar/Arterial O2 Gradient 148.9 mmHg; Base Excess ABG 18.1 mEq/l (+/-2.0); Fractional Inspired Oxygen 50 %; HCO3 ABG 51.5 mEq/l (22.0-26.0); Oxygen Content ABG 16.3 %vol (16.0-22.0); Oxyhemoglobin 88.2 % THb (90.0-100.0); PO2 ABG 65.7 mmHg (80.0-100.0); PO2 FiO2 Ratio Arterial Blood 1.31 %; Total Hemoglobin 13.1 g/dL (12.0-18.0)
[2020-12-24 19:36] LABS: Device NON-INVASIVE VENT; Modified Allen's Test Pass; Oxygen Saturation ABG 86.5 % (95.0-100.0); PCO2 ABG 126.1 mmHg (35.0-45.0); Site Drawn RIGHT RADIAL; pH ABG 7.229 (7.350-7.450)
[2020-12-24 19:37] LABS: Non-Invasive Expiratory Pressure 8 CMH2O; Non-Invasive Inspiratory Pressure 14 CMH2O; Non-Invasive Vent Rate 16 /MIN
[2020-12-24] MEDS: FUROSEMIDE INJ 40 MG/4 ML VIAL IV PUSH (19:45)
--- NOTE | 2020-12-24 20:43 | PM.IMHP ---
H&P: HPI History of Present Illness Date/Time: 12/24/20 20:43 Chief Complaint: shortness of breath Narrative: 64 year old male well known to the hospitalist service with past medical history of chronic hypoxic hypercarbic respiratory failure on 3-5 L of oxygen at home, obstructive sleep apnea, COPD, and CHF who presented to the hospital with a complaint of increased shortness of breath and confusion. The patient has had similar symptoms in the past when his CO2 levels rise. He also complains of having tremors which he states goes hand in hand with him retaining CO2. He denies any fevers, chills, chest pain, palpitations, abdominal pain, dysuria, hematuria, nausea, or vomiting. He does report that he has had increased congestion over the past few days and has had a sporadic cough. On arrival to the ER the patient was again found to be in hypercapnic respiratory failure with a CO2 level of 132 mm Hg and PO2 of 65 mm Hg on ABG. He was initiated on Bipap. CXR demonstrated cardiomegaly, congestive changes. The patient was treated with IV lasix, solumedrol, and given bronchodilators. On my encounter with the patient he states that he is already feeling much better. No other complaints. Review of Systems Review of Systems: All systems reviewed & are unremarkable except as noted in HPI and below PMFSH Past Medical History Medical History Acute and chronic respiratory failure Acute on chronic respiratory failure with hypoxia and hypercapnia On chronic home O2 of 3 L nasal cannula. History of prior intubation October 2018 Anxiety Arthritis Atrial flutter Paroxysmal AFib with cardioversion April 2013 and October 23, 2019 BPH (benign prostatic hyperplasia) Bronchitis CHF (congestive heart failure) Last echocardiogram EF was 55% prior echocardiogram previous year demonstrated borderline left ventricular systolic function and diastolic dysfunction grade 1 Chronic constipation COPD (chronic obstructive pulmonary disease) Dependence on continuous supplemental oxygen Emphysema, unspecified GI bleed History of cardioversion History of tobacco abuse Hypertension Hypertensive CHF Morbid obesity with BMI of 45.0-49.9, adult ELIZABETH and COPD overlap syndrome Pneumonia Psoriasis Pulmonary hypertension RVSP 59 on echo from July 2019 Rectal bleeding Sleep apnea Home BiPAP 16/6 Surgical History Surgical History H/O arthroscopy of left knee History of tonsillectomy 1966 Hx of cardiac cath Left tibial fracture Family History Family History Mother Breast cancer Rheumatoid arthritis Hypertension Father Skin cancer With metastases to bone and brain Mother Family history of arthritis Family history of congestive heart failure Father Family history of malignant neoplasm of bone Other Diabetes mellitus Social History Social History Social History: The patient smoked 1.5 packs of cigarettes per day for 40 years but quit smoking in 2018. He used to drink alcohol in moderation but has not drank in some time. He denies any illicit substance use. He his and she eventually later. He has 1 son who he dominates to be the durable power state attorney for healthcare. The patient tells me he lives home alone. the patient is a full code. The patient used to work until became disabled. Smoking packs per day: 1.5 Smoking cigarettes per day: 30.0 Years smoked: 30 Smoking pack-years: 45.00 Smoking status: Former smoker Tobacco type: cigarettes Smoking end date: 11/27/12 Alcohol intake: former Substance use: never Substance use type: does not use Additional occupation/education comments: Disabled Gender identity (if verbalized by the patient): Male Spiritual care concerns: No A
[2020-12-24 21:51] LABS: Alveolar/Arterial O2 Gradient 195.8 mmHg; Base Excess ABG 12.1 mEq/l (+/-2.0); Fractional Inspired Oxygen 50 %; HCO3 ABG 42.3 mEq/l (22.0-26.0); Oxygen Saturation ABG 88.8 % (95.0-100.0); Oxyhemoglobin 89.3 % THb (90.0-100.0); PO2 ABG 63.4 mmHg (80.0-100.0); PO2 FiO2 Ratio Arterial Blood 1.27 %; Total Hemoglobin 13.5 g/dL (12.0-18.0); pH ABG 7.307 (7.350-7.450)
[2020-12-24 21:52] LABS: Device NON-INVASIVE VENT; Modified Allen's Test Pass; Non-Invasive Vent Rate 20 /MIN; PCO2 ABG 86.5 mmHg (35.0-45.0); Site Drawn LEFT RADIAL
[2020-12-24 21:53] LABS: Non-Invasive Expiratory Pressure 10 CMH2O; Non-Invasive Inspiratory Pressure 20 CMH2O
[2020-12-24 21:57] LABS: Troponin I 0.024 ng/mL (0.000-0.034)
--- NOTE | 2020-12-24 22:10 | PC.NURSE ---
SBAR completed and faxed to IMU. patient aware.
--- NOTE | 2020-12-24 22:32 | PC.NURSE ---
patient's son updated on room number.
[2020-12-25] VITALS (24 sets, daily range): BP systolic 115–144; BP diastolic 66–80; PULSE 79–99; RESP 20–33; TEMP 35.7–36.3; O2SAT 92–98
[2020-12-25 00:01] LABS: Troponin I 0.023 ng/mL (0.000-0.034)
--- NOTE | 2020-12-25 00:08 | ADMGEN ---
This patient, Vimal Doty, was admitted to IMU Room 214-01 at 2300. Patient/family oriented to hospital policies and general routines including ID bracelet, bed and alarms, visiting hours, pain management, procedures, bathroom and other care routines, personal items, smoking policy, room service/diet, and visiting hours. Information on how to activate the Rapid Response Team has been discussed. Patient/Family are encouraged to report perceived risks to care and to ask questions if they do not understand what they are told or what they should do.
[2020-12-25] MEDS: ALBUTEROL SULFATE NEB 2.5 MG/0.5 ML INH 5 MG INHALATION ×2 (03:23→08:04)
[2020-12-25] MEDS: IPRATROPIUM BR 0.02% INH SOLN 0.5 MG/2.5 ML VIAL INHALATION ×3 (03:24→14:39)
[2020-12-25 05:19] LABS: Alveolar/Arterial O2 Gradient 166.3 mmHg; Base Excess ABG 10.8 mEq/l (+/-2.0); Fractional Inspired Oxygen 50 %; HCO3 ABG 41.8 mEq/l (22.0-26.0); Oxygen Content ABG 18.2 %vol (16.0-22.0); Oxygen Saturation ABG 94.3 % (95.0-100.0); Oxyhemoglobin 93.7 % THb (90.0-100.0); PO2 ABG 84.7 mmHg (80.0-100.0); PO2 FiO2 Ratio Arterial Blood 1.69 %; Total Hemoglobin 13.8 g/dL (12.0-18.0)
[2020-12-25 05:21] LABS: pH ABG 7.267 (7.350-7.450)
[2020-12-25 05:22] LABS: PCO2 ABG 93.8 mmHg (35.0-45.0)
[2020-12-25 05:23] LABS: Device NON-INVASIVE VENT; Modified Allen's Test Pass; Non-Invasive Expiratory Pressure 10 CMH2O; Non-Invasive Inspiratory Pressure 20 CMH2O; Non-Invasive Vent Rate 20 /MIN; Site Drawn LEFT RADIAL
[2020-12-25 05:48] LABS: Blood Urea Nitrogen 28 mg/dL (9-20); Calcium 8.4 mg/dL (8.4-10.2); Carbon Dioxide > 40 mmol/L (22-30); Chloride 98 mmol/L (98-107); Estimated Glomerular Filt Rate > 60; Glucose 139 mg/dL (75-110); Potassium 5.1 mmol/L (3.4-5.0); Sodium 143 mmol/L (137-145)
[2020-12-25] MEDS: methylPREDNISolone SOD SUCC 125 MG VIAL 60 MG IV PUSH ×2 (05:49)
[2020-12-25 08:32] LABS: Alveolar/Arterial O2 Gradient 196.4 mmHg; Base Excess ABG 8.9 mEq/l (+/-2.0); Fractional Inspired Oxygen 50 %; Oxygen Content ABG 17.9 %vol (16.0-22.0); Oxygen Saturation ABG 93.2 % (95.0-100.0); Oxyhemoglobin 92.7 % THb (90.0-100.0); PO2 ABG 74.8 mmHg (80.0-100.0); Total Hemoglobin 13.7 g/dL (12.0-18.0); pH ABG 7.318 (7.350-7.450)
[2020-12-25 08:33] LABS: PCO2 ABG 75.8 mmHg (35.0-45.0)
[2020-12-25 08:34] LABS: Device NON-INVASIVE VENT; Modified Allen's Test Pass; Site Drawn RIGHT RADIAL
[2020-12-25 08:36] LABS: Non-Invasive Expiratory Pressure 10 CMH2O; Non-Invasive Inspiratory Pressure 20 CMH2O; Non-Invasive Vent Rate 20 /MIN
[2020-12-25] MEDS: FUROSEMIDE INJ 40 MG/4 ML VIAL IV PUSH (08:42)
[2020-12-25] MEDS: ROFLUMILAST 500 MCG TABLET PO (08:42)
[2020-12-25] MEDS: polyethylene glycoL 3350 17 GM POWD.PACK PO (08:42)
[2020-12-25] MEDS: PANTOPRAZOLE 40 MG TABLET PO (08:42)
[2020-12-25] MEDS: APIXABAN 5 MG TABLET PO ×2 (08:42→20:42)
[2020-12-25] MEDS: METOPROLOL TARTRATE 25 MG TABLET PO ×2 (08:43→20:42)
[2020-12-25] MEDS: DRONEDARONE HCL 400 MG TABLET PO ×2 (08:44→21:29)
--- NOTE | 2020-12-25 11:41 | PM.CNPUL ---
Assessment and Plan Assessment and plan (1) CHF exacerbation: Code(s): I50.9 - Heart failure, unspecified Status: Acute Assessment and Plan: BNP of almost 2000 with chest x-ray showing signs consist of pulmonary vascular congestion. Of note his last BNP from prior admission was around 200-300 range (2) Acute and chronic respiratory failure with hypercapnia: Code(s): J96.22 - Acute and chronic respiratory failure with hypercapnia Status: Acute Assessment and Plan: Overall this is likely due to acute congestive heart failure. - Continue BiPAP 20/10 cm of water pressure while in hospital. Once discharge he can resume his Triology NIV machine. - Continue IV diuretics and monitor daily fluid balance and daily weights. - Will add Diamox 500 mg p.o. q.12 hours for 3 days. (3) COPD (chronic obstructive pulmonary disease): Qualifiers: COPD type: unspecified COPD Qualified Code(s): J44.9 - Chronic obstructive pulmonary disease, unspecified Code(s): J44.9 - Chronic obstructive pulmonary disease, unspecified Status: Acute Assessment and Plan: No signs of COPD exacerbation per se. - DC systemic steroids - ipratropium 0.5 mg q.6 hours - change albuterol to 2.5 mg nebulized q.6 hours p.r.n. - Pulmicort 0.5 mg nebulized q.12 hours - goal oxygen saturation is 88-92% History of Present Illness History of Present Illness Consult date: 12/25/20 Chief complaint: COPD,CHF,RESPIRATORY FAILUR w/hypercarnia &hypoxia Narrative: This is a patient well known to us who sees us in our office. He is a 65-year-old obese male with multiple medical problems including chronic hypercapnic respiratory failure due to severe COPD, obesity hypoventilation and obstructive sleep apnea. He also has a history of congestive heart failure. His last echocardiogram showed an EF of 50% with some diastolic dysfunction and significant pulmonary hypertension. He was admitted last night with acute on chronic hypercapnic respiratory failure and chest x-ray showed increased pulmonary vascular congestion consistent with congestive heart failure. He denies any infectious or COVID like symptoms. He does admit to increased lower extremity edema over the past few days. He is compliant with his home diuretics and he takes Lasix 40 mg in the morning and 20 mg in the afternoon. He was placed on BiPAP 20/10 cm of water pressure and he feels much better today. Review of Systems Review of Systems: All systems reviewed & are unremarkable except as noted in HPI and below PMFSH Past Medical History Medical History Acute and chronic respiratory failure Acute on chronic respiratory failure with hypoxia and hypercapnia On chronic home O2 of 3 L nasal cannula. History of prior intubation October 2018 Anxiety Arthritis Atrial flutter Paroxysmal AFib with cardioversion April 2013 and October 23, 2019 BPH (benign prostatic hyperplasia) Bronchitis CHF (congestive heart failure) Last echocardiogram EF was 55% prior echocardiogram previous year demonstrated borderline left ventricular systolic function and diastolic dysfunction grade 1 Chronic constipation COPD (chronic obstructive pulmonary disease) Dependence on continuous supplemental oxygen Emphysema, unspecified GI bleed History of cardioversion History of tobacco abuse Hypertension Hypertensive CHF Morbid obesity with BMI of 45.0-49.9, adult ELIZABETH and COPD overlap syndrome Pneumonia Psoriasis Pulmonary hypertension RVSP 59 on echo from July 2019 Rectal bleeding Sleep apnea Home BiPAP 16/6 Surgical History Surgical History H/O arthroscopy of left knee History of tonsillectomy 1966 Hx of cardiac cath Left tibial fracture Family History Family History Mother Breast cancer Rheum
[2020-12-25] MEDS: acetaZOLAMIDE TAB 250 MG TABLET 500 MG PO (12:03)
--- NOTE | 2020-12-25 15:23 | PM.IMPN ---
Progress Note: A&P Assessment and Plan (1) Acute on chronic respiratory failure with hypoxia and hypercapnia: Code(s): J96.21 - Acute and chronic respiratory failure with hypoxia; J96.22 - Acute and chronic respiratory failure with hypercapnia Status: Chronic Assessment and Plan: Continue Bipap support and wean off as tolerated. We will check another ABG and monitor closely. Has had significant improvement on Bipap. Pulmonary with thinks heart failure is the biggest contributor to his present situation. Obviously some component right-sided failure with his past history of pulmonary hypertension. Physical exam is not that impressive and he has not diuresed much with the Lasix and feels much better after correction of his hypercapnia Continue BiPAP and updrafts with IV Lasix (2) COPD with exacerbation: Code(s): J44.1 - Chronic obstructive pulmonary disease with (acute) exacerbation Status: Acute Assessment and Plan: Mild if any and agree with pulmonary at that increasing steroids and antibiotics are not needed (3) CHF (congestive heart failure): Qualifiers: Heart failure type: diastolic Heart failure chronicity: chronic Qualified Code(s): I50.32 - Chronic diastolic (congestive) heart failure Code(s): I50.9 - Heart failure, unspecified Status: Acute Assessment and Plan: Echo dated 12/07 EF 50% with grade 1 diastolic dysfunction. Pulmonary pressure could not be estimated at that time due to images obtained.. Does have right ventricular hypertrophy with decreased function all compatible with pulmonary hypertension.. Already on trilogy at home for his obstructive sleep apnea and chronic anticoagulation. Prognosis is poor (4) Atrial flutter: Qualifiers: Atrial flutter type: unspecified Qualified Code(s): I48.92 - Unspecified atrial flutter Code(s): I48.92 - Unspecified atrial flutter Status: Acute Assessment and Plan: Continue sinus rhythm at this time and will continue his metoprolol and Multaq with the Eliquis (5) Hypertension: Qualifiers: Hypertension type: essential hypertension Qualified Code(s): I10 - Essential (primary) hypertension Code(s): I10 - Essential (primary) hypertension Status: Acute Assessment and Plan: Continues beta-john. (6) Sleep apnea: Qualifiers: Sleep apnea type: obstructive Qualified Code(s): G47.33 - Obstructive sleep apnea (adult) (pediatric) Code(s): G47.30 - Sleep apnea, unspecified Status: Acute Assessment and Plan: HS BiPAP while here Subjective Date/time seen: 12/25/20 15:23 Interval history: Date of visit 12/25. 65-year-old hypertensive male with COPD and diastolic heart failure admitted with increasing shortness of breath and acute on chronic hypercapnic respiratory failure. CO2 132 an ER and has come down to 75 with BiPAP overnight. Last echocardiogram just 2 weeks ago showed an ejection fraction of 50% with grade 1 diastolic dysfunction. Estimated pulmonary hypertension could not be made but previous echoes in 2019 revealed moderate pulmonary hypertension. He had minimal increased edema had home. States he feels much better this a.m. Exam Narrative: Exam Narrative: Blood pressure 144/74 pulse is 84 saturating 98% on the BiPAP 20/10 at 50% FiO2 Lungs clear with prolonged expiratory phase CV regular hear no murmurs Abdomen morbidly obese Extremities trace edema if any with venous stasis changes Neuro alert cooperative mentating properly and no focal deficits Objective Data Vital Signs Vital Signs: Vital Signs - 24 hr 12/24/20 17:49 12/24/20 17:50 12/24/20 18:00 Temperature 37.0 C Pulse Rate 112 H 109 H 106 H Respiratory Rate 31 H 27 H 22 H Blood Pressure 152/90 H Pulse Oximetry 94 12/24/20 18:15 12/24/20 18:16 12/24/20 18:17 Temperature Pulse Rate 102 H 107 H 103 H Respiratory Rate 23 H 21 H 15
[2020-12-25 17:32] LABS: Alveolar/Arterial O2 Gradient 232.8 mmHg; Base Excess ABG 7.2 mEq/l (+/-2.0); Fractional Inspired Oxygen 60 %; HCO3 ABG 38.2 mEq/l (22.0-26.0); Oxygen Saturation ABG 94.5 % (95.0-100.0); Oxyhemoglobin 93.8 % THb (90.0-100.0); PO2 ABG 89.6 mmHg (80.0-100.0); PO2 FiO2 Ratio Arterial Blood 1.49 %; Total Hemoglobin 12.8 g/dL (12.0-18.0)
[2020-12-25 17:33] LABS: Modified Allen's Test Pass; PCO2 ABG 95.8 mmHg (35.0-45.0); Site Drawn RIGHT RADIAL; pH ABG 7.219 (7.350-7.450)
[2020-12-25 17:34] LABS: Device NON-INVASIVE VENT; Non-Invasive Expiratory Pressure 10 CMH2O; Non-Invasive Inspiratory Pressure 20 CMH2O; Non-Invasive Vent Rate 20 /MIN
[2020-12-25 19:17] LABS: SARS-CoV-2 RNA PCR Negative
[2020-12-25] MEDS: TAMSULOSIN HCL 0.4 MG CAPSULE PO (20:42)
[2020-12-26] VITALS (27 sets, daily range): BP systolic 92–122; BP diastolic 51–69; PULSE 66–87; RESP 18–34; TEMP 36–36.9; O2SAT 90–99
[2020-12-26] MEDS: IPRATROPIUM BR 0.02% INH SOLN 0.5 MG/2.5 ML VIAL INHALATION ×4 (02:02→20:52)
[2020-12-26 04:31] LABS: Basophils Absolute Auto 0.1 K/mm3 (0.0-0.1); Basophils Percent Auto 0.7 % (0.2-1.2); Eosinophils Absolute Auto 0.3 K/mm3 (0-0.3); Eosinophils Percent Auto 3.4 % (0-4.4); Hematocrit 48.6 % (42.0-52.0); Hemoglobin 12.7 g/dL (14.0-18.0); Immature Granulocyte Absolute 0.07 K/mm3 (0.00-0.031); Immature Granulocyte Percent A 0.9 % (0-0.5); Lymphocytes Absolute Auto 1.43 K/mm3 (0.9-3.2); Lymphocytes Percent Auto 17.9 % (18.3-44.2); Mean Corpuscular HGB Conc 26.1 g/dl (32-36); Mean Corpuscular Hemoglobin 24.2 pg (26-34); Mean Corpuscular Volume 92.6 fl (80-100); Mean Platelet Volume 12.2 fl (7.4-10.4); Monocytes Absolute Auto 0.6 K/mm3 (0.1-0.6); Monocytes Percent Auto 7.2 % (2.6-8.5); Neutrophils Absolute Auto 5.6 K/mm3 (1.3-6.7); Neutrophils Percent Auto 69.9 % (45.5-73.1); Platelet Count Result 189 k/mm3 (150-375); Red Blood Count 5.25 M/mm3 (4.6-6.20); Red Cell Distribution Width 16.2 % (11.5-14.5)
[2020-12-26 04:56] LABS: Anisocytosis 1+ (NORMAL); Hypochromasia 2+ (NORMAL); Platelet Estimate Adequate (Adequate)
[2020-12-26 04:58] LABS: Blood Urea Nitrogen 36 mg/dL (9-20); Calcium 8.2 mg/dL (8.4-10.2); Carbon Dioxide > 40 mmol/L (22-30); Chloride 99 mmol/L (98-107); Estimated CRCL calculation 66 ml/min; Estimated Glomerular Filt Rate 55; Glucose 83 mg/dL (75-110); Potassium 4.5 mmol/L (3.4-5.0); Sodium 140 mmol/L (137-145)
[2020-12-26 08:03] LABS: Alveolar/Arterial O2 Gradient 127.5 mmHg; Base Excess ABG 9.1 mEq/l (+/-2.0); Carboxyhemoglobin 0.5 % THb (0-2.0); Fractional Inspired Oxygen 40 %; HCO3 ABG 38.8 mEq/l (22.0-26.0); Methemoglobin ABG 0.1 %THb (0-1.5); Oxygen Content ABG 15.6 %vol (16.0-22.0); Oxygen Saturation ABG 87.3 % (95.0-100.0); Oxyhemoglobin 88.7 % THb (90.0-100.0); PO2 ABG 61.6 mmHg (80.0-100.0); PO2 FiO2 Ratio Arterial Blood 1.54 %; Reduced Hemoglobin 10.7 %THb (0-5.0); Total Hemoglobin 12.5 g/dL (12.0-18.0)
[2020-12-26 08:07] LABS: pH ABG 7.284 (7.350-7.450)
[2020-12-26 08:08] LABS: Device BIPAP; Modified Allen's Test Pass; PCO2 ABG 83.6 mmHg (35.0-45.0); Site Drawn LEFT RADIAL
[2020-12-26 08:09] LABS: Expiratory Pressure 10 cmH2O; Inspiratory Pressure 20 cmH2O
[2020-12-26] MEDS: BUDESONIDE RESPULE NEB 0.5 MG/2 ML AMP INHALATION ×2 (08:10→20:52)
[2020-12-26] MEDS: PANTOPRAZOLE 40 MG TABLET PO (09:33)
[2020-12-26] MEDS: polyethylene glycoL 3350 17 GM POWD.PACK PO (09:33)
[2020-12-26] MEDS: acetaZOLAMIDE TAB 250 MG TABLET 500 MG PO ×2 (09:34→16:38)
[2020-12-26] MEDS: METOPROLOL TARTRATE 25 MG TABLET PO ×2 (09:34→21:39)
[2020-12-26] MEDS: APIXABAN 5 MG TABLET PO ×2 (09:34→21:39)
[2020-12-26] MEDS: DRONEDARONE HCL 400 MG TABLET PO ×2 (09:34→16:39)
[2020-12-26] MEDS: FUROSEMIDE INJ 100 MG/10 ML VIAL 60 MG IV PUSH (09:34)
[2020-12-26] MEDS: ROFLUMILAST 500 MCG TABLET PO (09:35)
[2020-12-26] MEDS: TOBRAMYCIN 0.3% OPHTH SOLN 5 ML 1 DROP RIGHT EYE ×4 (11:23→21:41)
[2020-12-26 11:41] LABS: Add Urine Microscopic? YES; Appearance Urine Clear (Clear); Bilirubin Urine Negative (Negative); Blood Urine 1+ (Negative); Color Urine Straw (Yellow); Glucose Urine UA Negative (Negative); Ketones Urine Negative (Negative); Leukocyte Esterase Ur Negative LEU/UL (NEGATIVE); Mucus Urine Rare /lpf; Nitrate Urine Negative (Negative); Protein Urine Negative (Negative); RBC Urine 21-50 /hpf (0-2); Urobilinogen Urine Negative mg/dL (<2.0); WBC Urine 0-3 /hpf (0-3)
--- NOTE | 2020-12-26 14:34 | PM.PNPUL ---
Progress Note: A&P Assessment and Plan (1) Chronic respiratory failure with hypoxia and hypercapnia: Code(s): J96.11 - Chronic respiratory failure with hypoxia; J96.12 - Chronic respiratory failure with hypercapnia Status: Acute Assessment and Plan: - resume home Trilogy settings on discharge (2) COPD (chronic obstructive pulmonary disease): Qualifiers: COPD type: unspecified COPD Qualified Code(s): J44.9 - Chronic obstructive pulmonary disease, unspecified Code(s): J44.9 - Chronic obstructive pulmonary disease, unspecified Status: Acute Assessment and Plan: COPD exacerbation is resolving - switch to oral prednisone 40 mg daily and antibiotic for four more days - can resume home bronchodilator regimen - going home today - will likely need prednisone and antibiotics on hold at his pharmacy to start during times of exacerbations. - f/u in our pulmonary clinic in 8 weeks (3) Acute and chronic respiratory failure with hypercapnia: Code(s): J96.22 - Acute and chronic respiratory failure with hypercapnia Status: Acute Assessment and Plan: Increase BiPAP to 24/8 cm of water pressure with a backup rate of 18 and titrate FiO2 for sats of 88-92%. Repeat daily ABG until normalized. (4) CHF exacerbation: Code(s): I50.9 - Heart failure, unspecified Status: Acute Assessment and Plan: Continue diuretics and optimizing fluid balance. Subjective Date/time seen: 12/26/20 14:34 Interval history: ABG this morning is 7.28/83/61 on BiPAP of 20/10 cm of water pressure. He is feeling very sleepy and tired this morning. I will adjust his BiPAP to 24/8 cm of water pressure and repeat ABG tomorrow morning. Review of Systems Review of Systems: All systems reviewed & are unremarkable except as noted in HPI and below Exam Const: General: cooperative, healthy appearing, comfortable, no acute distress, well developed, alert, awake and Physically active Nutritional Appearance: obese Orientation/consciousness: oriented to person, oriented to place, oriented to time and patient oriented x3 HENMT: Head: normocephalic and atraumatic Eyes: General: appearance normal, both eyes and all related structures Neck: Neck: normal visual inspection, trachea midline and supple Resp: Effort & Inspection: normal respiratory effort and able to speak in complete sentences Auscultation: crackles, wheezes and diminished lung sounds GI: Inspection: normal to inspection Auscultation: normal bowel sounds Skin: General skin exam: normal color and no rashes or lesions noted Neuro: General: oriented to person, oriented to place, oriented to time and patient oriented x3 Cognition (Neuro): normal cognition Speech: normal speech Extrem: General: normal to inspection and no clubbing, cyanosis or edema Psych: Appearance: grossly normal and well kempt Mental Status: mental status grossly normal Objective Data Vital Signs Vital Signs: Vital Signs - 24 hr 12/25/20 14:40 12/25/20 14:48 12/25/20 16:00 Temperature 35.8 C L Pulse Rate 88 88 87 Respiratory Rate 30 H 33 H 28 H Blood Pressure 140/80 Pulse Oximetry 95 96 12/25/20 17:35 12/25/20 18:00 12/25/20 20:00 Temperature 36.0 C L Pulse Rate 99 82 87 Respiratory Rate 33 H 20 Blood Pressure 133/72 Pulse Oximetry 94 96 12/25/20 20:42 12/25/20 21:29 12/25/20 22:00 Temperature Pulse Rate 84 80 80 Respiratory Rate Blood Pressure Pulse Oximetry 12/26/20 00:00 12/26/20 02:00 12/26/20 02:02 Temperature 36.9 C Pulse Rate 82 79 78 Respiratory Rate 20 20 Blood Pressure 102/59 L Pulse Oximetry 98 93 12/26/20 02:08 12/26/20 04:00 12/26/20 06:00 Temperature 36.4 C L Pulse Rate 74 75 79 Respiratory Rate 20 22 H Blood Pressure 109/63 Pulse Oximetry 90 12/26/20 08:00 12/26/20 08:10 12/26/20 08:11 Temperature 36.4 C L Pulse Rate 76 84 84 Respiratory Rate 34 H 26 H 2
--- NOTE | 2020-12-26 15:51 | PM.IMPN ---
Progress Note: A&P Assessment and Plan (1) Acute on chronic respiratory failure with hypoxia and hypercapnia: Code(s): J96.21 - Acute and chronic respiratory failure with hypoxia; J96.22 - Acute and chronic respiratory failure with hypercapnia Status: Chronic Assessment and Plan: Continue Bipap support and wean off as tolerated.. Has had significant improvement on Bipap. Pulmonary with thinks heart failure is the biggest contributor to his present situation. Obviously some component right-sided failure with his past history of pulmonary hypertension. Physical exam is not that impressive and he has not diuresed much with the Lasix and feels much better after correction of his hypercapnia Continue BiPAP and updrafts with IV Lasix (2) COPD with exacerbation: Code(s): J44.1 - Chronic obstructive pulmonary disease with (acute) exacerbation Status: Acute Assessment and Plan: Mild if any and agree with pulmonary at that increasing steroids and antibiotics are not needed Suspect all end stage copd covid neg (3) CHF (congestive heart failure): Qualifiers: Heart failure type: diastolic Heart failure chronicity: chronic Qualified Code(s): I50.32 - Chronic diastolic (congestive) heart failure Code(s): I50.9 - Heart failure, unspecified Status: Acute Assessment and Plan: Echo dated 12/07 EF 50% with grade 1 diastolic dysfunction. Pulmonary pressure could not be estimated at that time due to images obtained.. Does have right ventricular hypertrophy with decreased function all compatible with pulmonary hypertension.. Already on trilogy at home for his obstructive sleep apnea and chronic anticoagulation. Prognosis is poor does not appear to be significant Left heart failure relax fluid restriction to 2L since Na normal (4) Atrial flutter: Qualifiers: Atrial flutter type: unspecified Qualified Code(s): I48.92 - Unspecified atrial flutter Code(s): I48.92 - Unspecified atrial flutter Status: Chronic Assessment and Plan: Continue sinus rhythm at this time and will continue his metoprolol and Multaq with the Eliquis (5) Hypertension: Qualifiers: Hypertension type: essential hypertension Qualified Code(s): I10 - Essential (primary) hypertension Code(s): I10 - Essential (primary) hypertension Status: Chronic Assessment and Plan: Continues beta-john. (6) Sleep apnea: Qualifiers: Sleep apnea type: obstructive Qualified Code(s): G47.33 - Obstructive sleep apnea (adult) (pediatric) Code(s): G47.30 - Sleep apnea, unspecified Status: Chronic Assessment and Plan: HS BiPAP while here (7) Conjunctivitis: Code(s): H10.9 - Unspecified conjunctivitis Status: Acute Assessment and Plan: tobrex eye drops to R eye Subjective Date/time seen: 12/26/20 15:51 Interval history: Date of visit 12/26. 65-year-old hypertensive male with COPD and diastolic heart failure admitted with increasing shortness of breath and acute on chronic hypercapnic respiratory failure. CO2 132 an ER and has come down with BiPAP . Last echocardiogram just 2 weeks ago showed an ejection fraction of 50% with grade 1 diastolic dysfunction. Estimated pulmonary hypertension could not be made but previous echoes in 2019 revealed moderate pulmonary hypertension. He had minimal increased edema at home. States he feels much better , R eye irritated need more water to drink Exam Narrative: Exam Narrative: Blood pressure 100/56 pulse is 72 saturating 99% on the BiPAP 20/10 at 40% FiO2 JOANA with R eye very erythematous and irritated Lungs clear with prolonged expiratory phase, distant with no wheezing or rales CV regular hear no murmurs Abdomen morbidly obese Extremities trace edema if any with venous stasis changes Neuro alert cooperative mentating properly and no focal deficits Objective Data Hansa
[2020-12-26] MEDS: TAMSULOSIN HCL 0.4 MG CAPSULE PO (21:39)
[2020-12-27] VITALS (29 sets, daily range): BP systolic 108–124; BP diastolic 48–89; PULSE 65–97; RESP 18–24; TEMP 35.8–37.2; O2SAT 92–99
[2020-12-27] MEDS: IPRATROPIUM BR 0.02% INH SOLN 0.5 MG/2.5 ML VIAL INHALATION ×4 (02:05→20:21)
[2020-12-27 04:45] LABS: Basophils Percent Auto 0.6 % (0.2-1.2); Eosinophils Absolute Auto 0.1 K/mm3 (0-0.3); Eosinophils Percent Auto 1.1 % (0-4.4); Hematocrit 40.5 % (42.0-52.0); Hemoglobin 11.1 g/dL (14.0-18.0); Immature Granulocyte Absolute 0.04 K/mm3 (0.00-0.031); Immature Granulocyte Percent A 0.6 % (0-0.5); Lymphocytes Absolute Auto 1.43 K/mm3 (0.9-3.2); Lymphocytes Percent Auto 20.4 % (18.3-44.2); Mean Corpuscular HGB Conc 27.4 g/dl (32-36); Mean Corpuscular Volume 87.7 fl (80-100); Mean Platelet Volume 9.7 fl (7.4-10.4); Monocytes Absolute Auto 0.5 K/mm3 (0.1-0.6); Monocytes Percent Auto 7.4 % (2.6-8.5); Neutrophils Absolute Auto 4.9 K/mm3 (1.3-6.7); Neutrophils Percent Auto 69.9 % (45.5-73.1); Platelet Count Result 224 k/mm3 (150-375); Red Blood Count 4.62 M/mm3 (4.6-6.20); Red Cell Distribution Width 16.1 % (11.5-14.5)
[2020-12-27 04:57] LABS: Blood Urea Nitrogen 34 mg/dL (9-20); Calcium 7.8 mg/dL (8.4-10.2); Carbon Dioxide > 40 mmol/L (22-30); Chloride 100 mmol/L (98-107); Estimated CRCL calculation 73 ml/min; Estimated Glomerular Filt Rate 51; Glucose 87 mg/dL (75-110); Potassium 3.7 mmol/L (3.4-5.0); Sodium 135 mmol/L (137-145)
[2020-12-27 05:55] LABS: Base Excess ABG 2.6 mEq/l (+/-2.0); Carboxyhemoglobin 0.2 % THb (0-2.0); Fractional Inspired Oxygen 50 %; HCO3 ABG 31.6 mEq/l (22.0-26.0); Methemoglobin ABG 0.3 %THb (0-1.5); Oxygen Content ABG 16.2 %vol (16.0-22.0); Oxygen Saturation ABG 93.1 % (95.0-100.0); Oxyhemoglobin 93.2 % THb (90.0-100.0); PO2 ABG 78.4 mmHg (80.0-100.0); PO2 FiO2 Ratio Arterial Blood 1.57 %; Reduced Hemoglobin 6.3 %THb (0-5.0); Total Hemoglobin 12.3 g/dL (12.0-18.0)
[2020-12-27 05:57] LABS: Device NON-INVASIVE VENT; Modified Allen's Test Pass; Site Drawn RIGHT RADIAL; pH ABG 7.254 (7.350-7.450)
[2020-12-27 05:58] LABS: Non-Invasive Expiratory Pressure 8 CMH2O; Non-Invasive Inspiratory Pressure 24 CMH2O; Non-Invasive Vent Rate 18 /MIN
[2020-12-27] MEDS: BUDESONIDE RESPULE NEB 0.5 MG/2 ML AMP INHALATION ×2 (08:55→20:21)
[2020-12-27] MEDS: TOBRAMYCIN 0.3% OPHTH SOLN 5 ML 1 DROP RIGHT EYE ×5 (09:58→23:50)
[2020-12-27] MEDS: ROFLUMILAST 500 MCG TABLET PO (09:59)
[2020-12-27] MEDS: METOPROLOL TARTRATE 25 MG TABLET PO ×2 (09:59→20:25)
[2020-12-27] MEDS: polyethylene glycoL 3350 17 GM POWD.PACK PO (09:59)
[2020-12-27] MEDS: PANTOPRAZOLE 40 MG TABLET PO (09:59)
[2020-12-27] MEDS: APIXABAN 5 MG TABLET PO ×2 (10:00→20:25)
[2020-12-27] MEDS: DRONEDARONE HCL 400 MG TABLET PO ×2 (10:00→20:24)
[2020-12-27] MEDS: FUROSEMIDE INJ 100 MG/10 ML VIAL 60 MG IV PUSH (10:00)
[2020-12-27] MEDS: acetaZOLAMIDE TAB 250 MG TABLET 500 MG PO ×2 (10:00→17:21)
[2020-12-27] MEDS: methylPREDNISolone SOD SUCC 40 MG VIAL IV PUSH ×4 (10:00→23:50)
[2020-12-27] MEDS: ALBUTEROL SULFATE NEB 2.5 MG/0.5 ML INH INHALATION ×2 (13:46→20:21)
--- NOTE | 2020-12-27 16:32 | PM.IMPN ---
Progress Note: A&P Assessment and Plan (1) Acute on chronic respiratory failure with hypoxia and hypercapnia: Code(s): J96.21 - Acute and chronic respiratory failure with hypoxia; J96.22 - Acute and chronic respiratory failure with hypercapnia Status: Chronic Assessment and Plan: Continue Bipap support and wean off as tolerated.. Has had significant improvement on Bipap. Pulmonary thinks heart failure is the biggest contributor to his present situation. Obviously some component right-sided failure with his past history of pulmonary hypertension. Physical exam is not that impressive and he has not diuresed much with the Lasix and feels much better after correction of his hypercapnia Continue BiPAP and updrafts , IV Lasix, and steroids (2) COPD with exacerbation: Code(s): J44.1 - Chronic obstructive pulmonary disease with (acute) exacerbation Status: Acute Assessment and Plan: Mild if any and agree with pulmonary at that antibiotics are not needed Suspect all end stage copd continue as above covid neg (3) CHF (congestive heart failure): Qualifiers: Heart failure type: diastolic Heart failure chronicity: chronic Qualified Code(s): I50.32 - Chronic diastolic (congestive) heart failure Code(s): I50.9 - Heart failure, unspecified Status: Acute Assessment and Plan: Echo dated 12/07 EF 50% with grade 1 diastolic dysfunction. Pulmonary pressure could not be estimated at that time due to images obtained.. Does have right ventricular hypertrophy with decreased function all compatible with pulmonary hypertension.. Already on trilogy at home for his obstructive sleep apnea and chronic anticoagulation. Prognosis is poor does not appear to be significant Left heart failure relaxed fluid restriction to 2L since Na normal IV lasix daily per Pul and creatinine up to 1.4 (4) Atrial flutter: Qualifiers: Atrial flutter type: unspecified Qualified Code(s): I48.92 - Unspecified atrial flutter Code(s): I48.92 - Unspecified atrial flutter Status: Chronic Assessment and Plan: Continue sinus rhythm at this time and will continue his metoprolol and Multaq with the Eliquis (5) Hypertension: Qualifiers: Hypertension type: essential hypertension Qualified Code(s): I10 - Essential (primary) hypertension Code(s): I10 - Essential (primary) hypertension Status: Chronic Assessment and Plan: Continues beta-john. (6) Sleep apnea: Qualifiers: Sleep apnea type: obstructive Qualified Code(s): G47.33 - Obstructive sleep apnea (adult) (pediatric) Code(s): G47.30 - Sleep apnea, unspecified Status: Chronic Assessment and Plan: HS BiPAP while here (7) Conjunctivitis: Code(s): H10.9 - Unspecified conjunctivitis Status: Acute Assessment and Plan: tobrex eye drops to R eye started 12/26 and improved Subjective Date/time seen: 12/27/20 16:32 Interval history: Date of visit 12/27. 65-year-old hypertensive male with COPD and diastolic heart failure admitted with increasing shortness of breath and acute on chronic hypercapnic respiratory failure. CO2 132 an ER and has come down with BiPAP . Last echocardiogram just 2 weeks ago showed an ejection fraction of 50% with grade 1 diastolic dysfunction. Estimated pulmonary hypertension could not be made but previous echoes in 2019 revealed moderate pulmonary hypertension. He had minimal increased edema at home. States he feels much better , R eye irritate 12/26 but better after drops Exam Narrative: Exam Narrative: Blood pressure 122/58 pulse is 72 saturating 98% on the BiPAP 24/10 at 50% FiO2 JOANA with R eye less erythematous and irritated Lungs clear with prolonged expiratory phase, distant with no wheezing or rales CV regular hear no murmurs Abdomen morbidly obese Extremities no edema with venous stasis changes Neuro alert coope
[2020-12-27] MEDS: TAMSULOSIN HCL 0.4 MG CAPSULE PO (20:25)
--- NOTE | 2020-12-27 21:08 | PM.PNPUL ---
Progress Note: A&P Assessment and Plan (1) Chronic respiratory failure with hypoxia and hypercapnia: Code(s): J96.11 - Chronic respiratory failure with hypoxia; J96.12 - Chronic respiratory failure with hypercapnia Status: Acute Assessment and Plan: - resume home Trilogy settings on discharge (2) COPD (chronic obstructive pulmonary disease): Qualifiers: COPD type: unspecified COPD Qualified Code(s): J44.9 - Chronic obstructive pulmonary disease, unspecified Code(s): J44.9 - Chronic obstructive pulmonary disease, unspecified Status: Acute Assessment and Plan: - will resume solumedrol 40 mg IV Q6h - will start Augmentin 875/125 mg PO bid for 7 days - continue current nebulized regimen - continue Roflumilast 500 mcg PO daily - continue add Azithromycin 500 mg // to home regimen in an effort to decrease frequency of future exacerbations. (3) Acute and chronic respiratory failure with hypercapnia: Code(s): J96.22 - Acute and chronic respiratory failure with hypercapnia Status: Acute Assessment and Plan: Continue BiPAP to 24/8 cm of water pressure with a backup rate of 18 and titrate FiO2 for sats of 88-92%. Repeat daily ABG until normalized. (4) CHF exacerbation: Code(s): I50.9 - Heart failure, unspecified Status: Acute Assessment and Plan: Continue diuretics and optimizing fluid balance. Subjective Date/time seen: 12/27/20 21:08 Interval history: He's less lethargic today but still feels short of breath and ABG has not greatly improved with changing BIPAP to 24/8. Review of Systems Review of Systems: All systems reviewed & are unremarkable except as noted in HPI and below Exam Const: General: cooperative, healthy appearing, comfortable, no acute distress, well developed, alert, awake and Physically active Nutritional Appearance: obese Orientation/consciousness: oriented to person, oriented to place, oriented to time and patient oriented x3 HENMT: Head: normocephalic and atraumatic Eyes: General: appearance normal, both eyes and all related structures Neck: Neck: normal visual inspection, trachea midline and supple Resp: Effort & Inspection: normal respiratory effort and able to speak in complete sentences Auscultation: crackles, wheezes and diminished lung sounds GI: Inspection: normal to inspection Auscultation: normal bowel sounds Skin: General skin exam: normal color and no rashes or lesions noted Neuro: General: oriented to person, oriented to place, oriented to time and patient oriented x3 Cognition (Neuro): normal cognition Speech: normal speech Extrem: General: normal to inspection and no clubbing, cyanosis or edema Psych: Appearance: grossly normal and well kempt Mental Status: mental status grossly normal Objective Data Vital Signs Vital Signs: Vital Signs - 24 hr 12/26/20 21:39 12/26/20 22:00 12/26/20 23:05 Temperature Pulse Rate 79 67 68 Respiratory Rate 19 Blood Pressure Pulse Oximetry 92 12/26/20 23:39 12/27/20 00:00 12/27/20 02:00 Temperature 36.8 C Pulse Rate 73 68 72 Respiratory Rate 21 H Blood Pressure 97/60 L Pulse Oximetry 96 96 12/27/20 02:05 12/27/20 02:10 12/27/20 03:54 Temperature 36.9 C Pulse Rate 71 71 73 Respiratory Rate 20 20 21 H Blood Pressure 116/89 Pulse Oximetry 95 92 12/27/20 04:00 12/27/20 05:45 12/27/20 06:00 Temperature Pulse Rate 71 79 71 Respiratory Rate 18 Blood Pressure Pulse Oximetry 96 93 12/27/20 08:00 12/27/20 08:59 12/27/20 09:12 Temperature 36.2 C L Pulse Rate 75 79 Respiratory Rate 18 24 H Blood Pressure 116/48 L Pulse Oximetry 96 96 96 12/27/20 09:21 12/27/20 09:59 12/27/20 10:00 Temperature Pulse Rate 73 80 88 Respiratory Rate 20 Blood Pressure Pulse Oximetry 12/27/20 12:00 12/27/20 13:12 12/27/20 13:43 Temperature 35.8 C L Pulse Rate 87 70 Respiratory Rate 18
[2020-12-27] MEDS: AMOXICILLIN/CLAVULANATE K 875-125 MG TAB 1 TABLET PO (23:50)
[2020-12-28] VITALS (21 sets, daily range): BP systolic 106–134; BP diastolic 65–74; PULSE 69–89; RESP 18–23; TEMP 35.7–36.4; O2SAT 89–96
[2020-12-28] MEDS: IPRATROPIUM BR 0.02% INH SOLN 0.5 MG/2.5 ML VIAL INHALATION ×3 (01:44→14:07)
[2020-12-28] MEDS: ALBUTEROL SULFATE NEB 2.5 MG/0.5 ML INH INHALATION (01:44)
[2020-12-28 04:44] LABS: Hematocrit 41.1 % (42.0-52.0); Hemoglobin 11.8 g/dL (14.0-18.0); Immature Granulocyte Absolute 0.03 K/mm3 (0.00-0.031); Immature Granulocyte Percent A 0.6 % (0-0.5); Lymphocytes Absolute Auto 0.37 K/mm3 (0.9-3.2); Lymphocytes Percent Auto 6.8 % (18.3-44.2); Mean Corpuscular HGB Conc 28.7 g/dl (32-36); Mean Corpuscular Hemoglobin 24.8 pg (26-34); Mean Corpuscular Volume 86.5 fl (80-100); Mean Platelet Volume 9.5 fl (7.4-10.4); Monocytes Absolute Auto 0.1 K/mm3 (0.1-0.6); Neutrophils Absolute Auto 4.9 K/mm3 (1.3-6.7); Neutrophils Percent Auto 90.6 % (45.5-73.1); Platelet Count Result 225 k/mm3 (150-375); Red Blood Count 4.75 M/mm3 (4.6-6.20); Red Cell Distribution Width 15.7 % (11.5-14.5); White Blood Count 5.5 K/mm3 (4.5-10.0)
[2020-12-28] MEDS: TOBRAMYCIN 0.3% OPHTH SOLN 5 ML 1 DROP RIGHT EYE ×3 (05:29→13:33)
[2020-12-28] MEDS: methylPREDNISolone SOD SUCC 40 MG VIAL IV PUSH (05:29)
[2020-12-28 05:35] LABS: Anion Gap 2 mmol/L (8-16); Blood Urea Nitrogen 30 mg/dL (9-20); Calcium 7.8 mg/dL (8.4-10.2); Carbon Dioxide 33 mmol/L (22-30); Chloride 101 mmol/L (98-107); Estimated CRCL calculation 79 ml/min; Estimated Glomerular Filt Rate 55; Glucose 132 mg/dL (75-110); Potassium 4.5 mmol/L (3.4-5.0); Sodium 136 mmol/L (137-145)
[2020-12-28 06:18] LABS: Anisocytosis 1+ (NORMAL); Platelet Estimate Adequate (Adequate)
[2020-12-28 06:19] LABS: Ovalocytes 1+ (NORMAL)
[2020-12-28] MEDS: BUDESONIDE RESPULE NEB 0.5 MG/2 ML AMP INHALATION (08:12)
[2020-12-28 08:21] LABS: Alveolar/Arterial O2 Gradient 133.2 mmHg; Base Excess ABG -0.6 mEq/l (+/-2.0); Carboxyhemoglobin 0.2 % THb (0-2.0); Fractional Inspired Oxygen 40 %; HCO3 ABG 29.3 mEq/l (22.0-26.0); Methemoglobin ABG 0.2 %THb (0-1.5); Oxygen Content ABG 16.6 %vol (16.0-22.0); Oxygen Saturation ABG 87.1 % (95.0-100.0); Oxyhemoglobin 88.5 % THb (90.0-100.0); PO2 ABG 64.8 mmHg (80.0-100.0); PO2 FiO2 Ratio Arterial Blood 1.62 %; Reduced Hemoglobin 11.1 %THb (0-5.0); Total Hemoglobin 13.3 g/dL (12.0-18.0)
[2020-12-28 08:23] LABS: pH ABG 7.205 (7.350-7.450)
[2020-12-28 08:24] LABS: Device NASAL CANNULA; Modified Allen's Test Pass; PCO2 ABG 75.8 mmHg (35.0-45.0); Site Drawn RIGHT RADIAL
[2020-12-28] MEDS: FUROSEMIDE INJ 100 MG/10 ML VIAL 60 MG IV PUSH (08:30)
[2020-12-28] MEDS: ROFLUMILAST 500 MCG TABLET PO (08:35)
[2020-12-28] MEDS: DRONEDARONE HCL 400 MG TABLET PO (08:35)
[2020-12-28] MEDS: APIXABAN 5 MG TABLET PO (08:35)
[2020-12-28] MEDS: AMOXICILLIN/CLAVULANATE K 875-125 MG TAB 1 TABLET PO (08:36)
[2020-12-28] MEDS: polyethylene glycoL 3350 17 GM POWD.PACK PO (08:36)
[2020-12-28] MEDS: PANTOPRAZOLE 40 MG TABLET PO (08:36)
[2020-12-28] MEDS: acetaZOLAMIDE TAB 250 MG TABLET 500 MG PO (08:37)
[2020-12-28] MEDS: METOPROLOL TARTRATE 25 MG TABLET PO (08:37)
--- NOTE | 2020-12-28 10:43 | PM.PNPUL ---
Progress Note: A&P Assessment and Plan (1) Chronic respiratory failure with hypoxia and hypercapnia: Code(s): J96.11 - Chronic respiratory failure with hypoxia; J96.12 - Chronic respiratory failure with hypercapnia Status: Acute Assessment and Plan: - resume home Trilogy settings on discharge - avaps-ae RR 20, TV 550, Expiratory pressures 5-15, inspriatory pressures 5-22, MAX PRESSURE 30 with 5 L bleed in (2) COPD (chronic obstructive pulmonary disease): Qualifiers: COPD type: unspecified COPD Qualified Code(s): J44.9 - Chronic obstructive pulmonary disease, unspecified Code(s): J44.9 - Chronic obstructive pulmonary disease, unspecified Status: Acute Assessment and Plan: - 12/27 solumedrol 40 mg IV Q6h and will discharge on prednisone 50 PO Q day for total 5 more days - will start Augmentin 875/125 mg PO bid for 7 days - continue current nebulized regimen - continue Roflumilast 500 mcg PO daily - add Azithromycin 500 mg // to home regimen in an effort to decrease frequency of future exacerbations. (3) Acute and chronic respiratory failure with hypercapnia: Code(s): J96.22 - Acute and chronic respiratory failure with hypercapnia Status: Acute Assessment and Plan: Continue BiPAP to 24/8 cm of water pressure with a backup rate of 18 and titrate FiO2 for sats of 88-92% while in hospital. (4) CHF exacerbation: Code(s): I50.9 - Heart failure, unspecified Status: Acute Assessment and Plan: Continue diuretics and optimizing fluid balance. Discussed with Dr. Landaverde and on discharge he will increase lasix to 40 PO BID from 40 AM and 20 at noon. Suitable for discharge from pulmonary perspective on av=alvaro regimen. Follow up in pulmonary clinic in 2-3 weeks. Subjective Date/time seen: 12/28/20 10:43 Interval history: Patient with H/O COPD, ELIZABETH, obesity, hypercapnic respiratory failure on home oxygen 3 L and home noninvasive ventilation with trilogy (avaps-ae RR 20, TV 550, Expiratory pressures 5-15, inspriatory pressures 5-22, MAX PRESSURE 30). Admitted 12/24 with SOB, hypercarbic respiratory failure (7.20/132/63) and fluid overload. Diuresed and treated wfor COPD exacerbation with soluedrol, bronchodilators and augmentin. 12/27 He's less lethargic today but still feels short of breath and ABG on BIPAP to 24/8 at 7.25/73/68. 12/28 more alert, overall breathing better and states he is ready for discharge. ABG off BiPAP for 30 minues on 5 L NC this morning 7./76/65. Continues to diureses. Review of Systems Review of Systems: All systems reviewed & are unremarkable except as noted in HPI and below Eyes: Eyes: Reports no additional eye complaints ENT: Reports system reviewed and no additional complaints, except as documented and Reports sinus pressure Cardiovascular: Cardiovascular: Reports no additional cardiovascular complaints Respiratory: Respiratory: Denies cough, Denies hemoptysis and Denies pain with cough Gastrointestinal: Gastrointestinal: Reports no additional gastrointestinal complaints Musculoskeletal: Musculoskeletal: Reports myalgias Integumentary/Breasts: Skin/Breast: Reports system reviewed and no additional complaints, except as docu Neurologic: Reports system reviewed and no additional complaints, except as documented and Reports behavioral changes Psychiatric: Psychiatric: Reports no additional psychiatric complaints and Reports behavioral changes Endocrine: Endocrine: Reports no additional endocrine complaints Exam Const: General: cooperative Nutritional Appearance: obese morbidly obese Orientation/consciousness: oriented to person, oriented to place and oriented to time HENMT: Head: normal to inspection Ears: hearing grossly normal bilaterally Mouth: Yes Normal oral and palatal mucosa present Throat: tonsils absent Eyes: General: appearance normal, both eyes and all related structures Neck: Neck: normal vi
[2020-12-28] MEDS: predniSONE 40 MG, predniSONE 10 MG 50 MG PO (13:33)
--- NOTE | 2020-12-28 15:51 | PM.DS ---
DS: Admitting Diagnosis Admitting Diagnosis Admitting Diagnosis: SOB DS: Discharge Diagnosis Discharge Diagnosis (1) Acute on chronic respiratory failure with hypoxia and hypercapnia: Code(s): J96.21 - Acute and chronic respiratory failure with hypoxia; J96.22 - Acute and chronic respiratory failure with hypercapnia Status: Chronic Assessment and Plan: pH dropped to 7.25 with pCO2 73 but relatively asymptomatic. ABG today showing pH 7.205 but done off BiPAP. Discussed with pulmonary who was aware of these findings. They felt the patient was stable for discharge. Continue home BiPAP and supplemental O2 while awake. (2) COPD with exacerbation: Code(s): J44.1 - Chronic obstructive pulmonary disease with (acute) exacerbation Status: Acute Assessment and Plan: CXR on admission showing bilateral mid and particularly lower lung zone infiltrates. Started on Solu-Medrol but changed to oral Prednisone. We continued Romflumilast. Abx intially held but Augment started for 7 day course. Plan for Azithro -- for prophylaxis after Augmentin completed. COVID negative. (3) CHF (congestive heart failure): Qualifiers: Heart failure chronicity: chronic Heart failure type: diastolic Qualified Code(s): I50.32 - Chronic diastolic (congestive) heart failure Code(s): I50.9 - Heart failure, unspecified Status: Acute Assessment and Plan: CXR showing CMG and congestive changes. BNP 1989 (that is higher than usual). Echo dated 10/07/20 EF 50% with grade 1 diastolic dysfunction and RV systolic function is reduced. Pulmonary pressure could not be estimated at that time due to images obtained. Already on trilogy at home for his obstructive sleep apnea. Prognosis is poor. Lasix changed to IV form and he had good UOP with this. Cr tolerated the IV Lasix. Discussed with pulmonary; will advance home oral Lasix to 40mg BID. (4) Atrial flutter: Qualifiers: Atrial flutter type: unspecified Qualified Code(s): I48.92 - Unspecified atrial flutter Code(s): I48.92 - Unspecified atrial flutter Status: Chronic Assessment and Plan: Patient on tele while here and maintaining sinus rhythm. We continued his metoprolol and Multaq. Eliquis continued for stroke prophylaxis. (5) Hypertension: Qualifiers: Hypertension type: essential hypertension Qualified Code(s): I10 - Essential (primary) hypertension Code(s): I10 - Essential (primary) hypertension Status: Chronic Assessment and Plan: BP monitored closely. BP remained well controlled. We continued his metoprolol. (6) Sleep apnea: Qualifiers: Sleep apnea type: obstructive Qualified Code(s): G47.33 - Obstructive sleep apnea (adult) (pediatric) Code(s): G47.30 - Sleep apnea, unspecified Status: Chronic Assessment and Plan: We continued his BiPAP while here. (7) Conjunctivitis: Code(s): H10.9 - Unspecified conjunctivitis Status: Acute Assessment and Plan: Tobrex eye drops to R eye started 12/26 with improvement DS: Summary Hospital Course Reason for hospitalization: SOB Hospital Course: Please see above for details of hospital course. Time Spent with Patient Time attestation: Total time spent providing and/or coordinating discharge services: 35 minutes Exam Narrative: Exam Narrative: AF 96.4 119/71 80 18 Gen - NARD sitting up at the side of the bed. Chest - distant, clear BS CV - RRR S1/S2; Tele showing no significant dysrhythmias Abd - Soft, NT/ND, Positive BS Ext - trace pedal edema Neuro - Alert and oriented. Nonfocal exam. Psych - Nml mood and affect Skin - Warm and dry DS: Data Data Completed and Pending Labs on day of discharge: Labs from last 24 hours 12/28/20 12/28/20 12/28/20 08:00 04:23 04:23 WBC 5.5 RBC 4.75 Hgb 11.8 L Hct 41.1 L MCV 86.
== END 2020-12-28 17:15 | disposition home or self-care (01) | DRG 190 ==
LOC: ANHED 20:13 → ANHIMU 12-25 12:09
PROVIDERS: Emergency Medicine; Internal Medicine; Internal Medicine Critical Care Medicine; Admitting Provider Family Medicine; Emergency Provider Emergency Medicine; PCP Family Medicine; Visit Provider Internal Medicine
DX: J43.9 Emphysema, unspecified (principal); J96.21 Acute and chronic respiratory failure with hypoxia; J96.22 Acute and chronic respiratory failure with hypercapnia; I48.20 Chronic atrial fibrillation, unspecified; E66.2 Morbid (severe) obesity with alveolar hypoventilation; Z68.42 Body mass index [BMI] 45.0-49.9, adult; I48.92 Unspecified atrial flutter; I50.32 Chronic diastolic (congestive) heart failure; Z20.822 Contact with and (suspected) exposure to COVID-19; I11.0 Hypertensive heart disease with heart failure; N40.0 Benign prostatic hyperplasia without lower urinary tract symptoms; L40.9 Psoriasis, unspecified; G47.33 Obstructive sleep apnea (adult) (pediatric); I27.20 Pulmonary hypertension, unspecified; H10.9 Unspecified conjunctivitis; M19.90 Unspecified osteoarthritis, unspecified site; Z79.01 Long term (current) use of anticoagulants; Z99.81 Dependence on supplemental oxygen; Z87.891 Personal history of nicotine dependence
CPT/HCPCS: 36415; 36600; 71045; 80048; 80053; 81001; 82375; 82805; 83050; 83880; 84484; 85025; 87040; 87086; 93005; 94002; 94003; 94640; 96374; 96375; 99285; A9270; C9803; J1940; J2920; J2930; J7512; U0003; U0005

== ENCOUNTER 2021-01-21 11:09 | Inpatient (IN) | payer MEDICARE, SELFPAY ==
[2021-01-21] VITALS (17 sets, daily range): BP systolic 112–144; BP diastolic 59–96; PULSE 85–106; RESP 20–24; TEMP 36.1–36.8; O2SAT 78–96; BMI 70.7
--- NOTE | ~2021-01-21 | XR_ITS ---
XR chest 1V portable DATE: 01/24/2021 05:44 INDICATION: Pneumonia TECHNIQUE: Portable AP chest on January 24, 2021 at 0531 hours COMPARISON: Portable AP chest on January 22, 2021 at 0518 hours 11/02/2020 PA and lateral chest /08/2020 CT chest high resolution scan FINDINGS: There are persistent infiltrates in the right mid and particularly lower lung zone as well as mild patchy infiltrate or atelectasis in the left lower lung. Somewhat lucent upper lung zones are consistent with COPD demonstrated to better advantage on 06/05/[address] chest examination. Deformity of the lower right lateral rib cage. Diffuse osteopenia. Probable cardiomegaly. Heart size is not optimally evaluated on AP projection because of magnificatio n. There is aortic calcification, ectasia and unfolding. Diffuse osteopenia. IMPRESSION: Persistent right mid and lower lung infiltrates. Patchy left lower lung infiltrate and/atelectasis COPD Borderline or increased heart size Aortic atherosclerosis Reviewed, dictated and finalized at location A. H HAND
--- NOTE | ~2021-01-21 | CT_ITS ---
EXAMINATION:CT diagnostic chest wo con DATE: 01/26/2021 08:52 INDICATION: Hypoxia. Chronic obstructive pulmonary disease. TECHNIQUE: Computed tomography (CT) of the chest was performed without intravenous contrast. Automate d exposure control and iterative reconstruction technique were employed. The dose-length product (DLP ) was 862.27 mGy-cm. COMPARISON: Chest CT 06/05/2020 FINDINGS: There is moderate emphysema. There is mild atelectasis in the lungs, worst in the lingula. No pleural effusion. The heart size is normal. There are coronary artery calcifications. No pericardi al effusion. There is bilateral gynecomastia. Partially visualized is a 3.2 cm mass in right adrenal gland measuring low-attenuation, consistent with an adenoma. There are multiple old right rib defects . There is mild thoracic spondylosis. IMPRESSION: 1. Moderate emphysema. Reviewed, dictated and finalized at location A. NESS ANALYSIS CONSULTANT IMPRESSION: 1. Moderate emphysema.
--- NOTE | ~2021-01-21 | XR_ITS ---
EXAMINATION: XR chest 1V portable DATE: 01/22/2021 05:46 INDICATION: Pneumonia TECHNIQUE: frontal view of the chest was obtained. COMPARISON: Chest radiograph dated 01/21/2021 FINDINGS: Opacities in the right mid and lower lung zones which are superimposed over multiple right-sided rib fractures. The opacities appear slightly more prominent than in the prior study although this may be due in part to change in patient position with the patient rotated slightly towards the right. There has been improvement in mild opacities at the left lung base. No pleural effusion or pneumothorax. Mi ld cardiomegaly. IMPRESSION: 1. Interval increase in opacities in the right mid and lower lung zone which could represent atelecta sis and/or pneumonia. 2. Improvement in now mild left basilar opacities favoring improving atelectasis over pneumonia. 2. Cardiomegaly. Reviewed, dictated and finalized at location A. DEPARTMENT MANAGER IMPRESSION: 1. Interval increase in opacities in the right mid and lower lung zone which co uld represent atelectasis and/or pneumonia. 2. Improvement in now mild left basilar opacities favoring improving atelectasi s over pneumonia. 2. Cardiomegaly.
--- NOTE | ~2021-01-21 | XR_ITS ---
EXAMINATION: XR chest 1V portable EXAM DATE: 01/21/2021 11:32 INDICATION: Shortness of breath. TECHNIQUE: Portable AP frontal chest x-ray was obtained. Comparison is made to prior examination from 12/27/2020. FINDINGS: There is cardiomegaly and pulmonary vascular congestion. Indistinct reticulation, appearanc e most consistent with pulmonary edema. Please clinically correlate. Infection not excludable. Some p ersistent left basilar atelectasis. No pneumothorax or sizable pleural effusion. There are old right rib fractures. IMPRESSION: 1. Findings consistent with CHF exacerbation. 2. Left basilar atelectasis. 3. Pneumonia not excludable. Reviewed, dictated and finalized at location B. RING SERVICE MANAGER
--- NOTE | 2021-01-21 11:16 | ECG_ITS ---
Measurements Intervals [place] Rate: 85 P: 29 MS: 182 QRS: -38 QRSD: 103 T: 11 QT: 354 QTc: 421 Interpretive Statements SINUS RHYTHM LEFT AXIS DEVIATION POOR R WAVE PROGRESSION, ANTERIOR LEADS BASELINE ARTIFACT- I, III, AVL, AVF BORDERLINE ECG Electronically Signed On 01-21-2021 12:41:17 METALLURGIST PROCESS by Cm Mcrae D.O.
[2021-01-21 11:34] LABS: Basophils Absolute Auto 0.1 K/mm3 (0.0-0.1); Basophils Percent Auto 0.8 % (0.2-1.2); Eosinophils Absolute Auto 0.1 K/mm3 (0-0.3); Eosinophils Percent Auto 1.7 % (0-4.4); Hematocrit 43.8 % (42.0-52.0); Hemoglobin 11.9 g/dL (14.0-18.0); Immature Granulocyte Absolute 0.09 K/mm3 (0.00-0.031); Immature Granulocyte Percent A 1.1 % (0-0.5); Lymphocytes Absolute Auto 1.12 K/mm3 (0.9-3.2); Lymphocytes Percent Auto 14.2 % (18.3-44.2); Mean Corpuscular HGB Conc 27.2 g/dl (32-36); Mean Corpuscular Volume 88.5 fl (80-100); Mean Platelet Volume 9.8 fl (7.4-10.4); Monocytes Absolute Auto 0.4 K/mm3 (0.1-0.6); Monocytes Percent Auto 5.6 % (2.6-8.5); Neutrophils Percent Auto 76.6 % (45.5-73.1); Platelet Count Result 289 k/mm3 (150-375); Red Blood Count 4.95 M/mm3 (4.6-6.20); White Blood Count 7.9 K/mm3 (4.5-10.0)
[2021-01-21 11:46] LABS: Lactic Acid Reflex 1.7 mmol/L (0.7-2.1)
[2021-01-21 11:50] LABS: Blood Urea Nitrogen 21 mg/dL (9-20); Calcium 8.1 mg/dL (8.4-10.2)
[2021-01-21 11:51] LABS: Carbon Dioxide > 40 mmol/L (22-30); Chloride 101 mmol/L (98-107); Estimated CRCL calculation 104 ml/min; Estimated Glomerular Filt Rate > 60; Glucose 122 mg/dL (75-110); Potassium 4.5 mmol/L (3.4-5.0); Sodium 143 mmol/L (137-145)
[2021-01-21] MEDS: BUMETANIDE INJ 1 MG/4 ML VIAL 2 MG IV PUSH (12:02)
--- NOTE | 2021-01-21 12:51 | ED.SOB ---
HPI - SOB/Dyspnea General Chief Complaint: Shortness of Breath/Dyspnea Stated Complaint: sob, copd, from pcp office Time Seen by Provider: 01/21/21 11:19 Source: patient Mode of arrival: ambulatory Limitations: no limitations History of Present Illness HPI Narrative: 65-year-old male Review of COPD with chronic CO2 retention, and CHF with mild diastolic dysfunction and EF of 50%, O2 dependent, uses 3 or 4 L of oxygen during the day and 5 L at night, also uses BiPAP for ELIZABETH Notes that he has been short of breath forever however this is been gradually worsening recently to the point where he has very little in the way of exercise tolerance His weight is also increased, he does not think his legs are a lot more swollen than usual, but he might be more girthy than usual, not sure what his dry weight usually is He had a doctor's appointment today and his sats were in the high 70s after walking into the office so he was sent to the ER He does not have a fever, he coughs rarely when he does he coughs up clear sputum, he has not had any chest pain Related Data Home Medications Medication Instructions Recorded Confirmed Multaq 400 mg PO BIDWM 10/15/19 12/25/20 polyethylene glycol 3350 [Miralax] 17 g PO DAILY 10/16/19 12/25/20 Eliquis 5 mg PO BID 06/02/20 12/25/20 albuterol sulfate 2.5 mg INHALATION Q4-6H PRN 06/02/20 12/25/20 ipratropium bromide 2.5 ml INHALATION Q4-6H PRN 10/07/20 12/25/20 Allergies Allergy/AdvReac Type Severity Reaction Status Date / Time No Known Allergies Allergy Verified 01/21/21 11:25 Review of Systems Review of Systems: All systems reviewed & are unremarkable except as noted in HPI and below Constitutional: Constitutional: Denies chills, Reports fatigue, Denies fever(s), Denies headache(s) and Reports weakness Eyes: Eyes: Reports no additional eye complaints and Denies change in vision ENT: Denies headache(s), Denies epistaxis, Denies nasal congestion and Denies sore throat Cardiovascular: Cardiovascular: Denies chest pain, Denies leg edema, Denies palpitations and Denies dyspnea Respiratory: Respiratory: Denies cough, Denies dyspnea and Denies wheezing Gastrointestinal: Gastrointestinal: Denies abdominal pain, Denies diarrhea, Denies nausea and Denies vomiting Genitourinary: Genitourinary: Denies hematuria, Denies dysuria and Denies urinary frequency Musculoskeletal: Musculoskeletal: Denies deformity, Denies arthralgias, Denies joint swelling, Denies muscle weakness and Denies numbness Integumentary/Breasts: Skin/Breast: Denies rash and Denies wounds Neurologic: Denies headache(s), Denies focal weakness, Denies numbness and Denies weakness Psychiatric: Psychiatric: Reports no additional psychiatric complaints Endocrine: Endocrine: Denies fatigue and Denies palpitations Hematologic/Lymphatic: Hematologic/Lymphatic: Denies easy bleeding and Denies easy bruising Allergic/Immunologic: Allergic/Immunologic: Denies wheezing PMFSH Past Medical History Medical History Acute and chronic respiratory failure Acute on chronic respiratory failure with hypoxia and hypercapnia On chronic home O2 of 3 L nasal cannula. History of prior intubation October 2018 Anxiety Arthritis Atrial flutter Paroxysmal AFib with cardioversion April 2013 and October 23, 2019 BPH (benign prostatic hyperplasia) Bronchitis CHF (congestive heart failure) Last echocardiogram EF was 55% prior echocardiogram previous year demonstrated borderline left ventricular systolic function and diastolic dysfunction grade 1 Chronic constipation COPD (chronic obstructive pulmonary disease) Dependence on continuous supplemental oxygen Emphysema, unspecified GI bleed History of cardioversion History of tobacco abuse Hypertension Hypertensive CHF Morbid obesity with BMI of 45.0-49.9, adult ELIZABETH and COPD overlap syndrome Pneumonia Psoriasis Pulmonary hypertension RVSP 59 on echo
[2021-01-21 13:09] LABS: Fractional Inspired Oxygen 40 %; HCO3 VBG 41.2 mEq/l (24.0-30.0); PO2 VBG 54.5 mmHg (35.0-45.0); pH VBG 7.299 (7.300-7.400)
[2021-01-21 13:11] LABS: Device NASAL CANNULA; PCO2 VBG 85.9 mmHg (42.0-48.0)
[2021-01-21 13:21] LABS: NT Pro B Type Natriuretic Pept 372 PG/ML (5-100); Troponin I < 0.012 ng/mL (0.000-0.034)
[2021-01-21] MEDS: ALBUTEROL SULFATE NEB 2.5 MG/0.5 ML INH 5 MG INHALATION ×2 (14:22→19:53)
[2021-01-21] MEDS: IPRATROPIUM BR 0.02% INH SOLN 0.5 MG/2.5 ML VIAL INHALATION ×2 (14:22→19:54)
--- NOTE | 2021-01-21 14:44 | PM.IMHP ---
H&P: HPI History of Present Illness Date/Time: 01/21/21 14:44 Chief Complaint: shortness of breath Narrative: Vimal Doty is a 65 year old male Who was just discharged from here on 12/28/2020 with acute on chronic respiratory failure and COPD exacerbation as well as congestive heart failure. The patient wears oxygen 3-4 L at home during the day. He uses 5 L at night. The patient had been sent home with Augmentin. The patient uses a trilogy at home at night. He tells me he has been taking his medications as prescribed. The patient had been on prednisone when he was discharged for 4 additional days. The patient stated that he was feeling well until he ran out prednisone and then he started getting short of breath again. The patient states that he gradually got worse since his last discharge. He saw Dr. Meza buffing machine operator semiautomatic the last admission. he is also complaining of increased swelling to his lower extremities. The patient had a doctor's appointment today and his O2 saturation was in the high 70s after walking the office so sent to the emergency room. He denies any fever and he rarely coughs. Patient stated that he has been coughing up thick sputum. Chest x-ray was consistent with congestive heart failure. Left basilar atelectasis. Pneumonia not excludable. The patient was given Bumex, albuterol, Atrovent, and dexamethasone in the emergency room. He was started on lactated Ringer's at a KVO which is now discontinued. The patient was sitting on the side the bed with 5 L per nasal cannula oxygen. He was talking in full sentences without difficulty. Initially was felt that the patient needed to be placed on a BiPAP however the patient is sitting up and talking without difficulty. Patient's ABG his pH was 7.299 with a CO2 of 85.9. Patient's BNP was 372. Patient was swabbed for COVID-19. The patient stated that he has an appointment for his COVID vaccine tomorrow but has to call and cancel. Patient is being admitted inpatient on the date of service of 01/21/2021. Review of Systems Review of Systems: All systems reviewed & are unremarkable except as noted in HPI and below Constitutional: Constitutional: Reports as per HPI and Reports no additional constitutional complaints Eyes: Eyes: Reports as per HPI and Reports no additional eye complaints ENT: Reports system reviewed and no additional complaints, except as documented and Reports Normal hearing present Cardiovascular: Cardiovascular: Reports no additional cardiovascular complaints Respiratory: Respiratory: Reports no additional respiratory complaints and Reports no additional respiratory complaints Gastrointestinal: Gastrointestinal: Reports as per HPI and Reports no additional gastrointestinal complaints Musculoskeletal: Musculoskeletal: Reports no additional musculoskeletal complaints Integumentary/Breasts: Skin/Breast: Reports system reviewed and no additional complaints, except as docu and Reports as per HPI Neurologic: Reports system reviewed and no additional complaints, except as documented, Reports as per HPI and Reports Normal hearing present Psychiatric: Psychiatric: Reports no additional psychiatric complaints and Reports as per HPI Endocrine: Endocrine: Reports no additional endocrine complaints Hematologic/Lymphatic: Hematologic/Lymphatic: Reports no additional hematologic/lymphatic complaints Allergic/Immunologic: Allergic/Immunologic: Reports no additional allergic/immunologic complaints [facility] Past Medical History Medical History Acute and chronic respiratory failure Acute on chronic respiratory failure with hypoxia and hypercapnia On chronic home O2 of 3 L nasal cannula. History of prior intubation October 2018 Anxiety Arthritis Atrial flutter Paroxysmal AFib with cardioversion April 2013 and October 23, 2019 BPH (benign prostatic hyperplasia) Bronchitis CHF (congestive heart failure) Last e
[2021-01-21 14:57] LABS: D Dimer 0.27 ug/mL (<0.48)
--- NOTE | 2021-01-21 15:33 | PC.NURSE ---
This patient, Vimal Doty, was admitted to IMU Room 203-01. Patient/family oriented to hospital policies and general routines including ID bracelet, bed and alarms, visiting hours, pain management, procedures, bathroom and other care routines, personal items, smoking policy, room service/diet, and visiting hours. Information on how to activate the Rapid Response Team has been discussed. Patient/Family are encouraged to report perceived risks to care and to ask questions if they do not understand what they are told or what they should do.
[2021-01-21] MEDS: predniSONE 20 MG TABLET 40 MG PO (17:23)
[2021-01-21] MEDS: FUROSEMIDE INJ 40 MG/4 ML VIAL IV PUSH (17:23)
[2021-01-21 19:05] LABS: Influenza Control Positive
[2021-01-21] MEDS: BUDESONIDE RESPULE NEB 0.5 MG/2 ML AMP INHALATION (19:54)
[2021-01-21] MEDS: APIXABAN 5 MG TABLET PO (21:21)
[2021-01-21] MEDS: TAMSULOSIN HCL 0.4 MG CAPSULE PO (21:21)
[2021-01-21] MEDS: METOPROLOL TARTRATE 25 MG TABLET PO (21:21)
[2021-01-21] MEDS: DRONEDARONE HCL 400 MG TABLET PO (21:57)
[2021-01-22] VITALS (30 sets, daily range): BP systolic 95–138; BP diastolic 55–70; PULSE 74–111; RESP 14–26; TEMP 36.1–36.4; O2SAT 90–96
[2021-01-22] MEDS: methylPREDNISolone SOD SUCC 40 MG VIAL IV PUSH ×2 (00:05→06:16)
[2021-01-22] MEDS: ALBUTEROL SULFATE NEB 2.5 MG/0.5 ML INH 5 MG INHALATION ×4 (04:00→20:18)
[2021-01-22] MEDS: IPRATROPIUM BR 0.02% INH SOLN 0.5 MG/2.5 ML VIAL INHALATION ×4 (04:00→20:18)
[2021-01-22 05:15] LABS: Alanine Aminotransferase 14 U/L (4-50); Albumin Level 3.7 g/dL (3.5-5.1); Alkaline Phosphatase 69 U/L (38-126); Aspartate Amino Transferase 16 U/L (17-59); Bilirubin,Total 0.4 mg/dL (0.2-1.3); Blood Urea Nitrogen 25 mg/dL (9-20); Calcium 8.2 mg/dL (8.4-10.2); Carbon Dioxide > 40 mmol/L (22-30); Chloride 99 mmol/L (98-107); Estimated CRCL calculation 95 ml/min; Estimated Glomerular Filt Rate > 60; Glucose 147 mg/dL (75-110); Lactate Dehydrogenase 412 U/L (313-618); Magnesium 2.1 mg/dL (1.6-2.3); Potassium 4.6 mmol/L (3.4-5.0); Sodium 139 mmol/L (137-145)
[2021-01-22 06:07] LABS: Basophils Percent Auto 0.2 % (0.2-1.2); Hematocrit 42.7 % (42.0-52.0); Hemoglobin 11.9 g/dL (14.0-18.0); Immature Granulocyte Absolute 0.06 K/mm3 (0.00-0.031); Lymphocytes Absolute Auto 0.63 K/mm3 (0.9-3.2); Lymphocytes Percent Auto 10.1 % (18.3-44.2); Mean Corpuscular HGB Conc 27.9 g/dl (32-36); Mean Corpuscular Hemoglobin 24.4 pg (26-34); Mean Corpuscular Volume 87.7 fl (80-100); Mean Platelet Volume 9.6 fl (7.4-10.4); Monocytes Percent Auto 0.6 % (2.6-8.5); Neutrophils Absolute Auto 5.5 K/mm3 (1.3-6.7); Neutrophils Percent Auto 88.1 % (45.5-73.1); Platelet Count Result 294 k/mm3 (150-375); Red Blood Count 4.87 M/mm3 (4.6-6.20); Red Cell Distribution Width 16.8 % (11.5-14.5); White Blood Count 6.3 K/mm3 (4.5-10.0)
[2021-01-22 06:26] LABS: Alveolar/Arterial O2 Gradient 183.3 mmHg; Base Excess ABG 8.8 mEq/l (+/-2.0); Fractional Inspired Oxygen 45 %; HCO3 ABG 36.8 mEq/l (22.0-26.0); Oxyhemoglobin 89.6 % THb (90.0-100.0); PO2 ABG 60.2 mmHg (80.0-100.0); PO2 FiO2 Ratio Arterial Blood 1.34 %; Total Hemoglobin 12.7 g/dL (12.0-18.0); pH ABG 7.351 (7.350-7.450)
[2021-01-22 06:27] LABS: Device NON-INVASIVE VENT; Modified Allen's Test Pass; Site Drawn LEFT RADIAL
[2021-01-22 06:28] LABS: Non-Invasive Expiratory Pressure 8 CMH2O; Non-Invasive Inspiratory Pressure 24 CMH2O; Non-Invasive Vent Rate 4 /MIN
[2021-01-22 07:20] LABS: Thyroid Stimulating Hormone Reflex 0.466 uIU/mL (0.465-4.68)
[2021-01-22] MEDS: BUDESONIDE RESPULE NEB 0.5 MG/2 ML AMP INHALATION ×2 (07:52→20:18)
--- NOTE | 2021-01-22 09:11 | PM.IMPN ---
Progress Note: A&P Assessment and Plan (1) Acute and chronic respiratory failure with hypercapnia: Code(s): J96.22 - Acute and chronic respiratory failure with hypercapnia Status: Acute Assessment and Plan: Likely multifactorial, 2/2 CHF exacerbation vs COPD exacerbation. Dr. Meza consulted and appreciate recommendations. Typically on 3-4 L at home during day, 5L at night. Had Trilogy. He is now requiring 4L O2. Breathing easier today. Treat underlying CHF exacerbation and COPD exacerbation as noted below Appreciate Pulmonolgy recommendations Wean O2 as tolerated Monitor closely (2) CHF exacerbation: Code(s): I50.9 - Heart failure, unspecified Status: Acute Assessment and Plan: CXR shows evidence of CHF exacerbation. BNP on arrival mildly elevated at 372. Patient states he is compliant with home medications and diet at home as much as he can. last Echo 09/2020 showed EF of 50% with grade I diastolic dysfunction Continue diuresis with IV lasix 40 mg BID for now; hold home diuretics Continue metoprolol Monitor volume and respiratory status closely (3) COPD with exacerbation: Code(s): J44.1 - Chronic obstructive pulmonary disease with (acute) exacerbation Status: Acute Assessment and Plan: CXR possibly showing evidence of PNA vs more favorable atelectasis; VS stable, patient afebrile, no leukocytosis. He is a COVID PUI although this is low suspicion; awaiting results. He has been started on levaquin since arrival; will need to watch QTc interval as he is on Multaq for a. flutter. Continue Levaquin per Pulmonology recommendations; EKG tomorrow morning Continue neb treatments Continue with Solumedrol per Pulmonology rec If COVID negative, may take off isolation Consider PEP CPT if off isolation Monitor respiratory status (4) BPH (benign prostatic hyperplasia): Code(s): N40.0 - Benign prostatic hyperplasia without lower urinary tract symptoms Status: Acute Assessment and Plan: No acute issues Continue with tamsulosin (5) Sleep apnea: Qualifiers: Sleep apnea type: obstructive Qualified Code(s): G47.33 - Obstructive sleep apnea (adult) (pediatric) Code(s): G47.30 - Sleep apnea, unspecified Status: Chronic Assessment and Plan: Patient uses Trilogy at home May use home Triology; continue BiPAP/CPAP until this is brought in (6) Atrial flutter: Qualifiers: Atrial flutter type: unspecified Qualified Code(s): I48.92 - Unspecified atrial flutter Code(s): I48.92 - Unspecified atrial flutter Status: Chronic Assessment and Plan: He continues to be in NSR Continue home eliquis Continue home metoprolol and Multaq Subjective Date/time seen: 01/22/21 09:11 Interval history: Patient is a 65 yo M well known to the hospitalist service with past medical history of chronic hypoxic hypercarbic respiratory failure on 3-5 L of oxygen at home, obstructive sleep apnea, COPD, and CHF who is seen in follow up for suspected CHF exacerbation, COPD exacerbation, and acute on chronic respiratory failure likely due to above. Patient states he feels somewhat better today. He notes he is breathing easier today and noticing less swelling in his LE. He does still report LESLIE. He occasionally has a productive cough; cannot describe sputum. He feels constipated; requests a laxative. No other complaints at the moment. He is having adequate urine output. Denies f/c/s, headaches, dizziness, lightheadedness, cp/palpitations, n/v, abd pain, dysuria, hematuria, cloudy urine, calf pain Review of Systems Review of Systems: All systems reviewed & are unremarkable except as noted in HPI and
[2021-01-22] MEDS: polyethylene glycoL 3350 17 GM POWD.PACK PO (09:22)
[2021-01-22] MEDS: DRONEDARONE HCL 400 MG TABLET PO ×2 (09:23→17:06)
[2021-01-22] MEDS: METOPROLOL TARTRATE 25 MG TABLET PO ×2 (09:24→21:15)
[2021-01-22] MEDS: APIXABAN 5 MG TABLET PO ×2 (09:24→21:16)
[2021-01-22] MEDS: PANTOPRAZOLE 40 MG TABLET PO (09:24)
[2021-01-22] MEDS: POTASSIUM CHLORIDE 20 MEQ TABLET.ER PO (09:25)
[2021-01-22] MEDS: ROFLUMILAST 500 MCG TABLET PO (09:25)
[2021-01-22] MEDS: FUROSEMIDE INJ 40 MG/4 ML VIAL IV PUSH ×2 (09:27→17:06)
--- NOTE | 2021-01-22 11:14 | PM.CNPUL ---
Assessment and Plan Assessment and plan (1) Acute and chronic respiratory failure with hypercapnia: Code(s): J96.22 - Acute and chronic respiratory failure with hypercapnia Status: Acute Assessment and Plan: Patient with acute on chronic respiratory failure. Etiology is COPD, ELIZABETH, CHF and morbid obesity. Last daytime ABG on 5L on 12/28/19 7.2176/65 and BiPAP 24/8 ABG 7.73/78 in house. patient's current venous gas on admission was 7.30/86/54. Patient wore BiPAP 24/8 and blood gas on 45% oxygen this morning was improved at 7.35/60 8/60. I will continue these settings when he sleeps. I have instructed patient to bring his home trilogy machine to the hospital so that we can check a morning ABG on his current settings and perform an overnight oximetry to ensure adequate ventilation and oxygenation. I am awaiting a download with his exact settings but from my previous note I have that he was on AVAPS-AE respiratory rate 20, tidal volume 550, expiratory pressures 5-15, inspiratory pressure is 5-22, max pressure 30. (2) COPD with exacerbation: Code(s): J44.1 - Chronic obstructive pulmonary disease with (acute) exacerbation Status: Acute Assessment and Plan: COPD with chronic respiratory failure on 3-4 L nasal cannula oxygen at home (last daytime ABG on5 L 12/28/19 7.2176/65 and BiPAP 24/8 ABG 7.2573/78 in house) and a trilogy noninvasive ventilator at night with 5 L nasal cannula. Patient has moderate to severe panlobular emphysema on his CT scan of the chest from 06/05/2020. His echocardiogram from 10/06/2020 shows mildly reduced LV EF at 50% grade 1 diastolic dysfunction mildly enlarged right ventricle with reduced right ventricular function and a right ventricular systolic pressure of 46 measured on 10/15/2019. Currently patient with increased shortness of breath, dyspnea on exertion, increased phlegm production. Will treat patient with albuterol 5 5 mg nebs Q 6 hours, ipratropium 0.5 mg nebs q.6 hours, budesonide 0.5 nebulization q.12 hours will continue roflumilast 500 q.day. I will change his methylprednisolone from 40 mg IV q.6 hours 2 prednisone 50 mg Q day. I will continue his levofloxacin 750 mg p.o. q.day. I do not see evidence of pneumonia. Patient's D-dimer 0.27 which is negative making PE unlikely. Of note patient is also on apixaban 5 mg p.o. q.12 hours for his atrial flutter., (3) CHF (congestive heart failure): Qualifiers: Heart failure chronicity: unspecified Heart failure type: unspecified Qualified Code(s): I50.9 - Heart failure, unspecified Code(s): I50.9 - Heart failure, unspecified Status: Acute Assessment and Plan: Patient with a history of reduced LV function at 50% and grade 1 diastolic dysfunction. Last admission patient's Lasix was increased from 40 once a day to 40 b.i.d.. Despite this patient states that he had increased swelling over the last 3 weeks and a 10 lb weight gain. Patient is currently BD being diuresed with Lasix 40 IV b.i.d. per his primary team. Agree with as aggressive diuresis as tolerated by his cardiac and renal function Will follow with you. History of Present Illness History of Present Illness Consult date: 01/22/21 Requesting physician: Ileana Ac NP Reason for consult: COPD Chief complaint: severe copd/chf Narrative: Patient is a 65-year-old with morbid obesity and COPD with chronic respiratory failure on 3-4 L nasal cannula oxygen at home (last daytime ABG on5 L 12/28/19 7.21/76/65 and BiPAP 24/8 ABG 7.25/73/78 in house) and a trilogy noninvasive ventilator at night with 5 L nasal cannula. Patient has moderate to severe panlobular emphysema on his CT scan of the chest from 06/05/2020. His echocardiogram from 10/06/2020 shows mildly reduced LV EF at 50% grade 1 diastolic dysfunction mildly enlarged right ventricle with reduced right ventricular function and a right ventricular systolic pressure of 46 measured on
[2021-01-22] MEDS: predniSONE 40 MG, predniSONE 10 MG 50 MG PO (13:28)
[2021-01-22 17:46] LABS: SARS-CoV-2 RNA PCR Negative
[2021-01-22] MEDS: TAMSULOSIN HCL 0.4 MG CAPSULE PO (21:16)
[2021-01-23] VITALS (26 sets, daily range): BP systolic 94–152; BP diastolic 44–90; PULSE 78–113; RESP 10–24; TEMP 35.7–36.6; O2SAT 92–99
[2021-01-23] MEDS: IPRATROPIUM BR 0.02% INH SOLN 0.5 MG/2.5 ML VIAL INHALATION ×4 (02:26→20:58)
[2021-01-23] MEDS: ALBUTEROL SULFATE NEB 2.5 MG/0.5 ML INH 5 MG INHALATION ×4 (02:26→20:58)
[2021-01-23 04:55] LABS: Basophils Percent Auto 0.1 % (0.2-1.2); Hematocrit 40.5 % (42.0-52.0); Hemoglobin 11.2 g/dL (14.0-18.0); Immature Granulocyte Absolute 0.05 K/mm3 (0.00-0.031); Immature Granulocyte Percent A 0.6 % (0-0.5); Lymphocytes Absolute Auto 1.03 K/mm3 (0.9-3.2); Lymphocytes Percent Auto 12.5 % (18.3-44.2); Mean Corpuscular HGB Conc 27.7 g/dl (32-36); Mean Corpuscular Volume 86.7 fl (80-100); Mean Platelet Volume 9.9 fl (7.4-10.4); Monocytes Absolute Auto 0.6 K/mm3 (0.1-0.6); Monocytes Percent Auto 7.4 % (2.6-8.5); Neutrophils Absolute Auto 6.5 K/mm3 (1.3-6.7); Neutrophils Percent Auto 79.4 % (45.5-73.1); Platelet Count Result 289 k/mm3 (150-375); Red Blood Count 4.67 M/mm3 (4.6-6.20); Red Cell Distribution Width 16.9 % (11.5-14.5); White Blood Count 8.2 K/mm3 (4.5-10.0)
--- NOTE | 2021-01-23 05:00 | ECG_ITS ---
Measurements Intervals [place] Rate: 93 P: 44 DE: 194 QRS: 2 QRSD: 95 T: 34 QT: 351 QTc: 438 Interpretive Statements SINUS RHYTHM DELAYED PRECORDIAL R/S TRANSITION BORDERLINE ECG Electronically Signed On 01-23-2021 8:47:45 [employer] by Cm Mcrae D.O.
[2021-01-23 05:13] LABS: Blood Urea Nitrogen 34 mg/dL (9-20); Calcium 8.1 mg/dL (8.4-10.2); Carbon Dioxide > 40 mmol/L (22-30); Chloride 97 mmol/L (98-107); Estimated CRCL calculation 79 ml/min; Estimated Glomerular Filt Rate > 60; Glucose 116 mg/dL (75-110); Magnesium 2.2 mg/dL (1.6-2.3); Sodium 139 mmol/L (137-145)
[2021-01-23] MEDS: BUDESONIDE RESPULE NEB 0.5 MG/2 ML AMP INHALATION ×2 (08:11→20:57)
--- NOTE | 2021-01-23 08:54 | PM.IMPN ---
Progress Note: A&P Assessment and Plan (1) Acute and chronic respiratory failure with hypercapnia: Code(s): J96.22 - Acute and chronic respiratory failure with hypercapnia Status: Acute Assessment and Plan: Likely multifactorial, 2/2 CHF exacerbation vs COPD exacerbation. Dr. Meza consulted and appreciate recommendations. Typically on 3-4 L at home during day, 5L at night. Has Trilogy and was using last night, but apparently desaturated and subsequently placed on BiPAP. He is requiring 4L O2. Breathing somewhat easier today. Similar lung exam Treat underlying CHF exacerbation and COPD exacerbation as noted below Appreciate Pulmonology recommendations Wean O2 as tolerated Monitor closely (2) CHF exacerbation: Code(s): I50.9 - Heart failure, unspecified Status: Acute Assessment and Plan: CXR shows evidence of CHF exacerbation. BNP on arrival mildly elevated at 372. Patient states he is compliant with home medications and diet at home as much as he can. last Echo 09/2020 showed EF of 50% with grade I diastolic dysfunction Continue diuresis with IV lasix 40 mg BID for now; hold home diuretics. Will consider tapering tomorrow pending clinical status and labs Continue metoprolol Monitor volume and respiratory status closely Monitor BMP tomorrow (3) COPD with exacerbation: Code(s): J44.1 - Chronic obstructive pulmonary disease with (acute) exacerbation Status: Acute Assessment and Plan: CXR possibly showing evidence of PNA vs more favorable atelectasis; VS stable, patient afebrile, no leukocytosis. COVID negative; low suspicion. He has been started on levaquin since arrival; will need to watch QTc interval as he is on Multaq for a. flutter; EKG shows stable QTc Continue Levaquin per Pulmonology recommendations; EKG likely in 2 days for further monitoring Continue neb treatments Continue with prednisone per Pulmonology rec PEP CPT Monitor respiratory status (4) BPH (benign prostatic hyperplasia): Code(s): N40.0 - Benign prostatic hyperplasia without lower urinary tract symptoms Status: Acute Assessment and Plan: No acute issues Continue with tamsulosin (5) Sleep apnea: Qualifiers: Sleep apnea type: obstructive Qualified Code(s): G47.33 - Obstructive sleep apnea (adult) (pediatric) Code(s): G47.30 - Sleep apnea, unspecified Status: Chronic Assessment and Plan: Patient uses Trilogy at home May use home Trilogy but may need adjustments per RT/Pulmonology as he was apparently hypoxic overnight Further management per Pulmonology; appreciate recommendations (6) Atrial flutter: Qualifiers: Atrial flutter type: unspecified Qualified Code(s): I48.92 - Unspecified atrial flutter Code(s): I48.92 - Unspecified atrial flutter Status: Chronic Assessment and Plan: He continues to be in NSR Continue home eliquis Continue home metoprolol and Multaq (7) Constipation: Code(s): K59.00 - Constipation, unspecified Status: Acute Assessment and Plan: Usually takes miralax daily. Notes he usually gets constipated on previous hospital stays. Has taken Senna in the hospital as well Daily Miralax PO Will do Senokot now and then nightly thereafter. Taper regimen once BMs return He wishes to defer suppositories and enemas given he has hemorrhoids and has had pain in the past Subjective Date/time seen: 01/23/21 08:54 Interval history: Patient is a 65 yo M well known to the hospitalist service with past medical history of chronic hypoxic hypercarbic respiratory failure on 3-5 L of oxygen at home, obstructive sleep apnea,
[2021-01-23] MEDS: APIXABAN 5 MG TABLET PO ×2 (10:06→20:16)
[2021-01-23] MEDS: predniSONE 40 MG, predniSONE 10 MG 50 MG PO (10:06)
[2021-01-23] MEDS: PANTOPRAZOLE 40 MG TABLET PO (10:06)
[2021-01-23] MEDS: METOPROLOL TARTRATE 25 MG TABLET PO ×2 (10:07→20:16)
[2021-01-23] MEDS: DRONEDARONE HCL 400 MG TABLET PO ×2 (10:07→17:24)
[2021-01-23] MEDS: FUROSEMIDE INJ 40 MG/4 ML VIAL IV PUSH ×2 (10:07→17:23)
[2021-01-23] MEDS: POTASSIUM CHLORIDE 20 MEQ TABLET.ER PO (10:08)
[2021-01-23] MEDS: polyethylene glycoL 3350 17 GM POWD.PACK PO (10:08)
[2021-01-23] MEDS: ROFLUMILAST 500 MCG TABLET PO (10:08)
[2021-01-23] MEDS: SENNA/DOCUSATE SODIUM TABLET 1 TAB PO ×2 (11:21→20:16)
--- NOTE | 2021-01-23 13:54 | PM.PNPUL ---
Progress Note: A&P Assessment and Plan (1) Acute and chronic respiratory failure with hypercapnia: Code(s): J96.22 - Acute and chronic respiratory failure with hypercapnia Status: Acute Assessment and Plan: plan: CXR tomorrow Jan 24; look at infiltrates, continue diuresis with Lasix 40 bid, down 1.5 kg since admission and ankles are less swollen, decrease tomorrow, continue to wean steroids, repeat EKG with Multaq and Levaquin. Today QTc is 438, normal. Use hospital biPAP 24/8 at night with 6 L/min to maintain appropriate saturation; 5 L is not enough. d/w Shan Garibay PA-C Patient with acute on chronic respiratory failure. Etiology is COPD, ELIZABETH, CHF and morbid obesity. Daytime ABG on 5L on 12/28/19 7.21/76/65 and BiPAP 24/8 ABG 7./ in house. VBG on admission was 7.30/86/54. Patient wore BiPAP 24/8 and blood gas on 45% oxygen on Jan 22 improved at 7.35/68/60. Continue these settings with sleep. He brought his Trilogy; I will not have him use it until we can confirm recent download from his device. His most recent download was from Oct 10 to Nov 03, 2020 and he has been in the hospital a few times since then. Avg usage 10 hours 4 min, avg IPAP 15 L, avg EPAP 8.5, Ve 14.5 L/min; AVAPS-AE respiratory rate 20, tidal volume 550, expiratory pressures 5-15, inspiratory pressure is 5-22, max pressure 30. (2) COPD with exacerbation: Code(s): J44.1 - Chronic obstructive pulmonary disease with (acute) exacerbation Status: Acute Assessment and Plan: COPD with chronic respiratory failure on 3-4 L nasal cannula oxygen at home (last daytime ABG on5 L 12/28/19 7.21/76/65 and BiPAP 24/8 ABG 7./78 in house) and a trilogy noninvasive ventilator at night with 5 L nasal cannula. Patient has moderate to severe panlobular emphysema on his CT scan of the chest from 06/05/2020. His echocardiogram from 10/06/2020 shows mildly reduced LV EF at 50% grade 1 diastolic dysfunction mildly enlarged right ventricle with reduced right ventricular function and a right ventricular systolic pressure of 46 measured on 10/15/2019. Currently patient with increased shortness of breath, dyspnea on exertion, increased phlegm production. Will treat patient with albuterol 5 5 mg nebs Q 6 hours, ipratropium 0.5 mg nebs q.6 hours, budesonide 0.5 nebulization q.12 hours will continue roflumilast 500 q.day. I will change his methylprednisolone from 40 mg IV q.6 hours 2 prednisone 50 mg Q day. I will continue his levofloxacin 750 mg p.o. q.day. I do not see evidence of pneumonia. Patient's D-dimer 0.27 which is negative making PE unlikely. Of note patient is also on apixaban 5 mg p.o. q.12 hours for his atrial flutter., (3) CHF (congestive heart failure): Qualifiers: Heart failure chronicity: unspecified Heart failure type: unspecified Qualified Code(s): I50.9 - Heart failure, unspecified Code(s): I50.9 - Heart failure, unspecified Status: Acute Assessment and Plan: Patient with a history of reduced LV function at 50% and grade 1 diastolic dysfunction. Last admission patient's Lasix was increased from 40 once a day to 40 b.i.d.. Despite this patient states that he had increased swelling over the last 3 weeks and a 10 lb weight gain. Patient is currently BD being diuresed with Lasix 40 IV b.i.d. per his primary team. Agree with as aggressive diuresis as tolerated by his cardiac and renal function. Will follow with you. Subjective Date/time seen: 01/23/21 13:54 Vimal Doty is a 65-year-old with morbid obesity, COPD, chronic respiratory failure on 3-4 L nasal cannula oxygen at home Was admitted in Nov, went home after 3 days, now back. Was at Dr Dangelo Arce's office Jan 21, worsened in the parking lot on the way to get labs and CXR, admitted. ABG Jan 22 7.35/68/60/36/89% on BiPAP 24/8 & 45% This ABG is compensated, improved compared to recent ones. - -
[2021-01-23] MEDS: TAMSULOSIN HCL 0.4 MG CAPSULE PO (20:17)
[2021-01-24] VITALS (34 sets, daily range): BP systolic 108–130; BP diastolic 40–74; PULSE 71–95; RESP 12–20; TEMP 36.1–37.1; O2SAT 92–97
[2021-01-24] MEDS: ALBUTEROL SULFATE NEB 2.5 MG/0.5 ML INH 5 MG INHALATION ×3 (02:06→20:35)
[2021-01-24] MEDS: IPRATROPIUM BR 0.02% INH SOLN 0.5 MG/2.5 ML VIAL INHALATION ×4 (02:07→20:35)
[2021-01-24 04:30] LABS: Basophils Percent Auto 0.1 % (0.2-1.2); Eosinophils Percent Auto 0.1 % (0-4.4); Hemoglobin 11.4 g/dL (14.0-18.0); Immature Granulocyte Absolute 0.04 K/mm3 (0.00-0.031); Immature Granulocyte Percent A 0.5 % (0-0.5); Lymphocytes Absolute Auto 1.43 K/mm3 (0.9-3.2); Lymphocytes Percent Auto 18.6 % (18.3-44.2); Mean Corpuscular HGB Conc 28.5 g/dl (32-36); Mean Corpuscular Hemoglobin 24.5 pg (26-34); Mean Corpuscular Volume 85.8 fl (80-100); Mean Platelet Volume 9.3 fl (7.4-10.4); Monocytes Absolute Auto 0.6 K/mm3 (0.1-0.6); Monocytes Percent Auto 8.2 % (2.6-8.5); Neutrophils Absolute Auto 5.6 K/mm3 (1.3-6.7); Neutrophils Percent Auto 72.5 % (45.5-73.1); Platelet Count Result 254 k/mm3 (150-375); Red Blood Count 4.66 M/mm3 (4.6-6.20); Red Cell Distribution Width 16.9 % (11.5-14.5); White Blood Count 7.7 K/mm3 (4.5-10.0)
[2021-01-24 04:41] LABS: Blood Urea Nitrogen 33 mg/dL (9-20); Calcium 7.8 mg/dL (8.4-10.2); Carbon Dioxide > 40 mmol/L (22-30); Chloride 96 mmol/L (98-107); Estimated CRCL calculation 72 ml/min; Estimated Glomerular Filt Rate > 60; Glucose 94 mg/dL (75-110); Magnesium 2.2 mg/dL (1.6-2.3); Potassium 3.6 mmol/L (3.4-5.0); Sodium 139 mmol/L (137-145)
[2021-01-24] MEDS: BUDESONIDE RESPULE NEB 0.5 MG/2 ML AMP INHALATION ×2 (07:33→20:34)
[2021-01-24] MEDS: predniSONE 40 MG, predniSONE 10 MG 50 MG PO (08:47)
[2021-01-24] MEDS: METOPROLOL TARTRATE 25 MG TABLET PO ×2 (08:47→20:28)
[2021-01-24] MEDS: polyethylene glycoL 3350 17 GM POWD.PACK PO (08:47)
[2021-01-24] MEDS: DRONEDARONE HCL 400 MG TABLET PO ×2 (08:47→17:19)
[2021-01-24] MEDS: ROFLUMILAST 500 MCG TABLET PO (08:48)
[2021-01-24] MEDS: PANTOPRAZOLE 40 MG TABLET PO (08:48)
[2021-01-24] MEDS: APIXABAN 5 MG TABLET PO ×2 (08:48→20:28)
[2021-01-24] MEDS: POTASSIUM CHLORIDE 20 MEQ TABLET.ER PO (08:48)
[2021-01-24] MEDS: FUROSEMIDE INJ 40 MG/4 ML VIAL IV PUSH ×2 (08:52→17:19)
--- NOTE | 2021-01-24 11:45 | ECG_ITS ---
Measurements Intervals [place] Rate: 80 P: 35 CO: 187 QRS: -34 QRSD: 103 T: 19 QT: 376 QTc: 435 Interpretive Statements SINUS RHYTHM LEFT AXIS DEVIATION INCOMPLETE RIGHT BUNDLE BRANCH BLOCK DELAYED PRECORDIAL R/S TRANSITION BASELINE ARTIFACT- I, II, III, AVR, AVL, AVF, V3, V6 BORDERLINE ECG Electronically Signed On 01-24-2021 12:41:40 PORTER BATH by Cm Mcrae D.O.
[2021-01-24] MEDS: ALBUTEROL SULFATE NEB 2.5 MG/3 ML INH INHALATION (12:37)
--- NOTE | 2021-01-24 13:24 | PM.IMPN ---
Progress Note: A&P Assessment and Plan (1) Acute and chronic respiratory failure with hypercapnia: Code(s): J96.22 - Acute and chronic respiratory failure with hypercapnia Status: Acute Assessment and Plan: Likely multifactorial, 2/2 CHF exacerbation vs COPD exacerbation. Pulmonology consulted and appreciate recommendations. Typically on 3-4 L at home during day, 5L at night. Has Trilogy and was using last night, but apparently desaturated and subsequently placed on BiPAP. He is requiring 4L O2. Breathing somewhat now that he received his neb treatment. Similar lung exam, but may be some slight coarse breath sounds b/l Treat underlying CHF exacerbation and COPD exacerbation as noted below Appreciate Pulmonology recommendations Wean O2 as tolerated Monitor closely (2) CHF exacerbation: Code(s): I50.9 - Heart failure, unspecified Status: Acute Assessment and Plan: CXR shows evidence of CHF exacerbation. BNP on arrival mildly elevated at 372. Patient states he is compliant with home medications and diet at home as much as he can. last Echo 09/2020 showed EF of 50% with grade I diastolic dysfunction Continue diuresis with IV lasix 40 mg BID for now; hold home diuretics. Will consider tapering tomorrow pending clinical status and labs Continue metoprolol Monitor volume and respiratory status closely Monitor BMP tomorrow (3) COPD with exacerbation: Code(s): J44.1 - Chronic obstructive pulmonary disease with (acute) exacerbation Status: Acute Assessment and Plan: CXR possibly showing evidence of PNA vs more favorable atelectasis; VS stable, patient afebrile, no leukocytosis. COVID negative; low suspicion. He has been started on levaquin since arrival; will need to watch QTc interval as he is on Multaq for a. flutter; EKG shows stable QTc Continue Levaquin per Pulmonology recommendations; will do EKG tomorrow for further monitoring Continue neb treatments Continue with prednisone per Pulmonology rec PEP CPT Monitor respiratory status (4) BPH (benign prostatic hyperplasia): Code(s): N40.0 - Benign prostatic hyperplasia without lower urinary tract symptoms Status: Acute Assessment and Plan: No acute issues Continue with tamsulosin (5) Sleep apnea: Qualifiers: Sleep apnea type: obstructive Qualified Code(s): G47.33 - Obstructive sleep apnea (adult) (pediatric) Code(s): G47.30 - Sleep apnea, unspecified Status: Chronic Assessment and Plan: Patient uses Trilogy at home May use home Trilogy but may need adjustments per RT/Pulmonology as he was apparently hypoxic again overnight Further management per Pulmonology; appreciate recommendations (6) Atrial flutter: Qualifiers: Atrial flutter type: unspecified Qualified Code(s): I48.92 - Unspecified atrial flutter Code(s): I48.92 - Unspecified atrial flutter Status: Chronic Assessment and Plan: He continues to be in NSR Continue home eliquis Continue home metoprolol and Multaq (7) Constipation: Code(s): K59.00 - Constipation, unspecified Status: Acute Assessment and Plan: Having BMs, but still somewhat constipated, patient tells me. Usually takes miralax daily. Notes he usually gets constipated on previous hospital stays. Has taken Senna in the hospital as well Daily Miralax PO and Senokot nightly Taper regimen once BMs normalize He wishes to defer suppositories and enemas given he has hemorrhoids and has had pain in the past Subjective Date/time seen: 01/24/21 13:24 Interval history: Patient is a 65 yo M well known to the hospitalist service with past medica
--- NOTE | 2021-01-24 13:32 | PM.PNPUL ---
Progress Note: A&P Assessment and Plan (1) Acute and chronic respiratory failure with hypercapnia: Code(s): J96.22 - Acute and chronic respiratory failure with hypercapnia Status: Acute Assessment and Plan: plan: Get current download on his Trilogy, and adjust his settings to increase his minute ventilation by 1-2 liter; CXR 01/24 shows persistent basilar infiltrates; CXR is not a good as CT, and he might benefit from HRCT chest. Continue diuresis with Lasix 40 bid, down 1.3 kg since admission and ankles are less swollen, continue to wean steroids, use hospital BiPAP 24/8 at night with 6 L/min to maintain appropriate saturation; 5 L is not enough. d/w Shan Garibay PA-C Patient with acute on chronic respiratory failure. Etiology is COPD, ELIZABETH, CHF and morbid obesity. Daytime ABG on 5L on 12/28/19 7./65 and BiPAP 24/8 ABG 7. in house. VBG on admission was 7.30/86/54. Patient wore BiPAP 24/8 and blood gas on 45% oxygen on Feb 26 improved at 7.35/68/60. Continue these settings with sleep. He brought his Trilogy; I will not have him use it until we can confirm recent download from his device. His most recent download was from Oct 10 to Nov 03, 2020 and he has been in the hospital a few times since then. Avg usage 10 hours 4 min, avg IPAP 15 L, avg EPAP 8.5, Ve 15 L/min; AVAPS-AE respiratory rate 20, tidal volume 550, expiratory pressures 5-15, inspiratory pressure is 5-22, max pressure 30. (2) COPD with exacerbation: Code(s): J44.1 - Chronic obstructive pulmonary disease with (acute) exacerbation Status: Acute Assessment and Plan: COPD with chronic respiratory failure on 3-4 L nasal cannula oxygen at home (last daytime ABG on5 L 12/28/19 7.21/65 and BiPAP 24/8 ABG 7. in house) and a trilogy noninvasive ventilator at night with 5 L nasal cannula. Patient has moderate to severe panlobular emphysema on his CT scan of the chest from 06/05/2020. His echocardiogram from 10/06/2020 shows mildly reduced LV EF at 50% grade 1 diastolic dysfunction mildly enlarged right ventricle with reduced right ventricular function and a right ventricular systolic pressure of 46 measured on 10/15/2019. Currently patient with increased shortness of breath, dyspnea on exertion, increased phlegm production. Will treat patient with albuterol 5 5 mg nebs Q 6 hours, ipratropium 0.5 mg nebs q.6 hours, budesonide 0.5 nebulization q.12 hours will continue roflumilast 500 q.day. I will change his methylprednisolone from 40 mg IV q.6 hours 2 prednisone 50 mg Q day. I will continue his levofloxacin 750 mg p.o. q.day. I do not see evidence of pneumonia. Patient's D-dimer 0.27 which is negative making PE unlikely. Of note patient is also on apixaban 5 mg p.o. q.12 hours for his atrial flutter., (3) CHF (congestive heart failure): Qualifiers: Heart failure chronicity: unspecified Heart failure type: unspecified Qualified Code(s): I50.9 - Heart failure, unspecified Code(s): I50.9 - Heart failure, unspecified Status: Acute Assessment and Plan: Patient with a history of reduced LV function at 50% and grade 1 diastolic dysfunction. Last admission patient's Lasix was increased from 40 once a day to 40 b.i.d.. Despite this patient states that he had increased swelling over the last 3 weeks and a 10 lb weight gain. Patient is currently BD being diuresed with Lasix 40 IV b.i.d. per his primary team. Agree with as aggressive diuresis as tolerated by his cardiac and renal function. Will follow with you. Subjective Date/time seen: 01/24/21 13:32 Vimal Doty is a 65-year-old with morbid obesity, COPD, chronic respiratory failure on 3-4 L nasal cannula oxygen at home, recurrent admissions for unclear reasons. He has his Trilogy at the bedside, however he is better using the hospital BiPAP 24/8 with 45%. Trilogy Ve 15 L; needs settings changed to increased minute v
[2021-01-24] MEDS: TAMSULOSIN HCL 0.4 MG CAPSULE PO (20:28)
[2021-01-25] VITALS (26 sets, daily range): BP systolic 99–139; BP diastolic 37–83; PULSE 74–100; RESP 16–24; TEMP 36.1–36.8; O2SAT 85–95
[2021-01-25] MEDS: IPRATROPIUM BR 0.02% INH SOLN 0.5 MG/2.5 ML VIAL INHALATION ×4 (02:12→19:48)
[2021-01-25] MEDS: ALBUTEROL SULFATE NEB 2.5 MG/0.5 ML INH 5 MG INHALATION ×4 (02:12→19:48)
[2021-01-25 04:40] LABS: Basophils Percent Auto 0.3 % (0.2-1.2); Eosinophils Percent Auto 0.3 % (0-4.4); Hematocrit 39.8 % (42.0-52.0); Hemoglobin 11.5 g/dL (14.0-18.0); Immature Granulocyte Absolute 0.05 K/mm3 (0.00-0.031); Immature Granulocyte Percent A 0.8 % (0-0.5); Lymphocytes Absolute Auto 1.45 K/mm3 (0.9-3.2); Lymphocytes Percent Auto 22.4 % (18.3-44.2); Mean Corpuscular HGB Conc 28.9 g/dl (32-36); Mean Corpuscular Hemoglobin 24.5 pg (26-34); Mean Corpuscular Volume 84.7 fl (80-100); Mean Platelet Volume 9.4 fl (7.4-10.4); Monocytes Absolute Auto 0.7 K/mm3 (0.1-0.6); Neutrophils Absolute Auto 4.3 K/mm3 (1.3-6.7); Neutrophils Percent Auto 66.2 % (45.5-73.1); Platelet Count Result 239 k/mm3 (150-375); Red Cell Distribution Width 16.4 % (11.5-14.5); White Blood Count 6.5 K/mm3 (4.5-10.0)
[2021-01-25 04:55] LABS: Blood Urea Nitrogen 33 mg/dL (9-20); Calcium 8.1 mg/dL (8.4-10.2); Carbon Dioxide > 40 mmol/L (22-30); Chloride 95 mmol/L (98-107); Estimated CRCL calculation 78 ml/min; Estimated Glomerular Filt Rate > 60; Glucose 88 mg/dL (75-110); Magnesium 2.4 mg/dL (1.6-2.3); Potassium 3.4 mmol/L (3.4-5.0); Sodium 139 mmol/L (137-145)
[2021-01-25] MEDS: BUDESONIDE RESPULE NEB 0.5 MG/2 ML AMP INHALATION ×2 (08:29→19:48)
[2021-01-25] MEDS: FUROSEMIDE INJ 40 MG/4 ML VIAL IV PUSH ×2 (08:57→17:13)
[2021-01-25] MEDS: ROFLUMILAST 500 MCG TABLET PO (08:58)
[2021-01-25] MEDS: METOPROLOL TARTRATE 25 MG TABLET PO ×2 (08:58→20:31)
[2021-01-25] MEDS: POTASSIUM CHLORIDE 20 MEQ TABLET 40 MEQ PO (08:58)
[2021-01-25] MEDS: PANTOPRAZOLE 40 MG TABLET PO (08:58)
[2021-01-25] MEDS: APIXABAN 5 MG TABLET PO ×2 (08:58→20:31)
[2021-01-25] MEDS: predniSONE 40 MG, predniSONE 10 MG 50 MG PO (08:58)
[2021-01-25] MEDS: POTASSIUM CHLORIDE 20 MEQ TABLET.ER PO (08:58)
[2021-01-25] MEDS: polyethylene glycoL 3350 17 GM POWD.PACK PO (08:58)
[2021-01-25] MEDS: DRONEDARONE HCL 400 MG TABLET PO ×2 (08:59→17:13)
--- NOTE | 2021-01-25 11:41 | PM.PNPUL ---
Progress Note: A&P Assessment and Plan (1) Acute and chronic respiratory failure with hypercapnia: Code(s): J96.22 - Acute and chronic respiratory failure with hypercapnia Status: Acute Assessment and Plan: 01/22 Patient with acute on chronic respiratory failure. Etiology is COPD, ELIZABETH, CHF and morbid obesity. Daytime ABG on 5L on 12/28/19 7.21/76/65 and BiPAP 24/8 ABG 7. in house. VBG on admission was 7.30/86/54. Patient wore BiPAP 24/8 and blood gas on 45% oxygen on Jan 22 improved at 7.35/68/60. Continue these settings with sleep. He brought his Trilogy; I will not have him use it until we can confirm recent download from his device. His most recent download was from Oct 10 to Nov 03, 2020 and he has been in the hospital a few times since then. Avg usage 10 hours 4 min, avg IPAP 15 L, avg EPAP 8.5, Ve 15 L/min; AVAPS-AE respiratory rate 20, tidal volume 550, expiratory pressures 5-15, inspiratory pressure is 5-22, max pressure 30. 01/24 plan: Get current download on his Trilogy, and adjust his settings to increase his minute ventilation by 1-2 liter; CXR 01/24 shows persistent basilar infiltrates; CXR is not a good as CT, and he might benefit from HRCT chest. Continue diuresis with Lasix 40 bid, down 1.3 kg since admission and ankles are less swollen, continue to wean steroids, use hospital BiPAP 24/8 at night with 6 L/min to maintain appropriate saturation; 5 L is not enough. 01/[address] on home unit tonight with increased tV to 600 and perform overnight oximetry and ABG in morning prior to removal to assess oxygenation and ventilation. d/w Shan Garibay PA-C (2) COPD with exacerbation: Code(s): J44.1 - Chronic obstructive pulmonary disease with (acute) exacerbation Status: Acute Assessment and Plan: COPD with chronic respiratory failure on 3-4 L nasal cannula oxygen at home (last daytime ABG on5 L 12/28/19 7.21/76/65 and BiPAP 24/8 ABG 7. in house) and a trilogy noninvasive ventilator at night with 5 L nasal cannula. Patient has moderate to severe panlobular emphysema on his CT scan of the chest from 06/05/2020. His echocardiogram from 10/06/2020 shows mildly reduced LV EF at 50% grade 1 diastolic dysfunction mildly enlarged right ventricle with reduced right ventricular function and a right ventricular systolic pressure of 46 measured on 10/15/2019. 01/22 Currently patient with increased shortness of breath, dyspnea on exertion, increased phlegm production. Will treat patient with albuterol 5 5 mg nebs Q 6 hours, ipratropium 0.5 mg nebs q.6 hours, budesonide 0.5 nebulization q.12 hours will continue roflumilast 500 q.day. I will change his methylprednisolone from 40 mg IV q.6 hours to prednisone 50 mg Q day. I will continue his levofloxacin 750 mg p.o. q.day. I do not see evidence of pneumonia. Patient's D-dimer 0.27 which is negative making PE unlikely. Of note patient is also on apixaban 5 mg p.o. q.12 hours for his atrial flutter. 01/25 Continue predsnisone 50 Q day for now, slower taper in future. (3) CHF (congestive heart failure): Qualifiers: Heart failure chronicity: unspecified Heart failure type: unspecified Qualified Code(s): I50.9 - Heart failure, unspecified Code(s): I50.9 - Heart failure, unspecified Status: Acute Assessment and Plan: 01/22 Patient with a history of reduced LV function at 50% and grade 1 diastolic dysfunction. Last admission patient's Lasix was increased from 40 once a day to 40 b.i.d.. Despite this patient states that he had increased swelling over the last 3 weeks and a 10 lb weight gain. Patient is currently being diuresed with Lasix 40 IV b.i.d. per his primary team. Agree with as aggressive diuresis as tolerated by his cardiac and renal function. 01/25 Admit weight 166.7 and today 161.2 with less edema. Cr 1.10. Continue aggressive diuresis. Will follow with you. Subjective Date/time seen: 01/25/21 11:41
--- NOTE | 2021-01-25 14:19 | PM.IMPN ---
Progress Note: A&P Assessment and Plan (1) Acute and chronic respiratory failure with hypercapnia: Code(s): J96.22 - Acute and chronic respiratory failure with hypercapnia Status: Acute Assessment and Plan: Likely multifactorial, 2/2 CHF exacerbation vs COPD exacerbation. Pulmonology consulted and appreciate recommendations. Typically on 3-4 L at home during day, 5L at night. Has Trilogy and has been using during stay. He is requiring 4L O2. Clinically, he appears to have some slow improvement, but overall, he feels much better today Treat underlying CHF exacerbation and COPD exacerbation as noted below Appreciate Pulmonology recommendations Wean O2 as tolerated Monitor closely (2) CHF exacerbation: Code(s): I50.9 - Heart failure, unspecified Status: Acute Assessment and Plan: CXR shows evidence of CHF exacerbation. BNP on arrival mildly elevated at 372. Patient states he is compliant with home medications and diet at home as much as he can. last Echo 09/2020 showed EF of 50% with grade I diastolic dysfunction. He has had ~6kg weight loss during stay, although, it appears he only has net -1220 thus far today. He is now on low sodium and fluid restricted diet. He feels his swelling has improved and exam reflects this Continue diuresis with IV lasix 40 mg BID through [facility], 01/25 and resume home diuretics of 40 mg PO BID (states he recently was transitioned to 40 mg BID as an outpatient) Continue metoprolol Monitor volume and respiratory status closely Monitor BMP tomorrow (3) COPD with exacerbation: Code(s): J44.1 - Chronic obstructive pulmonary disease with (acute) exacerbation Status: Acute Assessment and Plan: CXR possibly showing evidence of PNA vs more favorable atelectasis; VS stable, patient afebrile, no leukocytosis. COVID negative; low suspicion. He has been started on levaquin since arrival; monitoring QTc interval during stay as he is on Multaq for a. flutter; EKG 01/24 shows stable QTc Continue Levaquin per Pulmonology recommendations Continue neb treatments Continue with prednisone per Pulmonology rec PEP CPT Monitor respiratory status (4) BPH (benign prostatic hyperplasia): Code(s): N40.0 - Benign prostatic hyperplasia without lower urinary tract symptoms Status: Acute Assessment and Plan: No acute issues Continue with tamsulosin (5) Sleep apnea: Qualifiers: Sleep apnea type: obstructive Qualified Code(s): G47.33 - Obstructive sleep apnea (adult) (pediatric) Code(s): G47.30 - Sleep apnea, unspecified Status: Chronic Assessment and Plan: Patient uses Trilogy at home May use home Trilogy; RT/Pulmonology managing Further management per Pulmonology; appreciate recommendations (6) Atrial flutter: Qualifiers: Atrial flutter type: unspecified Qualified Code(s): I48.92 - Unspecified atrial flutter Code(s): I48.92 - Unspecified atrial flutter Status: Chronic Assessment and Plan: He continues to be in NSR. Tele shows NSR with occasional PVCs and asymptomatic run of nonsustained vtach yesterday evening Continue home eliquis Continue home metoprolol and Multaq transfer to med/tele today (7) Constipation: Code(s): K59.00 - Constipation, unspecified Status: Acute Assessment and Plan: Having BMs, but still somewhat constipated, patient tells me. Usually takes miralax daily. Notes he usually gets constipated on previous hospital stays. Has taken Senna in the hospital as well Daily Miralax PO and Senokot nightly Taper regimen once BMs normalize He wishes to defer suppositories and enemas given he has hemorrhoids and has had pain in th
--- NOTE | 2021-01-25 15:21 | PCRCNOTE ---
Contacted [facility] regarding Dr. Meza's order to increase tidal volume on patient's home Trilogy device. RT Marilee with [facility] will be here this afternoon to make the setting change.
[2021-01-25] MEDS: TAMSULOSIN HCL 0.4 MG CAPSULE PO (20:31)
[2021-01-26] VITALS (15 sets, daily range): BP systolic 128–131; BP diastolic 59–75; PULSE 75–110; RESP 18–24; TEMP 36.8–36.9; O2SAT 85–95
[2021-01-26 04:51] LABS: Alveolar/Arterial O2 Gradient 177.6 mmHg; Fractional Inspired Oxygen 44 %; HCO3 ABG 36.5 mEq/l (22.0-26.0); Oxygen Content ABG 15.8 %vol (16.0-22.0); Oxygen Saturation ABG 90.5 % (95.0-100.0); Oxyhemoglobin 89.2 % THb (90.0-100.0); PO2 ABG 62.3 mmHg (80.0-100.0); PO2 FiO2 Ratio Arterial Blood 1.42 %; Total Hemoglobin 12.6 g/dL (12.0-18.0); pH ABG 7.369 (7.350-7.450)
[2021-01-26 04:52] LABS: Device BIPAP; Modified Allen's Test Pass; PCO2 ABG 64.8 mmHg (35.0-45.0); Site Drawn RIGHT RADIAL
[2021-01-26 05:10] LABS: Hemoglobin 11.6 g/dL (14.0-18.0); Mean Corpuscular HGB Conc 28.3 g/dl (32-36); Mean Corpuscular Hemoglobin 23.8 pg (26-34); Mean Corpuscular Volume 84.2 fl (80-100); Mean Platelet Volume 9.7 fl (7.4-10.4); Platelet Count Result 260 k/mm3 (150-375); Red Blood Count 4.87 M/mm3 (4.6-6.20); Red Cell Distribution Width 16.5 % (11.5-14.5); White Blood Count 8.1 K/mm3 (4.5-10.0)
[2021-01-26 05:34] LABS: Blood Urea Nitrogen 31 mg/dL (9-20); Carbon Dioxide > 40 mmol/L (22-30); Chloride 96 mmol/L (98-107); Estimated CRCL calculation 67 ml/min; Estimated Glomerular Filt Rate 55; Glucose 86 mg/dL (75-110); Magnesium 2.4 mg/dL (1.6-2.3); Potassium 3.4 mmol/L (3.4-5.0); Sodium 139 mmol/L (137-145)
[2021-01-26] MEDS: ALBUTEROL SULFATE NEB 2.5 MG/0.5 ML INH 5 MG INHALATION ×2 (07:37→13:10)
[2021-01-26] MEDS: BUDESONIDE RESPULE NEB 0.5 MG/2 ML AMP INHALATION (07:37)
[2021-01-26] MEDS: IPRATROPIUM BR 0.02% INH SOLN 0.5 MG/2.5 ML VIAL INHALATION ×2 (07:37→13:10)
[2021-01-26] MEDS: APIXABAN 5 MG TABLET PO (08:21)
[2021-01-26] MEDS: predniSONE 40 MG, predniSONE 10 MG 50 MG PO (08:21)
[2021-01-26] MEDS: DRONEDARONE HCL 400 MG TABLET PO (08:21)
[2021-01-26] MEDS: PANTOPRAZOLE 40 MG TABLET PO (08:21)
[2021-01-26] MEDS: ROFLUMILAST 500 MCG TABLET PO (08:21)
[2021-01-26] MEDS: FUROSEMIDE 40 MG TABLET PO (08:21)
[2021-01-26] MEDS: METOPROLOL TARTRATE 25 MG TABLET PO (08:22)
[2021-01-26] MEDS: polyethylene glycoL 3350 17 GM POWD.PACK PO (08:22)
[2021-01-26] MEDS: POTASSIUM CHLORIDE 20 MEQ TABLET.ER PO (08:22)
--- NOTE | 2021-01-26 10:22 | PM.PNPUL ---
Progress Note: A&P Assessment and Plan (1) Acute and chronic respiratory failure with hypercapnia: Code(s): J96.22 - Acute and chronic respiratory failure with hypercapnia Status: Acute Assessment and Plan: 01/22 Patient with acute on chronic respiratory failure. Etiology is COPD, ELIZABETH, CHF and morbid obesity. Daytime ABG on 5L on 12/28/19 7.21/76/65 and BiPAP 24/8 ABG 7.25/73/78 in house. VBG on admission was 7.30/86/54. Patient wore BiPAP 24/8 and blood gas on 45% oxygen on Jan 22 improved at 7.35/68/60. Continue these settings with sleep. He brought his Trilogy; I will not have him use it until we can confirm recent download from his device. His most recent download was from Oct 10 to Nov 03, 2020 and he has been in the hospital a few times since then. Avg usage 10 hours 4 min, avg IPAP 15 L, avg EPAP 8.5, Ve 15 L/min; AVAPS-AE respiratory rate 20, tidal volume 550, expiratory pressures 5-15, inspiratory pressure is 5-22, max pressure 30. 01/24 plan: Get current download on his Trilogy, and adjust his settings to increase his minute ventilation by 1-2 liter; CXR 01/24 shows persistent basilar infiltrates; CXR is not a good as CT, and he might benefit from HRCT chest. Continue diuresis with Lasix 40 bid, down 1.3 kg since admission and ankles are less swollen, continue to wean steroids, use hospital BiPAP 24/8 at night with 6 L/min to maintain appropriate saturation; 5 L is not enough. 01/[address] on home unit tonight with increased tV to 600 and perform overnight oximetry and ABG in morning prior to removal to assess oxygenation and ventilation. 01/26 Wore his trilogy AVAPS AE last night with respiratory rate 20, tidal volume 600 expiratory pressures 5 -17 inspiratory pressures 5-22, with 6 L bleed in. Patient states that he had a restless evening he could not sleep and that he had difficulty with his mask leaking. Patient had overnight oximetry with an average saturation of 88%. Lowest desat sure is a shins 80, saturations less than or equal to 88% were 233 minutes or 52% of the time. Patient had a blood gas prior to the removal of the unit which was pH 7.37/65/62 obtained a download from his unit at home between 10/27/2020 and 01/24/2020 and he has excellent compliance with 84.4% days used more than 4 hours. He use the machine 11.2 hours a day. Patient's average IPAP is 14.1. Patient's average EPAP is 6.9. Average tidal volume is 521 average minute ventilation 15.8. Average total leak is 59.8. Overall ventilation on current AVAPS AE is adequate. Oxygenation is poor on 6 L. He has a new mask at home and sstates this will help his leak. I will DC on 7L bleed in and repeat overnight oximetry at home to ensure adequate oxygenation on AVAPS AE. (2) COPD with exacerbation: Code(s): J44.1 - Chronic obstructive pulmonary disease with (acute) exacerbation Status: Acute Assessment and Plan: COPD with chronic respiratory failure on 3-4 L nasal cannula oxygen at home (last daytime ABG on5 L 12/28/19 7.21/76/65 and BiPAP / ABG 7.25/73/78 in house) and a trilogy noninvasive ventilator at night with 5 L nasal cannula. Patient has moderate to severe panlobular emphysema on his CT scan of the chest from 06/05/2020. His echocardiogram from 10/06/2020 shows mildly reduced LV EF at 50% grade 1 diastolic dysfunction mildly enlarged right ventricle with reduced right ventricular function and a right ventricular systolic pressure of 46 measured on 10/15/2019. 01/22 Currently patient with increased shortness of breath, dyspnea on exertion, increased phlegm production. Will treat patient with albuterol 5 5 mg nebs Q 6 hours, ipratropium 0.5 mg nebs q.6 hours, budesonide 0.5 nebulization q.12 hours will continue roflumilast 500 q.day. I will change his methylprednisolone from 40 mg IV q.6 hours to prednisone 50 mg Q day. I will continue his levofloxacin 750 mg p.o. q.day. I do not see evidence of pneumonia. Patient's D-dimer
--- NOTE | 2021-01-26 13:39 | HOMEO2EVAL ---
Home Oxygen Evaluation RC: Home Oxygen (O2) Evaluation Start: 01/26/21 11:08 Freq: ONCE Status: Active Protocol: RPE Activity Type Activity Date Activity User E-Sign Co-Sign Detail Recorded Client Recorded Date Recorded By Document 01/26/21 13:15 SIVA [email or web address] 01/26/21 13:39 SIVA Document 01/26/21 13:16 SIVA [email or web address] 01/26/21 13:39 SIVA Document 01/26/21 13:17 SIVA [email or web address] 01/26/21 13:39 SIVA Document 01/26/21 13:18 SIVA [email or web address] 01/26/21 13:39 SIVA Document 01/26/21 13:20 SIVA [email or web address] 01/26/21 13:39 SIVA Document 01/26/21 13:21 SIVA [email or web address] 01/26/21 13:39 SIVA Document 01/26/21 13:25 SIVA [email or web address] 01/26/21 13:39 SIVA Document 01/26/21 13:30 SIVA [email or web address] 01/26/21 13:39 SIVA 01/26/21 01/26/21 01/26/21 13:15 13:16 13:17 Home O2 Evaluation Test Phase Resting Resting Resting Oxygen Delivery Room Air Nasal Cannula Nasal Cannula Oxygen Flow Rate (L/min) 2 3 Pulse Oximetry (90-100 %) 85 L 86 L 87 L Pulse Rate (60-100 beats/min) 89 Ambulation Distance (feet) Home Oxygen Evaluation Comments Treatment Charges O2 Evaluation - Inpatient 01/26/21 01/26/21 01/26/21 13:18 13:20 13:21 Home O2 Evaluation Test Phase Resting Exercise Exercise Oxygen Delivery Nasal Cannula Nasal Cannula Nasal Cannula Oxygen Flow Rate (L/min) 4 4 5 Pulse Oximetry (90-100 %) 91 87 L 87 L Pulse Rate (60-100 beats/min) 108 H Ambulation Distance (feet) Home Oxygen Evaluation Comments Treatment Charges 01/26/21 01/26/21 13:25 13:30 Home O2 Evaluation Test Phase Exercise Resting Oxygen Delivery Nasal Cannula Nasal Cannula Oxygen Flow Rate (L/min) 6 4 Pulse Oximetry (90-100 %) 89 L 92 Pulse Rate (60-100 beats/min) 110 H 89 Ambulation Distance (feet) 75 Home Oxygen Evaluation Comments PT REQUIRES 4 L AT REST AND 6 L WITH EXERTION Treatment Charges
--- NOTE | 2021-01-26 13:42 | PCRCNOTE ---
HOME O2 EVAL DONE. PT REQUIRES 4 AT REST AND 6 WITH EXERTION. HOSPITALIST AWARE. WILL PROVIDE [facility] WITH NEW O2 ORDER, DUE TO THE INCREASED NEEDS, ALTHOUGH PATIENT HAS ALL REQUIRED HOME O2 EQUIPMENT AT HOME. PT HAS TANK FOR TRANSPORT HOME.
--- NOTE | 2021-01-26 13:53 | PM.DS ---
DS: Admitting Diagnosis Admitting Diagnosis Admitting Diagnosis: SOB DS: Discharge Diagnosis Discharge Diagnosis (1) Acute and chronic respiratory failure with hypercapnia: Code(s): J96.22 - Acute and chronic respiratory failure with hypercapnia Status: Acute Assessment and Plan: Likely multifactorial, 2/2 CHF exacerbation vs COPD exacerbation. Pulmonology consulted and appreciate recommendations. Home O2 Evaluation shows he needs O2 setting 4L at rest and 6L with exertion. Continue Trilogy with adjustment recommended by Dr. Derrick Youngblood and has been using during stay. Pulmonology recommends the patient starting azithromycin 500 mg on Monday, Monday, Monday chronically Continue Daliresp, continue albuterol and ipratropium nebulizer treatments Will order prednisone taper 40 mg for 3 days, 30 mg for 3 days, 20 mg for 3 days and 10 mg for 3 days He is feeling much better today than he has felt in the last few weeks/months. Follow-up with pulmonology as an outpatient for further evaluation after discharge After talking with Dr. Landaverde about the patient having an interaction with Multaq and Azithromycin with QT prolongation, it was suggested to talk to Dr. Maloney about the patient and the interaction (01/27/21 at 0800). I suggested switching to another antibiotic vs following up with EKG in a few days. I suggested his planned giving officer calling the patient about getting an EKG on Monday to monitor his QT length after two doses of Azithromycin. Dr. Maloney said his office will take care of it and contact the patient. (2) CHF exacerbation: Code(s): I50.9 - Heart failure, unspecified Status: Acute Assessment and Plan: CXR shows evidence of CHF exacerbation. BNP on arrival mildly elevated at 372. Patient states he is compliant with home medications and diet at home as much as he can. Last Echo 09/2020 showed EF of 50% with grade I diastolic dysfunction. He has had ~6kg weight loss during stay, although, it appears he only has net -1220 thus far today. He is now on low sodium and fluid restricted diet. Patient will continue Lasix as an outpatient and after talking to the devil tender recommended putting him on 50 mg twice daily. Will keep him on potassium 20 mEq daily and recheck a BMP in 1 week Told him to follow-up with aircraft engine mechanic supervisor, Dr Massey as an outpatient in 1 week, he states he has an appointment this month with him Continue metoprolol (3) COPD with exacerbation: Code(s): J44.1 - Chronic obstructive pulmonary disease with (acute) exacerbation Status: Acute Assessment and Plan: CXR possibly showing evidence of PNA vs more favorable atelectasis; VS stable, patient afebrile, no leukocytosis. COVID negative; low suspicion. He has been started on levaquin since arrival; monitoring QTc interval during stay as he is on Multaq for a. flutter; EKG 01/24 shows stable QTc Pulmonology recommends starting chronic azithromycin 500 mg on Monday and Monday Continue nebulizer treatments and Daliresp (4) BPH (benign prostatic hyperplasia): Code(s): N40.0 - Benign prostatic hyperplasia without lower urinary tract symptoms Status: Acute Assessment and Plan: No acute issues Continue with tamsulosin (5) Sleep apnea: Qualifiers: Sleep apnea type: obstructive Qualified Code(s): G47.33 - Obstructive sleep apnea (adult) (pediatric) Code(s): G47.30 - Sleep apnea, unspecified Status: Chronic Assessment and Plan: Patient uses Trilogy at home Continue home trilogy with adjustments by pulmonology. (6) Atrial flutter: Qualifiers: Atrial flutter type: unspecified Qualified Code(s): I48.92 - Unspecified atrial flutter Code(s): I48
== END 2021-01-26 16:20 | disposition home or self-care (01) | DRG 189 ==
LOC: ANHED 14:34 → ANHIMU 01-22 06:37
PROVIDERS: Family Medicine; Internal Medicine Pulmonary Disease; Nurse Practitioner; Physician Assistant; Admitting Provider Family Medicine; Emergency Provider Emergency Medicine; PCP Family Medicine; Visit Provider Physician Assistant
DX: J96.22 Acute and chronic respiratory failure with hypercapnia (principal); I48.92 Unspecified atrial flutter; Z68.45 Body mass index [BMI] 70 or greater, adult; E66.01 Morbid (severe) obesity due to excess calories; Z20.822 Contact with and (suspected) exposure to COVID-19; J43.1 Panlobular emphysema; I27.20 Pulmonary hypertension, unspecified; I11.0 Hypertensive heart disease with heart failure; I50.9 Heart failure, unspecified; G47.33 Obstructive sleep apnea (adult) (pediatric); N40.0 Benign prostatic hyperplasia without lower urinary tract symptoms; K59.00 Constipation, unspecified; Z28.21 Immunization not carried out because of patient refusal; Z79.01 Long term (current) use of anticoagulants; Z87.891 Personal history of nicotine dependence; Z99.81 Dependence on supplemental oxygen
CPT/HCPCS: 36415; 36600; 71045; 71250; 80048; 80053; 82803; 82805; 83605; 83615; 83735; 83880; 84443; 84484; 85025; 85027; 85380; 87040; 87804; 93005; 94002; 94003; 94618; 94640; 94667; 94668; 94762; 96374; 96375; 99291; A9270; C9803; J1100; J1940; J1956; J2920; J7512; U0003; U0005

== ENCOUNTER 2021-02-02 10:43 | Outpatient (CLI) | payer MEDICARE, SELFPAY ==
[2021-02-02 11:35] LABS: Anion Gap 2 mmol/L (8-16); Blood Urea Nitrogen 33 mg/dL (9-20); Calcium 8.4 mg/dL (8.4-10.2); Carbon Dioxide 37 mmol/L (22-30); Chloride 102 mmol/L (98-107); Estimated Glomerular Filt Rate > 60; Glucose 84 mg/dL (75-110); Potassium 4.7 mmol/L (3.4-5.0); Sodium 141 mmol/L (137-145)
== END 2021-02-02 10:44 | disposition home or self-care (01) ==
LOC: ANHLAB 10:45
PROVIDERS: PCP Family Medicine; Visit Provider Family Medicine
DX: I50.9 Heart failure, unspecified (principal)
CPT/HCPCS: 36415; 80048

== ENCOUNTER 2021-02-03 09:50 | Outpatient (CLI) | payer MEDICARE, SELFPAY ==
--- NOTE | 2021-02-03 | ECG_ITS ---
Measurements Intervals [place] Rate: 72 P: 42 IA: 192 QRS: -23 QRSD: 113 T: 21 QT: 369 QTc: 406 Interpretive Statements SINUS RHYTHM INCOMPLETE RIGHT BUNDLE BRANCH BLOCK BASELINE ARTIFACT- I, III, AVR, AVL, V1-V3 BORDERLINE ECG Electronically Signed On 02-03-2021 10:30:55 GAMEPLAY PROGRAMMER by Cm Mcrae D.O.
== END 2021-02-03 09:51 | disposition home or self-care (01) ==
PROVIDERS: PCP Family Medicine; Visit Provider Internal Medicine Pulmonary Disease
DX: I48.91 Unspecified atrial fibrillation (principal)
CPT/HCPCS: 93005

== ENCOUNTER 2021-02-22 09:49 | Emergency (ER) | payer MEDICARE, SELFPAY ==
[2021-02-22] VITALS (14 sets, daily range): BP systolic 102–138; BP diastolic 67–78; PULSE 78–91; RESP 14–26; TEMP 36.6; O2SAT 22–98
[2021-02-22 10:47] LABS: Basophils Absolute Auto 0.1 K/mm3 (0.0-0.1); Basophils Percent Auto 0.8 % (0.2-1.2); Eosinophils Absolute Auto 0.1 K/mm3 (0-0.3); Eosinophils Percent Auto 1.4 % (0-4.4); Hematocrit 44.2 % (42.0-52.0); Hemoglobin 12.7 g/dL (14.0-18.0); Immature Granulocyte Percent A 1.4 % (0-0.5); Lymphocytes Absolute Auto 1.05 K/mm3 (0.9-3.2); Lymphocytes Percent Auto 14.4 % (18.3-44.2); Mean Corpuscular HGB Conc 28.7 g/dl (32-36); Mean Corpuscular Hemoglobin 24.9 pg (26-34); Mean Corpuscular Volume 86.5 fl (80-100); Mean Platelet Volume 9.5 fl (7.4-10.4); Monocytes Absolute Auto 0.4 K/mm3 (0.1-0.6); Monocytes Percent Auto 5.8 % (2.6-8.5); Neutrophils Absolute Auto 5.6 K/mm3 (1.3-6.7); Neutrophils Percent Auto 76.2 % (45.5-73.1); Platelet Count Result 269 k/mm3 (150-375); Red Blood Count 5.11 M/mm3 (4.6-6.20); Red Cell Distribution Width 17.5 % (11.5-14.5); White Blood Count 7.3 K/mm3 (4.5-10.0)
[2021-02-22 10:54] LABS: Large Platelets Present; Platelet Estimate Adequate (Adequate); Stomatocytes 2+ (NORMAL)
[2021-02-22 11:06] LABS: Alanine Aminotransferase 15 U/L (4-50); Albumin Level 4.3 g/dL (3.5-5.1); Alkaline Phosphatase 70 U/L (38-126); Aspartate Amino Transferase 18 U/L (17-59); Bilirubin,Total 0.3 mg/dL (0.2-1.3); Blood Urea Nitrogen 21 mg/dL (9-20); Calcium 8.7 mg/dL (8.4-10.2); Carbon Dioxide > 40 mmol/L (22-30); Chloride 100 mmol/L (98-107); Estimated CRCL calculation 91 ml/min; Estimated Glomerular Filt Rate > 60; Glucose 95 mg/dL (75-110); Sodium 142 mmol/L (137-145)
[2021-02-22 11:12] LABS: Troponin I < 0.012 ng/mL (0.000-0.034)
--- NOTE | 2021-02-22 11:51 | ECG_ITS ---
Measurements Intervals [place] Rate: 91 P: 26 DC: 181 QRS: -60 QRSD: 100 T: 24 QT: 378 QTc: 465 Interpretive Statements SINUS RHYTHM LEFT ANTERIOR FASCICULAR BLOCK BASELINE ARTIFACT- I, II, III, AVL, AVF ABNORMAL ECG Electronically Signed On 02-22-2021 12:53:50 CDT by Cm Mcrae D.O.
--- NOTE | 2021-02-22 11:58 | ED.GENADULT ---
HPI - General Adult General Chief complaint: Unspecified Stated complaint: ELEVATED BP Time Seen by Provider: 02/22/21 10:57 History of Present Illness HPI narrative: Patient is a 65-year-old male who presents ER with elevated blood pressures. Reports his systolic blood pressures been in the 250s for the last 4 days. He is unsure if blood pressure cuff is gone bed. He is having no chest pain or shortness of breath/nausea/vomiting/dizziness. Had had some chest pain 1 week ago that was aching and left-sided that has resolved. Had recently been hospitalized and placed on an oral antibiotic. He is concerned that that antibiotic may be causing his blood pressure to become elevated so he threw away his last dose today. Patient reports that when he goes to bed he feels like he may have some difficulty breathing. He uses his trilogy device. He has no increase in his exertional shortness of breath and has no increase in his baseline oxygen requirement of 4 L/min. Patient denies no change in his lower extremity edema and is on a blood thinner. No hemoptysis/productive cough. Since arrival in the ED patient has had normal blood pressures. Patient also reports when he had his chest pain last week he felt like his heart was beating irregularly, he does have history of A. fib. Related Data Home Medications Medication Instructions Recorded Confirmed Multaq 400 mg PO BIDWM 10/15/19 02/02/21 polyethylene glycol 3350 [Miralax] 17 g PO DAILY 10/16/19 02/02/21 Eliquis 5 mg PO BID 06/02/20 02/02/21 ipratropium bromide 2.5 ml INHALATION Q4-6H PRN 10/07/20 02/02/21 ferrous sulfate 324 mg PO 3XW PRN 01/21/21 02/02/21 metoprolol tartrate 25 mg PO Q12H 01/21/21 02/02/21 furosemide 20 mg tablet 60 mg PO DAILY tablet 02/16/21 Allergies Allergy/AdvReac Type Severity Reaction Status Date / Time No Known Allergies Allergy Verified 02/22/21 10:11 Review of Systems Review of Systems: All systems reviewed & are unremarkable except as noted in HPI and below Cardiovascular: Cardiovascular: Reports chest pain (1 week ago), Denies diaphoresis, Reports irregular heart rhythm and Denies leg edema Respiratory: Respiratory: Denies cough, Denies hemoptysis and Denies wheezing Gastrointestinal: Gastrointestinal: Denies abdominal pain, Denies nausea and Denies vomiting [facility] Past Medical History Medical History Acute and chronic respiratory failure Acute on chronic respiratory failure with hypoxia and hypercapnia On chronic home O2 of 3 L nasal cannula. History of prior intubation October 2018 Anxiety Arthritis Atrial flutter Paroxysmal AFib with cardioversion April 2013 and October 23, 2019 BPH (benign prostatic hyperplasia) Bronchitis CHF (congestive heart failure) Last echocardiogram EF was 55% prior echocardiogram previous year demonstrated borderline left ventricular systolic function and diastolic dysfunction grade 1 Chronic constipation COPD (chronic obstructive pulmonary disease) Dependence on continuous supplemental oxygen Emphysema, unspecified GI bleed History of cardioversion History of tobacco abuse Hypertension Hypertensive CHF Morbid obesity with BMI of 45.0-49.9, adult ELIZABETH and COPD overlap syndrome Pneumonia Psoriasis Pulmonary hypertension RVSP 59 on echo from July 2019 Rectal bleeding Sleep apnea Home BiPAP 12/05 Surgical History Surgical History H/O arthroscopy of left knee History of tonsillectomy 1966 Hx of cardiac cath Left tibial fracture Family History Family History Mother Breast cancer Rheumatoid arthritis Hypertension Father Skin cancer With metastases to bone and brain Mother Family history of arthritis Family history of congestive heart failure Father Family history of malignant neoplasm of bone Other Diabetes mellitus
== END 2021-02-22 13:23 | disposition home or self-care (01) ==
PROVIDERS: Emergency Medicine; Emergency Provider Emergency Medicine; PCP Family Medicine
DX: I11.0 Hypertensive heart disease with heart failure (principal); I50.9 Heart failure, unspecified; J43.9 Emphysema, unspecified; J96.22 Acute and chronic respiratory failure with hypercapnia; J96.21 Acute and chronic respiratory failure with hypoxia; E66.01 Morbid (severe) obesity due to excess calories; Z68.42 Body mass index [BMI] 45.0-49.9, adult; G47.33 Obstructive sleep apnea (adult) (pediatric); M35.1 Other overlap syndromes; I27.20 Pulmonary hypertension, unspecified; M19.90 Unspecified osteoarthritis, unspecified site; N40.0 Benign prostatic hyperplasia without lower urinary tract symptoms; Z99.81 Dependence on supplemental oxygen; Z87.891 Personal history of nicotine dependence; I44.4 Left anterior fascicular block
CPT/HCPCS: 36415; 80053; 84484; 85025; 93005; 99284

== ENCOUNTER 2021-04-12 07:45 | Outpatient (CLI) | payer MEDICARE, SELFPAY ==
[2021-04-12 08:20] LABS: Hematocrit 40.2 % (42.0-52.0); Hemoglobin 11.7 g/dL (14.0-18.0); Mean Corpuscular HGB Conc 29.1 g/dl (32-36); Mean Corpuscular Hemoglobin 25.4 pg (26-34); Mean Corpuscular Volume 87.4 fl (80-100); Mean Platelet Volume 9.5 fl (7.4-10.4); Platelet Count Result 272 k/mm3 (150-375); Red Cell Distribution Width 16.6 % (11.5-14.5); White Blood Count 7.5 K/mm3 (4.5-10.0)
[2021-04-12 08:34] LABS: Add Urine Microscopic? YES; Appearance Urine Clear (Clear); Bilirubin Urine Negative (Negative); Blood Urine Negative (Negative); Color Urine Yellow (Yellow); Glucose Urine UA Negative (Negative); Ketones Urine Negative (Negative); Leukocyte Esterase Ur Negative LEU/UL (NEGATIVE); Mucus Urine Rare /lpf; Nitrate Urine Negative (Negative); Protein Urine 1+ mg/dL (Negative); Specific Grav Ur 1.026 (1.001-1.035); Urobilinogen Urine Negative mg/dL (<2.0); WBC Urine 0-3 /hpf (0-3)
[2021-04-12 08:41] LABS: Alanine Aminotransferase 15 U/L (4-50); Alkaline Phosphatase 69 U/L (38-126); Aspartate Amino Transferase 19 U/L (17-59); Bilirubin,Total 0.3 mg/dL (0.2-1.3); Blood Urea Nitrogen 22 mg/dL (9-20); Calcium 8.7 mg/dL (8.4-10.2); Carbon Dioxide > 40 mmol/L (22-30); Chloride 101 mmol/L (98-107); Cholesterol 144 mg/dL (0-200); Estimated Glomerular Filt Rate > 60; Glucose 104 mg/dL (75-110); HDL Direct 35 mg/dL; Sodium 141 mmol/L (137-145); Triglycerides 132 mg/dL (<150)
[2021-04-12 08:52] LABS: LDL Cholesterol Direct 87 mg/dL
== END 2021-04-12 07:46 | disposition home or self-care (01) ==
PROVIDERS: PCP Family Medicine; Visit Provider Family Medicine
DX: N40.0 Benign prostatic hyperplasia without lower urinary tract symptoms (principal); I11.0 Hypertensive heart disease with heart failure; I50.32 Chronic diastolic (congestive) heart failure; E78.5 Hyperlipidemia, unspecified; R35.1 Nocturia; Z00.00 Encounter for general adult medical examination without abnormal findings; J96.21 Acute and chronic respiratory failure with hypoxia; J96.22 Acute and chronic respiratory failure with hypercapnia
CPT/HCPCS: 36415; 80053; 80061; 81001; 84153; 84443; 85027

== ENCOUNTER 2021-04-24 07:04 | Outpatient (CLI) | payer MEDICARE, SELFPAY ==
[2021-04-24 08:04] LABS: Basophils Absolute Auto 0.1 K/mm3 (0.0-0.1); Basophils Percent Auto 0.7 % (0.2-1.2); Eosinophils Absolute Auto 0.1 K/mm3 (0-0.3); Eosinophils Percent Auto 1.6 % (0-4.4); Hematocrit 40.5 % (42.0-52.0); Hemoglobin 11.9 g/dL (14.0-18.0); Immature Granulocyte Absolute 0.04 K/mm3 (0.00-0.031); Immature Granulocyte Percent A 0.5 % (0-0.5); Lymphocytes Percent Auto 19.1 % (18.3-44.2); Mean Corpuscular HGB Conc 29.4 g/dl (32-36); Mean Corpuscular Hemoglobin 26.2 pg (26-34); Mean Platelet Volume 9.5 fl (7.4-10.4); Monocytes Absolute Auto 0.5 K/mm3 (0.1-0.6); Monocytes Percent Auto 6.1 % (2.6-8.5); Neutrophils Absolute Auto 5.3 K/mm3 (1.3-6.7); Platelet Count Result 250 k/mm3 (150-375); Red Blood Count 4.55 M/mm3 (4.6-6.20); Red Cell Distribution Width 16.1 % (11.5-14.5); White Blood Count 7.3 K/mm3 (4.5-10.0)
[2021-04-24 08:10] LABS: Add Urine Microscopic? YES; Appearance Urine Clear (Clear); Bacteria Urine Trace /hpf; Bilirubin Urine Negative (Negative); Blood Urine Negative (Negative); Color Urine Yellow (Yellow); Glucose Urine UA Negative (Negative); Ketones Urine Negative (Negative); Leukocyte Esterase Ur Trace LEU/UL (Negative); Mucus Urine Rare /lpf; Nitrate Urine Negative (Negative); Protein Urine 1+ mg/dL (Negative); RBC Urine 0-2 /hpf (0-2); Specific Grav Ur 1.026 (1.001-1.035); Urobilinogen Urine Negative mg/dL (<2.0); WBC Urine 0-3 /hpf
[2021-04-24 08:14] LABS: Anion Gap 3 mmol/L (8-16); Blood Urea Nitrogen 24 mg/dL (9-20); Calcium 8.6 mg/dL (8.4-10.2); Carbon Dioxide 39 mmol/L (22-30); Chloride 101 mmol/L (98-107); Estimated Glomerular Filt Rate > 60; Glucose 113 mg/dL (75-110); Potassium 3.9 mmol/L (3.4-5.0); Sodium 143 mmol/L (137-145)
[2021-04-24 08:21] LABS: Prothrombin Time 13.4 Seconds (11.1-14.7)
[2021-04-24 08:26] LABS: Hypochromasia 2+ (NORMAL); Platelet Estimate Adequate (Adequate)
== END 2021-04-24 07:05 | disposition home or self-care (01) ==
PROVIDERS: PCP Family Medicine; Visit Provider Internal Medicine Cardiovascular Disease
DX: G47.33 Obstructive sleep apnea (adult) (pediatric) (principal); J44.9 Chronic obstructive pulmonary disease, unspecified; E66.9 Obesity, unspecified; I10 Essential (primary) hypertension; I48.92 Unspecified atrial flutter
CPT/HCPCS: 36415; 80048; 81001; 85025; 85610

== ENCOUNTER 2021-06-29 09:53 | Inpatient (IN) | payer MEDICARE, SELFPAY ==
[2021-06-29] VITALS (20 sets, daily range): BP systolic 108–138; BP diastolic 63–118; PULSE 72–100; RESP 11–30; TEMP 36.4–36.8; O2SAT 92–97; BMI 46.0
--- NOTE | ~2021-06-29 | XR_ITS ---
EXAMINATION: XR chest 2V DATE: 06/29/2021 11:06 INDICATION: COPD presenting with shortness of breath TECHNIQUE: PA and lateral views of the chest were obtained. COMPARISON: Chest radiograph dated 01/16/[address] dated 01/26/2021 FINDINGS: Hyperexpansion of lungs with increased lucency in the upper lung zones consistent with emphysema bett er appreciated on prior CT. Right lateral chest wall deformity with multiple old healed rib fractures . Increased interstitial pattern in the right mid to lower lung zones which could represent asymmetri c mild pulmonary edema or pneumonia. Persistent mild lingular atelectasis/scarring. No pleural effusi on or pneumothorax. Heart size is normal. Resection of the lateral right clavicle. IMPRESSION: 1. Increased interstitial pattern in the right mid to lower lung zone which could represent asymmetri c pulmonary edema or pneumonia. 2. Emphysema. Reviewed, dictated and finalized at location A. IMPRESSION: 1. Increased interstitial pattern in the right mid to lower lung zone which cou ld represent asymmetric pulmonary edema or pneumonia. 2. Emphysema.
--- NOTE | ~2021-06-29 | XR_ITS ---
EXAMINATION: XR chest 2V DATE: 07/01/2021 08:08 INDICATION: Shortness of breath TECHNIQUE: Frontal and lateral views of the chest are obtained COMPARISON: 06/29/2021 FINDINGS: The lungs are hyperinflated. The previously described interstitial pattern involving the ri ght mid and lower lung zones has improved. There is no pleural effusion or pneumothorax. The cardiome diastinal silhouette is normal. There is mild thoracic spondylosis. There is deformity of the right l ateral chest wall. IMPRESSION: 1. Improving opacities in the right mid and lower lung zone, consistent with atelectasis versus pneum onia versus resolving edema. Reviewed, dictated and finalized at location A. IMPRESSION: 1. Improving opacities in the right mid and lower lung zone, consistent with at electasis versus pneumonia versus resolving edema.
--- NOTE | ~2021-06-29 | XR_ITS ---
XR chest 1V portable 07/03/2021 06:00 Indication: COPD. Dyspnea. Procedure: AP portable views of the chest Comparison: Comparison to multiple prior studies sequentially, with oldest reviewed study dated 01/22. Findings: Heart size normal. Bibasilar airspace disease appears chronic. There are multiple chronic r ight rib fractures with deformity of the right lower thorax. Heart size normal. No significant effusi on or pneumothorax. Impression: 1: Chronic bibasilar airspace disease which may represent atypical pneumonia, scarring and/or asymmet damion edema. Reviewed, dictated and finalized at location A. Impression: 1: Chronic bibasilar airspace disease which may represent atypical pneumonia, s carring and/or asymmetric edema.
--- NOTE | 2021-06-29 10:02 | ECG_ITS ---
Measurements Intervals [place] Rate: 92 P: 46 [place]: 178 QRS: -46 QRSD: 118 T: 22 QT: 370 QTc: 459 Interpretive Statements SINUS RHYTHM FREQUENT VENTRICULAR PREMATURE COMPLEXES LEFT AXIS DEVIATION INTRAVENTRICULAR CONDUCTION DELAY DELAYED PRECORDIAL R/S TRANSITION BASELINE ARTIFACT- I, II, III, AVR, AVF, V1-V6 ABNORMAL ECG Electronically Signed On 06-29-2021 11:49:40 CDT by Cm Mcrae D.O.
[2021-06-29 10:29] LABS: Add Urine Microscopic? NO; Appearance Urine Clear (Clear); Bilirubin Urine Negative (Negative); Blood Urine Negative (Negative); Color Urine Straw (Yellow); Glucose Urine UA Negative (Negative); Ketones Urine Negative (Negative); Leukocyte Esterase Ur Negative LEU/UL (Negative); Nitrate Urine Negative (Negative); Protein Urine Negative (Negative); Specific Grav Ur 1.011 (1.001-1.035); Urobilinogen Urine Negative mg/dL (<2.0)
--- NOTE | 2021-06-29 10:42 | ED.GENADULT ---
HPI - General Adult General Chief complaint: Shortness of Breath/Dyspnea Stated complaint: SOB Time Seen by Provider: 06/29/21 10:05 Source: patient History of Present Illness HPI narrative: Patient is a 66 y/o male complaining of severe SOB for last 3 days. He states that minimal exertion aggravates his SOB. He has some cough, but no chest pain or fever. He is on home O2 for COPD. He states that his PCP called in steroids and antibiotics, but he has not picked up his medication yet. Related Data Home Medications Medication Instructions Recorded Confirmed Multaq 400 mg PO BIDWM 10/15/19 06/29/21 polyethylene glycol 3350 [Miralax] 17 g PO DAILY 10/16/19 06/29/21 Eliquis 5 mg PO BID 06/02/20 06/29/21 metoprolol tartrate 25 mg PO Q12H 01/21/21 06/29/21 amoxicillin 875 mg-potassium 1 tablet PO BID 07/12/21 clavulanate 125 mg tablet prednisone 10 mg tablet 10 mg PO DAILY 07/12/21 Allergies Allergy/AdvReac Type Severity Reaction Status Date / Time No Known Allergies Allergy Verified 07/12/21 13:47 Review of Systems Constitutional: Constitutional: Denies chills, Denies fever(s), Denies headache(s) and Denies weakness Eyes: Eyes: Denies blurry vision ENT: Denies headache(s) and Denies neck pain Cardiovascular: Cardiovascular: Denies chest pain and Denies dyspnea Respiratory: Respiratory: Reports cough and Reports dyspnea Gastrointestinal: Gastrointestinal: Denies abdominal pain, Denies diarrhea, Denies nausea and Denies vomiting Genitourinary: Genitourinary: Denies hematuria and Denies dysuria Musculoskeletal: Musculoskeletal: Denies back pain and Denies neck pain Neurologic: Denies headache(s) and Denies weakness PENDING SALE TO [facility] Past Medical History Medical History Acute and chronic respiratory failure Acute on chronic respiratory failure with hypoxia and hypercapnia On chronic home O2 of 3 L nasal cannula. History of prior intubation October 2018 Anxiety Arthritis Atrial flutter Paroxysmal AFib with cardioversion April 2013 and October 23, 2019 BPH (benign prostatic hyperplasia) Bronchitis CHF (congestive heart failure) Last echocardiogram EF was 55% prior echocardiogram previous year demonstrated borderline left ventricular systolic function and diastolic dysfunction grade 1 Chronic constipation COPD (chronic obstructive pulmonary disease) Dependence on continuous supplemental oxygen Emphysema, unspecified GI bleed History of cardioversion History of tobacco abuse Hypertension Hypertensive CHF Morbid obesity with BMI of 45.0-49.9, adult ELIZABETH and COPD overlap syndrome Pneumonia Psoriasis Pulmonary hypertension RVSP 59 on echo from July 2019 Rectal bleeding Sleep apnea Home BiPAP 16/ Supplemental oxygen dependent Surgical History Surgical History H/O arthroscopy of left knee History of tonsillectomy 1966 Hx of cardiac cath Left tibial fracture Family History Family History Mother Rheumatoid arthritis Breast cancer Hypertension Psoriatic arthritis Father Skin cancer With metastases to bone and brain Mother Family history of arthritis Family history of congestive heart failure Father Family history of malignant neoplasm of bone Other Diabetes mellitus Social History Social History Social History: The patient smoked 1.5 packs of cigarettes per day for 40 years but quit smoking in 2018. He used to drink alcohol in moderation but has not drank in some time. He denies any illicit substance use. He his and she eventually later. He has 1 son who he nominates to be the durable power contract attorney for healthcare. The patient tells me he lives home alone. The patient is a full code. Smoking packs per day: 2 Smoking cig
[2021-06-29 10:45] LABS: Alveolar/Arterial O2 Gradient 191.1 mmHg; Base Excess ABG 6.1 mEq/l (+/-2.0); Carboxyhemoglobin 0.8 % THb (0-2.0); Fractional Inspired Oxygen 44 %; HCO3 ABG 31.8 mEq/l (22.0-26.0); Methemoglobin ABG 0.3 %THb (0-1.5); Oxygen Content ABG 15.5 %vol (16.0-22.0); Oxygen Saturation ABG 92.5 % (95.0-100.0); Oxyhemoglobin 90.7 % THb (90.0-100.0); PCO2 ABG 51.1 mmHg (35.0-45.0); PO2 ABG 64.4 mmHg (80.0-100.0); PO2 FiO2 Ratio Arterial Blood 1.46 %; Reduced Hemoglobin 8.2 %THb (0-5.0); Total Hemoglobin 12.1 g/dL (12.0-18.0); pH ABG 7.412 (7.350-7.450)
[2021-06-29 10:48] LABS: Basophils Absolute Auto 0.1 K/mm3 (0.0-0.1); Basophils Percent Auto 0.7 % (0.2-1.2); Eosinophils Absolute Auto 0.2 K/mm3 (0-0.3); Eosinophils Percent Auto 2.2 % (0-4.4); Hematocrit 37.8 % (42.0-52.0); Hemoglobin 10.9 g/dL (14.0-18.0); Immature Granulocyte Absolute 0.06 K/mm3 (0.00-0.031); Immature Granulocyte Percent A 0.8 % (0-0.5); Lymphocytes Absolute Auto 0.81 K/mm3 (0.9-3.2); Lymphocytes Percent Auto 11.2 % (18.3-44.2); Mean Corpuscular HGB Conc 28.8 g/dl (32-36); Mean Corpuscular Hemoglobin 25.3 pg (26-34); Mean Corpuscular Volume 87.7 fl (80-100); Mean Platelet Volume 9.2 fl (7.4-10.4); Monocytes Absolute Auto 0.7 K/mm3 (0.1-0.6); Monocytes Percent Auto 9.4 % (2.6-8.5); Neutrophils Absolute Auto 5.5 K/mm3 (1.3-6.7); Neutrophils Percent Auto 75.7 % (45.5-73.1); Platelet Count Result 272 k/mm3 (150-375); Red Blood Count 4.31 M/mm3 (4.6-6.20); Red Cell Distribution Width 14.6 % (11.5-14.5); White Blood Count 7.3 K/mm3 (4.5-10.0)
[2021-06-29 10:51] LABS: Device NASAL CANNULA; Modified Allen's Test Pass; Site Drawn RIGHT RADIAL
[2021-06-29 11:01] LABS: Alanine Aminotransferase 15 U/L (4-50); Albumin Level 3.8 g/dL (3.5-5.1); Alkaline Phosphatase 65 U/L (38-126); Anion Gap 5 mmol/L (8-16); Aspartate Amino Transferase 20 U/L (17-59); Bilirubin,Total 0.3 mg/dL (0.2-1.3); Blood Urea Nitrogen 21 mg/dL (9-20); Calcium 8.5 mg/dL (8.4-10.2); Carbon Dioxide 35 mmol/L (22-30); Chloride 102 mmol/L (98-107); Estimated CRCL calculation 89 ml/min; Estimated Glomerular Filt Rate > 60; Glucose 94 mg/dL (65-110); Potassium 4.5 mmol/L (3.4-5.0); Sodium 142 mmol/L (137-145)
[2021-06-29 11:10] LABS: NT Pro B Type Natriuretic Pept 719 pg/mL (5-100)
[2021-06-29] MEDS: ALBUTEROL SULFATE NEB 2.5 MG/0.5 ML INH INHALATION (12:57)
[2021-06-29] MEDS: IPRATROPIUM BR 0.02% INH SOLN 0.5 MG/2.5 ML VIAL INHALATION ×2 (12:57→19:37)
[2021-06-29] MEDS: FUROSEMIDE 40 MG TABLET PO (14:08)
--- NOTE | 2021-06-29 16:11 | PC.NURSE ---
Pt states he doesnt feel well enough to go home. He took a couple of steps in the room to use the urinal and states he has increasing shortness of breath and would like his CO2 levels checked again. Dr. Villaseñor notified
[2021-06-29] MEDS: methylPREDNISolone SOD SUCC 125 MG VIAL IV PUSH (16:42)
[2021-06-29 16:49] LABS: Alveolar/Arterial O2 Gradient 180.5 mmHg; Base Excess ABG 7.1 mEq/l (+/-2.0); Fractional Inspired Oxygen 44 %; HCO3 ABG 33.3 mEq/l (22.0-26.0); Oxygen Content ABG 15.6 %vol (16.0-22.0); Oxygen Saturation ABG 94.1 % (95.0-100.0); Oxyhemoglobin 91.7 % THb (90.0-100.0); PCO2 ABG 54.3 mmHg (35.0-45.0); PO2 ABG 71.3 mmHg (80.0-100.0); PO2 FiO2 Ratio Arterial Blood 1.62 %; Total Hemoglobin 12.1 g/dL (12.0-18.0); pH ABG 7.405 (7.350-7.450)
[2021-06-29 16:51] LABS: Device NASAL CANNULA; Modified Allen's Test Pass; Site Drawn LEFT RADIAL
--- NOTE | 2021-06-29 18:30 | ADMGEN ---
This patient, Vimal Doty, was admitted to 2 Medical Room 240-. Patient/family oriented to hospital policies and general routines including ID bracelet, bed and alarms, visiting hours, pain management, procedures, bathroom and other care routines, personal items, smoking policy, room service/diet, and visiting hours. Information on how to activate the Rapid Response Team has been discussed. Patient/Family are encouraged to report perceived risks to care and to ask questions if they do not understand what they are told or what they should do.
[2021-06-29] MEDS: ALBUTEROL SULFATE NEB 2.5 MG/0.5 ML INH 5 MG INHALATION (19:36)
[2021-06-29] MEDS: METOPROLOL TARTRATE 25 MG TABLET PO (21:22)
[2021-06-29] MEDS: APIXABAN 5 MG TABLET PO (21:22)
[2021-06-29] MEDS: TAMSULOSIN HCL 0.4 MG CAPSULE PO (21:23)
[2021-06-29] MEDS: BUDESONIDE RESPULE NEB 0.5 MG/2 ML AMP INHALATION (23:26)
[2021-06-30] VITALS (23 sets, daily range): BP systolic 103–124; BP diastolic 56–67; PULSE 70–99; RESP 10–24; TEMP 35.7–36.9; O2SAT 92–99
[2021-06-30] MEDS: methylPREDNISolone SOD SUCC 125 MG VIAL 60 MG IV PUSH ×4 (00:34→23:12)
--- NOTE | 2021-06-30 01:06 | PM.IMHP ---
H&P: HPI History of Present Illness Date/Time: 06/29/21 22:30 Chief Complaint: Shortness of breath Narrative: 66-year-old male with past medical history of COPD, CHF, obstructive sleep apnea, chronic hypoxic hypercarbic respiratory failure, and pulmonary hypertension who presented to the ER via EMS from home due to increasing shortness of breath. The patient reported has been having increased shortness of breath for the last 3 days. His shortness of breath is constant but is definitely worse with activity. He has been using his nebulizer treatments every 4-6 hours without much relief in his symptoms. He reports adequate urine output. He has not noticed any lower extremity swelling. He does have chronic orthopnea that may be worse than baseline. He has been compliant with his home trilogy. He took age usual morning Lasix of 60 mg prior to coming to the ER. Since arriving to the ER and receiving additional Lasix he has had another 1.8 L of urine output. He reports that he has received both COVID vaccines with his 2nd vaccine in February. He has not had any COVID exposures in never leaves his house. He gets his groceries delivered. His grand said did have COVID a couple of weeks ago but his grandson had not had any contact with him for over a month prior to his COVID diagnosis. He reports having episodes of sweating around his neck and chills on and off for the last couple of days. He has not had a measured fever. He does have a cough productive of some clear sputum. He denies any chest pain. He reports that he has lost 4 5 lb in the last week or so. He states that he has been trying to lose weight and has decreased his food intake. The patient was on his home oxygen in the ER and did not seem to be in any distress. His ABG was stable compared to prior values. Patient was relatively stable for discharge but he did not feel comfortable going home and was subsequently admitted as observation. Review of Systems Review of Systems: 12 systems were reviewed with pertinent positives and negatives per HPI. Except as documented in the HPI, all other systems were reviewed and are negative. [facility] Past Medical History Medical History (Updated 06/30/21 @ 01:15 by Penelope Browne DO) Acute and chronic respiratory failure Acute on chronic respiratory failure with hypoxia and hypercapnia On chronic home O2 of 3 L nasal cannula. History of prior intubation October 2018 Anxiety Arthritis Atrial flutter Paroxysmal AFib with cardioversion April 2013 and October 23, 2019 BPH (benign prostatic hyperplasia) Bronchitis CHF (congestive heart failure) Last echocardiogram EF was 55% prior echocardiogram previous year demonstrated borderline left ventricular systolic function and diastolic dysfunction grade 1 Chronic constipation COPD (chronic obstructive pulmonary disease) Dependence on continuous supplemental oxygen Emphysema, unspecified GI bleed History of cardioversion History of tobacco abuse Hypertension Hypertensive CHF Morbid obesity with BMI of 45.0-49.9, adult ELIZABETH and COPD overlap syndrome Pneumonia Psoriasis Pulmonary hypertension RVSP 59 on echo from July 2019 Rectal bleeding Sleep apnea Home BiPAP 12/05 Supplemental oxygen dependent Surgical History Surgical History H/O arthroscopy of left knee History of tonsillectomy 1966 Hx of cardiac cath Left tibial fracture Family History Family History Mother Rheumatoid arthritis Breast cancer Hypertension Psoriatic arthritis Father Skin cancer With metastases to bone and brain Mother Family history of arthritis Family history of congestive heart failure Father Family history of malignant neoplasm of bone Other Diabetes mellitus Social History Social History (Updated 06/30/21 @ 01:12 by Penelope Browne DO) Social History: The patient smoked 1.5
[2021-06-30] MEDS: PANTOPRAZOLE 40 MG TABLET PO (08:07)
[2021-06-30] MEDS: POTASSIUM CHLORIDE 20 MEQ TABLET.ER PO (08:07)
[2021-06-30] MEDS: APIXABAN 5 MG TABLET PO ×2 (08:07→19:59)
[2021-06-30] MEDS: DRONEDARONE HCL 400 MG TABLET PO ×2 (08:07→17:13)
[2021-06-30] MEDS: polyethylene glycoL 3350 17 GM POWD.PACK PO (08:07)
[2021-06-30] MEDS: METOPROLOL TARTRATE 25 MG TABLET PO ×2 (08:07→19:59)
[2021-06-30] MEDS: FUROSEMIDE INJ 40 MG/4 ML VIAL IV PUSH ×2 (08:07→17:13)
[2021-06-30] MEDS: TRIAMCINOLONE ACET 0.1% CREAM 15 GM TUBE 1 APPLIC TOPICAL ×2 (08:08→17:13)
[2021-06-30] MEDS: ALBUTEROL SULFATE NEB 2.5 MG/0.5 ML INH 5 MG INHALATION ×3 (09:00→19:28)
[2021-06-30] MEDS: BUDESONIDE RESPULE NEB 0.5 MG/2 ML AMP INHALATION ×2 (09:00→19:29)
[2021-06-30] MEDS: IPRATROPIUM BR 0.02% INH SOLN 0.5 MG/2.5 ML VIAL INHALATION ×3 (09:00→19:29)
--- NOTE | 2021-06-30 15:20 | PM.IMPN ---
Progress Note: A&P Assessment and Plan (1) COPD with exacerbation: Code(s): J44.1 - Chronic obstructive pulmonary disease with (acute) exacerbation Status: Acute Assessment and Plan: Pt has had improvement on solumedrol 60mg q8 but is worried about decreasing too soon. He has had that happen before and had to be re-hospitalized. -Continue through today and re-evaluate tomorrow -Continue with breathing tx, inhalers and home daliresp -Add mucinex and cornet -obtain sputum sample -start doxy for atypical coverage during exacerbation (2) CHF exacerbation: Qualifiers: Heart failure type: unspecified Qualified Code(s): I50.9 - Heart failure, unspecified Code(s): I50.9 - Heart failure, unspecified Status: Acute Assessment and Plan: Pt has been drinking a lot of diet soda lately as he thought he only had to limit his water intake -Continue lasix -bnp mildly elevated, no need for new echo. Last echo 09/2020 with no CP -Likely switch to oral lasix tomorrow -diastolic in nature -He sees Dr. Massey (3) Chronic respiratory failure with hypoxia and hypercapnia: Code(s): J96.11 - Chronic respiratory failure with hypoxia; J96.12 - Chronic respiratory failure with hypercapnia Status: Acute Assessment and Plan: Continue bipap at night (uses trilogy at home) -monitor for hypoxia (4) ELIZABETH and COPD overlap syndrome: Code(s): G47.33 - Obstructive sleep apnea (adult) (pediatric); J44.9 - Chronic obstructive pulmonary disease, unspecified Status: Acute Assessment and Plan: As above Time Spent With Patient Time with patient: 25 - 35 minutes Subjective Date/time seen: 06/30/21 15:20 Interval history: Pt is a 66-year-old male here for COPD exacerbation. Patient seen today and states he is feeling a lot better but not to his baseline. He says that prior to admission he could barely walk at all without shortness of breath and now he is able to do multiple laps and does not tire very easily. He occasionally coughs up phlegm that is white. He has no fevers or chills. His appetite has been less lately and he feels 'full' but it is getting better with the lasix. He says he has been drinking more diet soda lately. No CP. Review of Systems Review of Systems: All systems reviewed & are unremarkable except as noted in HPI and below Exam Narrative: General: Overweight pt resting in bed in NAD HEENT: normocephalic Neck: supple Neuro: Alert and oriented x4 CV:RRR, decreased heart sounds due to body habitus. Resp:Significantly decreased breath sounds bilaterally with no wheezing Abd: Soft, non distended. No pain to palpation. Positive bowel sounds Extremities: No swelling, erythema, or pain to palpation. Objective Data Vital Signs Vital Signs: Vital Signs - 24 hr 06/29/21 16:13 06/29/21 18:11 06/29/21 18:57 Temperature 98.3 F Pulse Rate 94 100 Respiratory Rate 24 H 22 H Blood Pressure 108/76 138/74 Pulse Oximetry 95 95 94 06/29/21 19:42 06/29/21 19:49 06/29/21 20:00 Temperature 97.6 F Pulse Rate 95 95 89 Respiratory Rate 24 H 24 H 20 Blood Pressure 122/63 Pulse Oximetry 93 92 06/29/21 20:02 06/29/21 20:39 06/29/21 20:40 Temperature 97.6 F Pulse Rate 100 89 Respiratory Rate 28 H 20 Blood Pressure 122/63 Pulse Oximetry 92 92 06/29/21 21:22 06/29/21 23:26 06/29/21 23:44 Temperature Pulse Rate 89 72 72 Respiratory Rate 25 H 11 L Blood Pressure Pulse Oximetry 97 06/29/21 23:48 06/30/21 00:00 06/30/21 01:26 Temperature 97.7 F Pulse Rate 72 70 74 Respiratory Rate 25 H 12 19 Blood Pressure 118/56 L Pulse Oximetry 95 06/30/21 01:27 06/30/21 01:34 06/30/21 05:00 Temperature 98.4 F Pulse Rate 74 72 77 Respiratory Rate 18 12 12 Blood Pressure 108/58 L Pulse Oximetry 96 96 06/30/21 08:00 06/30/21 08:07 06/30/21 09:00 Temperature Pulse Rate 87 77 79 Resp
[2021-06-30] MEDS: DOXYCYCLINE HYCLATE 100 MG TABLET PO (17:14)
[2021-06-30] MEDS: TAMSULOSIN HCL 0.4 MG CAPSULE PO (19:59)
[2021-07-01] VITALS (22 sets, daily range): BP systolic 101–123; BP diastolic 52–70; PULSE 73–95; RESP 13–22; TEMP 35.8–36.5; O2SAT 90–98; BMI 45.2
[2021-07-01] MEDS: ALBUTEROL SULFATE NEB 2.5 MG/0.5 ML INH 5 MG INHALATION ×4 (02:18→21:05)
[2021-07-01] MEDS: IPRATROPIUM BR 0.02% INH SOLN 0.5 MG/2.5 ML VIAL INHALATION ×4 (02:19→21:06)
[2021-07-01] MEDS: DOXYCYCLINE HYCLATE 100 MG TABLET PO ×2 (05:02→17:08)
[2021-07-01 06:05] LABS: Anion Gap 6 mmol/L (8-16); Blood Urea Nitrogen 32 mg/dL (9-20); Calcium 8.7 mg/dL (8.4-10.2); Carbon Dioxide 31 mmol/L (22-30); Chloride 102 mmol/L (98-107); Estimated CRCL calculation 89 ml/min; Estimated Glomerular Filt Rate > 60; Glucose 140 mg/dL (65-110); Potassium 4.2 mmol/L (3.4-5.0); Sodium 139 mmol/L (137-145)
[2021-07-01] MEDS: METOPROLOL TARTRATE 25 MG TABLET PO ×2 (08:38→21:14)
[2021-07-01] MEDS: APIXABAN 5 MG TABLET PO ×2 (08:39→21:14)
[2021-07-01] MEDS: FUROSEMIDE INJ 40 MG/4 ML VIAL IV PUSH (08:39)
[2021-07-01] MEDS: DRONEDARONE HCL 400 MG TABLET PO ×2 (08:39→17:07)
[2021-07-01] MEDS: POTASSIUM CHLORIDE 20 MEQ TABLET.ER PO (08:39)
[2021-07-01] MEDS: methylPREDNISolone SOD SUCC 125 MG VIAL 60 MG IV PUSH ×2 (08:39→21:13)
[2021-07-01] MEDS: PANTOPRAZOLE 40 MG TABLET PO (08:40)
[2021-07-01] MEDS: polyethylene glycoL 3350 17 GM POWD.PACK PO (08:40)
[2021-07-01] MEDS: guaiFENesin 12 HR 600 MG TABCR PO (08:40)
[2021-07-01] MEDS: TRIAMCINOLONE ACET 0.1% CREAM 15 GM TUBE 1 APPLIC TOPICAL ×2 (08:41→17:08)
[2021-07-01] MEDS: BUDESONIDE RESPULE NEB 0.5 MG/2 ML AMP INHALATION ×2 (08:50→21:05)
--- NOTE | 2021-07-01 15:36 | PM.IMPN ---
Progress Note: A&P Assessment and Plan (1) COPD with exacerbation: Code(s): J44.1 - Chronic obstructive pulmonary disease with (acute) exacerbation Status: Acute Assessment and Plan: Pt has had improvement on solumedrol 60mg q8 But will decrease it to 60 mg Q 12 - chest x-ray today shows improvement, abnormality is likely CHF and less likely pneumonia -Continue with breathing tx, inhalers and home daliresp - continue mucinex and cornet - await sputum sample - continue doxy for atypical coverage during exacerbation (2) CHF exacerbation: Qualifiers: Heart failure type: unspecified Qualified Code(s): I50.9 - Heart failure, unspecified Code(s): I50.9 - Heart failure, unspecified Status: Acute Assessment and Plan: Pt has been drinking a lot of diet soda lately as he thought he only had to limit his water intake -Continue lasix but will switch back to his home dose now -bnp mildly elevated, no need for new echo. Last echo 09/2020 with no CP -diastolic in nature -He sees Dr. Massey (3) Chronic respiratory failure with hypoxia and hypercapnia: Code(s): J96.11 - Chronic respiratory failure with hypoxia; J96.12 - Chronic respiratory failure with hypercapnia Status: Acute Assessment and Plan: Continue bipap at night (uses trilogy at home) -monitor for hypoxia (4) ELIZABETH and COPD overlap syndrome: Code(s): G47.33 - Obstructive sleep apnea (adult) (pediatric); J44.9 - Chronic obstructive pulmonary disease, unspecified Status: Acute Assessment and Plan: As above Subjective Date/time seen: 07/01/21 15:36 Interval history: Pt is a 66-year-old male here for COPD exacerbation. patient seen today and continues to feel better every day. He had some shortness of breath with the coughing Episode earlier today but coughed up a bunch of sputum and felt much better after that. He says that prior to admission he could barely walk at all without shortness of breath and now he is able to do multiple laps and does not tire very easily. He occasionally coughs up phlegm that is white. He has no fevers or chills. no chest pain.He says he has been drinking more diet soda lately. No CP. Exam Narrative: General: Overweight pt resting in bed in [facility] HEENT: normocephalic Neck: supple Neuro: Alert and oriented x4 CV:RRR, decreased heart sounds due to body habitus. Resp:Significantly decreased breath sounds bilaterally with no wheezing Abd: Soft, non distended. No pain to palpation. Positive bowel sounds Extremities: No swelling, erythema, or pain to palpation. Objective Data Vital Signs Vital Signs: Vital Signs - 24 hr 06/30/21 17:13 06/30/21 18:00 06/30/21 18:55 Temperature 96.6 F L Pulse Rate 89 98 Respiratory Rate 20 Blood Pressure 124/67 Pulse Oximetry 94 94 06/30/21 19:29 06/30/21 19:41 06/30/21 19:58 Temperature Pulse Rate 91 88 Respiratory Rate 20 16 Blood Pressure Pulse Oximetry 94 92 06/30/21 19:59 06/30/21 20:00 06/30/21 22:35 Temperature 96.9 F L Pulse Rate 90 99 Respiratory Rate 20 10 L Blood Pressure 120/58 L Pulse Oximetry 92 07/01/21 00:00 07/01/21 02:19 07/01/21 02:29 Temperature 97.5 F L Pulse Rate 78 73 75 Respiratory Rate 20 13 22 H Blood Pressure 103/52 L Pulse Oximetry 98 91 07/01/21 02:30 07/01/21 04:00 07/01/21 08:30 Temperature 97.6 F Pulse Rate 80 Respiratory Rate 19 20 Blood Pressure 112/52 L Pulse Oximetry 96 93 07/01/21 08:38 07/01/21 08:39 07/01/21 08:51 Temperature Pulse Rate 80 80 95 Respiratory Rate 22 H Blood Pressure Pulse Oximetry 07/01/21 09:02 07/01/21 09:06 07/01/21 10:00 Temperature 96.5 F L Pulse Rate 91 76 Respiratory Rate 20 20 Blood Pressure 101/62 Pulse Oximetry 90 93 07/01/21 14:00 07/01/21 14:29 07/01/21 14:38 Temperature 96.5 F L Pulse Rate 76 78 85 Respiratory Rate 1
[2021-07-01] MEDS: TAMSULOSIN HCL 0.4 MG CAPSULE PO (21:14)
[2021-07-02] VITALS (22 sets, daily range): BP systolic 102–119; BP diastolic 50–88; PULSE 65–85; RESP 11–22; TEMP 36–36.7; O2SAT 91–98
[2021-07-02] MEDS: ALBUTEROL SULFATE NEB 2.5 MG/0.5 ML INH 5 MG INHALATION ×4 (02:46→19:46)
[2021-07-02] MEDS: IPRATROPIUM BR 0.02% INH SOLN 0.5 MG/2.5 ML VIAL INHALATION ×4 (02:46→19:46)
[2021-07-02] MEDS: DOXYCYCLINE HYCLATE 100 MG TABLET PO ×2 (06:12→17:07)
[2021-07-02] MEDS: BUDESONIDE RESPULE NEB 0.5 MG/2 ML AMP INHALATION ×2 (07:22→19:46)
[2021-07-02] MEDS: methylPREDNISolone SOD SUCC 125 MG VIAL 60 MG IV PUSH ×2 (08:24→19:53)
[2021-07-02] MEDS: APIXABAN 5 MG TABLET PO ×2 (08:25→19:51)
[2021-07-02] MEDS: DRONEDARONE HCL 400 MG TABLET PO ×2 (08:25→17:08)
[2021-07-02] MEDS: FUROSEMIDE 20 MG TABLET 60 MG PO (08:25)
[2021-07-02] MEDS: TRIAMCINOLONE ACET 0.1% CREAM 15 GM TUBE 1 APPLIC TOPICAL ×2 (08:26→17:08)
[2021-07-02] MEDS: POTASSIUM CHLORIDE 20 MEQ TABLET.ER PO (08:26)
[2021-07-02] MEDS: METOPROLOL TARTRATE 25 MG TABLET PO ×2 (08:26→19:52)
[2021-07-02] MEDS: PANTOPRAZOLE 40 MG TABLET PO (08:26)
[2021-07-02] MEDS: polyethylene glycoL 3350 17 GM POWD.PACK PO (08:26)
--- NOTE | 2021-07-02 14:11 | PM.IMPN ---
Progress Note: A&P Assessment and Plan (1) COPD with exacerbation: Code(s): J44.1 - Chronic obstructive pulmonary disease with (acute) exacerbation Status: Acute Assessment and Plan: Patient had episode of what sounds like a bronchospasm that improved with bronchodilators. he has now recovered and is feeling great - at this time I am going to keep the steroids at q.12 hours but if he worsens overnight, may consider increasing these - repeat chest x-ray in the morning -Continue with breathing tx, inhalers and home daliresp - continue mucinex and cornet - sputum culture with growth of normal awais - continue doxy for atypical coverage during exacerbation (2) CHF exacerbation: Qualifiers: Heart failure type: unspecified Qualified Code(s): I50.9 - Heart failure, unspecified Code(s): I50.9 - Heart failure, unspecified Status: Acute Assessment and Plan: Pt has been drinking a lot of diet soda lately as he thought he only had to limit his water intake -Continue lasix at home dose, appears euvolemic today -bnp mildly elevated, no need for new echo. Last echo 09/2020 with no CP -diastolic in nature -He sees Dr. Massey (3) Chronic respiratory failure with hypoxia and hypercapnia: Code(s): J96.11 - Chronic respiratory failure with hypoxia; J96.12 - Chronic respiratory failure with hypercapnia Status: Acute Assessment and Plan: Continue bipap at night (uses trilogy at home) -monitor for hypoxia (4) ELIZABETH and COPD overlap syndrome: Code(s): G47.33 - Obstructive sleep apnea (adult) (pediatric); J44.9 - Chronic obstructive pulmonary disease, unspecified Status: Acute Assessment and Plan: As above Subjective Date/time seen: 07/02/21 14:11 Interval history: Pt is a 66-year-old male here for COPD exacerbation. Patient was seen today and feels like he had a setback today. He felt very short breath and when he was walking to the bathroom he felt like he was gasping for air. He sat down and took a breathing treatment and felt much better after this but if freaked him out. He had no chest pain during this time. He has been able to walk to the bathroom and back since then and has not had any issues at rest after that event today. He has not had any further swelling in his lower extremities and denies fevers. His cough has improved. He says he is not urinating as much now that he is on the lower dose of Lasix. He does have some muscular back pain in the right flank likely due to the hospital bed and not using his favor pillow. He has had a bowel movement today. No diarrhea or constipation. He has a nebulizer at home and uses it as needed Exam Narrative: General: Overweight pt resting in the chair in NAD HEENT: normocephalic Neck: supple Neuro: Alert and oriented x4 CV:RRR, decreased heart sounds due to body habitus. Resp:Significantly decreased breath sounds bilaterally with no wheezing Abd: Soft, non distended. No pain to palpation. Positive bowel sounds Extremities: No swelling, erythema, or pain to palpation. Objective Data Vital Signs Vital Signs: Vital Signs - 24 hr 07/01/21 14:29 07/01/21 14:38 07/01/21 17:07 Temperature Pulse Rate 78 85 85 Respiratory Rate 20 20 Blood Pressure Pulse Oximetry 07/01/21 17:57 07/01/21 20:00 07/01/21 21:06 Temperature 96.6 F L Pulse Rate 93 81 Respiratory Rate 20 16 Blood Pressure 123/70 Pulse Oximetry 95 95 95 07/01/21 21:14 07/01/21 21:21 07/01/21 21:28 Temperature 97.7 F Pulse Rate 80 82 Respiratory Rate 16 22 H 18 Blood Pressure 109/69 Pulse Oximetry 98 07/02/21 00:00 07/02/21 02:47 07/02/21 02:52 Temperature 97.9 F Pulse Rate 85 73 65 Respiratory Rate 14 22 H 11 L Blood Pressure 112/70 Pulse Oximetry 98 98 07/02/21 02:55 07/02/21 05:00 07/02/21 07:22 Temperature 98.0 F Pulse Rate 65 75 66 Respiratory Rate 11 L 16
[2021-07-02] MEDS: TAMSULOSIN HCL 0.4 MG CAPSULE PO (19:51)
[2021-07-03] VITALS (22 sets, daily range): BP systolic 112–128; BP diastolic 52–87; PULSE 64–92; RESP 16–24; TEMP 36–36.1; O2SAT 91–98
[2021-07-03] MEDS: IPRATROPIUM BR 0.02% INH SOLN 0.5 MG/2.5 ML VIAL INHALATION ×4 (02:06→19:43)
[2021-07-03] MEDS: ALBUTEROL SULFATE NEB 2.5 MG/0.5 ML INH 5 MG INHALATION ×5 (02:06→19:43)
[2021-07-03] MEDS: DOXYCYCLINE HYCLATE 100 MG TABLET PO ×2 (05:36→17:25)
[2021-07-03] MEDS: guaiFENesin 12 HR 600 MG TABCR PO ×2 (06:15→19:49)
[2021-07-03 06:46] LABS: Anion Gap 6 mmol/L (8-16); Blood Urea Nitrogen 28 mg/dL (9-20); Calcium 8.5 mg/dL (8.4-10.2); Carbon Dioxide 29 mmol/L (22-30); Chloride 103 mmol/L (98-107); Estimated CRCL calculation 88 ml/min; Estimated Glomerular Filt Rate > 60; Glucose 130 mg/dL (65-110); Magnesium 2.7 mg/dL (1.6-2.3); Potassium 4.4 mmol/L (3.4-5.0); Sodium 138 mmol/L (137-145)
[2021-07-03] MEDS: FUROSEMIDE 20 MG TABLET 60 MG PO (08:36)
[2021-07-03] MEDS: TRIAMCINOLONE ACET 0.1% CREAM 15 GM TUBE 1 APPLIC TOPICAL ×2 (08:36→17:25)
[2021-07-03] MEDS: POTASSIUM CHLORIDE 20 MEQ TABLET.ER PO (08:36)
[2021-07-03] MEDS: PANTOPRAZOLE 40 MG TABLET PO (08:36)
[2021-07-03] MEDS: DRONEDARONE HCL 400 MG TABLET PO ×2 (08:36→17:25)
[2021-07-03] MEDS: methylPREDNISolone SOD SUCC 125 MG VIAL 60 MG IV PUSH ×2 (08:37→19:49)
[2021-07-03] MEDS: METOPROLOL TARTRATE 25 MG TABLET PO ×2 (08:37→19:50)
[2021-07-03] MEDS: polyethylene glycoL 3350 17 GM POWD.PACK PO (08:37)
[2021-07-03] MEDS: APIXABAN 5 MG TABLET PO ×2 (08:37→19:49)
--- NOTE | 2021-07-03 08:47 | PM.IMPN ---
Progress Note: A&P Assessment and Plan (1) COPD with exacerbation: Code(s): J44.1 - Chronic obstructive pulmonary disease with (acute) exacerbation Status: Acute Assessment and Plan: Pt has improved but continues to have SOB and require breathing treatments every 4 hours instead of his usual 6 -at this time I am going to keep the steroids at q.12 hours -repeat CXR reviewed, no acute pathology -Continue with breathing tx, inhalers and home daliresp - continue mucinex and cornet - sputum culture with growth of normal awais -continue doxy for atypical coverage during exacerbation -Will consult pulmonology due to slow improvement (2) CHF exacerbation: Qualifiers: Heart failure type: unspecified Qualified Code(s): I50.9 - Heart failure, unspecified Code(s): I50.9 - Heart failure, unspecified Status: Acute Assessment and Plan: Pt has been drinking a lot of diet soda lately as he thought he only had to limit his water intake -Continue lasix at home dose, appears euvolemic today -bnp mildly elevated, no need for new echo. Last echo 09/2020 with no CP -diastolic in nature -He sees Dr. Massey (3) Chronic respiratory failure with hypoxia and hypercapnia: Code(s): J96.11 - Chronic respiratory failure with hypoxia; J96.12 - Chronic respiratory failure with hypercapnia Status: Acute Assessment and Plan: Continue bipap at night (uses trilogy at home) -monitor for hypoxia (4) ELIZABETH and COPD overlap syndrome: Code(s): G47.33 - Obstructive sleep apnea (adult) (pediatric); J44.9 - Chronic obstructive pulmonary disease, unspecified Status: Acute Assessment and Plan: As above Subjective Date/time seen: 07/03/21 08:47 Interval history: Pt is a 66-year-old male here for COPD exacerbation. Patient was seen today and feels better than yesterday. He still requiring breathing treatments every 4 hours instead of every 6. He says on his normal days when he feels great, he takes a breathing treatment every 6 hours but when he has a COPD exacerbation he needs it mostly every 4. His cough has improved and he is barely coughing up much. He does have a sore throat and the BiPAP is irritating his lungs a bit but overall feels okay. His right sided flank muscular pain has improved with a heating pad and sitting on the couch. He is at his home oxygen requirements. He feels much better compared to when he came in but overall is not back to his baseline. He sees Dr. Buenrostro outpatient. He doesn't feel fluid overloaded and doesn't not feel 'full' like he usually does with CHF. His urine is clear but darker. no dysuria. Exam Narrative: General: Overweight pt resting on the couch in NAD HEENT: normocephalic Neck: supple Neuro: Alert and oriented x4 CV:RRR, decreased heart sounds due to body habitus. Resp:Significantly decreased breath sounds bilaterally with no wheezing Abd: Soft, non distended. No pain to palpation. Positive bowel sounds Extremities: No swelling, erythema, or pain to palpation. Objective Data Vital Signs Vital Signs: Vital Signs - 24 hr 07/02/21 12:00 07/02/21 13:09 07/02/21 13:19 Temperature 97.2 F L Pulse Rate 74 77 70 Respiratory Rate 20 16 16 Blood Pressure 118/68 Pulse Oximetry 92 07/02/21 16:00 07/02/21 17:08 07/02/21 19:47 Temperature 97.9 F Pulse Rate 74 74 76 Respiratory Rate 20 16 Blood Pressure 117/64 Pulse Oximetry 91 07/02/21 19:52 07/02/21 19:59 07/02/21 20:00 Temperature Pulse Rate 80 74 Respiratory Rate 16 Blood Pressure Pulse Oximetry 92 07/02/21 21:33 07/02/21 23:05 07/03/21 02:00 Temperature 96.8 F L 97.0 F L Pulse Rate 81 67 66 Respiratory Rate 20 19 16 Blood Pressure 116/88 119/52 L Pulse Oximetry 91 94 96 07/03/21 02:07 07/03/21 02:20 07/03/21 05:30 Temperature 97.0 F L Pulse Rate 64 77 74 Respiratory Rate 16 20 20 Blood Pressure 117/87
[2021-07-03] MEDS: BENZOCAINE/MENTHOL (*BKC) 18 EA LOZENGE 1 LOZENGE PO (09:42)
[2021-07-03] MEDS: BUDESONIDE RESPULE NEB 0.5 MG/2 ML AMP INHALATION ×2 (10:33→19:43)
--- NOTE | 2021-07-03 16:13 | PM.CNPUL ---
Assessment and Plan Assessment and plan (1) COPD with exacerbation: Code(s): J44.1 - Chronic obstructive pulmonary disease with (acute) exacerbation Status: Acute Assessment and Plan: He has a COPD exacerbation, and this may have been worsened by mucous plugging with decreased water intake, making secretions back tender pulp drier and harder to expectorate. Agree with steroids, bronchodilator therapy, continuing his home Daliresp, and baseline controller therapy. Will continue use of Cornet valve, and plan for him to have a steroid taper at home; not sure if he needs to continue antibiotics, as he does not appear to be infected. (2) Chronic respiratory failure with hypoxia and hypercapnia: Code(s): J96.11 - Chronic respiratory failure with hypoxia; J96.12 - Chronic respiratory failure with hypercapnia Status: Acute Assessment and Plan: ABG was compensated, no increase in pCO2, consistent with usiong NPPV regularly. Continue O2 to maintain adequate O2 saturation. (3) ELIZABETH and COPD overlap syndrome: Code(s): G47.33 - Obstructive sleep apnea (adult) (pediatric); J44.9 - Chronic obstructive pulmonary disease, unspecified Status: Acute Assessment and Plan: Compliant with medications and Trilogy use. History of Present Illness History of Present Illness Consult date: 07/04/21 Requesting physician: Gissell Cho PA-C Reason for consult: COPD Chief complaint: COPD EXACERBATION Narrative: NEW: Vimal Doty is a 66 year-old man with COPD with chronic hypercapnic hypoxemic respiratory failure, wears 4 L nasal cannula oxygen at home; he uses a Trilogy NPPV with 5 L/min at night. He had 3 days of increased shortness of breath before admission, without fever, chills, change in sputum. He called our office, and was prescribed azithromycin and a steroid taper, but was too sick to start it, presented to the ER and responded to Lasix with excellent urine output. He was admitted for further treatment. He has not been in the hospital for 6 months, which is significant for him. His ABG was really improved with a pCO2 in the low 50s, 7.41/51/64 on 6 L/min; often his pCO2 is in the 70s. He has been using his Trilogy regularly. DATA: * CXR 06/29/2021 - increased interstitial pattern in the right mid to lower lung zone which could represent asymmetric pulmonary edema or pneumonia. 2. Emphysema. * Chest CT 01/26/2021 [facility] moderate to severe panlobular emphysema * echo 10/06/2020 mildly reduced LV EF at 50% grade 1 diastolic dysfunction mildly enlarged right ventricle with reduced right ventricular function and a right ventricular systolic pressure of 46 measured on 10/15/2019. Review of Systems Review of Systems: legs have been less swollen recently compared to other admissions He has secretions that are difficult to clear, better with Mucinex, Cornet valve and bronchodilators Constitutional: Comments: No fever, chest pain or hemoptysis PMFSH Past Medical History Medical History Acute and chronic respiratory failure Acute on chronic respiratory failure with hypoxia and hypercapnia On chronic home O2 of 3 L nasal cannula. History of prior intubation October 2018 Anxiety Arthritis Atrial flutter Paroxysmal AFib with cardioversion April 2013 and October 23, 2019 BPH (benign prostatic hyperplasia) Bronchitis CHF (congestive heart failure) Last echocardiogram EF was 55% prior echocardiogram previous year demonstrated borderline left ventricular systolic function and diastolic dysfunction grade 1 Chronic constipation COPD (chronic obstructive pulmonary disease) Dependence on continuous supplemental oxygen Emphysema, unspecified GI bleed History of cardioversion History of
[2021-07-03] MEDS: TAMSULOSIN HCL 0.4 MG CAPSULE PO (19:50)
[2021-07-04] VITALS (21 sets, daily range): BP systolic 109–128; BP diastolic 52–69; PULSE 63–89; RESP 14–28; TEMP 35.8–36.4; O2SAT 92–97
[2021-07-04] MEDS: IPRATROPIUM BR 0.02% INH SOLN 0.5 MG/2.5 ML VIAL INHALATION ×4 (02:33→19:29)
[2021-07-04] MEDS: ALBUTEROL SULFATE NEB 2.5 MG/0.5 ML INH 5 MG INHALATION ×4 (02:33→19:29)
[2021-07-04] MEDS: DOXYCYCLINE HYCLATE 100 MG TABLET PO ×2 (05:13→17:03)
[2021-07-04 05:42] LABS: Hematocrit 37.6 % (42.0-52.0); Hemoglobin 11.1 g/dL (14.0-18.0); Mean Corpuscular HGB Conc 29.5 g/dl (32-36); Mean Corpuscular Hemoglobin 25.2 pg (26-34); Mean Corpuscular Volume 85.3 fl (80-100); Mean Platelet Volume 9.2 fl (7.4-10.4); Platelet Count Result 293 k/mm3 (150-375); Red Blood Count 4.41 M/mm3 (4.6-6.20); Red Cell Distribution Width 14.4 % (11.5-14.5); White Blood Count 7.6 K/mm3 (4.5-10.0)
[2021-07-04] MEDS: BENZOCAINE/MENTHOL (*BKC) 18 EA LOZENGE 1 LOZENGE PO ×2 (06:11→09:17)
[2021-07-04] MEDS: BUDESONIDE RESPULE NEB 0.5 MG/2 ML AMP INHALATION ×2 (07:59→19:37)
[2021-07-04] MEDS: methylPREDNISolone SOD SUCC 125 MG VIAL 60 MG IV PUSH (08:58)
[2021-07-04] MEDS: TRIAMCINOLONE ACET 0.1% CREAM 15 GM TUBE 1 APPLIC TOPICAL ×2 (08:58→16:27)
[2021-07-04] MEDS: polyethylene glycoL 3350 17 GM POWD.PACK PO (08:58)
[2021-07-04] MEDS: guaiFENesin 12 HR 600 MG TABCR PO ×2 (08:59→19:53)
[2021-07-04] MEDS: APIXABAN 5 MG TABLET PO ×2 (08:59→19:54)
[2021-07-04] MEDS: PANTOPRAZOLE 40 MG TABLET PO (08:59)
[2021-07-04] MEDS: DRONEDARONE HCL 400 MG TABLET PO ×2 (08:59→16:27)
[2021-07-04] MEDS: FUROSEMIDE 20 MG TABLET 60 MG PO (08:59)
[2021-07-04] MEDS: METOPROLOL TARTRATE 25 MG TABLET PO ×2 (08:59→19:53)
[2021-07-04] MEDS: POTASSIUM CHLORIDE 20 MEQ TABLET.ER PO (09:00)
--- NOTE | 2021-07-04 11:04 | PM.IMPN ---
Progress Note: A&P Assessment and Plan (1) COPD with exacerbation: Code(s): J44.1 - Chronic obstructive pulmonary disease with (acute) exacerbation Status: Acute Assessment and Plan: Patient is improving, will wean steroids. If he continues to do well will likely discharge home tomorrow on oral steroids -repeat CXR reviewed, no acute pathology -Continue with breathing tx, inhalers and home daliresp - continue mucinex and cornet - sputum culture with growth of normal awais -continue doxy for atypical coverage during exacerbation - pulmonology consulted, appreciate their additional recommendations (2) CHF exacerbation: Qualifiers: Heart failure type: unspecified Qualified Code(s): I50.9 - Heart failure, unspecified Code(s): I50.9 - Heart failure, unspecified Status: Acute Assessment and Plan: euvolemic -Continue lasix at home dose -bnp mildly elevated, no need for new echo. Last echo 09/2020 with no CP -diastolic in nature -He sees Dr. Massey (3) Chronic respiratory failure with hypoxia and hypercapnia: Code(s): J96.11 - Chronic respiratory failure with hypoxia; J96.12 - Chronic respiratory failure with hypercapnia Status: Acute Assessment and Plan: Continue bipap at night (uses trilogy at home) -monitor for hypoxia (4) ELIZABETH and COPD overlap syndrome: Code(s): G47.33 - Obstructive sleep apnea (adult) (pediatric); J44.9 - Chronic obstructive pulmonary disease, unspecified Status: Acute Assessment and Plan: As above Subjective Date/time seen: 07/04/21 11:04 Interval history: Pt is a 66-year-old male here for COPD exacerbation. Patient was seen today and feels better. he has not had any shortness of breath attacks like he did in the past and is feeling pretty good on his home oxygen settings. Pt denies nausea, vomiting, fevers, chills, constipation, diarrhea, chest pain, or abdominal pain. Exam Narrative: General: Overweight pt resting on the couch in NAD HEENT: normocephalic Neck: supple Neuro: Alert and oriented x4 CV:RRR, decreased heart sounds due to body habitus. Resp:Significantly decreased breath sounds bilaterally with no wheezing Abd: Soft, non distended. No pain to palpation. Positive bowel sounds Extremities: No swelling, erythema, or pain to palpation. Objective Data Vital Signs Vital Signs: Vital Signs - 24 hr 07/03/21 12:00 07/03/21 14:24 07/03/21 14:34 Temperature 96.9 F L Pulse Rate 80 75 77 Respiratory Rate 24 H 18 18 Blood Pressure 114/55 L Pulse Oximetry 93 07/03/21 16:00 07/03/21 17:25 07/03/21 19:44 Temperature 97 F L Pulse Rate 76 76 83 Respiratory Rate 20 18 Blood Pressure 128/66 Pulse Oximetry 95 94 07/03/21 19:50 07/03/21 20:00 07/03/21 21:55 Temperature 96.9 F L Pulse Rate 80 84 81 Respiratory Rate 18 20 Blood Pressure 112/72 Pulse Oximetry 95 07/03/21 22:30 07/04/21 01:54 07/04/21 02:31 Temperature 97.0 F L Pulse Rate 66 63 Respiratory Rate 17 20 14 Blood Pressure 119/52 L Pulse Oximetry 98 96 07/04/21 02:36 07/04/21 02:44 07/04/21 05:25 Temperature 97.0 F L Pulse Rate 82 80 72 Respiratory Rate 14 14 20 Blood Pressure 125/69 Pulse Oximetry 97 07/04/21 07:55 07/04/21 08:05 07/04/21 08:51 Temperature Pulse Rate 78 80 Respiratory Rate 14 14 Blood Pressure Pulse Oximetry 94 96 07/04/21 08:59 07/04/21 09:32 Temperature 96.4 F L Pulse Rate 72 80 Respiratory Rate 28 H Blood Pressure 118/64 Pulse Oximetry 96 Intake/Output Intake/Output: Intake & Output 07/01/21 07/02/21 07/03/21 07/04/21 23:59 23:59 23:59 23:59 Intake Total 1940 2320 1900 740 Output Total 1550 2300 2400 600 Balance 390 20 -500 140 Meds/Results Medications: Active Medications Generic Name Dose Route Start Last Admin Trade Name Freq PRN Reason Stop Dose Admin Albuterol 5 mg 06/29/21 20:00 08/0
[2021-07-04] MEDS: TAMSULOSIN HCL 0.4 MG CAPSULE PO (19:54)
[2021-07-05] VITALS (11 sets, daily range): BP systolic 114–119; BP diastolic 54–69; PULSE 68–90; RESP 14–22; TEMP 36.1–36.3; O2SAT 91–98
[2021-07-05] MEDS: ALBUTEROL SULFATE NEB 2.5 MG/0.5 ML INH 5 MG INHALATION ×2 (02:22→08:00)
[2021-07-05] MEDS: IPRATROPIUM BR 0.02% INH SOLN 0.5 MG/2.5 ML VIAL INHALATION ×2 (02:23→08:01)
[2021-07-05] MEDS: DOXYCYCLINE HYCLATE 100 MG TABLET PO (05:30)
[2021-07-05] MEDS: BUDESONIDE RESPULE NEB 0.5 MG/2 ML AMP INHALATION (08:00)
[2021-07-05] MEDS: methylPREDNISolone SOD SUCC 125 MG VIAL 60 MG IV PUSH (08:42)
[2021-07-05] MEDS: polyethylene glycoL 3350 17 GM POWD.PACK PO (08:42)
[2021-07-05] MEDS: TRIAMCINOLONE ACET 0.1% CREAM 15 GM TUBE 1 APPLIC TOPICAL (08:42)
[2021-07-05] MEDS: SENNA/DOCUSATE SODIUM TABLET 2 TAB PO (08:42)
[2021-07-05] MEDS: PANTOPRAZOLE 40 MG TABLET PO (08:43)
[2021-07-05] MEDS: DRONEDARONE HCL 400 MG TABLET PO (08:43)
[2021-07-05] MEDS: FUROSEMIDE 20 MG TABLET 60 MG PO (08:43)
[2021-07-05] MEDS: METOPROLOL TARTRATE 25 MG TABLET PO (08:44)
[2021-07-05] MEDS: guaiFENesin 12 HR 600 MG TABCR PO (08:44)
[2021-07-05] MEDS: APIXABAN 5 MG TABLET PO (08:44)
[2021-07-05] MEDS: POTASSIUM CHLORIDE 20 MEQ TABLET.ER PO (08:44)
--- NOTE | 2021-07-05 08:46 | PM.DS ---
DS: Admitting Diagnosis Admitting Diagnosis copd exacerbation DS: Discharge Diagnosis Discharge Diagnosis (1) COPD with exacerbation: Code(s): J44.1 - Chronic obstructive pulmonary disease with (acute) exacerbation Status: Acute Assessment and Plan: Patient improved with steroids. he has a steroid taper at home from that he will start when he gets home -repeat CXR reviewed, no acute pathology -Continue with breathing tx, inhalers and home daliresp - continue mucinex and cornet - sputum culture with growth of normal awais -continue abx given by tactical air control party just prior to admission - pulmonology consulted, agree with d/c. f/u outpt (2) CHF exacerbation: Qualifiers: Heart failure type: unspecified Qualified Code(s): I50.9 - Heart failure, unspecified Code(s): I50.9 - Heart failure, unspecified Status: Acute Assessment and Plan: euvolemic -Continue lasix at home dose -bnp mildly elevated, no need for new echo. Last echo 09/2020 with no CP -diastolic in nature -He sees Dr. Massey (3) Chronic respiratory failure with hypoxia and hypercapnia: Code(s): J96.11 - Chronic respiratory failure with hypoxia; J96.12 - Chronic respiratory failure with hypercapnia Status: Acute Assessment and Plan: Continue home trilogy -monitor for hypoxia (4) ELIZABETH and COPD overlap syndrome: Code(s): G47.33 - Obstructive sleep apnea (adult) (pediatric); J44.9 - Chronic obstructive pulmonary disease, unspecified Status: Acute Assessment and Plan: As above DS: Summary Hospital Course Hospital Course: date of service July 05, 2021 Patient is a 66-year-old male with a history of COPD on chronic oxygen and trilogy who presented emergency for worsening shortness of breath. Patient was found to be in a COPD exacerbation. He was admitted to the hospitalist service and started on IV steroids and IV Lasix. These medications improved his breathing slowly. Chest x-ray did not show any acute pathology. He was started on doxycycline to cover for atypicals. Sputum culture grew normal awais. Pulmonology was consulted through his stay and follow him and will follow him outpatient. Patient appears euvolemic at discharge. He felt close to his baseline and much better than when he was admitted. I spoke with Dr. Buenrostro who states the patient had an antibiotic and steroids prescribed before admission which he did not yet take. He can start these when he gets home. Overall, the patient had improvement throughout his stay. He was educated about the worrisome signs and symptoms to come back to emergency room for and was discharged in stable condition. Status at Discharge Functional status at discharge: independent ambulation Overall status at discharge: patient is not back to baseline Time Spent with Patient Time attestation: Total time spent providing and/or coordinating discharge services:34 min Time spent: Greater than 30 minutes Exam Narrative: General: Overweight pt resting on the couch in NAD HEENT: normocephalic Neck: supple Neuro: Alert and oriented x4 CV:RRR, decreased heart sounds due to body habitus. Resp:Significantly decreased breath sounds bilaterally with no wheezing Abd: Soft, non distended. No pain to palpation. Positive bowel sounds Extremities: No swelling, erythema, or pain to palpation. Discharge Plan Discharge Attending physician on discharge: Chris Palacios Consulting providers: Julianna Buenrostro Discharging Clinician: Gissell Cho Patient Disposition: Home, Self-Care Activity: as tolerated Diet: heart healthy Discharge Instructions: -Please finish the antibiotic and steroids you received from your tactical air control party prior to admission - follow-up with your primary care physician in 1-2 weeks about this stay - continue your breathing machine at home with naps and at night - follow-up with
--- NOTE | 2021-07-05 09:21 | PM.PNPUL ---
Progress Note: A&P Assessment and Plan (1) COPD with exacerbation: Code(s): J44.1 - Chronic obstructive pulmonary disease with (acute) exacerbation Status: Acute Assessment and Plan: He has a COPD exacerbation, and this may have been worsened by mucous plugging with decreased water intake, making secretions curtain drier and harder to expectorate. Agree with steroids, bronchodilator therapy, continuing his home Daliresp, and baseline controller therapy. Will continue use of Cornet valve, and plan for him to have a steroid taper at home; not sure if he needs to continue antibiotics, as he does not appear to be infected. (2) Chronic respiratory failure with hypoxia and hypercapnia: Code(s): J96.11 - Chronic respiratory failure with hypoxia; J96.12 - Chronic respiratory failure with hypercapnia Status: Acute Assessment and Plan: ABG was compensated, no increase in pCO2, consistent with usiong NPPV regularly. Continue O2 to maintain adequate O2 saturation. (3) ELIZABETH and COPD overlap syndrome: Code(s): G47.33 - Obstructive sleep apnea (adult) (pediatric); J44.9 - Chronic obstructive pulmonary disease, unspecified Status: Acute Assessment and Plan: Compliant with medications and Trilogy use. Subjective Date/time seen: 07/05/21 09:21 Exam Narrative: GEN: Pleasant alert 66 year old man, not in distress, sitting on the side of the bed, wearing 4 L/min HEENT: Pupils equal, moist oral membranes, edentulous, no erythema or exudate, Mallampati III NECK: supple, no LAD CHEST: decreased breath sounds, no crackles, wheezes, rhonchi CV: distant regular S1S2 ABD : (+) bowel sounds, soft nontender Extremities : 1+ pitting edema PSYCH: A&O, normal speech, normal thought content Objective Data Vital Signs Vital Signs: Vital Signs - 24 hr 07/04/21 09:32 07/04/21 12:53 07/04/21 13:03 Temperature 35.8 C L Pulse Rate 80 77 78 Respiratory Rate 28 H 14 14 Blood Pressure 118/64 Pulse Oximetry 96 07/04/21 14:54 07/04/21 16:27 07/04/21 17:30 Temperature 35.9 C L 36.3 C L Pulse Rate 76 76 89 Respiratory Rate 24 H 20 Blood Pressure 109/67 128/66 Pulse Oximetry 94 96 07/04/21 19:32 07/04/21 19:49 07/04/21 19:53 Temperature Pulse Rate 81 80 87 Respiratory Rate 16 16 Blood Pressure Pulse Oximetry 93 07/04/21 19:58 07/04/21 20:00 07/04/21 21:46 Temperature 36.4 C Pulse Rate 87 87 Respiratory Rate 16 16 14 Blood Pressure 114/61 Pulse Oximetry 92 92 07/05/21 01:54 07/05/21 02:23 07/05/21 02:24 Temperature 36.2 C L Pulse Rate 85 68 Respiratory Rate 18 14 15 Blood Pressure 114/54 L Pulse Oximetry 98 07/05/21 02:32 07/05/21 05:42 07/05/21 08:00 Temperature 36.1 C L 36.3 C L Pulse Rate 70 70 84 Respiratory Rate 18 16 22 H Blood Pressure 117/61 119/69 Pulse Oximetry 93 91 07/05/21 08:43 07/05/21 08:44 Temperature Pulse Rate 90 90 Respiratory Rate Blood Pressure Pulse Oximetry Intake/Output Intake/Output: Intake & Output 07/02/21 07/03/21 07/04/21 07/05/21 23:59 23:59 23:59 23:59 Intake Total 2320 1900 2120 500 Output Total 2300 2400 600 500 Balance 20 -500 1520 0 Meds/Results Medications: Active Medications Generic Name Dose Route Start Last Admin Trade Name Freq PRN Reason Stop Dose Admin Albuterol 5 mg 06/29/21 20:00 07/05/21 08:00 Albuterol Sulfate Neb 2.5 Mg/0.5 Ml Inh INHALATION 5 mg Q6HRT ABIMBOLA Administration Albuterol 5 mg 06/30/21 01:04 07/03/21 06:13 Albuterol Sulfate Neb 2.5 Mg/0.5 Ml Inh INHALATION 5 mg Q6HRT PRN Administration Shortness Of Breath Apixaban 5 mg 06/29/21 21:00 07/05/21 08:44 Apixaban 5 Mg Tablet PO 5 mg Q12HR ABIMBOLA Administration Benzocaine 1
[2021-07-05] MEDS: BISACODYL 10 MG SUPPOSITORY RECTAL (09:56)
[2021-07-05] MEDS: DORNASE ALFA INH SOLN 1 MG/ML 2.5 ML AMP 2.5 MG INHALATION (11:25)
== END 2021-07-05 13:15 | disposition home or self-care (01) | DRG 191 ==
LOC: ANHED 14:18 → ANH2MED 17:44
PROVIDERS: Physician Assistant; Admitting Provider Internal Medicine; Emergency Provider Emergency Medicine; PCP Family Medicine; Visit Provider Student in an Organized Health Care Education/Training Program
DX: J43.9 Emphysema, unspecified (principal); J96.11 Chronic respiratory failure with hypoxia; J96.12 Chronic respiratory failure with hypercapnia; I27.20 Pulmonary hypertension, unspecified; G47.33 Obstructive sleep apnea (adult) (pediatric); I11.0 Hypertensive heart disease with heart failure; I50.9 Heart failure, unspecified; N40.0 Benign prostatic hyperplasia without lower urinary tract symptoms; Z99.81 Dependence on supplemental oxygen; Z87.891 Personal history of nicotine dependence; Z79.01 Long term (current) use of anticoagulants; Z79.899 Other long term (current) drug therapy
CPT/HCPCS: 36415; 36600; 71045; 71046; 80048; 80053; 81003; 82375; 82805; 83050; 83735; 83880; 85025; 85027; 87070; 87205; 93005; 94002; 94003; 94640; 94667; 96365; 96375; 96376; 99285; A9270; G0378; J0696; J1940; J2930

== ENCOUNTER 2021-07-19 19:04 | Inpatient (IN) | payer MEDICARE, SELFPAY ==
--- NOTE | ~2021-07-19 | CT_ITS ---
EXAMINATION: CT chest abdomen pelvis wo con DATE: 07/20/2021 15:17 INDICATION: Right kidney mass. TECHNIQUE: Computed tomography (CT) of the chest, abdomen, and pelvis was performed without intraveno us contrast. Automated exposure control and iterative reconstruction technique were employed. The dos e-length product was 2050.71 mGy-cm. COMPARISON: CT abdomen and pelvis 07/19/2021, chest CT 01/26/2021, 05/03/13 FINDINGS: CHEST CT: There is severe emphysema. There are scattered airspace opacities in the mid and lower lung zones anaya aterally with volume loss, consistent with atelectasis. No pleural effusion. The heart size is normal . No pericardial effusion. There are coronary artery calcifications. There is bilateral gynecomastia. There are old right rib deformities. There is mild thoracic spondylosis. There is a hemangioma in T4 vertebral body. ABDOMEN/PELVIS CT: There is diffuse hepatic steatosis. There are gallstones in the gallbladder, which is normal in size. The spleen is normal. There are calcifications in the head of the pancreas, consistent with chronic pancreatitis. There is a 2.7 cm mass in the right adrenal gland measuring low-attenuation, stable fro m 05/03/13, consistent with an adenoma. The left adrenal gland is normal. There are cysts in the kidney s measuring up to 2.3 cm on the left. There is a 5.0 cm exophytic mass of right kidney lower pole jim suring 45 HU that measured 40 HU on the prior exam with contrast, consistent with a hemorrhagic cyst. The prostate is moderately enlarged. There are no dilated loops of bowel. The appendix is normal. Th ere are no pathologically enlarged lymph nodes. There is no free intraperitoneal fluid. There is mode rate lumbar spondylosis. IMPRESSION: 1. 5.0 cm hemorrhagic cyst in right kidney. 2. 2.7 cm left adrenal adenoma. 3. Severe emphysema. Reviewed, dictated and finalized at location A.
--- NOTE | ~2021-07-19 | XR_ITS ---
XR chest 1V portable DATE: 07/19/2021 20:06 INDICATION: Midsternal/epigastric chest pain. Shortness of breath. History of COPD, atrial fibrillati on, congestive heart failure TECHNIQUE: AP chest COMPARISON: 07/03/2021 portable AP chest 07/01/2021 2 view chest FINDINGS: There is partial resection of the right seventh and eighth ribs. The lungs are moderately hyperinflated consistent with history of COPD. Mild infiltrate, atelectasis and/or scarring is suggested at the lung bases. The lungs otherwise appear clear of active infiltrate or consolidation. Normal heart size. Mild aortic unfolding. No hilar or mediastinal enlargement. IMPRESSION: Bilateral hyperinflation suggesting COPD Mild infiltrate, atelectasis and/or fibrotic change at the lung bases Reviewed, dictated and finalized at location [facility].
--- NOTE | ~2021-07-19 | CT_ITS ---
EXAMINATION: CT abdomen pelvis w con DATE: 07/19/2021 20:02 INDICATION: Generalized abdominal pain, nausea for 6 days TECHNIQUE: Computed tomography (CT) of the abdomen and pelvis was performed with 100 cc Omnipaque 350 intravenous contrast. Automated exposure control and iterative reconstruction technique were employe d. Exam dose: 1763.85 mGy-cm total exam DLP. COMPARISON: None. FINDINGS: The examination is limited due to exclusion of a portion of the anterior abdomen. Prominent emphysematous changes of the lungs. There is mild bilateral lower lobe dependent infiltrate and/or atelectasis. Heart size is within normal range. No pericardial or pleural effusion. Very small stones in the dependent aspect of the gallbladder. No gallbladder wall thickening or peric holecystic fluid or fat stranding. No hepatic space-occupying mass lesion. There are scattered pancreatic calcifications suggesting chronic pancreatitis. No pancreatic mass les ion or pancreatic duct dilatation. Normal splenic size. 2.6 cm right adrenal mass. 4.6 cm exophytic mass at the anterolateral aspect of lower pole right kidney. There is not a sharp de marcation from the adjacent normal renal parenchyma. Hypernephroma must be considered. Differential d iagnosis includes complicated or hemorrhagic cyst. Consider MR kidney examination. 9 mm and two 12 mm probable exophytic cysts of the right kidney. Several left renal probable cysts, measuring up to 2.5 cm. No urinary tract calculus or hydroureteronephrosis. The urinary bladder is unremarkable. There is prostate enlargement. Normal caliber of the abdominal aorta. No abdominal aortic aneurysm. No intraperitoneal or retroperit [place] or pelvic mass lesion or adenopathy or ascites. Normal appendix. No bowel obstruction or intraperitoneal free air is evident. Chronic deformities of the right sixth through eighth ribs. Diffuse idiopathic skeletal hyperostosis of the thoracic spine. IMPRESSION: Prominent emphysema Mild bilateral lower lobe dependent infiltrate and/or atelectasis Cholelithiasis Chronic pancreatitis 2.6 cm right adrenal mass 4.6 cm right lower pole renal exophytic mass, suspicious for possible hypernephroma. Differential genevieve gnosis includes complicated or hemorrhagic cyst. Consider MR kidney examination. Bilateral renal cysts Reviewed, dictated and finalized at [facility]. Reviewed, dictated and finalized at location A. IMPRESSION: Prominent emphysema Mild bilateral lower lobe dependent infiltrate and/or atelectasis Cholelithiasis Chronic pancreatitis 2.6 cm right adrenal mass 4.6 cm right lower pole renal exophytic mass, suspicious for possible hyperneph kylie. Differential diagnosis includes complicated or hemorrhagic cyst. Consider MR kidney examination. Bilateral renal cysts
[2021-07-19 19:11] VITALS: BP 121/63; PULSE 104; RESP 30; TEMP 37.2; O2SAT 96
[2021-07-19 19:52] LABS: Basophils Percent Auto 0.3 % (0.2-1.2); Eosinophils Absolute Auto 0.1 K/mm3 (0-0.3); Eosinophils Percent Auto 1.1 % (0-4.4); Hematocrit 39.7 % (42.0-52.0); Hemoglobin 11.8 g/dL (14.0-18.0); Immature Granulocyte Absolute 0.05 K/mm3 (0.00-0.031); Immature Granulocyte Percent A 0.7 % (0-0.5); Lymphocytes Percent Auto 7.9 % (18.3-44.2); Mean Corpuscular HGB Conc 29.7 g/dl (32-36); Mean Corpuscular Hemoglobin 25.9 pg (26-34); Mean Corpuscular Volume 87.1 fl (80-100); Mean Platelet Volume 8.9 fl (7.4-10.4); Monocytes Absolute Auto 0.4 K/mm3 (0.1-0.6); Monocytes Percent Auto 5.7 % (2.6-8.5); Neutrophils Absolute Auto 6.4 K/mm3 (1.3-6.7); Neutrophils Percent Auto 84.3 % (45.5-73.1); Platelet Count Result 189 k/mm3 (150-375); Red Blood Count 4.56 M/mm3 (4.6-6.20); Red Cell Distribution Width 15.6 % (11.5-14.5); White Blood Count 7.6 K/mm3 (4.5-10.0)
[2021-07-19 19:54] LABS: Estimated CRCL calculation 74 ml/min; Estimated Glomerular Filt Rate 55
--- NOTE | 2021-07-19 20:05 | PC.NURSE ---
Pt to CT and XRAY via stretcher at this time. Unable to produce urine sample, states will try after cat scan. Given urinal and call light. Pt declines straight cath at this time.
--- NOTE | 2021-07-19 20:07 | ED.GENADULT ---
HPI - General Adult General Chief complaint: Abdominal Pain Stated complaint: abdominal pain, low o2 Time Seen by Provider: 07/19/21 19:10 Source: patient History of Present Illness HPI narrative: Patient is a 66 y/o male complaining of generalized abdominal pain starting 4-5 days ago. He describes his pain as sharp and rates it as 7-8/10. Mylanta seems to help with pain at times. There is no pain radiation. He has nausea, but no vomiting or diarrhea. He has chronic SOB due to COPD. Related Data Home Medications Medication Instructions Recorded Confirmed Multaq 400 mg PO BIDWM 10/15/19 06/29/21 polyethylene glycol 3350 [Miralax] 17 g PO DAILY 10/16/19 06/29/21 Eliquis 5 mg PO BID 06/02/20 06/29/21 metoprolol tartrate 25 mg PO Q12H 01/21/21 06/29/21 amoxicillin 875 mg-potassium 1 tablet PO BID 07/12/21 clavulanate 125 mg tablet prednisone 10 mg tablet 10 mg PO DAILY 07/12/21 Allergies Allergy/AdvReac Type Severity Reaction Status Date / Time No Known Allergies Allergy Verified 07/12/21 13:47 Review of Systems Constitutional: Constitutional: Denies chills, Denies fever(s), Denies headache(s) and Denies weakness Eyes: Eyes: Denies blurry vision ENT: Denies headache(s) and Denies neck pain Cardiovascular: Cardiovascular: Denies chest pain and Reports dyspnea Respiratory: Respiratory: Reports cough and Reports dyspnea Gastrointestinal: Gastrointestinal: Reports abdominal pain, Denies diarrhea, Reports nausea and Denies vomiting Genitourinary: Genitourinary: Denies hematuria and Denies dysuria Musculoskeletal: Musculoskeletal: Denies back pain and Denies neck pain Neurologic: Denies headache(s) and Denies weakness [facility] Past Medical History Medical History Acute and chronic respiratory failure Acute on chronic respiratory failure with hypoxia and hypercapnia On chronic home O2 of 3 L nasal cannula. History of prior intubation October 2018 Anxiety Arthritis Atrial flutter Paroxysmal AFib with cardioversion April 2013 and October 23, 2019 BPH (benign prostatic hyperplasia) Bronchitis CHF (congestive heart failure) Last echocardiogram EF was 55% prior echocardiogram previous year demonstrated borderline left ventricular systolic function and diastolic dysfunction grade 1 Chronic constipation COPD (chronic obstructive pulmonary disease) Dependence on continuous supplemental oxygen Emphysema, unspecified GI bleed History of cardioversion History of tobacco abuse Hypertension Hypertensive CHF Morbid obesity with BMI of 45.0-49.9, adult ELIZABETH and COPD overlap syndrome Pneumonia Psoriasis Pulmonary hypertension RVSP 59 on echo from July 2019 Rectal bleeding Sleep apnea Home BiPAP 16/ Supplemental oxygen dependent Surgical History Surgical History H/O arthroscopy of left knee History of tonsillectomy 1966 Hx of cardiac cath Left tibial fracture Family History Family History Mother Rheumatoid arthritis Breast cancer Hypertension Psoriatic arthritis Father Skin cancer With metastases to bone and brain Mother Family history of arthritis Family history of congestive heart failure Father Family history of malignant neoplasm of bone Other Diabetes mellitus Social History Social History Social History: The patient smoked 1.5 packs of cigarettes per day for 40 years but quit smoking in 2018. He used to drink alcohol in moderation but has not drank in some time. He denies any illicit substance use. He his and she eventually later. He has 1 son who he nominates to be the durable power sports attorney for healthcare. The patient tells me he lives home alone. The patient is a full code. Smoking packs per day: 2 Smoking c
[2021-07-19 20:24] LABS: Alanine Aminotransferase 20 U/L (4-50); Albumin Level 3.5 g/dL (3.5-5.1); Alkaline Phosphatase 64 U/L (38-126); Anion Gap 5 mmol/L (8-16); Aspartate Amino Transferase 18 U/L (17-59); Bilirubin,Total 0.6 mg/dL (0.2-1.3); Blood Urea Nitrogen 18 mg/dL (9-20); Calcium 8.5 mg/dL (8.4-10.2); Carbon Dioxide 35 mmol/L (22-30); Chloride 94 mmol/L (98-107); Estimated CRCL calculation 80 ml/min; Estimated Glomerular Filt Rate 60; Glucose 110 mg/dL (65-110); Lipase 109 U/L (23-300); Potassium 4.1 mmol/L (3.4-5.0); Sodium 134 mmol/L (137-145)
[2021-07-19 20:41] LABS: Add Urine Microscopic? NO; Appearance Urine Clear (Clear); Bilirubin Urine Negative (Negative); Blood Urine Negative (Negative); Color Urine Yellow (Yellow); Glucose Urine UA Negative (Negative); Ketones Urine Negative (Negative); Leukocyte Esterase Ur Negative LEU/UL (Negative); Nitrate Urine Negative (Negative); Protein Urine Negative (Negative); Urobilinogen Urine Negative mg/dL (<2.0)
[2021-07-19 20:42] VITALS: BP 123/73; PULSE 99; RESP 24; O2SAT 94
[2021-07-19 21:00] LABS: Specific Grav Ur > 1.060 (1.001-1.035)
[2021-07-19 21:02] LABS: Hypochromasia 2+ (NORMAL); Platelet Estimate Adequate (Adequate)
[2021-07-19 22:00] VITALS: BP 111/67; PULSE 102; PULSE 105; RESP 24; RESP 26; O2SAT 94; O2SAT 95
[2021-07-19 22:20] VITALS: BP 111/77; PULSE 103; PULSE 105; RESP 14; RESP 24; O2SAT 98
[2021-07-19 22:21] VITALS: PULSE 103; RESP 20
[2021-07-19] MEDS: ALBUTEROL SULFATE NEB 2.5 MG/0.5 ML INH 5 MG INHALATION (22:22)
[2021-07-19] MEDS: IPRATROPIUM BR 0.02% INH SOLN 0.5 MG/2.5 ML VIAL INHALATION (22:22)
[2021-07-19 23:31] VITALS: BP 103/57; PULSE 100; RESP 23; O2SAT 93
[2021-07-20] VITALS (22 sets, daily range): BP systolic 99–130; BP diastolic 42–87; PULSE 48–121; RESP 18–38; TEMP 36.6–36.9; O2SAT 90–100; BMI 44.6
--- NOTE | 2021-07-20 03:27 | PM.IMHP ---
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 Patient was just discharged from our service due to COPD exacerbation where he was treated with a steroids amounts other therapeutic modalities and medication. Today he returns due to abdominal pain nausea but no vomiting, heartburn, constipation, no melena no hematemesis no hematochezia no change in stool habit he has also noted abdominal distention has not been able to eat due to worsening heartburn and epigastric pain also states that he has not been able to pass gas. Preliminary workup was significant for CT of abdomen and pelvis for cholelithiasis and chronic pancreatitis. Review of Systems Review of Systems: Heartburn, abdominal distension, constipation, epigastric pain. Constitutional: Constitutional: Denies chills and Denies fever(s) Eyes: Eyes: Denies change in vision ENT: Denies dysphagia, Denies nasal congestion, Denies nasal discharge, Denies nasal obstruction and Denies odynophagia Cardiovascular: Cardiovascular: Denies chest pain Respiratory: Respiratory: Denies change in phlegm color, Reports cough, Denies excessive phlegm production, Reports dyspnea and Denies wheezing Gastrointestinal: Gastrointestinal: Reports bloating, Reports constipation, Reports dyspepsia, Reports heartburn, Reports nausea and Denies vomiting Genitourinary: Genitourinary: Reports no additional male genitourinary complaints Musculoskeletal: Musculoskeletal: Reports no additional musculoskeletal complaints Integumentary/Breasts: Skin/Breast: Reports system reviewed and no additional complaints, except as docu Neurologic: Reports system reviewed and no additional complaints, except as documented Psychiatric: Psychiatric: Reports no additional psychiatric complaints Endocrine: Endocrine: Reports no additional endocrine complaints Hematologic/Lymphatic: Hematologic/Lymphatic: Reports no additional hematologic/lymphatic complaints Allergic/Immunologic: Allergic/Immunologic: Reports no additional allergic/immunologic complaints [facility] Past Medical History Medical History Acute and chronic respiratory failure Acute on chronic respiratory failure with hypoxia and hypercapnia On chronic home O2 of 3 L nasal cannula. History of prior intubation October 2018 Anxiety Arthritis Atrial flutter Paroxysmal AFib with cardioversion April 2013 and October 23, 2019 BPH (benign prostatic hyperplasia) Bronchitis CHF (congestive heart failure) Last echocardiogram EF was 55% prior echocardiogram previous year demonstrated borderline left ventricular systolic function and diastolic dysfunction grade 1 Chronic constipation COPD (chronic obstructive pulmonary disease) Dependence on continuous supplemental oxygen Emphysema, unspecified GI bleed History of cardioversion History of tobacco abuse Hypertension Hypertensive CHF Morbid obesity with BMI of 45.0-49.9, adult ELIZABETH and COPD overlap syndrome Pneumonia Psoriasis Pulmonary hypertension RVSP 59 on echo from July 2019 Rectal bleeding Sleep apnea Home BiPAP 12/05 Supplemental oxygen dependent Surgical History Surgical History H/O arthroscopy of left knee History of tonsillectomy 1966 Hx of cardiac cath Left tibial fracture Family History Family History Mother Rheumatoid arthritis Breast cancer Hypertension Psoriatic arthritis Father Skin cancer With metastases to bone and brain Mother Family history of arthritis Family history of congestive heart failure Father Family history of malignant neop
--- NOTE | 2021-07-20 04:11 | PC.NURSE ---
PRN order placed for neb treatment per FIORELLA Dubois due to pt request. ED RESP notified and at bedside for treatment.
[2021-07-20] MEDS: IPRATROPIUM BR 0.02% INH SOLN 0.5 MG/2.5 ML VIAL ×2 (04:23→20:11)
[2021-07-20] MEDS: ALBUTEROL SULFATE NEB 2.5 MG/0.5 ML INH ×2 (04:23→20:11)
--- NOTE | 2021-07-20 08:33 | PM.IMPN ---
Progress Note: A&P Assessment and Plan (1) Acute exacerbation of chronic obstructive pulmonary disease: Code(s): J44.1 - Chronic obstructive pulmonary disease with (acute) exacerbation Status: Acute Assessment and Plan: Appears to be in END stage emphysema. 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 Buenrostro for his emphysema No changes in sputum quality No new infiltrates on chest x-ray/no pneumonia or PE concerns noted on CT scan today (2) Acute on chronic respiratory failure with hypoxia and hypercapnia: Code(s): J96.21 - Acute and chronic respiratory failure with hypoxia; J96.22 - Acute and chronic respiratory failure with hypercapnia Status: Chronic Assessment and Plan: Continue supplemental oxygen scheduled and PRN duoneb txs BiPAP as needed very deconditioned, morbid obesity, and needs PT/OT last ECHO was 2019, stable EF at 50%. moderately increased left ventricular wall thickness. left ventricular diastolic function is grade I diastolic dysfunction. Right atrial chamber dimension is moderately enlarged. doesn't look dehydrated - euvolemic at this time. started Mucinex continued bronchodilator therapy and continuing his home Daliresp and home meds.and Trilogy use. get ABG if patient does not recover from low sats quickly. (3) Abdominal pain: Qualifiers: Abdominal location: generalized Qualified Code(s): R10.84 - Generalized abdominal pain Code(s): R10.9 - Unspecified abdominal pain Status: Acute Assessment and Plan: Continue PPI GI consult today CT repeated today showed diffuse hepatic steatosis. Gallstones in the gallbladder, which is normal in size. The spleen is normal, chronic pancreatitis. Advised patient to follow a soft, low fat heart healthy, and bland diet; control his glucose levels better, continue medications to avoid constipation again. (4) ELIZABETH and COPD overlap syndrome: Code(s): G47.33 - Obstructive sleep apnea (adult) (pediatric); J44.9 - Chronic obstructive pulmonary disease, unspecified Status: Acute Assessment and Plan: Patient is on home vent / home BiPap machine at home see above plan (5) Supplemental oxygen dependent: Code(s): Z99.81 - Dependence on supplemental oxygen Status: Acute Assessment and Plan: Continue supplemental oxygen see above plan (6) Constipation: Code(s): K59.00 - Constipation, unspecified Status: Acute Assessment and Plan: CT abdomen and pelvis reviewed Bowel regimen Advised patient to follow a soft, low fat heart healthy, and bland diet; control his glucose levels better, continue medications to avoid constipation again (7) BPH (benign prostatic hyperplasia): Code(s): N40.0 - Benign prostatic hyperplasia without lower urinary tract symptoms Status: Acute Assessment and Plan: Continue tamsulosin (8) Morbid obesity: Code(s): E66.01 - Morbid (severe) obesity due to excess calories Status: Acute Assessment and Plan: Lifestyle and diet modification Calorie restricted carb consistent diet, heart healthy diet PT/OT (9) Atrial fibrillation with RVR: Code(s): I48.91 - Unspecified atrial fibrillation Status: Acute Assessment and Plan: Rate controlled anticoagulated Continue to monitor no concerns at this time. echo discussed above (10) Hypertension: Qualifiers: Hypertension type: essential hypertension Qualified Code(s): I10 - Essential (primary) hypertension Code(s): I10 - Essential (primary) hypertension Status: Chronic Assessment and Plan: Continue home meds Continue to monitor Subjective Date/time seen: 07/20/21 08:33 Patient is having episodes of hypoxemia with any exertion. His SpO2 sats drop to 80s and 70s with any exertion or repositioning or ambulation. Yesi
[2021-07-20] MEDS: IPRATROPIUM BR 0.02% INH SOLN 0.5 MG/2.5 ML VIAL INHALATION ×3 (08:59→21:45)
[2021-07-20] MEDS: BUDESONIDE RESPULE NEB 0.5 MG/2 ML AMP INHALATION ×2 (10:07→20:10)
[2021-07-20] MEDS: METOPROLOL TARTRATE 25 MG TABLET PO ×2 (11:29→21:13)
[2021-07-20] MEDS: FUROSEMIDE 40 MG TABLET PO ×2 (11:29→17:55)
[2021-07-20] MEDS: APIXABAN 5 MG TABLET PO ×2 (11:29→21:09)
[2021-07-20] MEDS: FUROSEMIDE 20 MG TABLET PO (11:30)
[2021-07-20] MEDS: POTASSIUM CHLORIDE 20 MEQ TABLET.ER PO (11:30)
[2021-07-20] MEDS: PANTOPRAZOLE 40 MG TABLET PO (11:30)
[2021-07-20] MEDS: TRIAMCINOLONE ACET 0.1% CREAM 15 GM TUBE 1 APPLIC TOPICAL ×2 (11:31→21:08)
--- NOTE | 2021-07-20 11:56 | PC.NURSE ---
Spoke with nephrology. He will be coming to see patient in the ER to complete consult.
[2021-07-20] MEDS: ONDANSETRON INJ 4 MG/2 ML VIAL IV PUSH (12:04)
--- NOTE | 2021-07-20 12:06 | PM.CNNEP ---
History of Present Illness Reason for Consult Consult date: 07/20/21 Reason for consult: Other (Renal mass) Chief Complaint Chief complaint: COPD Exacerbation Review of Systems Review of Systems: As per HPI. [facility] Past Medical History Medical History Acute and chronic respiratory failure Acute on chronic respiratory failure with hypoxia and hypercapnia On chronic home O2 of 3 L nasal cannula. History of prior intubation October 2018 Anxiety Arthritis Atrial flutter Paroxysmal AFib with cardioversion April 2013 and October 23, 2019 BPH (benign prostatic hyperplasia) Bronchitis CHF (congestive heart failure) Last echocardiogram EF was 55% prior echocardiogram previous year demonstrated borderline left ventricular systolic function and diastolic dysfunction grade 1 Chronic constipation COPD (chronic obstructive pulmonary disease) Dependence on continuous supplemental oxygen Emphysema, unspecified GI bleed History of cardioversion History of tobacco abuse Hypertension Hypertensive CHF Morbid obesity with BMI of 45.0-49.9, adult ELIZABETH and COPD overlap syndrome Pneumonia Psoriasis Pulmonary hypertension RVSP 59 on echo from July 2019 Rectal bleeding Sleep apnea Home BiPAP 12/05 Supplemental oxygen dependent Surgical History Surgical History H/O arthroscopy of left knee History of tonsillectomy 1966 Hx of cardiac cath Left tibial fracture Family History Family History Mother Rheumatoid arthritis Breast cancer Hypertension Psoriatic arthritis Father Skin cancer With metastases to bone and brain Mother Family history of arthritis Family history of congestive heart failure Father Family history of malignant neoplasm of bone Other Diabetes mellitus Social History Social History Social History: The patient smoked 1.5 packs of cigarettes per day for 40 years but quit smoking in 2018. He used to drink alcohol in moderation but has not drank in some time. He denies any illicit substance use. He his and she eventually later. He has 1 son who he nominates to be the durable power health care attorney for healthcare. The patient tells me he lives home alone. The patient is a full code. Smoking packs per day: 2 Smoking cigarettes per day: 40.0 Years smoked: 30 Smoking pack-years: 60.00 Smoking status: Never smoker Second hand tobacco smoke exposure: Yes Alcohol intake: never Substance use: never Substance use type: does not use Additional occupation/education comments: Disabled Spiritual care concerns: No Agree to blood products: Yes Meds Home Medications and Allergies Home Medications Medication Instructions Recorded Confirmed Type Multaq 400 mg PO BIDWM 10/15/19 07/20/21 History polyethylene glycol 3350 [Miralax] 17 g PO DAILY 10/16/19 07/20/21 History roflumilast 500 mcg tablet 500 mcg PO DAILY 30 Days #30 tablet 04/07/20 07/20/21 Rx Eliquis 5 mg PO BID 06/02/20 07/20/21 History metoprolol tartrate 25 mg PO Q12H 01/21/21 07/20/21 History pantoprazole 40 mg tablet,delayed 40 mg PO QAM #90 tablet 02/05/21 07/20/21 Rx release budesonide 0.5 mg/2 mL suspension 0.5 mg INHALATION Q12H #180 ml 03/02/21 07/20/21 Rx for nebulization furosemide 20 mg tablet 20 mg PO QAM #90 tablet 03/04/21 07/20/21 Rx furosemide 40 mg tablet 40 mg PO BID #180 tablet 03/04/21 07/20/21 Rx ipratropium bromide 0.02 % 2.5 ml INHALATION Q4-6H PRN #150 ml 03/05/21 07/20/21 Rx solution for inhalation albuterol sulfate 2.5 mg INHALATION Q4-6H PRN #1300 03/18/21 07/20/21 Rx ml tamsulosin 0.4 mg capsule 0.4 mg PO HS #90 cap 04/05/21 07/20/21 Rx potassium chloride 20 mEq 20 meq PO DAILY #90 tablet 06/28/21 07/20/21 Rx tablet,extende
--- NOTE | 2021-07-20 13:31 | ADMGEN ---
This patient, Vimal Doty, was admitted to Virtual Bed Second Floor-2. Patient is currently in ED awaiting a bed. Patient/family oriented to hospital policies and general routines including ID bracelet, bed and alarms, visiting hours, pain management, procedures, bathroom and other care routines, personal items, smoking policy, room service/diet, and visiting hours. Information on how to activate the Rapid Response Team has been discussed. Patient/Family are encouraged to report perceived risks to care and to ask questions if they do not understand what they are told or what they should do.
[2021-07-20] MEDS: ALBUTEROL SULFATE NEB 2.5 MG/3 ML INH INHALATION (14:25)
--- NOTE | 2021-07-20 17:30 | PC.NURSE ---
This patient, Vimal Doty, was admitted to [facility] Surg Room 321-. Patient/family oriented to hospital policies and general routines including ID bracelet, bed and alarms, visiting hours, pain management, procedures, bathroom and other care routines, personal items, smoking policy, room service/diet, and visiting hours.Repot received from Chantale SALVADOR Information on how to activate the Rapid Response Team has been discussed. Patient/Family are encouraged to report perceived risks to care and to ask questions if they do not understand what they are told or what they should do.
[2021-07-20 18:48] LABS: Hematocrit 37.5 % (42.0-52.0); Mean Corpuscular HGB Conc 29.3 g/dl (32-36); Mean Corpuscular Hemoglobin 25.6 pg (26-34); Mean Corpuscular Volume 87.2 fl (80-100); Mean Platelet Volume 9.1 fl (7.4-10.4); Platelet Count Result 183 k/mm3 (150-375); Red Cell Distribution Width 15.8 % (11.5-14.5); White Blood Count 6.8 K/mm3 (4.5-10.0)
[2021-07-20 19:08] LABS: NT Pro B Type Natriuretic Pept 182 pg/mL (5-100)
[2021-07-20 19:15] LABS: Anion Gap 4 mmol/L (8-16); Blood Urea Nitrogen 20 mg/dL (9-20); Calcium 8.1 mg/dL (8.4-10.2); Carbon Dioxide 33 mmol/L (22-30); Chloride 98 mmol/L (98-107); Estimated CRCL calculation 80 ml/min; Estimated Glomerular Filt Rate 60; Glucose 96 mg/dL (65-110); Lipase 71 U/L (23-300); Potassium 4.5 mmol/L (3.4-5.0); Sodium 135 mmol/L (137-145)
--- NOTE | 2021-07-20 20:12 | PCRCNOTE ---
RT given education to pt on putting himself on/off hospital BIPAP as he see fit. RT was called to pt room due to desaturation. Pt had BIPAP on, oxygen was not connected to wall oxygen supply PT saturation was 73%, pt receiving a breathing TX now, on 6 liters NC, SP02 94%.
[2021-07-20] MEDS: guaiFENesin 12 HR 600 MG TABCR 1200 MG PO (21:11)
[2021-07-20] MEDS: SENNA/DOCUSATE SODIUM TABLET 1 TAB PO (21:12)
[2021-07-20] MEDS: TAMSULOSIN HCL 0.4 MG CAPSULE PO (21:13)
[2021-07-20] MEDS: ALBUTEROL SULFATE NEB 2.5 MG/0.5 ML INH INHALATION (21:45)
[2021-07-21] VITALS (31 sets, daily range): BP systolic 94–125; BP diastolic 27–75; PULSE 74–109; RESP 16–38; TEMP 36.4–36.7; O2SAT 80–99
[2021-07-21] MEDS: IPRATROPIUM BR 0.02% INH SOLN 0.5 MG/2.5 ML VIAL INHALATION ×4 (01:10→12:13)
[2021-07-21] MEDS: ALBUTEROL SULFATE NEB 2.5 MG/0.5 ML INH INHALATION ×4 (01:10→12:12)
[2021-07-21 06:12] LABS: Hematocrit 33.9 % (42.0-52.0); Hemoglobin 9.8 g/dL (14.0-18.0); Mean Corpuscular HGB Conc 28.9 g/dl (32-36); Mean Corpuscular Hemoglobin 25.4 pg (26-34); Mean Corpuscular Volume 87.8 fl (80-100); Mean Platelet Volume 9.3 fl (7.4-10.4); Platelet Count Result 159 k/mm3 (150-375); Red Blood Count 3.86 M/mm3 (4.6-6.20); Red Cell Distribution Width 15.5 % (11.5-14.5); White Blood Count 4.7 K/mm3 (4.5-10.0)
[2021-07-21 06:29] LABS: Anion Gap 1 mmol/L (8-16); Blood Urea Nitrogen 18 mg/dL (9-20); Calcium 7.7 mg/dL (8.4-10.2); Carbon Dioxide 34 mmol/L (22-30); Chloride 100 mmol/L (98-107); Estimated CRCL calculation 95 ml/min; Estimated Glomerular Filt Rate > 60; Glucose 93 mg/dL (65-110); Potassium 3.8 mmol/L (3.4-5.0); Sodium 135 mmol/L (137-145)
[2021-07-21 06:35] LABS: NT Pro B Type Natriuretic Pept 171 pg/mL (5-100)
[2021-07-21] MEDS: BUDESONIDE RESPULE NEB 0.5 MG/2 ML AMP INHALATION (08:07)
[2021-07-21] MEDS: FUROSEMIDE 20 MG TABLET PO (09:13)
[2021-07-21] MEDS: APIXABAN 5 MG TABLET PO (09:13)
[2021-07-21] MEDS: FUROSEMIDE 40 MG TABLET PO ×2 (09:13→16:55)
[2021-07-21] MEDS: METOPROLOL TARTRATE 25 MG TABLET PO (09:13)
[2021-07-21] MEDS: guaiFENesin 12 HR 600 MG TABCR 1200 MG PO (09:13)
[2021-07-21] MEDS: PANTOPRAZOLE 40 MG TABLET PO (09:14)
[2021-07-21] MEDS: TRIAMCINOLONE ACET 0.1% CREAM 15 GM TUBE 1 APPLIC TOPICAL ×2 (09:14→16:55)
[2021-07-21] MEDS: polyethylene glycoL 3350 17 GM POWD.PACK PO (09:14)
[2021-07-21] MEDS: POTASSIUM CHLORIDE 20 MEQ TABLET.ER PO (09:14)
--- NOTE | 2021-07-21 09:58 | PM.CNPUL ---
Assessment and Plan Assessment and plan (1) ELIZABETH and COPD overlap syndrome: Code(s): G47.33 - Obstructive sleep apnea (adult) (pediatric); J44.9 - Chronic obstructive pulmonary disease, unspecified Status: Acute Assessment and Plan: Patient is a 65-year-old with morbid obesity and COPD with chronic hypercarbic and hypoxemic respiratory failure on 4 L nasal cannula oxygen at home with rest and 6 L with ambulation and a trilogy noninvasive ventilator at night with 10 L nasal cannula. Patient has moderate to severe panlobular emphysema on his CT scan of the chest from 06/05/2020 and 07/20/21. His echocardiogram from 10/06/2020 shows mildly reduced LV EF at 50%, grade 1 diastolic dysfunction mildly enlarged right ventricle with reduced right ventricular function and a right ventricular systolic pressure of 46 measured on 10/15/2019. patient is maintained on nebulizers of albuterol, ipratropium and budesonide. Patient also takes Daliresp. Patient has chronic dyspnea on exertion and states he can walk 60 yd to his mailbox but he desats with that. Patient's DME company is [employer]. Currently I do not feel the patient is having a COPD exacerbation, pneumonia, tracheobronchitis or fluid overload at this time I agree with continuing his current home medical regimen of budesonide 0.5 mg nebulized q.12 hours, albuterol 2.5 mg nebs q.6 hours and ipratropium 0.5 mg nebs Q 6 hours. Patient did also continue his dowel arrest 500 mg q.day. Patient is requiring more oxygen currently and this may be related to his abdominal process with splinting and atelectasis that was seen on his CT scan. I will attempt to obtain a download from his [employer] company in order to try to replicate his current home noninvasive ventilation settings. AVAPS at a rate of 20, tidal volume 500, EPAP of 8, inspiratory pressure minimum 9, inspiratory pressure maximum 25 and 80% and he says that this feels much closer to his home unit. History of Present Illness History of Present Illness Consult date: 07/21/21 Reason for consult: COPD Chief complaint: COPD Exacerbation Narrative: This is a new Pulmonary consult for COPD Patient is a 65-year-old with morbid obesity and COPD with chronic hypercarbic and hypoxemic respiratory failure on 4 L nasal cannula oxygen at home with rest and 6 L with ambulation and a trilogy noninvasive ventilator at night with 10 L nasal cannula. Patient has moderate to severe panlobular emphysema on his CT scan of the chest from 06/05/2020 and 07/20/21. His echocardiogram from 10/06/2020 shows mildly reduced LV EF at 50%, grade 1 diastolic dysfunction mildly enlarged right ventricle with reduced right ventricular function and a right ventricular systolic pressure of 46 measured on 10/15/2019. patient is maintained on nebulizers of albuterol, ipratropium and budesonide. Patient also takes Daliresp. Patient has chronic dyspnea on exertion and states he can walk 60 yd to his mailbox but he desats with that. Patient's [employer] company is [employer]. Patient was started on his trilogy noninvasive ventilation in January of 2021 after having 6 admissions in 9 months. Since starting his noninvasive ventilation he had 1 admission recently from 06/30 2 For COPD exacerbation was treated with bronchodilators and steroids. Patient was discharged and finished his steroids on 07/18/21. Approximately 819 patient developed abdominal pain, bloating and presented to the emergency department on 07/19 With these complaints. Patient tells me that he had no fever, some chills, no chest pain, no change in his chronic loose and clear phlegm as he describes it. He has had some shortness of breath rate related to belly pain but no chest pains and no hemoptysis. Patient was admitted and empirically placed on BiPAP with a rate of 10 and pressure is 24/8 with 80% last night. 07/21 Today the patient tells me that he is breathing back at his baseline other than more dys
--- NOTE | 2021-07-21 10:02 | WPDGICN ---
Assessment and Plan Assessment and plan (1) Epigastric pain: Code(s): R10.13 - Epigastric pain Status: Acute Assessment and Plan: he was quite symptomatic last few days but slowly feeling better will proceed with egd to assess if esophagitis, ulcers, etc on ppi for now (2) Nausea: Code(s): R11.0 - Nausea Status: Acute Assessment and Plan: improved, antiemetics prn (3) Acute exacerbation of chronic obstructive pulmonary disease: Code(s): J44.1 - Chronic obstructive pulmonary disease with (acute) exacerbation Status: Acute Assessment and Plan: requiring oxygen at home, continue with inhalers by primary team (4) Chronic respiratory failure with hypoxia and hypercapnia: Code(s): J96.11 - Chronic respiratory failure with hypoxia; J96.12 - Chronic respiratory failure with hypercapnia Status: Acute (5) Constipation: Code(s): K59.00 - Constipation, unspecified Status: Acute Assessment and Plan: chronic (6) Pancreatic calcification: Code(s): K86.89 - Other specified diseases of pancreas Status: Acute Assessment and Plan: incidental finding of calcification in pancreas- ? 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 He was just discharged from the hospital with COPD exacerbation. He came back to ER with 6 days of progressive nausea, dry heaving, symptomatic reflux with abdominal distention unable to eat due to worsening heartburn and epigastric pain. He used mylanta at home, also he has been on protonix and never had EGD. Last colonoscopy 4-5 years ago with polyp, chronic constipation on miralax. Also states that he has not been able to pass gas. CT of abdomen and pelvis reviewed that showed cholelithiasis and chronic pancreatitis, 5.0 cm hemorrhagic cyst in right kidney, 2.7 cm left adrenal adenoma and severe emphysema. He says that dyspepsia and nausea better. Liver enzymes and lipase normal. Review of Systems Constitutional: Constitutional: Denies chills Eyes: Eyes: Reports no additional eye complaints ENT: Reports Normal hearing present Cardiovascular: Cardiovascular: Denies chest pain Respiratory: Respiratory: Reports dyspnea on exertion (baseline) Gastrointestinal: Gastrointestinal: Reports abdominal pain and Reports nausea Genitourinary: Genitourinary: Denies dysuria Musculoskeletal: Musculoskeletal: Denies neck pain Integumentary/Breasts: Skin/Breast: Denies dry skin Neurologic: Denies confusion Psychiatric: Psychiatric: Reports no additional psychiatric complaints [facility] Past Medical History Medical History (Updated 07/21/21 @ 15:57 by Derek Askew MD) Acute and chronic respiratory failure Acute on chronic respiratory failure with hypoxia and hypercapnia On chronic home O2 of 3 L nasal cannula. History of prior intubation October 2018 Anxiety Arthritis Atrial flutter Paroxysmal AFib with cardioversion April 2013 and October 23, 2019 BPH (benign prostatic hyperplasia) Bronchitis CHF (congestive heart failure) Last echocardiogram EF was 55% prior echocardiogram previous year demonstrated borderline left ventricular systolic function and diastolic dysfunction grade 1 Chronic constipation COPD (chronic obstructive pulmonary disease) Dependence on continuous supplemental oxygen Emphysema, unspecified Epigastric pain GI bleed History of cardioversion History of tobacco abuse Hypertension Hypertensive CHF Morbid obesity with BMI of 45.0-49.9, adult Nausea ELIZABETH and COPD overlap syndrome Pancreatic calcification Pneumonia Psoriasis Pulmonary hypertension RVSP 59 on echo from July 2019 Rectal bleeding Sleep apnea Home BiP
--- NOTE | 2021-07-21 12:45 | PC.NURSE ---
To GI Lab per LURDES cole none. Report given to RN.
--- NOTE | 2021-07-21 12:50 | WPDANESEPPF ---
Anes - Initial Pre Proc Eval Procedure: Operation Date: 07/21/21 14:00 Proposed Procedures p Esophagogastroduodenoscopy - Derek Askew MD Date/Time: 07/21/21 12:50 Pre Op Diagnosis: COPD Exacerbation Patient Data Age: 66 Gender: M Height: 1.83 m Weight: 149.1 kg Last Vital Signs Temp 36.7 C 07/21/21 06:00 Pulse 90 07/21/21 12:27 Resp 16 07/21/21 12:27 BP 98/27 L 07/21/21 06:00 Pulse Ox 99 07/21/21 08:00 Allergies Allergy/AdvReac Type Severity Reaction Status Date / Time No Known Allergies Allergy Verified 07/20/21 18:00 Home Medications Medication Instructions Recorded Confirmed Type Multaq 400 mg PO BIDWM 10/15/19 07/20/21 History polyethylene glycol 3350 [Miralax] 17 g PO DAILY 10/16/19 07/20/21 History roflumilast 500 mcg tablet 500 mcg PO DAILY 30 Days #30 tablet 04/07/20 07/20/21 Rx Eliquis 5 mg PO BID 06/02/20 07/20/21 History metoprolol tartrate 25 mg PO Q12H 01/21/21 07/20/21 History pantoprazole 40 mg tablet,delayed 40 mg PO QAM #90 tablet 02/05/21 07/20/21 Rx release budesonide 0.5 mg/2 mL suspension 0.5 mg INHALATION Q12H #180 ml 03/02/21 07/20/21 Rx for nebulization furosemide 20 mg tablet 20 mg PO QAM #90 tablet 03/04/21 07/20/21 Rx furosemide 40 mg tablet 40 mg PO BID #180 tablet 03/04/21 07/20/21 Rx ipratropium bromide 0.02 % 2.5 ml INHALATION Q4-6H PRN #150 ml 03/05/21 07/20/21 Rx solution for inhalation albuterol sulfate 2.5 mg INHALATION Q4-6H PRN #1300 03/18/21 07/20/21 Rx ml tamsulosin 0.4 mg capsule 0.4 mg PO HS #90 cap 04/05/21 07/20/21 Rx potassium chloride 20 mEq 20 meq PO DAILY #90 tablet 06/28/21 07/20/21 Rx tablet,extended release triamcinolone acetonide 0.1 % 1 applic TOPICAL BID #80 g 07/05/21 07/20/21 Rx topical cream Laboratory Tests 07/20/21 07/20/21 07/20/21 18:36 18:36 18:36 WBC 6.8 K/mm3 K/mm3 (4.5-10.0) RBC 4.30 M/mm3 L M/mm3 (4.6-6.20) Hgb 11.0 g/dL L g/dL (14.0-18.0) Hct 37.5 % L % (42.0-52.0) MCV 87.2 fl fl (80-100) MCH 25.6 pg L pg (26-34) MCHC 29.3 g/dl L g/dl (32-36) RDW 15.8 % H % (11.5-14.5) Plt Count 183 k/mm3 k/mm3 (150-375) MPV 9.1 fl fl (7.4-10.4) Sodium 135 mmol/L L mmol/L (137-145) Potassium 4.5 mmol/L mmol/L (3.4-5.0) Chloride 98 mmol/L mmol/L (98-107) Carbon Dioxide 33 mmol/L H mmol/L (22-30) Anion Gap 4 mmol/L L mmol/L (8-16) BUN 20 mg/dL mg/dL (9-20) Creatinine 1.20 mg/dL mg/dL (0.7-1.3) Estim Creat Clear Calc 80 ml/min ml/min Estimated GFR 60 (59 - ) Glucose 96 mg/dL mg/dL (65-110) Calcium 8.1 mg/dL L mg/dL (8.4-10.2) NT-Pro-B Natriuret Pep 182 pg/mL H pg/mL (5-100) Lipase 71 U/L U/L (23-300) 07/21/21 07/21/21 05:53 05:53 WBC 4.7 K/mm3 K/mm3 (4.5-10.0) RBC 3.86 M/mm3 L M/mm3 (4.6-6.20) Hgb 9.8 g/dL L g/dL (14.0-18.0) Hct 33.9 % L % (42.0-52.0) MCV 87.8 fl fl (80-100) MCH 25.4 pg L pg (26-34) MCHC 28.9 g/dl L g/dl (32-36) RDW 15.5 % H % (11.5-14.5) Plt Count 159 k/mm3 k/mm3 (150-375) MPV 9.3 fl fl (7.4-10.4) Sodium 135 mmol/L L mmol/L (137-145) Potassium 3.8 mmol/L mmol/L (3.4-5.0) Chloride 100 mmol/L mmol/L (98-107) Carbon Dioxide 34 mmol/L H mmol/L (22-30) Anion Gap 1 mmol/L L mmol/L (8-16) BUN 18 mg/dL mg/dL (9-20) Creatinine 1.00 mg/dL mg/dL (0.7-1.3) Estim Creat Clear Calc 95 ml/min ml/min Estimated GFR > 60 (59 - ) Glucose 93 mg/dL mg/dL (65-110) Calcium 7.7 mg/dL L mg/dL (8.4-10.2) NT-Pro-B Natriuret Pep 171 pg/mL H pg/mL (5-100) Lipase Patient hx anesthesia problems: none Family hx anesthesia probl
[2021-07-21] MEDS: LACTATED RINGERS 1,000 ML 150 ML IV CONT (13:02)
--- NOTE | 2021-07-21 13:04 | SUR.PREOP ---
PT ARRIVED INTO ENDOSCOPY ON 4L/NC, 02 SATS 75%. PT CAME UP TO 84% OXYGEN WITH DEEP BREATHS. DR LEUNG AT BEDSIDE AND AWARE. SIMPLE MASK AT 10L APPLIED, PT 91%. DR LEUNG AWARE, NO NEW ORDERS. PT AWAKE, ALERT, TALKING X3 AT ALL TIMES.
[2021-07-21] MEDS: BENZOCAINE (*SP) 60 ML SPRAY CAN (HURRICAINE) 1 SPRAY MUCOUS MEM (14:13)
--- NOTE | 2021-07-21 14:19 | PCPTNOTE ---
Unable to complete eval due to pt out for a procedure.
--- NOTE | 2021-07-21 15:00 | PC.NURSE ---
Returned from GI Lab. Report received from MADELEINE.
--- NOTE | 2021-07-21 15:53 | PCRCNOTE ---
Home Oxygen Evaluation RC: Home Oxygen (O2) Evaluation Start: 07/21/21 10:19 Freq: ONCE Status: Active Protocol: RPE Activity Type Activity Date Activity User E-Sign Co-Sign Detail Recorded Client Recorded Date Recorded By Document 07/21/21 15:21 [facility] [email or web address] 07/21/21 15:51 [facility] Document 07/21/21 15:22 [facility] [email or web address] 07/21/21 15:51 [place] Document 07/21/21 15:23 [facility] [email or web address] 07/21/21 15:51 [place] Document 07/21/21 15:24 [facility] [email or web address] 07/21/21 15:51 [place] Document 07/21/21 15:25 [facility] [email or web address] 07/21/21 15:51 [place] Document 07/21/21 15:26 [facility] [email or web address] 07/21/21 15:51 [facility] Document 07/21/21 15:27 [facility] [email or web address] 07/21/21 15:51 [facility] Document 07/21/21 15:28 [facility] [email or web address] 07/21/21 15:51 [facility] Document 07/21/21 15:30 [facility] [email or web address] 07/21/21 15:51 [facility] Document 07/21/21 15:31 [facility] [email or web address] 07/21/21 15:51 [facility] Document 07/21/21 15:32 [facility] [email or web address] 07/21/21 15:51 [facility] Document 07/21/21 15:33 [facility] [email or web address] 07/21/21 15:51 [facility] Document 07/21/21 15:35 [facility] [email or web address] 07/21/21 15:51 [facility] 07/21/21 07/21/21 07/21/21 15:21 15:22 15:23 Home O2 Evaluation Test Phase Resting Resting Resting Oxygen Delivery Room Air Nasal Cannula Nasal Cannula Oxygen Flow Rate (L/min) 1 2 Pulse Oximetry (90-100 %) 80 L 81 L 82 L Pulse Rate (60-100 beats/min) 98 102 H 102 H Activity Tolerance Good Good Good Rating of Perceived Dyspnea (PD) +2 Mild, Some +2 Mild, Some +2 Mild, Some Difficulty, Difficulty, Difficulty, Noticeable to Noticeable to Noticeable to the Observer the Observer the Observer Ambulation Distance (feet) 0 0 0 Treatment Charges O2 Evaluation - Inpatient 07/21/21 07/21/21 07/21/21 15:24 15:25 15:26 Home O2 Evaluation Test Phase Resting Resting Resting Oxygen Delivery Nasal Cannula Nasal Cannula Nasal Cannula Oxygen Flow Rate (L/min) 3 4 5 Pulse Oximetry (90-100 %) 85 L 87 L 88 L Pulse Rate (60-100 beats/min) 100 102 H 102 H Activity Tolerance Good Good Good Rating of Perceived Dyspnea (PD) +2 Mild, Some +2 Mild, Some +2 Mild, Some Difficulty, Difficulty, Difficulty, Noticeable to Noticeable to Noticeable to the Observer the Observer the Observer Ambulation Distance (feet) 0 Treatment Charges 07/21/21 07/21/21 07/21/21 15:27 15:28 15:30 Home O2 Evaluation Test Phase Exercise Exercise Exercise Oxygen Delivery Nasal Cannula Nasal Cannula Oxymizer Oxygen Flow Rate (L/min) 5 6 7 Pulse Oximetry (90-100 %) 86 L 87 L 89 L Pulse Rate (60-100 beats/min) 109 H 99 94 Activity Tolerance Good Good Good Rating of Perceived Dyspnea (PD) +2 Mild, Some +3 Moderate +3 Moderate Difficulty, Difficulty, But Difficulty, But Noticeable to Can Continue Can Continue the Observer Ambulation Distance (feet) 10 15 25 Treatment Charges 07/21/21 07/21/21 07/21/21 15:31 15:32 15:33 Home O2 Evaluation Test Phase Exercise Resting Resting Oxygen Delivery Oxymizer Oxymizer Oxymizer Oxygen Flow Rate (L/min) 7 7 6 Pulse Oximetry (90-100 %) 89 L 92 90 Pulse Rate (60-100 beats/min) 95 97 98 Activity Tolerance Good Good Good Rating of Perceived Dyspnea (PD) +3 Moderate +2 Mild, Some +2 Mild, Some Difficulty, But Difficulty, Difficulty, Can Continue Noticeable to Noticeable to the Observer the Observer Ambulation Distance (feet) 35 Treatment Charges 07/21/21 15:35 Home O2 Evaluation Test Phase Resting Oxygen Delivery Oxymizer Oxygen Flow Rate (L/min) 5 Pulse Oximetry (90-100 %) 90 Pulse Rate (60-100 beats/min) 99 Activity Tolerance Good Rating of Perceived Dyspnea (PD) +2 Mild, Some Difficulty, Noticeable to the Observer Ambulation Distance (feet) Treatment Charges
--- NOTE | 2021-07-21 15:53 | PCRCNOTE ---
Patient requires an increase in O2 needs. Patient requires 5 liters of oxygen at rest, and 7 liters of oxygen with activity. Via oxymizer
--- NOTE | 2021-07-21 16:53 | PM.DS ---
DS: Admitting Diagnosis Admitting Diagnosis abdominal pain DS: Discharge Diagnosis Discharge Diagnosis (1) Abdominal pain: Qualifiers: Abdominal location: generalized Qualified Code(s): R10.84 - Generalized abdominal pain Code(s): R10.9 - Unspecified abdominal pain Status: Acute Assessment and Plan: Could be due to chronic pancreatitis since pt states he had this pain on and off in the past but never this intense. -ddx could also include gallstone as the pt does have gallstones in his gallbladder which did not look to be acutely infected. No signs of choledocholithiasis on exam, imaging or labs. -Another ddx could be due to recent use of steroids -Pt underwent an EGD with appeared normal with no obvious gastritis -Pain resolved day of discharge (2) ELIZABETH and COPD overlap syndrome: Code(s): G47.33 - Obstructive sleep apnea (adult) (pediatric); J44.9 - Chronic obstructive pulmonary disease, unspecified Status: Acute Assessment and Plan: continue home trilogy (3) Supplemental oxygen dependent: Code(s): Z99.81 - Dependence on supplemental oxygen Status: Acute Assessment and Plan: Continue supplemental oxygen Patient requires 5 at rest and 7 with exertion (4) Constipation: Code(s): K59.00 - Constipation, unspecified Status: Acute Assessment and Plan: Continue PRN medications (5) BPH (benign prostatic hyperplasia): Code(s): N40.0 - Benign prostatic hyperplasia without lower urinary tract symptoms Status: Acute Assessment and Plan: Continue tamsulosin (6) Morbid obesity: Code(s): E66.01 - Morbid (severe) obesity due to excess calories Status: Acute Assessment and Plan: Lifestyle and diet modification Calorie restricted carb consistent diet, heart healthy diet (7) Atrial fibrillation with RVR: Code(s): I48.91 - Unspecified atrial fibrillation Status: Acute Assessment and Plan: Rate controlled anticoagulated (8) Hypertension: Qualifiers: Hypertension type: essential hypertension Qualified Code(s): I10 - Essential (primary) hypertension Code(s): I10 - Essential (primary) hypertension Status: Chronic Assessment and Plan: last bp 125/75 -continue lasix and meoprolol (9) Chronic respiratory failure with hypoxia and hypercapnia: Code(s): J96.11 - Chronic respiratory failure with hypoxia; J96.12 - Chronic respiratory failure with hypercapnia Status: Acute Assessment and Plan: As above -continue o2 at 5L at rest and 7L -continue home medications (10) COPD without exacerbation: Code(s): J44.9 - Chronic obstructive pulmonary disease, unspecified Status: Acute Assessment and Plan: No evidence of exacerbation -chronic end stage disease -pulmonology consulted, no changes (11) Chronic diastolic HF (heart failure): Code(s): I50.32 - Chronic diastolic (congestive) heart failure Status: Acute Assessment and Plan: Appears euvolemic -no CP -continue home lasix DS: Summary Hospital Course Hospital Course: Date of service July 21, 2021 Pt is a 66 y/o male who presented to the ED for abdominal pain. CBC WBC 7.6, hgb 11.8, hct 39.7, platelets 189. AST and ALT WNL, total bilirubin 0.6. CT abdomen pelvis showed cholelithiasis without evidence of acute cholecystitis or choledocholithiasis, chronic pancreatitis, adrenal mass as well as a right lower pole renal mass. Patient was admitted to the hospitalist service and underwent an EGD which was negative. The pain resolved on its own. As for the adrenal adenoma, patient states he is not a surgical candidate and is unsure if he would want routine monitoring for this since it is stable since 2013. I agree. Pulmonology saw the patient during his hospitalization and 30 not seem to be any acut
[2021-07-21] MEDS: DRONEDARONE HCL 400 MG TABLET PO (16:54)
== END 2021-07-21 17:55 | disposition home or self-care (01) | DRG 190 ==
LOC: ANHED 19:12 → ANH2MED 07-20 00:22 → ANH3MEDSUR 07-20 19:38 → ANH2MED 07-22 14:25 → ANH3MEDSUR 07-22 14:25
PROVIDERS: Internal Medicine Gastroenterology; Nurse Practitioner; Admitting Provider Internal Medicine; Emergency Provider Emergency Medicine; PCP Family Medicine; Visit Provider Physician Assistant
PROC: 0DJ08ZZ Inspection of Upper Intestinal Tract, Via Natural or Artificial Opening Endoscopic (ICD-10-PCS; CPT 43235; principal; 2021-07-21 14:00)
DX: J43.9 Emphysema, unspecified (principal); J96.21 Acute and chronic respiratory failure with hypoxia; J96.22 Acute and chronic respiratory failure with hypercapnia; Z68.41 Body mass index [BMI] 40.0-44.9, adult; I50.32 Chronic diastolic (congestive) heart failure; G47.33 Obstructive sleep apnea (adult) (pediatric); D35.02 Benign neoplasm of left adrenal gland; I11.0 Hypertensive heart disease with heart failure; K21.9 Gastro-esophageal reflux disease without esophagitis; K30 Functional dyspepsia; R10.84 Generalized abdominal pain; K59.00 Constipation, unspecified; N40.0 Benign prostatic hyperplasia without lower urinary tract symptoms; E66.01 Morbid (severe) obesity due to excess calories; F41.9 Anxiety disorder, unspecified; M19.90 Unspecified osteoarthritis, unspecified site; I48.0 Paroxysmal atrial fibrillation; L40.9 Psoriasis, unspecified; K86.89 Other specified diseases of pancreas; Z99.81 Dependence on supplemental oxygen; Z87.891 Personal history of nicotine dependence
CPT/HCPCS: 36415; 71045; 71250; 74176; 74177; 80048; 80053; 81003; 83690; 83880; 85025; 85027; 87040; 88305; 94002; 94003; 94618; 94640; 96365; 96367; 97165; 99285; A9270; G0378; J0456; J0696; J2405; J2704; J7120; Q9967

== ENCOUNTER 2021-10-26 09:49 | Outpatient (CLI) | payer MEDICARE, SELFPAY ==
[2021-10-26 10:37] LABS: Basophils Percent Auto 0.5 % (0.2-1.2); Eosinophils Absolute Auto 0.1 K/mm3 (0-0.3); Eosinophils Percent Auto 1.6 % (0-4.4); Hematocrit 38.8 % (42.0-52.0); Hemoglobin 11.9 g/dL (14.0-18.0); Immature Granulocyte Absolute 0.04 K/mm3 (0.00-0.031); Immature Granulocyte Percent A 0.5 % (0-0.5); Lymphocytes Absolute Auto 1.17 K/mm3 (0.9-3.2); Lymphocytes Percent Auto 15.2 % (18.3-44.2); Mean Corpuscular HGB Conc 30.7 g/dl (32-36); Mean Corpuscular Hemoglobin 26.2 pg (26-34); Mean Corpuscular Volume 85.5 fl (80-100); Mean Platelet Volume 9.4 fl (7.4-10.4); Monocytes Absolute Auto 0.5 K/mm3 (0.1-0.6); Monocytes Percent Auto 5.9 % (2.6-8.5); Neutrophils Absolute Auto 5.9 K/mm3 (1.3-6.7); Neutrophils Percent Auto 76.3 % (45.5-73.1); Platelet Count Result 271 k/mm3 (150-375); Red Blood Count 4.54 M/mm3 (4.6-6.20); Red Cell Distribution Width 15.4 % (11.5-14.5); White Blood Count 7.7 K/mm3 (4.5-10.0)
[2021-10-26 10:48] LABS: Hemoglobin A1C 5.3 % (<5.7)
[2021-10-26 10:52] LABS: Alanine Aminotransferase 19 U/L (4-50); Albumin Level 4.3 g/dL (3.5-5.1); Alkaline Phosphatase 83 U/L (38-126); Anion Gap 5 mmol/L (8-16); Aspartate Amino Transferase 24 U/L (17-59); Bilirubin,Total 0.4 mg/dL (0.2-1.3); Blood Urea Nitrogen 23 mg/dL (9-20); Calcium 8.6 mg/dL (8.4-10.2); Carbon Dioxide 35 mmol/L (22-30); Chloride 98 mmol/L (98-107); Estimated Glomerular Filt Rate > 60; Glucose 98 mg/dL (65-110); Potassium 4.2 mmol/L (3.4-5.0); Sodium 138 mmol/L (137-145)
== END 2021-10-26 09:50 | disposition home or self-care (01) ==
PROVIDERS: PCP Family Medicine; Visit Provider Nurse Practitioner Family
DX: D64.9 Anemia, unspecified (principal); J44.1 Chronic obstructive pulmonary disease with (acute) exacerbation; I10 Essential (primary) hypertension; R73.01 Impaired fasting glucose
CPT/HCPCS: 36415; 80053; 83036; 85025

== ENCOUNTER 2021-11-10 00:09 | Day surgery (SDC) | payer MEDICARE, SELFPAY ==
[2021-10-29 13:10] VITALS: BMI 44.8
--- NOTE | 2021-11-09 09:04 | PM.HPGS ---
History of Present Illness History of Present Illness Consent: Risks, benefits, and alternatives have been discussed and questions answered. Patient agrees to proceed with procedure. Chief complaint: hx of colon polyps Narrative: Vimal Doty is a 66 year old male Who was referred for colon cancer screening. He has had polyps removed about 5 years ago . Review of Systems Review of Systems: All systems reviewed & are unremarkable except as noted in HPI and below PMFSH Past Medical History Medical History Acute and chronic respiratory failure Anxiety Arthritis Atrial flutter Paroxysmal AFib with cardioversion April 2013 and October 23, 2019 BPH (benign prostatic hyperplasia) Bronchitis CHF (congestive heart failure) Last echocardiogram EF was 55% prior echocardiogram previous year demonstrated borderline left ventricular systolic function and diastolic dysfunction grade 1 Chronic constipation COPD (chronic obstructive pulmonary disease) Dependence on continuous supplemental oxygen Emphysema, unspecified GI bleed History of cardioversion History of tobacco abuse Hypertension Hypertensive CHF Morbid obesity with BMI of 45.0-49.9, adult Nausea ELIZABETH and COPD overlap syndrome Pancreatic calcification Pneumonia Psoriasis Pulmonary hypertension RVSP 59 on echo from July 2019 Rectal bleeding Sleep apnea Home BiPAP 16/6 Supplemental oxygen dependent Surgical History Surgical History H/O arthroscopy of left knee History of tonsillectomy 1966 Hx of cardiac cath Left tibial fracture Family History Family History Mother Rheumatoid arthritis Psoriatic arthritis Breast cancer Hypertension Father Skin cancer With metastases to bone and brain Mother Family history of arthritis Family history of congestive heart failure Father Family history of malignant neoplasm of bone Other Diabetes mellitus Social History Social History Social History: The patient smoked 1.5 packs of cigarettes per day for 40 years but quit smoking in 2018. He used to drink alcohol in moderation but has not drank in some time. He denies any illicit substance use. He his and she eventually later. He has 1 son who he nominates to be the durable power attorney general for healthcare. The patient tells me he lives home alone. The patient is a full code. Smoking packs per day: 2 Smoking cigarettes per day: 40.0 Years smoked: 30 Smoking pack-years: 60.00 Smoking status: Former smoker Second hand tobacco smoke exposure: No Alcohol intake: never Substance use: never Substance use type: does not use Living arrangements: alone Additional occupation/education comments: Disabled Gender identity (if verbalized by the patient): Male Sexual Orientation (if Verbalized by the Patient): Straight or Heterosexual Spiritual care concerns: No Agree to blood products: Yes Meds Home Medications and Allergies Home Medications Medication Instructions Recorded Confirmed Type Multaq 400 mg PO BIDWM 10/15/19 11/10/21 History polyethylene glycol 3350 [Miralax] 17 g PO DAILY 10/16/19 11/10/21 History Eliquis 5 mg PO BID 06/02/20 11/10/21 History metoprolol tartrate 25 mg PO Q12H 01/21/21 11/10/21 History pantoprazole 40 mg tablet,delayed 40 mg PO QAM #90 tablet 02/05/21 11/10/21 Rx release furosemide 20 mg tablet 20 mg PO QAM #90 tablet 03/04/21 11/10/21 Rx furosemide 40 mg tablet 40 mg PO BID #180 tablet 03/04/21 11/10/21 Rx albuterol sulfate 2.5 mg INHALATION Q4-6H PRN #1300 03/18/21 11/10/21 Rx ml tamsulosin 0.4 mg capsule 0.4 mg PO HS #90 cap 04/05/21 11/10/21 Rx potassium chloride 20 mEq 20 meq PO DAILY #90 tablet 06/28/21 11/10/21 Rx tablet,extended release bud
[2021-11-10 06:25] VITALS: BP 118/71; PULSE 98; RESP 22; TEMP 37.6; O2SAT 96
[2021-11-10] MEDS: LACTATED RINGERS 1,000 ML 150 ML IV CONT (06:27)
--- NOTE | 2021-11-10 06:44 | WPDANESEPPF ---
Anes - Initial Pre Proc Eval Procedure: Operation Date: 11/10/21 07:30 Proposed Procedures p Screening Colonoscopy - Agus Arvizu MD Date/Time: 11/10/21 06:44 Surgeon: Agus Arvizu MD Pre Op Diagnosis: hx of colon polyps Patient Data Age: 66 Gender: M Height: 1.83 m Weight: 143.9 kg Last Vital Signs Temp 37.6 C 11/10/21 06:25 Pulse 98 11/10/21 06:25 Resp 22 H 11/10/21 06:25 BP 118/71 11/10/21 06:25 Pulse Ox 96 11/10/21 06:25 Allergies Allergy/AdvReac Type Severity Reaction Status Date / Time No Known Allergies Allergy Verified 11/10/21 06:23 Home Medications Medication Instructions Recorded Confirmed Type Multaq 400 mg PO BIDWM 10/15/19 11/10/21 History polyethylene glycol 3350 [Miralax] 17 g PO DAILY 10/16/19 11/10/21 History Eliquis 5 mg PO BID 06/02/20 11/10/21 History metoprolol tartrate 25 mg PO Q12H 01/21/21 11/10/21 History pantoprazole 40 mg tablet,delayed 40 mg PO QAM #90 tablet 02/05/21 11/10/21 Rx release furosemide 20 mg tablet 20 mg PO QAM #90 tablet 03/04/21 11/10/21 Rx furosemide 40 mg tablet 40 mg PO BID #180 tablet 03/04/21 11/10/21 Rx albuterol sulfate 2.5 mg INHALATION Q4-6H PRN #1300 03/18/21 11/10/21 Rx ml tamsulosin 0.4 mg capsule 0.4 mg PO HS #90 cap 04/05/21 11/10/21 Rx potassium chloride 20 mEq 20 meq PO DAILY #90 tablet 06/28/21 11/10/21 Rx tablet,extended release budesonide 0.5 mg/2 mL suspension 0.5 mg INHALATION Q12H #180 ml 08/27/21 11/10/21 Rx for nebulization triamcinolone acetonide 0.1 % 1 applic TOPICAL BID #80 g 10/29/21 11/10/21 Rx topical cream Patient hx anesthesia problems: none Family hx anesthesia problems: none Results Review: All pre-operative results and documents have been reviewed as part of the pre-operative evaluation. [facility] Past Medical History Medical History Acute and chronic respiratory failure Anxiety Arthritis Atrial flutter Paroxysmal AFib with cardioversion April 2013 and October 23, 2019 BPH (benign prostatic hyperplasia) Bronchitis CHF (congestive heart failure) Last echocardiogram EF was 55% prior echocardiogram previous year demonstrated borderline left ventricular systolic function and diastolic dysfunction grade 1 Chronic constipation COPD (chronic obstructive pulmonary disease) Dependence on continuous supplemental oxygen Emphysema, unspecified GI bleed History of cardioversion History of tobacco abuse Hypertension Hypertensive CHF Morbid obesity with BMI of 45.0-49.9, adult Nausea ELIZABETH and COPD overlap syndrome Pancreatic calcification Pneumonia Psoriasis Pulmonary hypertension RVSP 59 on echo from July 2019 Rectal bleeding Sleep apnea Home BiPAP 16/ Supplemental oxygen dependent Surgical History Surgical History H/O arthroscopy of left knee History of tonsillectomy 1966 Hx of cardiac cath Left tibial fracture Family History Family History Mother Rheumatoid arthritis Psoriatic arthritis Breast cancer Hypertension Father Skin cancer With metastases to bone and brain Mother Family history of arthritis Family history of congestive heart failure Father Family history of malignant neoplasm of bone Other Diabetes mellitus Social History Social History Social History: The patient smoked 1.5 packs of cigarettes per day for 40 years but quit smoking in 2018. He used to drink alcohol in moderation but has not drank in some time. He denies any illicit substance use. He his and she eventually later. He has 1 son who he nominates to be the durable power ip technology transactions attorney for healthcare. The patient tells me he lives home alone. The patient is a full code. Smoking packs per day: 2 Smoking cigarettes per day: 40.0 Ye
[2021-11-10 07:46] VITALS: BP 128/107; PULSE 88; RESP 20; O2SAT 90
[2021-11-10 07:56] VITALS: BP 125/71; PULSE 90; RESP 22; O2SAT 90
[2021-11-10 08:06] VITALS: BP 122/80; PULSE 88; RESP 22; O2SAT 90
== END 2021-11-10 08:24 | disposition home or self-care (01) ==
PROVIDERS: PCP Family Medicine; Visit Provider Internal Medicine Gastroenterology
PROC: 0DJD8ZZ Inspection of Lower Intestinal Tract, Via Natural or Artificial Opening Endoscopic (ICD-10-PCS; CPT 45378; principal; 2021-11-10 07:30)
DX: Z12.11 Encounter for screening for malignant neoplasm of colon (principal); D12.2 Benign neoplasm of ascending colon; K57.30 Diverticulosis of large intestine without perforation or abscess without bleeding; K64.8 Other hemorrhoids; I48.0 Paroxysmal atrial fibrillation; I11.0 Hypertensive heart disease with heart failure; I50.9 Heart failure, unspecified; I27.20 Pulmonary hypertension, unspecified; J44.9 Chronic obstructive pulmonary disease, unspecified; N40.0 Benign prostatic hyperplasia without lower urinary tract symptoms; M19.90 Unspecified osteoarthritis, unspecified site; G47.33 Obstructive sleep apnea (adult) (pediatric); F41.9 Anxiety disorder, unspecified; Z99.81 Dependence on supplemental oxygen; Z79.01 Long term (current) use of anticoagulants; Z87.891 Personal history of nicotine dependence
CPT/HCPCS: 45385; 88305; J2704; J7120

== ENCOUNTER 2022-01-25 09:06 | Outpatient (CLI) | payer MEDICARE, SELFPAY ==
[2022-01-25 09:44] LABS: Alanine Aminotransferase 17 U/L (4-50); Albumin Level 3.9 g/dL (3.5-5.1); Alkaline Phosphatase 80 U/L (38-126); Anion Gap 3 mmol/L (8-16); Aspartate Amino Transferase 21 U/L (17-59); Bilirubin,Total 0.2 mg/dL (0.2-1.3); Blood Urea Nitrogen 24 mg/dL (9-20); Calcium 8.1 mg/dL (8.4-10.2); Carbon Dioxide 36 mmol/L (22-30); Chloride 104 mmol/L (98-107); Estimated Glomerular Filt Rate > 60; Glucose 100 mg/dL (65-110); Potassium 4.6 mmol/L (3.4-5.0); Sodium 143 mmol/L (137-145)
== END 2022-01-25 09:07 | disposition home or self-care (01) ==
PROVIDERS: PCP Family Medicine; Visit Provider Nurse Practitioner Family
DX: I11.0 Hypertensive heart disease with heart failure (principal); I50.32 Chronic diastolic (congestive) heart failure
CPT/HCPCS: 36415; 80053

== ENCOUNTER 2022-06-22 07:19 | Outpatient (CLI) | payer MEDICARE, SELFPAY ==
[2022-06-22 08:05] LABS: Basophils Absolute Auto 0.1 K/mm3 (0.0-0.1); Basophils Percent Auto 0.7 % (0.2-1.2); Eosinophils Absolute Auto 0.1 K/mm3 (0-0.3); Eosinophils Percent Auto 1.9 % (0-4.4); Hematocrit 39.1 % (42.0-52.0); Hemoglobin 11.2 g/dL (14.0-18.0); Immature Granulocyte Absolute 0.04 K/mm3 (0.00-0.031); Immature Granulocyte Percent A 0.6 % (0-0.5); Lymphocytes Absolute Auto 1.58 K/mm3 (0.9-3.2); Lymphocytes Percent Auto 21.9 % (18.3-44.2); Mean Corpuscular HGB Conc 28.6 g/dl (32-36); Mean Corpuscular Hemoglobin 25.2 pg (26-34); Mean Corpuscular Volume 87.9 fl (80-100); Mean Platelet Volume 9.9 fl (7.4-10.4); Monocytes Absolute Auto 0.5 K/mm3 (0.1-0.6); Monocytes Percent Auto 6.4 % (2.6-8.5); Neutrophils Absolute Auto 4.9 K/mm3 (1.3-6.7); Neutrophils Percent Auto 68.5 % (45.5-73.1); Platelet Count Result 247 k/mm3 (150-375); Red Blood Count 4.45 M/mm3 (4.6-6.20); Red Cell Distribution Width 15.9 % (11.5-14.5); White Blood Count 7.2 K/mm3 (4.5-10.0)
[2022-06-22 08:06] LABS: Alanine Aminotransferase 19 U/L (6-50); Alkaline Phosphatase 78 U/L (38-126); Anion Gap 6 mmol/L (8-16); Aspartate Amino Transferase 19 U/L (17-59); Bilirubin,Total 0.3 mg/dL (0.2-1.3); Blood Urea Nitrogen 28 mg/dL (9-20); Calcium 8.2 mg/dL (8.4-10.2); Carbon Dioxide 34 mmol/L (22-30); Chloride 101 mmol/L (98-107); Estimated Glomerular Filt Rate > 60; Glucose 107 mg/dL (65-110); Potassium 4.1 mmol/L (3.4-5.0); Sodium 141 mmol/L (137-145)
[2022-06-22 08:28] LABS: Hemoglobin A1C 5.7 % (<5.7)
[2022-06-22 09:19] LABS: Poikilocytosis 1+ (NORMAL)
[2022-06-22 09:21] LABS: Macrocytosis 1+ (NORMAL)
[2022-06-22 09:23] LABS: Anisocytosis 1+ (NORMAL); Platelet Estimate Adequate (Adequate)
== END 2022-06-22 07:20 | disposition home or self-care (01) ==
PROVIDERS: PCP Family Medicine; Referring Provider Internal Medicine Cardiovascular Disease; Visit Provider Nurse Practitioner Family
DX: R73.01 Impaired fasting glucose (principal); I50.32 Chronic diastolic (congestive) heart failure; J44.9 Chronic obstructive pulmonary disease, unspecified; D64.9 Anemia, unspecified
CPT/HCPCS: 36415; 80053; 83036; 85025

== ENCOUNTER 2022-09-27 10:10 | Outpatient (CLI) | payer MEDICARE, SELFPAY ==
--- NOTE | ~2022-09-27 | CT_ITS ---
EXAMINATION:CT lung screening DATE: 09/27/2022 10:35 INDICATION: Tobacco use. Smoker who quit 4 years ago with 40 pack year history. TECHNIQUE: Computed tomography (CT) of the chest was performed without intravenous contrast. Automate d exposure control and iterative reconstruction technique were employed. The dose-length product (DLP ) was 540.57 mGy-cm. COMPARISON: Chest CT 07/20/2021 FINDINGS: There is mild scarring at the lung apices. There is severe emphysema. There is mild atelect asis bilaterally. No pleural effusion. There is left ventricular enlargement of the heart. There are coronary artery calcifications. No pericardial effusion. There is a 2.6 cm mass in right adrenal glan d measuring low-attenuation, consistent with an adenoma. There are multiple old right rib deformities . There is mild thoracic spondylosis. There is a hemangioma in T4 vertebral body. IMPRESSION: 1. Lung-RADS category 2: Benign appearance or behavior. Continue annual screening with noncontrast lo w-dose chest CT in 12 months. Reviewed, dictated and finalized at location A. IMPRESSION: 1. Lung-RADS category 2: Benign appearance or behavior. Continue annual screeni ng with noncontrast low-dose chest CT in 12 months.
== END 2022-09-27 10:11 | disposition home or self-care (01) ==
PROVIDERS: PCP Family Medicine; Visit Provider Internal Medicine Critical Care Medicine
DX: Z12.2 Encounter for screening for malignant neoplasm of respiratory organs (principal); Z87.891 Personal history of nicotine dependence
CPT/HCPCS: 71271

== ENCOUNTER 2023-01-30 07:45 | Outpatient (CLI) | payer MEDICARE, SELFPAY ==
[2023-01-30 08:15] LABS: Basophils Absolute Auto 0.1 K/mm3 (0.0-0.1); Basophils Percent Auto 0.8 % (0.2-1.2); Eosinophils Absolute Auto 0.1 K/mm3 (0-0.3); Eosinophils Percent Auto 1.7 % (0-4.4); Hematocrit 40.6 % (42.0-52.0); Hemoglobin 11.5 g/dL (14.0-18.0); Immature Granulocyte Absolute 0.07 K/mm3 (0.00-0.031); Lymphocytes Absolute Auto 1.38 K/mm3 (0.9-3.2); Mean Corpuscular HGB Conc 28.3 g/dl (32-36); Mean Corpuscular Hemoglobin 25.2 pg (26-34); Mean Corpuscular Volume 88.8 fl (80-100); Mean Platelet Volume 9.6 fl (7.4-10.4); Monocytes Absolute Auto 0.5 K/mm3 (0.1-0.6); Monocytes Percent Auto 6.6 % (2.6-8.5); Neutrophils Absolute Auto 5.2 K/mm3 (1.3-6.7); Neutrophils Percent Auto 70.9 % (45.5-73.1); Platelet Count Result 273 k/mm3 (150-375); Red Blood Count 4.57 M/mm3 (4.6-6.20); Red Cell Distribution Width 15.6 % (11.5-14.5); White Blood Count 7.3 K/mm3 (4.5-10.0)
[2023-01-30 08:28] LABS: Alanine Aminotransferase 24 U/L (6-50); Albumin Level 4.1 g/dL (3.5-5.1); Alkaline Phosphatase 77 U/L (38-126); Anion Gap 4 mmol/L (8-16); Aspartate Amino Transferase 22 U/L (17-59); Bilirubin,Total 0.4 mg/dL (0.2-1.3); Blood Urea Nitrogen 28 mg/dL (9-20); Calcium 8.1 mg/dL (8.4-10.2); Carbon Dioxide 38 mmol/L (22-30); Chloride 101 mmol/L (98-107); Cholesterol 152 mg/dL (0-200); Estimated Glomerular Filt Rate > 60; Glucose 114 mg/dL (65-110); HDL Direct 31 mg/dL; Potassium 4.4 mmol/L (3.4-5.0); Sodium 143 mmol/L (137-145); Triglycerides 161 mg/dL (<150)
[2023-01-30 08:40] LABS: LDL Cholesterol Direct 98 mg/dL
[2023-01-30 08:54] LABS: Hypochromasia 1+ (NORMAL); Platelet Estimate Adequate (Adequate); Schistocytes None Seen (NORMAL)
[2023-01-30 08:58] LABS: Appearance Urine Turbid (Clear); Bacteria Urine None Seen /hpf; Bilirubin Urine Negative (Negative); Blood Urine Negative (Negative); Color Urine Yellow (Yellow); Glucose Urine UA Negative (Negative); Ketones Urine Trace mg/dL (Negative); Leukocyte Esterase Ur Trace LEU/UL (NEGATIVE); Need Manual Microscopic Reviewed; Nitrate Urine Negative (Negative); Non Pathogenic Casts 0-2; Protein Urine Trace mg/dL (Negative); Specific Grav Ur 1.025 (1.001-1.035); Squamous Epithelial Cell Urine None seen /hpf (Few); WBC Urine 0-5 /hpf (0-3); pH Urine 7.5 (5.0-9.0)
[2023-01-30 08:59] LABS: Add Urine Microscopic? YES
[2023-01-30 09:01] LABS: Prostate Specific Antigen 3.6 ng/mL (< OR = 4.0)
[2023-01-30 09:36] LABS: Folic Acid 15.9 ng/mL (2.76->20)
[2023-01-30 10:23] LABS: Iron 30 ug/dL (49-181)
[2023-01-30 11:07] LABS: Ferritin 8.79 ng/mL (11.1-264)
[2023-01-30 12:04] LABS: Hemoglobin A1C 5.6 % (<5.7)
[2023-01-30 15:44] LABS: Percent Iron Saturation 6 % (20-50)
== END 2023-01-30 07:46 | disposition home or self-care (01) ==
PROVIDERS: PCP Family Medicine; Visit Provider Physician Assistant
DX: R11.0 Nausea (principal); R10.84 Generalized abdominal pain; G47.33 Obstructive sleep apnea (adult) (pediatric); J44.9 Chronic obstructive pulmonary disease, unspecified; J96.11 Chronic respiratory failure with hypoxia; J96.12 Chronic respiratory failure with hypercapnia; R73.01 Impaired fasting glucose; D64.9 Anemia, unspecified; N40.0 Benign prostatic hyperplasia without lower urinary tract symptoms; L40.9 Psoriasis, unspecified; I50.32 Chronic diastolic (congestive) heart failure
CPT/HCPCS: 36415; 80053; 80061; 81001; 82607; 82728; 82746; 83036; 83540; 83550; 84153; 84443; 85025

== ENCOUNTER 2023-10-02 12:54 | Outpatient (CLI) | payer MEDICARE, SELFPAY ==
--- NOTE | ~2023-10-02 | CT_ITS ---
EXAMINATION: CT lung screening DATE: 10/02/2023 13:18 INDICATION: Personal history of nicotine dependence, prior smoker with 66 pack year history TECHNIQUE: Computed tomography (CT) of the chest was performed without intravenous contrast. The dose -length product (DLP) was 581.03 mGy-cm. Automated exposure control and iterative reconstruction tech Sarata were employed. COMPARISON: 09/27/2022 FINDINGS: There is severe emphysema. There is mild atelectasis. No suspicious pulmonary nodules are i dentified. No pleural effusion or pneumothorax. There is calcified coronary artery atherosclerosis. N o pathologically enlarged thoracic lymph nodes are identified. The heart size is normal. There is sta ble 2.6 cm mass of the right adrenal gland, likely an adenoma. There is mild thoracic spondylosis. Ol d right-sided rib deformities are again noted. IMPRESSION: 1. Lung-RADS category 1: Negative. Continue annual screening with noncontrast low-dose chest CT in 12 months. Reviewed, dictated and finalized at location B. ME TAX ADVISOR IMPRESSION: 1. Lung-RADS category 1: Negative. Continue annual screening with noncontrast l ow-dose chest CT in 12 months.
== END 2023-10-02 12:55 | disposition home or self-care (01) ==
PROVIDERS: PCP Family Medicine; Visit Provider Physician Assistant
DX: Z12.2 Encounter for screening for malignant neoplasm of respiratory organs (principal); Z87.891 Personal history of nicotine dependence
CPT/HCPCS: 71271

== ENCOUNTER 2024-01-29 07:17 | Outpatient (CLI) | payer MEDICARE, SELFPAY ==
[2024-01-29 07:44] LABS: Basophils Percent Auto 0.5 % (0.2-1.2); Eosinophils Absolute Auto 0.1 K/mm3 (0-0.3); Eosinophils Percent Auto 1.7 % (0-4.4); Hematocrit 35.7 % (42.0-52.0); Hemoglobin 9.6 g/dL (14.0-18.0); Immature Granulocyte Absolute 0.05 K/mm3 (0.00-0.031); Immature Granulocyte Percent A 0.6 % (0-0.5); Lymphocytes Absolute Auto 1.23 K/mm3 (0.9-3.2); Lymphocytes Percent Auto 15.4 % (18.3-44.2); Mean Corpuscular HGB Conc 26.9 g/dl (32-36); Mean Corpuscular Hemoglobin 21.5 pg (26-34); Mean Platelet Volume 9.3 fl (7.4-10.4); Monocytes Absolute Auto 0.5 K/mm3 (0.1-0.6); Monocytes Percent Auto 6.7 % (2.6-8.5); Neutrophils Percent Auto 75.1 % (45.5-73.1); Platelet Count Result 261 k/mm3 (150-375); Red Blood Count 4.46 M/mm3 (4.6-6.20); Red Cell Distribution Width 17.4 % (11.5-14.5)
[2024-01-29 07:54] LABS: Alanine Aminotransferase 20 U/L (6-50); Albumin Level 3.9 g/dL (3.5-5.1); Alkaline Phosphatase 62 U/L (38-126); Anion Gap 5 mmol/L (8-16); Aspartate Amino Transferase 21 U/L (17-59); Bilirubin,Total 0.4 mg/dL (0.2-1.3); Blood Urea Nitrogen 26 mg/dL (9-20); Calcium 8.5 mg/dL (8.4-10.2); Carbon Dioxide 34 mmol/L (22-30); Chloride 102 mmol/L (98-107); Cholesterol 137 mg/dL (0-200); Estimated Glomerular Filt Rate > 60; Glucose 106 mg/dL (65-110); HDL Direct 36 mg/dL; Potassium 4.3 mmol/L (3.4-5.0); Sodium 141 mmol/L (137-145); Triglycerides 128 mg/dL (<150)
[2024-01-29 08:04] LABS: LDL Cholesterol Direct 92 mg/dL
[2024-01-29 08:14] LABS: Appearance Urine Clear (Clear); Bacteria Urine None Seen /hpf; Bilirubin Urine Negative (Negative); Blood Urine Negative (Negative); Color Urine Yellow (Yellow); Glucose Urine UA Negative (Negative); Ketones Urine Trace mg/dL (Negative); Leukocyte Esterase Ur Negative LEU/UL (NEGATIVE); Nitrate Urine Negative (Negative); Non Pathogenic Casts 0-2; Protein Urine Trace mg/dL (Negative); RBC Urine 0-2 /hpf (0-2); Specific Grav Ur 1.025 (1.001-1.035); Squamous Epithelial Cell Urine None seen /hpf (Few); WBC Urine 0-5 /hpf (0-3); pH Urine 6.5 (5.0-9.0)
[2024-01-29 08:18] LABS: Platelet Estimate Adequate (Adequate)
[2024-01-29 08:19] LABS: Hypochromasia 1+ (NORMAL); Microcytosis 2+ (NORMAL); Ovalocytes 1+ (NORMAL); Schistocytes None Seen (NORMAL)
[2024-01-29 08:20] LABS: Add Urine Microscopic? YES
[2024-01-29 08:23] LABS: Prostate Specific Antigen 4.5 ng/mL (< OR = 4.0)
[2024-01-29 08:32] LABS: Iron 32 ug/dL (49-181)
[2024-01-29 08:42] LABS: Percent Iron Saturation 7 % (20-50)
[2024-01-29 09:09] LABS: Ferritin 6.42 ng/mL (11.1-264)
[2024-01-29 09:44] LABS: Hemoglobin A1C 5.8 % (<5.7)
== END 2024-01-29 07:18 | disposition home or self-care (01) ==
PROVIDERS: PCP Family Medicine; Visit Provider Physician Assistant
DX: D50.9 Iron deficiency anemia, unspecified (principal); I11.0 Hypertensive heart disease with heart failure; I50.32 Chronic diastolic (congestive) heart failure; J44.9 Chronic obstructive pulmonary disease, unspecified; I50.9 Heart failure, unspecified; L40.9 Psoriasis, unspecified; N40.0 Benign prostatic hyperplasia without lower urinary tract symptoms; Z12.5 Encounter for screening for malignant neoplasm of prostate; R73.01 Impaired fasting glucose
CPT/HCPCS: 36415; 80053; 80061; 81001; 82728; 83036; 83540; 83550; 84153; 84443; 85025; G0103

== ENCOUNTER 2024-03-27 07:00 | Outpatient (CLI) | payer MEDICARE, SELFPAY ==
[2024-03-27 08:10] LABS: Hematocrit 38.1 % (42.0-52.0); Hemoglobin 10.5 g/dL (14.0-18.0); Mean Corpuscular HGB Conc 27.6 g/dl (32-36); Mean Corpuscular Volume 83.4 fl (80-100); Mean Platelet Volume 9.8 fl (7.4-10.4); Platelet Count Result 286 k/mm3 (150-375); Red Blood Count 4.57 M/mm3 (4.6-6.20); Red Cell Distribution Width 19.9 % (11.5-14.5); White Blood Count 6.9 K/mm3 (4.5-10.0)
[2024-03-27 08:13] LABS: Alanine Aminotransferase 19 U/L (6-50); Albumin Level 4.2 g/dL (3.5-5.1); Alkaline Phosphatase 60 U/L (38-126); Anion Gap 5 mmol/L (4-12); Aspartate Amino Transferase 20 U/L (17-59); Bilirubin,Total 0.4 mg/dL (0.2-1.3); Blood Urea Nitrogen 26 mg/dL (9-20); Calcium 8.8 mg/dL (8.4-10.2); Carbon Dioxide 36 mmol/L (22-30); Chloride 104 mmol/L (98-107); Estimated Glomerular Filt Rate > 60; Glucose 90 mg/dL (65-110); Potassium 4.5 mmol/L (3.4-5.0); Sodium 145 mmol/L (137-145)
[2024-03-27 09:08] LABS: Hepatitis C Virus Antibody Negative (Negative)
[2024-03-29 15:53] LABS: NIL 0.01 IU/mL; Quantiferon TB Plus, 1T NEGATIVE (NEGATIVE); TB1-NIL 0.01 IU/mL; TB2-NIL 0.01 IU/mL
== END 2024-03-27 07:01 | disposition home or self-care (01) ==
LOC: ANHLAB 07:04
PROVIDERS: PCP Family Medicine; Visit Provider Dermatology
DX: L40.0 Psoriasis vulgaris (principal)
CPT/HCPCS: 36415; 80053; 85027; 86480; 86803

== ENCOUNTER 2024-04-30 07:40 | Outpatient (CLI) | payer MEDICARE, SELFPAY ==
[2024-04-30 08:23] LABS: Basophils Percent Auto 0.6 % (0.2-1.2); Eosinophils Absolute Auto 0.1 K/mm3 (0-0.3); Eosinophils Percent Auto 1.7 % (0-4.4); Hematocrit 39.4 % (42.0-52.0); Hemoglobin 10.9 g/dL (14.0-18.0); Immature Granulocyte Absolute 0.05 K/mm3 (0.00-0.031); Immature Granulocyte Percent A 0.8 % (0-0.5); Lymphocytes Absolute Auto 1.01 K/mm3 (0.9-3.2); Lymphocytes Percent Auto 15.2 % (18.3-44.2); Mean Corpuscular HGB Conc 27.7 g/dl (32-36); Mean Corpuscular Hemoglobin 24.5 pg (26-34); Mean Corpuscular Volume 88.7 fl (80-100); Mean Platelet Volume 9.8 fl (7.4-10.4); Monocytes Absolute Auto 0.5 K/mm3 (0.1-0.6); Monocytes Percent Auto 7.7 % (2.6-8.5); Neutrophils Absolute Auto 4.9 K/mm3 (1.3-6.7); Platelet Count Result 293 k/mm3 (150-375); Red Blood Count 4.44 M/mm3 (4.6-6.20); Red Cell Distribution Width 19.4 % (11.5-14.5); White Blood Count 6.6 K/mm3 (4.5-10.0)
[2024-04-30 08:45] LABS: Iron 30 ug/dL (49-181)
[2024-04-30 08:54] LABS: Percent Iron Saturation 7 % (20-50)
[2024-04-30 08:55] LABS: Anisocytosis 1+; Hypochromasia 1+; Ovalocytes 1+; Platelet Estimate Adequate (Adequate); Schistocytes None Seen
== END 2024-04-30 07:41 | disposition home or self-care (01) ==
PROVIDERS: PCP Family Medicine; Referring Provider Internal Medicine Cardiovascular Disease; Visit Provider Physician Assistant
DX: D50.9 Iron deficiency anemia, unspecified (principal); N40.0 Benign prostatic hyperplasia without lower urinary tract symptoms; I50.32 Chronic diastolic (congestive) heart failure; L40.9 Psoriasis, unspecified; R97.20 Elevated prostate specific antigen [PSA]
CPT/HCPCS: 36415; 82728; 83540; 83550; 85025

== ENCOUNTER 2024-10-03 07:38 | Outpatient (CLI) | payer MEDICARE, SELFPAY ==
--- NOTE | ~2024-10-03 | CT_ITS ---
CT Scan of the Chest without Contrast: Clinical Indication: Lung cancer screening, nicotine dependence Technique: Contiguous sections were acquired throughout the chest without intravenous contrast. Dose reduction technique was used on this scan by utilizing automated exposure control and iterative recon struction technique. The dose-length product (DLP) was 530.59 mGy-cm. COMPARISON: 10/02/2023 Findings: There is no evidence of any significant mediastinal, hilar or axillary lymphadenopathy. The mediastin al soft tissues appear normal. There is no evidence of pleural or pericardial effusion. The lungs are clear. No pulmonary nodules or infiltrates are noted. There is advanced emphysema. Ther e is chronic scarring or atelectasis at the right middle lobe and lingula. Images through the upper abdomen reveal stable 3.2 cm right adrenal nodule, likely myelolipoma. Impression: Lung RADS 1: Negative. 12 month follow-up screening CT advised. Reviewed, dictated and finalized at [facility]. UI DEVELOPER Impression: Lung RADS 1: Negative. 12 month follow-up screening CT advised.
== END 2024-10-03 07:39 | disposition home or self-care (01) ==
PROVIDERS: PCP Family Medicine; Visit Provider Nurse Practitioner Family
DX: Z12.2 Encounter for screening for malignant neoplasm of respiratory organs (principal); Z87.891 Personal history of nicotine dependence
CPT/HCPCS: 71271

== ENCOUNTER 2025-02-18 08:13 | Outpatient (CLI) | payer MEDICARE, SELFPAY ==
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
--- OUTSIDE RECORDS SUMMARY | 2025-02-18 08:29 | XMS_ITS | Referral Summary ---
Author Organization [facility] [place] [address] [facility] [address] Address [address] [place] [address] Care Team Providers Care Clam Bed Laborer Name Role Phone Dangelo Arce MD Primary [...] Morbid obesity with BMI of 45.0-49.9, adult ([facility]) 11/02/2020 Chronic anticoagulation 12/05/2019 Chronic obstructive pulmonary disease 04/26/2018 Paroxysmal atrial flutter 04/26/2018 ELIZABETH treated with BiPAP 10/18/2017 History of atrial flutter 10/18/2017 Tobacco abuse 10/18/2017 HTN (hypertension), benign 10/18/2017 Hypertensive heart disease with congestive heart failure 12/28/2016 Overview (03/04/2017): Hypertensive heart disease with CHF Body mass index 40+ - severely obese 09/16/2016 Overview (03/04/2017): Morbid obesity with BMI of 40.0-44.9, adult Social History Tobacco Use Types Packs/Day Years [...] on file 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
--- OUTSIDE RECORDS SUMMARY | 2025-02-18 08:29 | XMS_ITS | CONTINUITY OF CARE DOCUMENT ---
Author Name deandrevalerio josafat Address Unknown Organization [facility] Address [address] [facility] [place] [address] Phone [phone] Care Team Providers Care Print Finishing Worker Name Role Phone Christopher REEVES, Arleth Unavailable Shilpa REEVES, Angelita Unavailable PROBLEMS Condition Status Date Provider Notes Exposure to SARS-associated coronavirus active Whitley Mijares Family History of Hypertension: active Tristian Emery DO Atrial flutter active Frankie Emery DO Hypertension active Frankie Emery DO Obesity active Frankie Emery DO COPD active Frankie Emery DO ELIZABETH active Frankie Emery DO ENCOUNTERS Date Type Provider Location Encounter Diag nosis 6 - 6 In-person encounter Office Visit Frankie Emery DO [facility] Family History of Hypertension:Atrial flutterHypertensionObesityCOPDOSA VITAL SIGNS Date Observation Value Provider Body Mass Index (Ratio) 47.60 kg/m2 Heronn is Dickinson DO oxygen saturation, oximetry 98 % Danyastity Ashley respiratory rate E&M 16 /min Chastit y Ashley pulse rate 86 /min Chastity Ashley height E&M 72 [in_i] Chastity Ashley blood pressure, diastolic 64 mm[Hg] Ch astity Ashley blood pressure, systolic 100 mm[Hg] Danya Ramirez weight E&M 351 [lb_av] Shirley Ramirez ALLERGIES No Known Drug Allergies HISTORY OF MEDICATION USE Medication Status Instructions Dates Provider Indications Com ments FERROUS SULFATE 324 (65 FE) MG ORAL TABLET DELAYED RELEASE active TAKE 1 TABLET BY MOUTH THREE TIMES PER WEEK 4 Shirley Ashley #15, 35 days supply, Prescribed by OSKAR VALDOVINOS, Filled 11/09/2020 DALIRESP 500 MCG ORAL TABLET active TAKE 1 TABLET BY MOUTH DAILY 2 Shirley Ashley #30, 30 days supply, Prescribed by LANEY SANDOVAL, Filled 11/30/2020 POTASSIUM CHLORIDE ER 20 MEQ ORAL TABLET EXTENDED RELEASE active TAKE 1 TABLET BY MOUTH DAILY 5 Shirley Ashley #90, 90 days supply, Prescribed by OSKAR VALDOVINOS, Filled 12/01/2020 TAMSULOSIN HCL 0.4 MG ORAL CAPSULE active TAKE 1 CAPSULE BY MOUTH AT BEDTIME 6 Randolphity Ashley #90, 90 days supply, Prescribed by SRIKANTH VIVAR, Filled 01/04/2021 PANTOPRAZOLE SODIUM 40 MG ORAL TABLET DELAYED RELEASE active TAKE 1 TABLET BY MOUTH EVERY MORNING 2 Danyastity Ashley #90, 90 days supply, Prescribed by SRIKANTH VIVAR, Filled 02/05/2021 ALBUTEROL SULFATE (2.5 MG/3ML) 0.083% INHALATION NEBULIZATION SOLUTION active as needed 3 Shirley Araujoue #1620, 90 days supply, Prescribed by SRIKANTH VIVAR, Filled 02/17/2021 BUDESONIDE 0.5 MG/2ML INHALATION SUSPENSION active as directed 4 Danyastturner Ashley #180, 45 days supply, Prescribed by SRIKANTH VIVAR, Filled 03/01/2021 IPRATROPIUM BROMIDE 0.02 % INHALATION SOLUTION active USE 2.5 ML VIA NEBULIZER EVERY 4 TO 6 HOURS NEEDED FOR SHORTNESS OF BREATH 5 Danyastturner Araujoue #1350, 90 days supply, Prescribed by SRIKANTH VIVAR, Filled 03/01/2021 ELIQUIS 5 MG ORAL TABLET active one tab once daily 3 Chastity Ashley #60, 30 days supply, Prescribed by ANGELITA PICKETT, Filled 02/27/2021 FUROSEMIDE 40 MG ORAL TABLET active one tab twice daily 6 Chastity Ashley #180, 45 days supply, Prescribed by OSKAR VALDOVINOS, Filled 03/03/2021 FUROSEMIDE 20 MG ORAL TABLET active TAKE 1 TABLET BY MOUTH EVERY MORNING 7 Chastity Ashley #30, 30 days supply, Prescribed by LALITA MARSHALL, Filled 03/03/2021 METOPROLOL TARTRATE 25 MG ORAL TABLET active one tab twice daily 3 Chastity Ashley #60, 30 days supply, Prescribed by ANGELITA PICKETT, Filled 03/07/2021 MULTAQ 400 MG ORAL TABLET active one tab twice daily 1 Chastity Ashley #60, 30 days supply, Prescribed by ANGELITA PICKETT, Filled 03/26/2021 SOCIAL HISTORY Date Observation Value Provider number of grandchildren Frankie Chairez O Frankie Emery DO social history E&M S moking History: Greg gary is a former smoker. Frankie Emery DO social history reviewed E&M revi ewed - no changes required Frankie Emery DO number of years as a smoker 30+ Danyastturner Araujoue cigarette use yes Danyaclarisa Araujoue smoking status Former smoker Danyaclarisa Araujo ue FAMILY HISTORY Family Member Condition Mother Family History of Hy pertension: INSURANCE PROVIDERS Payer name Policy type / Coverage type [place] red libertarian ID [facility]UE [facility] [id number] [place] MEDICARE PART B Medicare [id number] ADVANCE DIRECTIVES Name Date POWER OF FINISHING FRAME RUNNER LIVING WILL ON FILE TREATMENT PLAN Date Name Performer Electrophysiology: B P today: 100/64 Frankie Emery DO Electrophysiology:se neli C O2 retainer Frankie Emery DO Electrophysiology:Hx of CTI RA flutter since 2013 s /p CDVN 2012, none since O n Multaq but having difficulty affording this H as severe COPD with emphesema and has evidence of core pulmonale with enlarged right sided cardiac chambers but normal LV function. Given difficulty with affording Multaq, I think CTI ablation is very reasonable. I have not seen any evidence of afib and given his severe pulmonary disease, I do not feel that PVI would be a great option. H e would like to think this over, will return for f/u in 2-3 months Frankie Emery DO Date Name URINALYSIS, COMPLETE W/REFLEX TO CULTURE PROTHROMBIN TIME WIT H INR BASIC METABOLIC PANE L W/EGFR CBC (INCLUDES DIFF/P LT) HISTORY OF PROCEDURES Procedure Date Procedure Name Provider Procedure Notes S tatus SARS-CoV-2 (COVID-19) POC Frankie Emery DO completed
--- OUTSIDE RECORDS SUMMARY | 2025-02-18 08:29 | XMS_ITS | Clinical Summary ---
Author Organization [facility] Address [address] [place] [address] Care Team Providers Care Glassware Selector Name Role Phone Dangelo Arce MD Primary Care Provider [phone] Medications lisinopril 5 MG tablet TK 1 T PO QD 11 8 Active dronedarone (MULTAQ) 400 MG tablet TAKE 1 TABLET BY MOUTH TWICE DAILY WITH BREAKFAST AND DINNER 8 Active Aspirin Buf,CaCarb-MgCar b-MgO, (BUFFERIN LOW DOSE) 81 MG Tab 81 mg. 3 Active acetaminophen 325 MG tablet Take 650 mg by mouth every 4 (four) hours as needed for Pain. Active Skin Protectants, Misc. (MINERIN) Cream To BLE daily Active polyethylene glycol powder Take 17 g by mouth daily. Dissolve powder in 240 mL water Active fluticasone propionate 50 MCG/ACT nasal spray 2 sprays by Nasal route daily. 9 Active furosemide 40 MG tabletIndication s:Heart failure with preserved left ventricular function (HFpEF) (CMS/HCC HHS/HCC) Take 1 tablet (40 mg total) by mouth every morning. 30 tablet 9 Active aspirin 81 MG chewable tabletIndication s:Health care maintenance Chew 1 tablet (81 mg total) by mouth daily. 30 tablet 9 Active pantoprazole 40 MG tabletIndication s:GERD (gastroesophagea l reflux disease) Take 1 tablet (40 mg total) by mouth daily. 30 tablet 9 Active potassium chloride CR 20 MEQ tabletIndication s:Health care maintenance Take 1 tablet (20 mEq total) by mouth daily. 30 tablet 9 Active tamsulosin 0.4 MG CapIndications:B PH (benign prostatic hyperplasia) Take 1 capsule (0.4 mg total) by mouth daily. 30 capsule 9 Active albuterol (2.5 MG/3ML) 0.083% nebulizer solutionIndicati ons:Chronic bronchitis, unspecified chronic bronchitis type ([facility]) ONE VIAL IN NEBULIZER EVERY SIX HOURS 360 mL 9 Active hydrALAZINE 10 MG tabletIndication s:HTN (hypertension), benign Take 1 tablet (10 mg total) by mouth 4 (four) times daily. 120 tablet 9 Active ipratropium 0.02 % nebulizer solutionIndicati ons:Chronic bronchitis, unspecified chronic bronchitis type ([facility]) USE ONE VIAL IN NEBULIZER EVERY SIX HOURS 225 Container 9 Active budesonide 0.5 MG/2ML nebulizer solutionIndicati ons:Chronic bronchitis, unspecified chronic bronchitis type ([facility]) ONE VIAL IN NEBULIZER TWICE DAILY - RINSE MOUTH AFTER USE AND SPIT 960 mL 9 Active dronedarone (MULTAQ) 400 MG tabletIndication s:History of atrial flutter Take 1 tablet (400 mg total) by mouth 2 (two) times daily with meals. 60 tablet 9 Active furosemide 20 MG tabletIndication s:Heart failure with preserved left ventricular function (HFpEF) ([facility]) Take 1 tablet (20 mg total) by mouth daily with lunch. 30 tablet 9 Active Active Problems Problem Noted Date Diagnosed Date Heart failure with preserved left ventricular function (HFpEF) ([facility]) 12/12/2018 Chronic obstructive pulmonary disease ([facility]) 04/26/2018 Paroxysmal atrial flutter ([facility]) 03/29 History of atrial flutter 10/18/2017 HTN (hypertension), benign 10/18/2017 Morbid obesity with body mass index of 40.0-44.9 in adult 10/18/2017 ELIZABETH treated with BiPAP 10/18/2017 Tobacco abuse 10/18/2017 Hypertensive heart disease w ith congestive heart failure ([facility]) 12/28/2016 Overview (12/11/2018): Overview: Hypertensive heart disease with CHF Social History Tobacco Use Types Packs/Day Years Used Date Smoking Tobacco: Never Assessed Sex and Gender Information Value Date Recorded Sex Assigned at Not on file 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 Gender Identity Not on file Sexual Orientation Not on file Last Filed Vital Signs Vital Sign Reading Time Taken Comments Blood Pressure 116/77 01/09/2019 8:00 AM ELECTRONIC WARFARE LINGUIST Pulse 18 01/09/2019 8:00 AM ELECTRONIC WARFARE LINGUIST Temperature 36.4 C (97.5 F) 01/09/2019 8:00 AM ELECTRONIC WARFARE LINGUIST Respiratory Rate 20 01/09/2019 8:00 AM ELECTRONIC WARFARE LINGUIST Oxygen Saturation 94% 01/09/2019 8:00 AM ELECTRONIC WARFARE LINGUIST Inhaled Oxygen Concentration - - Weight - - Height - - Body Mass Index - - Plan of Treatment Health Maintenance Due Date Last Done Comments Colorectal Cancer Screening Colonoscopy (10 Years) 1954 Pneumococcal Vaccine: 65+ Ye ars (1 of 2 - PCV) 1960 Hepatitis C 1972 DTaP, Tdap and Td Vaccines ( 1 - Tdap) 1973 Zoster Vaccines (1 of 2) 2004 RSV Immunization or 60+ Years (1 - Risk 60-74 years 1-dose series) 2014 Annual Medicare Wellness Visit 2019 COVID-19 Vaccine (2023-2 5 season) 2024 Influenza Adult (#1) 2024 Meningococcal B Vaccine Aged Out No l onger eligible based on patient's age to complete this topic Meningococcal Vaccine Aged Out No teetee warren eligible based on patient's age to complete this topic RSV Immunizations Under 20 Months Aged Out No longer eligible based on patient's age to complete this topic Insurance MEDICARE [facility] Care Teams Glassware Selector Relationship Specialty Start Date End Date Dangelo Arce MD [address] [place] [address] PCP - General FAMILY PRACTICE 01/14/19
[2025-02-18 08:58] LABS: Basophils Percent Auto 0.6 % (0.2-1.2); Eosinophils Absolute Auto 0.1 K/mm3 (0-0.3); Eosinophils Percent Auto 1.9 % (0-4.4); Hematocrit 42.1 % (42.0-52.0); Hemoglobin 12.8 g/dL (14.0-18.0); Immature Granulocyte Absolute 0.07 K/mm3 (0.00-0.031); Lymphocytes Absolute Auto 1.06 K/mm3 (0.9-3.2); Lymphocytes Percent Auto 15.1 % (18.3-44.2); Mean Corpuscular HGB Conc 30.4 g/dl (32-36); Mean Corpuscular Hemoglobin 28.4 pg (26-34); Mean Corpuscular Volume 93.3 fl (80-100); Mean Platelet Volume 9.5 fl (7.4-10.4); Monocytes Absolute Auto 0.5 K/mm3 (0.1-0.6); Monocytes Percent Auto 6.6 % (2.6-8.5); Neutrophils Absolute Auto 5.2 K/mm3 (1.3-6.7); Neutrophils Percent Auto 74.8 % (45.5-73.1); Platelet Count Result 254 k/mm3 (150-375); Red Blood Count 4.51 M/mm3 (4.6-6.20); Red Cell Distribution Width 14.2 % (11.5-14.5)
[2025-02-18 09:05] LABS: Add Urine Microscopic? YES; Appearance Urine Clear (Clear); Bacteria Urine None Seen /hpf; Bilirubin Urine Negative (Negative); Blood Urine Negative (Negative); Color Urine Yellow (Yellow); Glucose Urine UA Negative (Negative); Ketones Urine Negative (Negative); Leukocyte Esterase Ur Negative LEU/UL (Negative); Nitrate Urine Negative (Negative); Non Pathogenic Casts 0-2; Protein Urine Trace mg/dL (Negative); RBC Urine 0-2 /hpf (0-2); Specific Grav Ur 1.022 (1.001-1.035); Squamous Epithelial Cell Urine None Seen /hpf (Few); WBC Urine 0-5 /hpf (0-3)
[2025-02-18 09:41] LABS: Iron 52 ug/dL (49-181)
[2025-02-18 09:42] LABS: Alanine Aminotransferase 22 U/L (6-50); Alkaline Phosphatase 66 U/L (38-126); Anion Gap 6 mmol/L (4-12); Aspartate Amino Transferase 24 U/L (17-59); Bilirubin,Total 0.4 mg/dL (0.2-1.3); Blood Urea Nitrogen 25 mg/dL (9-20); Calcium 8.5 mg/dL (8.4-10.2); Carbon Dioxide 36 mmol/L (22-30); Chloride 101 mmol/L (98-107); Cholesterol 152 mg/dL (0-200); Estimated Glomerular Filt Rate > 60; Glucose 104 mg/dL (65-110); HDL Direct 37 mg/dL; Potassium 4.3 mmol/L (3.4-5.0); Sodium 143 mmol/L (137-145); Triglycerides 115 mg/dL (<150)
[2025-02-18 09:50] LABS: Hemoglobin A1C 5.7 % (<5.7)
[2025-02-18 09:53] LABS: LDL Cholesterol Direct 94 mg/dL
[2025-02-18 09:59] LABS: Percent Iron Saturation 13 % (20-50)
[2025-02-18 10:15] LABS: Prostate Specific Antigen 3.6 ng/mL (< OR = 4.0)
== END 2025-02-18 08:14 | disposition home or self-care (01) ==
PROVIDERS: PCP Family Medicine; Visit Provider Physician Assistant
DX: I11.0 Hypertensive heart disease with heart failure (principal); I50.9 Heart failure, unspecified; I48.92 Unspecified atrial flutter; J44.9 Chronic obstructive pulmonary disease, unspecified; J96.12 Chronic respiratory failure with hypercapnia; Z99.81 Dependence on supplemental oxygen; D50.9 Iron deficiency anemia, unspecified; R97.20 Elevated prostate specific antigen [PSA]; R73.01 Impaired fasting glucose; L40.9 Psoriasis, unspecified; E83.51 Hypocalcemia
CPT/HCPCS: 36415; 80053; 80061; 81001; 82728; 83036; 83540; 83550; 84153; 84443; 85025

== ENCOUNTER 2025-02-27 09:53 | Outpatient (CLI) | payer MEDICARE, SELFPAY ==
--- NOTE | ~2025-02-27 | XR_ITS ---
AP, oblique, and lateral views of the left second toe CLINICAL HISTORY: Pain, injury FINDINGS: No acute fracture or dislocation seen. There is soft tissue swelling of the second digit. J oint spaces are intact. IMPRESSION: Soft tissue swelling second digit. No definite fracture seen. Reviewed, dictated and finalized at location .
--- OUTSIDE RECORDS SUMMARY | 2025-02-27 10:43 | XMS_ITS | Referral Summary ---
Author Organization [facility] [place] [address] [facility] [address] Address [address] [place] [address] Care Team Providers Care Greeter Guest Services Name Role Phone Dangelo Arce MD Primary [...] Morbid obesity with BMI of 45.0-49.9, adult (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
--- OUTSIDE RECORDS SUMMARY | 2025-02-27 10:43 | XMS_ITS | CONTINUITY OF CARE DOCUMENT ---
Author Name deandrevalerio josafat Address Unknown Organization [facility] Address [address] [place] [address] Phone [phone] Care Team Providers Care Liner Machine Operator Name Role Phone Christopher REEVES, Arleth Unavailable [phone] Shilpa REEVES, Angelita Unavailable PROBLEMS Condition Status [...] In-person encounter Office Visit Frankie Emery DO [facility] Family History of Hypertension:Atrial flutterHypertensionObesityCOPDOSA VITAL SIGNS Date Observation Value Provider Body Mass Index (Ratio) 47.60 kg/m2 Heronn is [place] DO oxygen saturation, oximetry 98 % Danyastity [...] Payer name Policy type / Coverage type [place] red democrat ID BLUE [facility] Blue [facility] [id number] [place] MEDICARE PART B Medicare [id number] ADVANCE DIRECTIVES Name Date POWER OF AIRCRAFT DETAIL DRAFTSPERSON LIVING WILL ON FILE TREATMENT PLAN Date [...]
--- OUTSIDE RECORDS SUMMARY | 2025-02-27 10:43 | XMS_ITS | Clinical Summary ---
Author Organization [facility] Address [address] [place] [address] Care Team Providers Care Hose Maker Name Role Phone Dangelo Arce MD Primary Care Provider [phone] Medications lisinopril 5 MG tablet TK 1 [...] solutionIndicati ons:Chronic bronchitis, unspecified chronic bronchitis type ([facility]) ONE VIAL IN NEBULIZER EVERY SIX HOURS 360 mL 9 Active hydrALAZINE 10 MG tabletIndication s:HTN (hypertension), benign Take 1 tablet (10 mg total) by mouth 4 (four) times daily. 120 tablet 9 Active ipratropium 0.02 % nebulizer solutionIndicati ons:Chronic bronchitis, unspecified chronic bronchitis type ([facility]) USE ONE VIAL IN NEBULIZER EVERY SIX HOURS 225 Container 9 Active budesonide 0.5 MG/2ML nebulizer solutionIndicati ons:Chronic bronchitis, unspecified chronic bronchitis type ([facility]) ONE VIAL IN NEBULIZER TWICE DAILY - RINSE MOUTH AFTER USE AND SPIT 960 mL 9 Active dronedarone (MULTAQ) 400 MG tabletIndication s:History of atrial flutter Take 1 tablet (400 mg total) by mouth 2 (two) times daily with meals. 60 tablet 9 Active furosemide 20 MG tabletIndication s:Heart failure with preserved left ventricular function (HFpEF) ([facility]) Take 1 tablet (20 mg total) by mouth daily with lunch. 30 tablet 9 Active Active Problems Problem Noted Date Diagnosed Date Heart failure with preserved left ventricular function (HFpEF) ([facility]) 12/12/2018 Chronic obstructive pulmonary disease ([facility]) 04/26/2018 Paroxysmal atrial flutter ([facility]) 03/29 History of atrial flutter 10/18/2017 HTN (hypertension), benign 10/18/2017 Morbid obesity with body mass index of 40.0-44.9 in adult 10/18/2017 ELIZABETH treated with BiPAP 10/18/2017 Tobacco abuse 10/18/2017 Hypertensive heart disease w ith congestive heart failure ([facility]) 12/28/2016 Overview (12/11/2018): Overview: Hypertensive heart disease with CHF Social History Tobacco Use Types Packs/Day Years Used Date Smoking Tobacco: Never Assessed Sex and Gender Information Value Date Recorded Sex Assigned at Not on file 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 Gender Identity Not on file Sexual Orientation Not on file Last Filed Vital Signs Vital Sign Reading Time Taken Comments Blood Pressure 116/77 01/09/2019 8:00 AM GLASS LATHE OPERATOR Pulse 18 01/09/2019 8:00 AM GLASS LATHE OPERATOR Temperature 36.4 C (97.5 F) 01/09/2019 8:00 AM GLASS LATHE OPERATOR Respiratory Rate 20 01/09/2019 8:00 AM GLASS LATHE OPERATOR Oxygen Saturation 94% 01/09/2019 8:00 AM GLASS LATHE OPERATOR Inhaled Oxygen Concentration - - Weight - [...] Annual Medicare Wellness Visit 2019 COVID-19 Vaccine ( - 2023-2 5 season) 2024 Meningococcal B Vaccine Aged Out No l onger eligible based on patient's age to complete this topic Meningococcal Vaccine Aged Out No teetee warren eligible based on patient's age to complete this topic RSV Immunizations Under 20 Months Aged Out No longer eligible based on patient's age to complete this topic Insurance MEDICARE [facility] Care Teams Hose Maker Relationship Specialty Start Date End Date Dangelo Arce MD [address] [place], [place] [id number] PCP - General FAMILY PRACTICE 01/14/19
--- OUTSIDE RECORDS SUMMARY | 2025-02-27 10:43 | XMS_ITS | Clinical Summary ---
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
== END 2025-02-27 09:54 | disposition home or self-care (01) ==
PROVIDERS: PCP Family Medicine; Visit Provider Physician Assistant
DX: M79.89 Other specified soft tissue disorders (principal); M79.675 Pain in left toe(s)
CPT/HCPCS: 73660

== ENCOUNTER 2025-04-11 00:12 | Day surgery (SDC) | payer MEDICARE, SELFPAY ==
[2025-04-02 15:34] VITALS: BMI 46.1
--- NOTE | 2025-04-07 13:30 | PC.NURSE ---
Spoke with patient regarding medication Eliquis. Patient verbalizes understanding that the last dose is to be taken on 04/07/25 and the Endoscopist will instruct them when to restart after the procedure.
--- OUTSIDE RECORDS SUMMARY | 2025-04-11 00:15 | XMS_ITS | Clinical Summary ---
Author Organization [facility] [place] [address] [facility] [address] Address [address] [place] [address] Care Team Providers Care Tree Fruit And Nut Farming Supervisor Name Role Phone Dangelo Arce MD Primary Care Provider Allergies No known active allergies Medications pantoprazole DR (PROTONIX) 40 mg EC tablet Take 1 tablet (40 mg total) by mouth daily 0 01/14/20 19 Active oxygenIndicatio ns:Dyspnea Administer 3 L/min into each nostril continuously Active ferrous sulfate ER 324 mg (65 mg iron) EC tablet Take 65 mg by mouth as needed 10/08/20 20 Active tamsulosin (FLOMAX) 0.4 mg extended release capsule Take 1 capsule (0.4 mg total) by mouth nightly 01/14/20 19 Active potassium chloride ER 20 mEq CR tablet Take 1 tablet (20 mEq total) by mouth daily 04/01/20 21 Active albuterol 2.5 mg /3 mL (0.083 %) nebulizer solution ONE VIAL IN NEBULIZER EVERY SIX HOURS 01/14/20 19 Active budesonide (PULMICORT) 0.5 mg/2 mL nebulizer solution ONE VIAL IN NEBULIZER TWICE DAILY - RINSE MOUTH AFTER USE AND SPIT 01/14/20 19 Active triamcinolone (KENALOG) 0.1 % cream 04/07/20 21 Active betamethasone dipropionate (DEL-BETA) 0.05 % cream APPLY TOPICALLY TO THE AFFECTED AREA TWICE DAILY NEEDED FOR RASH 04/07/20 22 Active metoprolol tartrate (LOPRESSOR) 25 mg immediate release tablet TAKE 1 TABLET(25 MG) BY MOUTH TWICE DAILY 180 tablet 3 06/17/20 24 Active Multaq 400 mg tablet TAKE 1 TABLET(400 MG) BY MOUTH TWICE DAILY WITH MEALS 180 tablet 3 06/20/20 24 Active predniSONE (DELTASONE) 10 mg tablet 07/19/20 24 Active senna (SENOKOT) 8.6 mg tablet Take 4 tablets by mouth daily Active polyethylene glycol (MIRALAX) 17 gram/dose bulk powder Take 17 g by mouth daily Active magnesium hydroxide (CONCENTRATED MILK OF MAGNESIA) suspension 2,400 mg/10 mL as needed Activ e Eliquis 5 mg tablet TAKE 1 TABLET(5 MG) BY MOUTH TWICE DAILY 180 tablet 1 12/13/19 25 Active furosemide (LASIX) 40 mg tablet TAKE 1 TABLET(40 MG) BY MOUTH TWICE DAILY 60 tablet 5 04/08/20 25 Active furosemide (LASIX) 20 mg tablet TAKE 1 TABLET(20 MG) BY MOUTH EVERY MORNING 90 tablet 2 04/08/20 25 Active furosemide (LASIX) 20 mg tablet TAKE 1 TABLET(20 MG) BY MOUTH EVERY MORNING 90 tablet 2 07/15/20 24 2024 Discontinued furosemide (LASIX) 40 mg tablet TAKE 1 TABLET(40 MG) BY MOUTH TWICE DAILY 60 tablet 5 10/02/20 24 2024 Discontinued Active Problems Problem Noted Date Diagnosed Date Pulmonary hypertension 01/28/2021 Morbid obesity with BMI of 45.0-49.9, adult ([facility]) 11/02/2020 Chronic anticoagulation 12/05/2019 Chronic obstructive pulmonary disease 04/26/2018 Paroxysmal atrial flutter 04/26/2018 ELIZABETH treated with BiPAP 10/18/2017 History of atrial flutter 10/18/2017 Tobacco abuse 10/18/2017 HTN (hypertension), benign 10/18/2017 Hypertensive heart disease with congestive heart failure 12/28/2016 Overview (03/04/2017): Hypertensive heart disease with CHF Body mass index 40+ - severely obese 09/16/2016 Overview (03/04/2017): Morbid obesity with BMI of 40.0-44.9, adult Encounters Date Type Department Care Team Description 04/04/2025 Telephone [facility] Cardiology [address] [place] [address] Pepe Massey MD 03/21/2025 9:45 AM CDT Office Visit [facility] Cardiology [address] [place] [address] Pepe Massey MD Pulmonary hypertension (HCC) (Primary Dx); Paroxysmal atrial flutter (HCC); Hypertensive heart disease with chronic diastolic congestive heart failure (HCC); HTN (hypertension), benign; Chronic anticoagulation; Morbid obesity with BMI of 45.0-49.9, adult (CMS/HCC) (HCC); Lipid screening from Last 3 Months Surgical History Surgery Date Site/Laterality Comments FACIAL FRACTURE SURGERY KNEE ARTHROSCOPY Left TONSILLECTOMY CARDIOVERSION 2018 Medical History Medical History Date Comments [...] on file Legal 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 Gender Identity Not on file Sexual Orientation Not on file Obstetrics History Last Filed Vital Signs Vital Sign Reading Time Taken Comments Blood Pressure 106/60 03/21/2025 9:54 AM CDT Pulse 84 03/21/2025 9:54 AM CDT Temperature 36.8 C (98.2 F) 04/28/2021 8:44 AM CDT Respiratory Rate 26 04/28/2021 8:44 AM CDT Oxygen Saturation 93% 03/21/2025 9:54 AM CDT Inhaled Oxygen Concentration - - Weight 156.9 kg (346 lb) 03/21/2025 9:54 AM CDT Height 182.9 cm (6') 03/21/2025 9:54 AM CDT Body Mass Index 46.93 03/21/2025 9:54 AM CDT Plan of Treatment Health Maintenance [...] Fall Risk Assessment 04/28/2022 04/28/2021 Influenza Vaccine (Season Ended) 2025 10/24/20 19 Procedures Procedure Name Priority Date/Time Associated Diagnosis Comments POCT LIPID PANEL Routine 03/21/2025 10:0 0 AM CDT Lipid screening from Last 3 Months Results * POCT lipid panel (03/21/2025 10:00 AM CDT) Cholesterol, POC 162 mg/dL HDL, POC 34 mg/dL Triglycerides, POC 151 mg/dL LDL Cholesterol POC 98 mg/dL Chol/HDL Ratio, POC 2.9 Non-HDL Cholesterol, POC 128 mg/dL Cholesterol Total, POC 162 mg/dL Capillary blood 03/21/2025 1 0:00 AM CDT us Pepe Massey MD POINT OF CARE TEST ORDERA BLES Final Result from Last 3 Months Insurance MEDICARE MEDICARE Member Subscriber Plan / Payer ( fective 2015-Present) Name:Vimal Doty Member ID:[id number] Relation to Subscriber:Self Name:Vimal Doty Subscriber ID:[id number] Payer ID:[id number] Group ID:Not on file Type:MEDICARE TRADITIONAL Address: [place] [address] [place] [address] MEDICARE [facility] MEDICARE SUPPLEMENT Care Teams Tree Fruit And Nut Farming Supervisor Relationship Specialty Start Date End Date Dangelo Arce MD [address] [place] [address] PCP - General 02/24/17
--- OUTSIDE RECORDS SUMMARY | 2025-04-11 00:15 | XMS_ITS | Referral Summary ---
Author Organization [facility] [address] [place] [address] [address] [facility] [address] [place] [address] Care Team Providers Care Ditch Tender Name Role Phone Dangelo Arce MD Primary Care Provider Encounters Date Type Department Care Team Description 04/04/2025 Telephone [facility] Medical [facility] Cardiology [address] [facility] [address] [place] [address] Pepe Massey MD 03/21/2025 9:45 AM CDT Office Visit [facility] Medical [facility] Cardiology [address] [place] [address] [address] [place] [address] Pepe Massey MD Pulmonary hypertension (HCC) (Primary Dx); Paroxysmal atrial flutter (HCC); Hypertensive heart disease with chronic diastolic congestive heart failure (HCC); HTN (hypertension), benign; Chronic anticoagulation; Morbid obesity with BMI of 45.0-49.9, adult (CMS/HCC) (HCC); Lipid screening from Last 3 Months Allergies No known active allergies Medications pantoprazole [...] Morbid obesity with BMI of 45.0-49.9, adult ([facility]) 11/02/2020 Chronic anticoagulation 12/05/2019 Chronic obstructive pulmonary [...] on file 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 MEDICARE SUPPLEMENT Care Teams Ditch Tender Relationship Specialty Start Date End Date Dangelo Arce MD [address] [facility] [address] [place] [address] PCP - General 02/24/17
--- OUTSIDE RECORDS SUMMARY | 2025-04-11 00:15 | XMS_ITS | Clinical Summary ---
Author Organization [facility] Address [address] [place] [address] Care Team Providers Care Tipple Boss Name Role Phone Dangelo Arce MD Primary Care Provider [phone] Medications lisinopril 5 MG tablet TK 1 [...] solutionIndicati ons:Chronic bronchitis, unspecified chronic bronchitis type ([facility]) ONE VIAL IN NEBULIZER EVERY SIX HOURS 360 mL 9 Active hydrALAZINE 10 MG tabletIndication s:HTN (hypertension), benign Take 1 tablet (10 mg total) by mouth 4 (four) times daily. 120 tablet 9 Active ipratropium 0.02 % nebulizer solutionIndicati ons:Chronic bronchitis, unspecified chronic bronchitis type ([facility]) USE ONE VIAL IN NEBULIZER EVERY SIX HOURS 225 Container 9 Active budesonide 0.5 MG/2ML nebulizer solutionIndicati ons:Chronic bronchitis, unspecified chronic bronchitis type ([facility]) ONE VIAL IN NEBULIZER TWICE DAILY - RINSE MOUTH AFTER USE AND SPIT 960 mL 9 Active dronedarone (MULTAQ) 400 MG tabletIndication s:History of atrial flutter Take 1 tablet (400 mg total) by mouth 2 (two) times daily with meals. 60 tablet 9 Active furosemide 20 MG tabletIndication s:Heart failure with preserved left ventricular function (HFpEF) ([facility]) Take 1 tablet (20 mg total) by mouth daily with lunch. 30 tablet 9 Active Active Problems Problem Noted Date Diagnosed Date Heart failure with preserved left ventricular function (HFpEF) ([facility]) 12/12/2018 Chronic obstructive pulmonary disease ([facility]) 04/26/2018 Paroxysmal atrial flutter ([facility]) 03/29 History of atrial flutter 10/18/2017 HTN (hypertension), benign 10/18/2017 Morbid obesity with body mass index of 40.0-44.9 in adult 10/18/2017 ELIZABETH treated with BiPAP 10/18/2017 Tobacco abuse 10/18/2017 Hypertensive heart disease w ith congestive heart failure ([facility]) 12/28/2016 Overview (12/11/2018): Overview: Hypertensive heart disease with CHF Social History Tobacco Use Types Packs/Day Years Used Date Smoking Tobacco: Never Assessed Sex and Gender Information Value Date Recorded Sex Assigned at Not on file Legal Sex Male 9:38 AM ROLLER HELPER Gender Identity Not on file Sexual Orientation Not on file Last Filed Vital Signs Vital Sign Reading Time Taken Comments Blood Pressure 116/77 01/09/2019 8:00 AM ROLLER HELPER Pulse 18 01/09/2019 8:00 AM ROLLER HELPER Temperature 36.4 C (97.5 F) 01/09/2019 8:00 AM ROLLER HELPER Respiratory Rate 20 01/09/2019 8:00 AM ROLLER HELPER Oxygen Saturation 94% 01/09/2019 8:00 AM ROLLER HELPER Inhaled Oxygen Concentration - - Weight - - Height - - Body Mass Index - - Plan of Treatment Health Maintenance Due Date Last Done Comments Colorectal Cancer Screening Colonoscopy (10 Years) 1954 Hepatitis C 1972 DTaP, Tdap and Td Vaccines ( 1 - Tdap) 1973 Pneumococcal Vaccine: 50+ Ye ars (1 of 2 - PCV) 1973 Zoster Vaccines (1 of 2) 2004 [...] age to complete this topic Insurance MEDICARE [facility] Care Teams Tipple Boss Relationship Specialty Start Date End Date Dangelo Arce MD [address] [place], [place] [id number] PCP - General FAMILY PRACTICE 01/14/19
[2025-04-11 06:39] VITALS: BP 132/74; PULSE 84; RESP 22; TEMP 36.2; O2SAT 97
[2025-04-11] MEDS: LACTATED RINGERS 1,000 ML 150 ML IV CONT (06:51)
--- NOTE | 2025-04-11 07:25 | P.PNAN_ITS ---
Anes - Initial Pre Proc Eval Procedure: Operation Date: 04/11/25 07:30 Proposed Procedures p Colonoscopy - Anupam Meyers MD Date/Time: 04/11/25 07:25 Surgeon: Anupam Meyers MD Pre Op Diagnosis: Hx of colon polyps Patient Data Age: 69 Gender: M Height: 1.83 m Weight: 155.7 kg Last Vital Signs Temp 36.2 C L 04/11/25 06:39 Pulse 84 04/11/25 06:39 Resp 22 H 04/11/25 06:39 BP 132/74 04/11/25 06:39 Pulse Ox 97 04/11/25 06:39 O2 Del Method Nasal Cannula 04/11/25 06:39 O2 Flow Rate 6 04/11/25 06:39 Allergies Allergy/AdvReac Type Severity Reaction Status Date / Time No Known Allergies Allergy Verified 04/11/25 06:36 Home Medications Medication Instructions Recorded Confirmed Type dronedarone 400 mg tablet (Multaq) 400 mg PO BIDWM 10/15/19 04/11/25 History polyethylene glycol 3350 17 17 g PO DAILY 10/16/19 04/11/25 History gram/dose oral powder (Miralax) apixaban 5 mg tablet (Eliquis) 5 mg PO BID 06/02/20 04/11/25 History metoprolol tartrate 25 mg tablet 25 mg PO Q12H 01/21/21 04/11/25 History furosemide 20 mg tablet (Lasix) 20 mg PO QAM #90 tabs 03/04/21 04/11/25 Rx furosemide 40 mg tablet 40 mg PO BID #180 tabs 03/04/21 04/11/25 Rx triamcinolone acetonide 0.1 % 1 applic topical BID #80 grams 03/29/24 04/11/25 Rx topical cream budesonide 0.5 mg/2 mL suspension See Rx Instructions .Route 07/26/24 04/11/25 Rx for nebulization .COMPLEX #360 mL ferrous sulfate 325 mg (65 mg 325 mg PO Q2D anemia #45 tabs 10/18/24 04/11/25 Rx iron) tablet potassium chloride 20 mEq 20 meq PO DAILY #90 tabs 11/29/24 04/11/25 Rx tablet,extended release tamsulosin 0.4 mg capsule 0.4 mg PO HS #90 caps 12/03/24 04/11/25 Rx pantoprazole 40 mg tablet,delayed 40 mg PO QAM #90 tabs 12/16/24 04/11/25 Rx release ipratropium bromide 0.02 % 2.5 ml inhalation Q4H #540 vials 12/19/24 04/11/25 Rx solution for inhalation albuterol sulfate 2.5 mg/3 mL See Rx Instructions .Route 03/17/25 04/11/25 Rx (0.083 %) solution for nebulization .COMPLEX #1,620 mL Patient hx anesthesia problems: none Family hx anesthesia problems: none Results Review: All pre-operative results and documents have been reviewed as part of the pre- operative evaluation. [facility] Past Medical History Medical History Community acquired pneumonia Pancreatic calcification Nausea Supplemental oxygen dependent Dependence on continuous supplemental oxygen Acute and chronic respiratory failure ELIZABETH and COPD overlap syndrome BPH (benign prostatic hyperplasia) Hypertensive CHF Rectal bleeding History of tobacco abuse Chronic constipation Pulmonary hypertension RVSP 59 on echo from July 2019 Morbid obesity with BMI of 45.0-49.9, adult Psoriasis Anxiety Arthritis GI bleed Sleep apnea Home BiPAP 12/05 Pneumonia Bronchitis Emphysema, unspecified COPD (chronic obstructive pulmonary disease) History of cardioversion Atrial flutter Paroxysmal AFib with cardioversion April 2013 and October 23, 2019 Hypertension CHF (congestive heart failure) Last echocardiogram EF was 55% prior echocardiogram previous year demonstrated borderline left ventricular systolic function and diastolic dysfunction grade 1 Surgical History Surgical History Left tibial fracture H/O arthroscopy of left knee Hx of cardiac cath History of tonsillectomy 1966 Family History Family History Mother Rheumatoid arthritis Psoriatic arthritis Breast cancer Hypertension Father Skin cancer With metastases to bone and brain Mother Family history of arthritis Family history of congestive heart failure Father Family history of malignant neoplasm of bone Other Diabetes mellitus Social History Social History Social History: The patient smoked 1.5 packs of cigarettes per day for 40 years but quit smoking in 2018. He used to drink alcohol in moderation but has not drank in some time. He denies any illicit substance use. He his and she eventually later. He has 1 son who he nominates to be the durable power system archive analyst for healthcare. The patient tells me he lives home alone. The patient is a full code. Smoking packs per day: 0 Smoking cigarettes per day: 0.0 Years smoked: 30 Smoking pack-years: 0.00 Smoking status: Former smoker Tobacco type: cigarettes Second hand tobacco smoke exposure: No Smoking end date: 11/27/17 Alcohol intake: never Substance use: never Substance use type: does not use Do You Feel Safe in your Home?: Yes Lack of Transportation: No Lack of Food: Never True Current Housing: I Have Housing Concerned About Future Housing: No Difficulty Paying Gas/Electric Bills: No Difficulty Paying for Meds: No Currently Unemployed: YES Education: Don't Know Difficulty w/ Childcare or Family Care: No Living arrangements: alone Occupation/Education: retired Additional occupation/education comments: Disabled Gender identity (if verbalized by the patient): Male Sexual Orientation (if Verbalized by the Patient): Straight or Heterosexual Spiritual care concerns: No Agree to blood products: Yes Anes - Eval Final PreProcedure Day of Procedure 04/11/25 07:25 Patient weight: morbidly obese Heart: regular rate and rhythm Lungs: decreased breath sounds Airway: Mallampati scale class II Neurological: alert and oriented Last oral intake: >/= 8 hours ASA classification: IV Emergent: no Anesthetic plan: proceed Anesthesia type and monitoring: general GIVS and standard monitoring Results Review: All pre-operative results and documents have been reviewed as part of the pre- operative evaluation. Informed Consent: The patient's anesthetic plan and its attendant risks and benefits were discussed with the patient/family/POA. Questions were solicited and answers pr ovided to the satisfaction of the patient/family/POA.
--- NOTE | 2025-04-11 07:30 | P.HP_ITS ---
H&P: HPI History of Present Illness Date/Time: 04/11/25 07:30 Chief Complaint: History of colon polyps Narrative: The patient has a history of colonic polyps, the last colonoscopy was approximately 5 years ago. Review of Systems Review of Systems: All systems reviewed & are unremarkable except as noted in HPI and below PMFSH Past Medical History Medical History Community acquired pneumonia Pancreatic calcification Nausea Supplemental oxygen dependent Dependence on continuous supplemental oxygen Acute and chronic respiratory failure ELIZABETH and COPD overlap syndrome BPH (benign prostatic hyperplasia) Hypertensive CHF Rectal bleeding History of tobacco abuse Chronic constipation Pulmonary hypertension RVSP 59 on echo from July 2019 Morbid obesity with BMI of 45.0-49.9, adult Psoriasis Anxiety Arthritis GI bleed Sleep apnea Home BiPAP 12/05 Pneumonia Bronchitis Emphysema, unspecified COPD (chronic obstructive pulmonary disease) History of cardioversion Atrial flutter Paroxysmal AFib with cardioversion April 2013 and October 23, 2019 Hypertension CHF (congestive heart failure) Last echocardiogram EF was 55% prior echocardiogram previous year demonstrated borderline left ventricular systolic function and diastolic dysfunction grade 1 Surgical History Surgical History Left tibial fracture H/O arthroscopy of left knee Hx of cardiac cath History of tonsillectomy 1966 Family History Family History Mother Rheumatoid arthritis Psoriatic arthritis Breast cancer Hypertension Father Skin cancer With metastases to bone and brain Mother Family history of arthritis Family history of congestive heart failure Father Family history of malignant neoplasm of bone Other Diabetes mellitus Social History Social History Social History: The patient smoked 1.5 packs of cigarettes per day for 40 years but quit smoking in 2018. He used to drink alcohol in moderation but has not drank in some time. He denies any illicit substance use. He his and she eventually later. He has 1 son who he nominates to be the durable power estate planning attorney for healthcare. The patient tells me he lives home alone. The patient is a full code. Smoking packs per day: 0 Smoking cigarettes per day: 0.0 Years smoked: 30 Smoking pack-years: 0.00 Smoking status: Former smoker Tobacco type: cigarettes Second hand tobacco smoke exposure: No Smoking end date: 11/27/17 Alcohol intake: never Substance use: never Substance use type: does not use Do You Feel Safe in your Home?: Yes Lack of Transportation: No Lack of Food: Never True Current Housing: I Have Housing Concerned About Future Housing: No Difficulty Paying Gas/Electric Bills: No Difficulty Paying for Meds: No Currently Unemployed: YES Education: Don't Know Difficulty w/ Childcare or Family Care: No Living arrangements: alone Occupation/Education: retired Additional occupation/education comments: Disabled Gender identity (if verbalized by the patient): Male Sexual Orientation (if Verbalized by the Patient): Straight or Heterosexual Spiritual care concerns: No Agree to blood products: Yes Meds Home Medications and Allergies Home Medications Medication Instructions Recorded Confirmed Type dronedarone 400 mg tablet (Multaq) 400 mg PO BIDWM 10/15/19 04/11/25 History polyethylene glycol 3350 17 17 g PO DAILY 10/16/19 04/11/25 History gram/dose oral powder (Miralax) apixaban 5 mg tablet (Eliquis) 5 mg PO BID 06/02/20 04/11/25 History metoprolol tartrate 25 mg tablet 25 mg PO Q12H 01/21/21 04/11/25 History furosemide 20 mg tablet (Lasix) 20 mg PO QAM #90 tabs 03/04/21 04/11/25 Rx furosemide 40 mg tablet 40 mg PO BID #180 tabs 03/04/21 04/11/25 Rx triamcinolone acetonide 0.1 % 1 applic topical BID #80 grams 03/29/24 04/11/25 Rx topical cream budesonide 0.5 mg/2 mL suspension See Rx Instructions .Route 07/26/24 04/11/25 Rx for nebulization .COMPLEX #360 mL ferrous sulfate 325 mg (65 mg 325 mg PO Q2D anemia #45 tabs 10/18/24 04/11/25 Rx iron) tablet potassium chloride 20 mEq 20 meq PO DAILY #90 tabs 11/29/24 04/11/25 Rx tablet,extended release tamsulosin 0.4 mg capsule 0.4 mg PO HS #90 caps 12/03/24 04/11/25 Rx pantoprazole 40 mg tablet,delayed 40 mg PO QAM #90 tabs 12/16/24 04/11/25 Rx release ipratropium bromide 0.02 % 2.5 ml inhalation Q4H #540 vials 12/19/24 04/11/25 Rx solution for inhalation albuterol sulfate 2.5 mg/3 mL See Rx Instructions .Route 03/17/25 04/11/25 Rx (0.083 %) solution for nebulization .COMPLEX #1,620 mL Allergies Allergy/AdvReac Type Severity Reaction Status Date / Time No Known Allergies Allergy Verified 04/11/25 06:36 Vital Signs Vital Signs - 24 hr 04/11/25 06:39 Temperature 97.1 F L Pulse Rate 84 Respiratory Rate 22 H Blood Pressure 132/74 Pulse Oximetry 97 Oxygen Delivery Nasal Cannula Oxygen Flow Rate 6 Exam Narrative: Morbidly obese, with nasal O2 cannula, cooperative. Const: General: cooperative and healthy appearing Resp: Effort & Inspection: normal respiratory effort and able to speak in complete sentences Auscultation: clear to auscultation bilaterally Cardio: Rate: regular rate Rhythm: regular rhythm GI: Inspection: normal to inspection GI Palp: No No hepatosplenomegaly present Auscultation: normal bowel sounds Rectal Exam: deferred Skin: General skin exam: normal color Psych: Appearance: grossly normal Mental Status: mental status grossly normal Assessment and Plan Assessment and plan (1) History of colonic polyps: Code(s): Z86.0100 - Personal history of colon polyps, unspecified Status: Acute Assessment and Plan: The patient is deemed a good candidate for the procedure. Consent signed. Will proceed.
[2025-04-11 07:57] VITALS: BP 91/48; PULSE 80; RESP 22; O2SAT 92
[2025-04-11 08:07] VITALS: BP 120/64; PULSE 80; RESP 20; O2SAT 92
[2025-04-11 08:17] VITALS: BP 103/59; PULSE 79; RESP 23; O2SAT 93
== END 2025-04-11 08:30 | disposition home or self-care (01) ==
PROVIDERS: PCP Family Medicine; Referring Provider Internal Medicine Gastroenterology; Visit Provider Internal Medicine Gastroenterology
PROC: 0DJD8ZZ Inspection of Lower Intestinal Tract, Via Natural or Artificial Opening Endoscopic (ICD-10-PCS; CPT 45378; principal; 2025-04-11 07:30)
DX: Z12.11 Encounter for screening for malignant neoplasm of colon (principal); K63.89 Other specified diseases of intestine; K64.8 Other hemorrhoids; Z86.0100 Personal history of colon polyps, unspecified; Z87.891 Personal history of nicotine dependence
CPT/HCPCS: G0105; J2704; J7120

== ENCOUNTER 2025-09-01 07:18 | Outpatient (CLI) | payer MEDICARE, SELFPAY ==
--- OUTSIDE RECORDS SUMMARY | 2025-09-01 07:22 | XMS_ITS | Clinical Summary ---
Author Organization [facility] [address] [facility] [address] Address [address] [place] [address] Care Team Providers Care Calliope Player Name Role Phone Dangelo Arce MD Primary [...] TWICE DAILY NEEDED FOR RASH 2 Active predniSONE (DELTASONE) 10 mg tablet 4 Active senna (SENOKOT) 8.6 mg tablet Take 4 tablets by mouth daily Active polyethylene glycol (MIRALAX) 17 gram/dose bulk powder Take 17 g by mouth daily Active magnesium hydroxide (CONCENTRATED MILK OF MAGNESIA) suspension 2,400 mg/10 mL as needed Active furosemide (LASIX) 40 mg tablet TAKE 1 TABLET(40 MG) BY MOUTH TWICE DAILY 60 tablet 5 5 Active furosemide (LASIX) 20 mg tablet TAKE 1 TABLET(20 MG) BY MOUTH EVERY MORNING 90 tablet 2 5 Active metoprolol tartrate (LOPRESSOR) 25 mg immediate release tablet TAKE 1 TABLET(25 MG) BY MOUTH TWICE DAILY 180 tablet 2 5 Active apixaban (Eliquis) 5 mg tablet TAKE 1 TABLET(5 MG) BY MOUTH TWICE DAILY 180 tablet 2 5 Active Multaq 400 mg tablet TAKE 1 TABLET(400 MG) BY MOUTH TWICE DAILY WITH MEALS 180 tablet 3 5 Active Active Problems Problem Noted Date Diagnosed Date Pulmonary hypertension 01/28/2021 Morbid obesity with BMI of 45.0-49.9, adult ([facility]) 11/02/2020 Chronic anticoagulation 12/05/2019 Chronic obstructive [...] (HCC) COPD (chronic obstructive pu lmonary disease) GERD (gastroesophageal reflux disease) Family History Medical [...] on file 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
--- OUTSIDE RECORDS SUMMARY | 2025-09-01 07:23 | XMS_ITS | Encounter Summary ---
Author Organization [facility] Healthcare Address [address] [place] [address] Care Team Providers Care Dedicated Intermodal Truck Driver Name Role Phone Dangelo Arce MD Primary Care Provider Encounter Details Date Type Department Care Team (Late st Contact Info) Description 05/02/2025 Orders Only [facility] Health Information Management [address] [place] [phone] Scanning, Provider Social History Tobacco Use Types Packs/Day Years Used Date Smoking Tobacco: Former Cigarettes Q uit: 11/16/2018 Smokeless Tobacco: Never Comments:Smoking History Pac ks/day: 4 Cigarettes Alcohol Use Standard Drinks/Week Comments No 0 (1 standard drink = 0.6 oz pur e alcohol) PHQ-2 Answer Date Recorded PHQ-2 Score 0 11/14/2019 Sex and Gender Information Value Date Recorded Sex Assigned at Not on file 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 Gender Identity Not on file Sexual Orientation Not on file documented as of this encounter Plan of Treatment Not on file documented as of this encounter Procedures Procedure Name Priority Date/Time Associated Diagnosis Comments GI - RESULT 05/02/2025 9:29 PM CDT documented in this encounter Results * GI - RESULT (05/02/2025 9:29 PM CDT) Anatomical Region Laterality Modality Other us Provider Scanning Final Result documented in this encounter Visit Diagnoses Not on filedocumented in this encounter Care Teams Dedicated Intermodal Truck Driver Relationship Specialty Start Date End Date Dangelo Arce MD [address] [place], [place] [phone] PCP - General 02/24/17 documented as of this encounter
--- OUTSIDE RECORDS SUMMARY | 2025-09-01 07:23 | XMS_ITS | Encounter Summary ---
Author Organization 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 Gender Identity Not on file Sexual Orientation Not on file documented as of this encounter Plan of Treatment Not on file documented as of this encounter Procedures Procedure Name Priority Date/Time Associated Diagnosis Comments GI - RESULT 04/16/2025 9:28 PM CDT documented in this encounter Results * GI - RESULT (04/16/2025 9:28 PM CDT) Anatomical Region Laterality Modality Other us Provider Scanning Final Result documented in this encounter Visit Diagnoses Not on filedocumented in this encounter Care Teams Environmental Studies Program Director Relationship Specialty Start Date End Date Dangelo Arce MD [address] [place], [place] [phone] PCP - General 02/24/17 documented as of this encounter
--- OUTSIDE RECORDS SUMMARY | 2025-09-01 07:23 | XMS_ITS | Clinical Summary ---
Author Organization [facility] Address [address] [place] [address] Care Team Providers Care Carbonizer Tester Name Role Phone Dangelo Arce MD Primary Care Provider [phone] Medications lisinopril 5 MG tablet TK 1 [...] solutionIndicati ons:Chronic bronchitis, unspecified chronic bronchitis type ([facility]) ONE VIAL IN NEBULIZER EVERY SIX HOURS 360 mL 9 Active hydrALAZINE 10 MG tabletIndication s:HTN (hypertension), benign Take 1 tablet (10 mg total) by mouth 4 (four) times daily. 120 tablet 9 Active ipratropium 0.02 % nebulizer solutionIndicati ons:Chronic bronchitis, unspecified chronic bronchitis type ([facility]) USE ONE VIAL IN NEBULIZER EVERY SIX HOURS 225 Container 9 Active budesonide 0.5 MG/2ML nebulizer solutionIndicati ons:Chronic bronchitis, unspecified chronic bronchitis type ([facility]) ONE VIAL IN NEBULIZER TWICE DAILY - RINSE MOUTH AFTER USE AND SPIT 960 mL 9 Active dronedarone (MULTAQ) 400 MG tabletIndication s:History of atrial flutter Take 1 tablet (400 mg total) by mouth 2 (two) times daily with meals. 60 tablet 9 Active furosemide 20 MG tabletIndication s:Heart failure with preserved left ventricular function (HFpEF) ([facility]) Take 1 tablet (20 mg total) by mouth daily with lunch. 30 tablet 9 Active Active Problems Problem Noted Date Diagnosed Date Heart failure with preserved left ventricular function (HFpEF) ([facility]) 12/12/2018 Chronic obstructive pulmonary disease ([facility]) 04/26/2018 Paroxysmal atrial flutter ([facility]) 03/29 History of atrial flutter 10/18/2017 HTN (hypertension), benign 10/18/2017 Morbid obesity with body mass index of 40.0-44.9 in adult 10/18/2017 ELIZABETH treated with BiPAP 10/18/2017 Tobacco abuse 10/18/2017 Hypertensive heart disease w ith congestive heart failure ([facility]) 12/28/2016 Overview (12/11/2018): Overview: Hypertensive heart disease with CHF Social History Tobacco Use Types Packs/Day Years Used Date Smoking Tobacco: Never Assessed Sex and Gender Information Value Date Recorded Sex Assigned at Not on file Legal Sex Male 9:38 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 Gender Identity Not on file Sexual Orientation Not on file Last Filed Vital Signs Vital Sign Reading Time Taken Comments Blood Pressure 116/77 01/09/2019 8:00 AM LEATHER SEASONER Pulse 18 01/09/2019 8:00 AM LEATHER SEASONER Temperature 36.4 C (97.5 F) 01/09/2019 8:00 AM LEATHER SEASONER Respiratory Rate 20 01/09/2019 8:00 AM LEATHER SEASONER Oxygen Saturation 94% 01/09/2019 8:00 AM LEATHER SEASONER Inhaled Oxygen Concentration - - Weight - [...] Annual Medicare Wellness Visit 2019 COVID-19 Vaccine (1 - 2023-2 5 season) 2025 Meningococcal B Vaccine Aged Out No l onger eligible based on patient's age to complete this topic Meningococcal Vaccine Aged Out No teetee warren eligible based on patient's age to complete this topic RSV Immunizations Under 20 Months Aged Out No longer eligible based on patient's age to complete this topic Insurance MEDICARE [facility] Care Teams Carbonizer Tester Relationship Specialty Start Date End Date Dangelo Arce MD [address] [place], [place] [phone] PCP - General FAMILY PRACTICE 01/14/19
[2025-09-01 08:29] LABS: Hematocrit 40.9 % (42.0-52.0); Hemoglobin 12.8 g/dL (14.0-18.0); Immature Granulocyte Percent A 0.5 % (0-0.5); Lymphocytes Absolute Auto 1.06 K/mm3 (0.9-3.2); Mean Corpuscular HGB Conc 31.3 g/dl (32-36); Mean Corpuscular Hemoglobin 29.2 pg (26-34); Mean Corpuscular Volume 93.4 fl (80-100); Nucleated Red Blood Cells Absolute Auto 0.000 K/mm3 (0.0-0.012); Nucleated Red Blood Cells Perc 0.0 % (0.0-0.2); Platelet Count Result 265 k/mm3 (150-375); Red Blood Count 4.38 M/mm3 (4.6-6.20); White Blood Count 7.7 K/mm3 (4.5-10.0)
[2025-09-01 08:48] LABS: Alanine Aminotransferase 21 U/L (6-50); Albumin Level 4.1 g/dL (3.5-5.1); Alkaline Phosphatase 64 U/L (38-126); Anion Gap 6 mmol/L (4-12); Aspartate Amino Transferase 22 U/L (17-59); Bilirubin,Total 0.4 mg/dL (0.2-1.3); Blood Urea Nitrogen 25 mg/dL (9-20); Calcium 8.2 mg/dL (8.4-10.2); Carbon Dioxide 34 mmol/L (22-30); Chloride 101 mmol/L (98-107); Estimated Glomerular Filt Rate > 60; Glucose 114 mg/dL (65-110); Potassium 4.1 mmol/L (3.4-5.0); Sodium 141 mmol/L (137-145); Total Protein 6.9 g/dL (6.3-8.2)
[2025-09-01 08:49] LABS: Iron 55 ug/dL (49-181)
[2025-09-01 08:58] LABS: Percent Iron Saturation 13 % (20-50)
[2025-09-01 09:30] LABS: Ferritin 19.20 ng/mL (11.1-264)
== END 2025-09-01 07:19 | disposition home or self-care (01) ==
PROVIDERS: PCP Family Medicine; Visit Provider Physician Assistant
DX: R73.01 Impaired fasting glucose (principal); I11.0 Hypertensive heart disease with heart failure; I50.9 Heart failure, unspecified; D64.9 Anemia, unspecified; D50.9 Iron deficiency anemia, unspecified
CPT/HCPCS: 36415; 80053; 82728; 83540; 83550; 85025

== ENCOUNTER 2025-10-10 08:18 | Outpatient (CLI) | payer MEDICARE, SELFPAY ==
--- NOTE | ~2025-10-10 | CT_ITS ---
EXAMINATION: CT lung screening DATE: 10/10/2025 08:37 INDICATION: Z87.891 - Personal history of nicotine dependence TECHNIQUE: Computed tomography (CT) of the chest was performed without intravenous contrast. Additional 3D reconstructions utilizing coronal maximum intensity projection (MIP) were performed. Automated exposure control and iterative reconstruction technique were employed. The dose-length product was 49 3.63 mGy-cm. COMPARISON: None FINDINGS: Moderate upper lung predominant emphysema. Interval progression of bandlike discoid atelectasis at the lingula. Additional persistent atelectasis/scarring along the anterior right middle lobe. Small calcified nodules in the right upper lobe consistent with old granulomatous disease. No other noncalcified pulmonary nodules, pneumonia, pulmonary edema or pleural effusion. Stable appearance of bilateral increased posterior subpleural fat. Heart size is normal. No pericardial effusion. Thoracic aorta is normal in caliber. No pathologically enlarged thoracic lymphadenopathy. Unchanged 3.2 cm with low-density right adrenal mass without definitive macroscopic fat and favor adenoma over myelolipoma. Moderate thoracic spondylosis. IMPRESSION: 1. Lung-RADS category 1: Negative. Continue annual screening with noncontrast low-dose chest CT in 12 months. Reviewed, dictated and finalized at location A. [employer] IMPRESSION: 1. Lung-RADS category 1: Negative. Continue annual screening with noncontrast l ow-dose chest CT in 12 months.
--- OUTSIDE RECORDS SUMMARY | 2025-10-10 08:30 | XMS_ITS | Clinical Summary ---
Author Organization [facility] [address] [facility] [address] Address [address] [place] [address] Care Team Providers Care Preparation Center Coordinator Name Role Phone Dangelo Arce MD Primary [...] Morbid obesity with BMI of 45.0-49.9, adult ([facility] /[facility]) 11/02/2020 Chronic anticoagulation 12/05/2019 [...] Encounters Date Type Department Care Team Description 09/26/2025 8:30 AM CDT Office Visit [facility] Cardiology [address] [place] [address] Pepe Massey MD Paroxysmal atrial flutter (HCC) (Primary Dx); Pulmonary hypertension (HCC); HTN (hypertension), benign; Hypertensive heart disease with chronic diastolic congestive heart failure (HCC); Chronic anticoagulation; Morbid obesity with BMI of 45.0-49.9, adult ([facility]) (HCC) from Last 3 Months Surgical History Surgery [...] on file 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 Gender Identity Not on file Sexual Orientation Not on file Last Filed Vital Signs Vital Sign Reading Time Taken Comments Blood Pressure 128/70 09/26/2025 8:26 AM CDT Pulse 72 09/26/2025 8:26 AM CDT Temperature 36.8 C (98.2 F) 04/28/2021 8:44 AM CDT Respiratory Rate 26 04/28/2021 8:44 AM CDT Oxygen Saturation 93% 09/26/2025 8:26 AM CDT 6L O2 Inhaled Oxygen Concentration - - Weight 157.9 kg (348 lb) 09/26/2025 8:26 AM CDT Height 182.9 cm (6') 09/26/2025 8:26 AM CDT Body Mass Index 47.2 09/26/2025 8:26 AM CDT Plan of Treatment Health Maintenance Due Date Last Done Comments Colon Cancer Screening-Colonoscopy 1954 Hepatitis C Screening 1954 Hepatitis B Screening 1972 Pneumococcal vaccine 65+ (1 of 2 - PCV) 1973 Zoster Vaccine (1 of 2) 2004 Abdominal Aortic Aneurysm (AAA) Screen 2019 Well Visit 65+ 2019 Depression Screening 11/14/2020 11/14/2019 Fall Risk Assessment 04/28/2022 04/28/2021 DTaP/Tdap/Td Vaccine (2 - Td or Tdap) 03/26/2024 Influenza Vaccine (#1) 2025 10/24/2019 Procedures Procedure Name Priority Date/Time Associated Diagnosis Comments ELECTROCARDIOGRAM REPORT Routine 025 8:57 AM CDT Paroxysmal atrial flutter (HCC) from Last 3 Months Results * Electrocardiogram Report (09/26/2025 8:57 AM CDT) Pepe Massey MD ECG ORDERABLES Final Res ult from Last 3 Months Insurance MEDICARE MEDICARE [facility] MEDICARE [facility] MEDICARE SUPPLEMENT Care Teams Preparation Center Coordinator Relationship Specialty Start Date End Date Dangelo Arce MD [address] [place] [address] PCP - General 02/24/17
--- OUTSIDE RECORDS SUMMARY | 2025-10-10 08:30 | XMS_ITS | Encounter Summary ---
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 [address] [place] [address] PCP - General 02/24/17 documented as of this encounter
--- OUTSIDE RECORDS SUMMARY | 2025-10-10 08:31 | XMS_ITS | Encounter Summary ---
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
--- OUTSIDE RECORDS SUMMARY | 2025-10-10 08:31 | XMS_ITS | Encounter Summary ---
Author Organization 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
--- OUTSIDE RECORDS SUMMARY | 2025-10-10 08:31 | XMS_ITS | Clinical Summary ---
Author Organization [facility] Address [address] [place] [address] Care Team Providers Care Inspector Aligning Name Role Phone Dangelo Arce MD Primary Care Provider [phone] Medications lisinopril 5 MG tablet TK 1 [...] solutionIndicati ons:Chronic bronchitis, unspecified chronic bronchitis type ([facility]) ONE VIAL IN NEBULIZER EVERY SIX HOURS 360 mL 9 Active hydrALAZINE 10 MG tabletIndication s:HTN (hypertension), benign Take 1 tablet (10 mg total) by mouth 4 (four) times daily. 120 tablet 9 Active ipratropium 0.02 % nebulizer solutionIndicati ons:Chronic bronchitis, unspecified chronic bronchitis type ([facility]CC) USE ONE VIAL IN NEBULIZER EVERY SIX HOURS 225 Container 9 Active budesonide 0.5 MG/2ML nebulizer solutionIndicati ons:Chronic bronchitis, unspecified chronic bronchitis type ([facility]) ONE VIAL IN NEBULIZER TWICE DAILY - RINSE MOUTH AFTER USE AND SPIT 960 mL 9 Active dronedarone (MULTAQ) 400 MG tabletIndication s:History of atrial flutter Take 1 tablet (400 mg total) by mouth 2 (two) times daily with meals. 60 tablet 9 Active furosemide 20 MG tabletIndication s:Heart failure with preserved left ventricular function (HFpEF) ([facility]) Take 1 tablet (20 mg total) by mouth daily with lunch. 30 tablet 9 Active Active Problems Problem Noted Date Diagnosed Date Heart failure with preserved left ventricular function (HFpEF) 12/12/2018 Chronic obstructive pulmonary disease 04/26/2018 Paroxysmal atrial flutter 04/26/2018 History of atrial flutter 10/18/2017 HTN (hypertension), benign 10/18/2017 Morbid obesity with body mass index of 40.0-44.9 in adult 10/18/2017 ELIZABETH treated with BiPAP 10/18/2017 Tobacco abuse 10/18/2017 Hypertensive heart disease with congestive heart failure 12/28/2016 Overview (12/11/2018): Overview: Hypertensive heart disease with CHF Social History Tobacco Use Types Packs/Day Years Used Date Smoking Tobacco: Never Assessed Sex and Gender Information Value Date Recorded Sex Assigned at Not on file 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 Male 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 Gender Identity Not on file Sexual Orientation Not on file Last Filed Vital Signs Vital Sign Reading Time Taken Comments Blood Pressure 116/77 01/09/2019 8:00 AM BENDER HELPER Pulse 18 01/09/2019 8:00 AM BENDER HELPER Temperature 36.4 C (97.5 F) 01/09/2019 8:00 AM BENDER HELPER Respiratory Rate 20 01/09/2019 8:00 AM BENDER HELPER Oxygen Saturation 94% 01/09/2019 8:00 AM BENDER HELPER Inhaled Oxygen Concentration - - Weight [...] Wellness Visit 2019 COVID-19 Vaccine ( - 2024-2 6 season) 2025 Influenza Adult (#1) 2025 Hepatitis A Vaccines Aged Out No long er eligible based on patient's age to complete this topic Meningococcal B Vaccine Aged Out No l onger eligible based on patient's age to complete this topic Meningococcal Vaccine Aged Out No teetee warren eligible based on patient's age to complete this topic RSV Immunizations Under 20 Months Aged Out No longer eligible based on patient's age to complete this topic Insurance MEDICARE [facility] Care Teams Inspector Aligning Relationship Specialty Start Date End Date Dangelo Arce MD [address] [place] [address] PCP - General FAMILY PRACTICE 01/14/19
== END 2025-10-10 08:19 | disposition home or self-care (01) ==
PROVIDERS: PCP Family Medicine; Visit Provider Nurse Practitioner Family
DX: Z12.2 Encounter for screening for malignant neoplasm of respiratory organs (principal); Z87.891 Personal history of nicotine dependence
CPT/HCPCS: 71271